=== PATIENT | female | born 1950 | race Caucasian/White ===

== ENCOUNTER 2022-02-01 08:11 | Outpatient (REF) | payer MEDICARE, OTHER, SELFPAY ==
[2022-02-01 11:23] LABS: MANUAL DIFF FLAG NO
[2022-02-01 11:31] LABS: Basophils Percent Auto 0.3 % (0-2); Eosinophils Absolute Auto 0.2 X10*3/uL (0.0-0.4); Eosinophils Percent Auto 2.8 % (0-4); Hematocrit 45.3 % (37.0-47.0); Hemoglobin 14.5 g/dl (12.0-16.0); Imm Gran Abs Auto 0.01 X10*3/uL (0.00-0.03); Imm Gran Pct Auto 0.2 % (0.0-0.4); Lymphocytes Absolute Auto 2.1 X10*3/uL (1.2-4.9); Lymphocytes Percent Auto 34.4 % (20-40); Mean Corpuscular Hemoglobin 30.5 pg (27.0-33.0); Mean Corpuscular Volume 95.4 fL (80.0-98.0); Mean Platelet Volume 10.4 fL (9.4-12.3); Monocytes Absolute Auto 0.4 X10*3/uL (0.1-1.2); Monocytes Percent Auto 6.7 % (2-11); Neutrophils Absolute Auto 3.4 x10*3/uL (2.0-8.3); Neutrophils Percent Auto 55.6 % (45-73); Platelet Count 248 X10*3/uL (160-400); Red Blood Count 4.75 X10*6/uL (4.20-5.50); Red Cell Distribution Width 13.5 % (11.0-16.0); White Blood Count 6.2 X10*3/uL (4.8-10.8)
[2022-02-01 11:56] LABS: Alanine Aminotransferase 36 U/L (0-31); Albumin Level 4.5 g/dL (3.5-5.0); Alkaline Phosphatase 106 U/L (39-117); Anion Gap 15 (12-20); Aspartate Amino Transferase 24 U/L (5-31); Bilirubin Total 0.6 mg/dL (0.0-1.0); Blood Urea Nitrogen 15 mg/dL (9-16); Calcium 8.9 mg/dL (8.4-10.2); Carbon Dioxide 25 mmol/L (22-29); Chloride 105 mmol/L (96-108); Cholesterol 212 mg/dL; Estimated Glomerular Filt Rate > 60; Glucose Fasting 98 mg/dL (60-99); HDL Cholesterol 48 mg/dL; LDL Cholesterol Calculated 135 mg/dl; Potassium 3.9 mmol/L (3.3-5.1); Sodium 141 mmol/L (135-145); Total Protein 6.9 g/dL (6.5-8.0); Triglycerides 148 mg/dL
[2022-02-01 12:18] LABS: TSH reflex Free T4 1.75 uIU/mL (0.32-4.0); Vitamin D 25-OH Total 33.7 ng/mL (>30)
== END 2022-02-01 08:12 | disposition home or self-care (01) ==
LOC: HO.HMGCLDS 08:11
PROVIDERS: PCP Internal Medicine; Visit Provider Internal Medicine
DX: E55.9 Vitamin D deficiency, unspecified (principal); E78.5 Hyperlipidemia, unspecified; I10 Essential (primary) hypertension; M85.80 Other specified disorders of bone density and structure, unspecified site
CPT/HCPCS: 36415; 80053; 80061; 82306; 84443; 85025

== ENCOUNTER 2023-01-19 06:07 | Outpatient (REF) | payer MEDICARE, OTHER, SELFPAY ==
[2023-01-19 11:18] LABS: MANUAL DIFF FLAG NO
[2023-01-19 11:44] LABS: Basophils Percent Auto 0.4 % (0-2); Eosinophils Absolute Auto 0.2 X10*3/uL (0.0-0.4); Eosinophils Percent Auto 2.7 % (0-4); Hematocrit 44.1 % (37.0-47.0); Hemoglobin 14.1 g/dl (12.0-16.0); Imm Gran Abs Auto 0.02 X10*3/uL (0.00-0.03); Imm Gran Pct Auto 0.3 % (0.0-0.4); Lymphocytes Absolute Auto 1.8 X10*3/uL (1.2-4.9); Lymphocytes Percent Auto 23.1 % (20-40); Mean Corpuscular Hemoglobin 30.8 pg (27.0-33.0); Mean Corpuscular Volume 96.3 fL (80.0-98.0); Mean Platelet Volume 10.6 fL (9.4-12.3); Monocytes Absolute Auto 0.6 X10*3/uL (0.1-1.2); Monocytes Percent Auto 7.6 % (2-11); Neutrophils Absolute Auto 5.2 x10*3/uL (2.0-8.3); Neutrophils Percent Auto 65.9 % (45-73); Platelet Count 252 X10*3/uL (160-400); Red Blood Count 4.58 X10*6/uL (4.20-5.50); Red Cell Distribution Width 13.2 % (11.0-16.0); White Blood Count 7.9 X10*3/uL (4.8-10.8)
[2023-01-19 12:12] LABS: Alanine Aminotransferase 22 U/L (0-31); Albumin Level 4.2 g/dL (3.5-5.0); Alkaline Phosphatase 103 U/L (39-117); Anion Gap 11 (12-20); Aspartate Amino Transferase 16 U/L (5-31); Bilirubin Total 0.9 mg/dL (0.0-1.0); Blood Urea Nitrogen 14 mg/dL (9-16); Calcium 9.5 mg/dL (8.4-10.2); Carbon Dioxide 27 mmol/L (22-29); Chloride 105 mmol/L (96-108); Cholesterol 213 mg/dL; Estimated Glomerular Filt Rate > 60; Glucose Fasting 105 mg/dL (60-99); HDL Cholesterol 44 mg/dL; LDL Cholesterol Calculated 134 mg/dl; Potassium 4.2 mmol/L (3.3-5.1); Sodium 139 mmol/L (135-145); Total Protein 6.7 g/dL (6.5-8.0); Triglycerides 175 mg/dL
[2023-01-19 12:31] LABS: TSH reflex Free T4 2.05 uIU/mL (0.32-4.0); Vitamin D 25-OH Total 38.9 ng/mL (>30)
== END 2023-01-19 06:08 | disposition home or self-care (01) ==
LOC: HO.HMGCLDS 06:07
PROVIDERS: PCP Internal Medicine; Visit Provider Internal Medicine
DX: E55.9 Vitamin D deficiency, unspecified (principal); I10 Essential (primary) hypertension; E78.5 Hyperlipidemia, unspecified
CPT/HCPCS: 36415; 80053; 80061; 82306; 84443; 85025

== ENCOUNTER 2023-03-07 11:43 | Outpatient (AMB) | payer MEDICARE, OTHER, SELFPAY ==
--- NOTE | 2023-03-07 12:15 | A.OFFPC_ITS ---
Vital Signs 03/07/23 12:17 Height 5 ft 2 in Weight 135 lb BMI 24.7 BP 122/80 Blood Pressure Location Lt brachial Position Sitting Pulse 76 Pulse Source Pulse Oximeter Pulse Oximetry (%) 97 Oxygen Delivery Method Room Air Intake Visit Reasons: 03/27/23 Cataract/Glaucoma Intake Note: Pt is here today for a pre op visit. Pt is having cataract/glaucoma surgery on 03/27/23. Allergies acetaminophen [From Percocet] Adverse Reaction (Verified 03/07/23 12:20) swollen face oxycodone [From Percocet] Adverse Reaction (Verified 03/07/23 12:20) swollen face Sulfa (Sulfonamide Antibiotics) Adverse Reaction (Verified 03/07/23 12:20) swollen face Tobacco use date assessed: 02/02/23 HPI 03/27/23 Cataract/Glaucoma HPI Details Pt presents for preop for cataract surgery. HTN is controlled on Losartan [facility] Surgical History History of breast lump removal Hx of tonsillectomy Family History Father No problems noted. Mother Hypertension Social History Household Members Other:: , retired Housing: House Patient Tobacco Use Status: Never used Tobacco e-Cigarette/Vaping Use: Never Used Current occupational status: retired Cognitive needs: No Hearing needs: No Vision needs: Yes Questionnaire Thrive Questionnaire Date Thrive assessed: 10/20/22 ENA-7 AMB Questionnaire ENA-7 Date ENA - 7 assessed: 02/02/23 Source: Developed by Drs. Brandon Vargas, Aied Sesay, Benedict Garnett and colleagues, with an educational gutierrez from [employer]. Review of Systems Const All systems reviewed & are unremarkable except as noted in HPI and below Reports no additional complaints Eyes Reports no additional complaints ENT Reports no additional complaints Card Reports no additional complaints Resp Reports no additional complaints GI Reports no additional complaints Reports no additional complaints Physical exam (Primary Care) Vital Signs: Last Vital Signs Pulse 76 03/07/23 12:17 BP 122/80 03/07/23 12:17 Pulse Ox 97 03/07/23 12:17 Oxygen Delivery Method Room Air 03/07/23 12:17 BMI result Body Mass Index 24.7 Tobacco/Smoking Status: Tobacco use Status Tobacco use date assessed 02/02/23 03/07/23 12:17 Patient Tobacco Use Status Never used Tobacco 03/07/23 12:17 e-Cigarette/Vaping Use Never Used 03/07/23 12:17 Thrive Assessment: Date of Thrive Assessment Date Thrive assessed 10/20/22 03/07/23 12:17 Const General: no acute distress HENMT Face and sinus: Yes normal facial exam Neck Neck: Yes no lymphadenopathy and Yes supple Resp Effort & Inspection: normal respiratory effort Auscultation: clear to auscultation bilaterally Cardio Rhythm: regular rhythm Heart sounds: S1 normal heart sound present and S2 normal heart sound present GI Inspection: Yes normal to inspection Palpation (GI): Soft to palpation Percussion: Yes normal to percussion Auscultation: normal bowel sounds Assessment and Plan Assessment & Plan (1) Tingling of both feet: Code(s): R20.2 - Paresthesia of skin Plan: CHECK VITAMIN B12 LEVEL (2) Cataract: Code(s): H26.9 - Unspecified cataract Plan: patient is medically cleared for cataract surgery (3) HTN (hypertension): Code(s): I10 - Essential (primary) hypertension Plan: continue losartan Orders: Orders Vitamin B12 and Folate Today R20.2 - Paresthesia of skin Coding Level of Care Code Est Pt Level 3 (32907) Diagnoses Tingling of both feet R20.2 Cataract H26.9 HTN (hypertension) I10
[2023-03-07 12:17] VITALS: BP 122/80; PULSE 76; O2SAT 97; BMI 24.7
== END 2023-03-07 13:17 | disposition home or self-care (01) ==
PROVIDERS: Visit Provider Internal Medicine
DX: R20.2 Paresthesia of skin (principal); H26.9 Unspecified cataract; I10 Essential (primary) hypertension
CPT/HCPCS: 99213

== ENCOUNTER 2023-03-07 13:03 | Outpatient (REF) | payer MEDICARE, OTHER, SELFPAY ==
[2023-03-07 17:38] LABS: Folate 14.6 ng/mL (> or = 4.0); Vitamin B12 545 pg/mL (200-900)
== END 2023-03-07 13:04 | disposition home or self-care (01) ==
LOC: HO.HMGCLDS 13:03
PROVIDERS: PCP Internal Medicine; Visit Provider Internal Medicine
DX: R20.2 Paresthesia of skin (principal)
CPT/HCPCS: 36415; 82607; 82746

== ENCOUNTER 2023-08-15 13:50 | Outpatient (AMB) | payer MEDICARE, OTHER, SELFPAY ==
--- NOTE | 2023-08-15 14:17 | MHC.PC.OV ---
Vital Signs 08/15/23 14:18 Height 5 ft 2 in Weight 135 lb BMI 24.7 BP 122/80 Blood Pressure Location Lt brachial Position Sitting Pulse 84 Pulse Source Pulse Oximeter Pulse Oximetry (%) 98 Oxygen Delivery Method Room Air Intake Visit Reasons: Voice Hoarseness 4 weeks Intake Note: Pt is here today for a sick visit. Pt c/o sore throat and voice hoarseness. Pt states that she also has frequent urination. Allergies acetaminophen [From Percocet] Adverse Reaction (Verified 08/15/23 14:21) swollen face oxycodone [From Percocet] Adverse Reaction (Verified 08/15/23 14:21) swollen face Sulfa (Sulfonamide Antibiotics) Adverse Reaction (Verified 08/15/23 14:21) swollen face Medication List - Last Reconciled 08/15/23 by Bibiana Laurent MD amoxicillin-pot clavulanate 875-125 mg 1 tab PO BID brimonidine 0.1% (Alphagan P) 0 drps ophthalmic (eye) dorzolamide-timolol 22.3-6.8 mg/mL 1 drp ophthalmic (eye) BID losartan 25 mg PO DAILY Tobacco use date assessed: 08/15/23 Fall risk assessment: No Falls in past year Last assessed Fall Risk: 08/15/23 Dental Screening Dental Screen Date: 08/15/23 Did you have a dental visit in the last 12 months?: Yes Did you have a dental problem in the last 6 months where you did not have access to dental care?: No Was dental information given to patient?: Patient has dentist HPI Voice Hoarseness 4 weeks HPI Details Pt presents c/o persistent sinus congestion and facial pain postnasal drip, intermittent cough, general fatigue and 3 days of dysuria and increased urinary frequency. Patient denies fever chills shortness of breath or pleurisy. [facility] Surgical History Hx of tonsillectomy History of breast lump removal Family History Father No problems noted. Mother Hypertension Social History Household Members Other:: , retired Housing: House Patient Tobacco Use Status: Never used Tobacco e-Cigarette/Vaping Use: Never Used Current occupational status: retired Cognitive needs: No Hearing needs: No Vision needs: Yes Questionnaire Thrive Questionnaire Date Thrive assessed: 10/20/22 AUDIT C Alcohol Use Questionnaire (AUDIT-C) 1. How often do you have a drink containing alcohol?: Monthly or less 2. How many drinks containing alcohol do you have on a typical day when you are drinking?: 1 or 2 3. How often do you have six or more drinks on one occasion?: Never Total Score: 1 ENA-7 AMB Questionnaire ENA-7 Date ENA - 7 assessed: 02/02/23 Source: Developed by Drs. Brandon Vargas, Aide Sesay, Benedict Garnett and colleagues, with an educational gutierrez from [employer]. Review of Systems Const All systems reviewed & are unremarkable except as noted in HPI and below Reports no additional complaints Eyes Reports no additional complaints ENT Reports no additional complaints Card Reports no additional complaints Resp Reports no additional complaints GI Reports no additional complaints Reports no additional complaints Physical exam (Primary Care) Vital Signs: Last Vital Signs Pulse 84 08/15/23 14:18 BP 122/80 08/15/23 14:18 Pulse Ox 98 08/15/23 14:18 Oxygen Delivery Method Room Air 08/15/23 14:18 BMI result Body Mass Index 24.7 Tobacco/Smoking Status: Tobacco use Status Tobacco use date assessed 08/15/23 08/15/23 14:22 Patient Tobacco Use Status Never used Tobacco 08/15/23 14:22 e-Cigarette/Vaping Use Never Used 08/15/23 14:22 Thrive Assessment: Date of Thrive Assessment Date Thrive assessed 10/20/22 08/15/23 14:22 Const General: no acute distress HENMT Ears: TM's normal bilaterally General nose exam: Abnormal mucous membranes and turbinates present erythematous and Nasal discharge present Face and sinus: Yes sinus tenderness Throat: Yes postnasal drainage Eyes General: appearance normal, both eyes and all related structures Neck Neck: Yes supple Resp Effort & Inspection: normal respiratory effort Auscultation: clear to auscultation bilaterally Cardio Rhythm: regular rhythm Heart sounds: S1 normal heart sound present and S2 normal heart sound present Results AMB Urinalysis, Automated UA Leukoctes 0 Meliton/uL Last Edit by FERNANDO Huitron on 08/15/23 14:33 UA Nitrite Positive Last Edit by Kiara Lerner, [facility] on 08/15/23 14:33 UA Urobilinogen 0.2 mg/dL Last Edit by Kiara Lerner, [facility] on 08/15/23 14:33 UA Protein 0 mg/dL Last Edit by Kiara Lerner, [facility] on 08/15/23 14:33 UA pH 6.0 Last Edit by Kiara Lerner, [facility] on 08/15/23 14:33 UA Blood 80 Vic/uL Last Edit by Kiara Lerner, [facility] on 08/15/23 14:33 2+ Kiara Lerner 08/15/23 14:33 UA Specific [place] 1.025 Last Edit by Kiara Lerner, [facility] on 08/15/23 14:33 UA Ketone Negative Last Edit by Kiara Lerner [facility] on 08/15/23 14:33 UA Bilirubin 0 mg/dL Last Edit by Kiara Lerner, [facility] on 08/15/23 14:33 UA Glucose 0 mg/dL Last Edit by Kiara Lerner [facility] on 08/15/23 14:33 Results Reviewed Results Reviewed: Laboratory Last Values Urine pH (Auto) 6.0 08/15/23 14:32 Specific [place] (Auto) 1.025 08/15/23 14:32 Urine Protein (Auto) 0 mg/dL 08/15/23 14:32 Glucose (UA)(Auto) 0 mg/dL 08/15/23 14:32 Urine Ketones (Auto) Negative 08/15/23 14:32 Urine Blood (Auto) 80 Vic/uL 08/15/23 14:32 Urine Nitrite (Auto) Positive 08/15/23 14:32 Urine Bilirubin (Auto) 0 mg/dL 08/15/23 14:32 Urine Urobilinogen (Auto) 0.2 mg/dL 08/15/23 14:32 Leukocyte Esterase (Auto) 0 Meliton/uL 08/15/23 14:32 Assessment and Plan Assessment & Plan (1) Sinusitis: Code(s): J32.9 - Chronic sinusitis, unspecified Plan: Augmentin is prescribed and supportive care in including using Flonase nasal spray discussed with the patient (2) Dysuria: Code(s): R30.0 - Dysuria Plan: Urine Dipstick is positive for nitrates and blood, Augmentin is prescribed and supportive care discussed Orders: Orders AMB Urinalysis Automated Today Z13.9 - Encounter for screening, unspecified Medications: New amoxicillin-pot clavulanate 875-125 mg 1 tab PO BID 14 tabs 0RF amoxicillin-pot clavulanate 875-125 mg 1 tab PO BID 14 tabs 0RF Coding Level of Care Code Est Pt Level 3 (83934) Diagnoses Sinusitis J32.9 Dysuria R30.0
[2023-08-15 14:18] VITALS: BP 122/80; PULSE 84; O2SAT 98; BMI 24.7
== END 2023-08-15 15:11 | disposition home or self-care (01) ==
PROVIDERS: PCP Internal Medicine; Visit Provider Internal Medicine
DX: J32.9 Chronic sinusitis, unspecified (principal); R30.0 Dysuria
CPT/HCPCS: 81003; 99213

== ENCOUNTER 2023-10-16 15:15 | Outpatient (AMB) | payer MEDICARE, OTHER, SELFPAY ==
[2023-10-16 15:24] VITALS: BP 132/86; PULSE 86; TEMP 36.7; O2SAT 96; BMI 24.9
--- NOTE | 2023-10-16 15:24 | MHC.OFFWIV ---
Intake Vital Signs 10/16/23 15:24 Height 5 ft 2 in Weight 136 lb 6 oz BMI 24.9 BP 132/86 Blood Pressure Location Lt brachial Position Sitting Pulse 86 Pulse Source Pulse Oximeter Temp 98.1 F Temp Source Oral Pulse Oximetry (%) 96 Oxygen Delivery Method Room Air Intake Visit Reasons: EST/diverticulitis flair up (lobby) Intake Note: Pt is here today for lower pain and abdominal, and states her diverticulitis is fairing up. Patient Tobacco Use Status: Never used Tobacco Allergies acetaminophen [From Percocet] Adverse Reaction (Verified 10/17/23 08:14) swollen face oxycodone [From Percocet] Adverse Reaction (Verified 10/17/23 08:14) swollen face Sulfa (Sulfonamide Antibiotics) Adverse Reaction (Verified 10/17/23 08:14) swollen face Medication List - Last Reconciled 10/17/23 by Valentin Jenkins MD amoxicillin-pot clavulanate 875-125 mg 1 tab PO BID dorzolamide-timolol 22.3-6.8 mg/mL 1 drp ophthalmic (eye) BID losartan 25 mg PO DAILY Do you need a note to return to daycare/school/sports/work: No HPI EST/diverticulitis flair up (lobby) HPI Details 73 yr old female presents to the office for a sick visit. Patient is reporting sx of lower abdominal pain in the left lower quadrant. Sx started a few days ago. She gives history of recurrent diverticulitis. She prefers to take Augmentin only, as this has helped in the past. Does not report sx of nausea or vomiting. No fevers or chills. [facility] Surgical History Hx of tonsillectomy History of breast lump removal Family History Father No problems noted. Mother Hypertension Social History Household Members Other:: , retired Housing: House Patient Tobacco Use Status: Never used Tobacco e-Cigarette/Vaping Use: Never Used Current occupational status: retired Cognitive needs: No Hearing needs: No Vision needs: Yes Physical Exam Vital Signs: Last Vital Signs Temp 98.1 F 10/16/23 15:24 Pulse 86 10/16/23 15:24 BP 132/86 10/16/23 15:24 Pulse Ox 96 10/16/23 15:24 Oxygen Delivery Method Room Air 10/16/23 15:24 BMI result Body Mass Index 24.9 Const General: cooperative and healthy appearing Nutritional Appearance: well nourished Orientation/consciousness: patient oriented x3 Limitations: no limitations HEENT Head: Yes normal to inspection Eyes General: appearance normal, both eyes and all related structures Neck Neck: Yes normal visual inspection Chest Chest palpation & inspection: normal palpation of entire chest wall Resp Effort & Inspection: normal respiratory effort GI Other: Abd: BS well heard in all quadrants. Tenderness in the right lower quadrant. No rebound tenderness. Neuro General: patient oriented x3 Results AMB Urinalysis, Automated UA Leukoctes Meliton/uL Last Edit by Morales Steward MA on 10/16/23 15:43 UA Nitrite Last Edit by Morales Steward MA on 10/16/23 15:43 UA Urobilinogen 0.2 mg/dL Last Edit by Morales Steward MA on 10/16/23 15:43 UA Protein mg/dL Last Edit by Morales Steward MA on 10/16/23 15:43 UA pH 6.0 Last Edit by Morales Steward MA on 10/16/23 15:43 UA Blood 25 Vic/uL Last Edit by Morales Steward MA on 10/16/23 15:43 UA Specific [place] 1.020 Last Edit by Morales Steward MA on 10/16/23 15:43 UA Ketone Last Edit by Morales Steward MA on 10/16/23 15:43 UA Bilirubin mg/dL Last Edit by Morales Steward MA on 10/16/23 15:43 UA Glucose mg/dL Last Edit by Morales Steward MA on 10/16/23 15:43 Results Reviewed Results Reviewed: Laboratory Last Values Urine pH (Auto) 6.0 10/16/23 15:42 Specific [place] (Auto) 1.020 10/16/23 15:42 Urine Blood (Auto) 25 Vic/uL 10/16/23 15:42 Urine Urobilinogen (Auto) 0.2 mg/dL 10/16/23 15:42 Assessment & Plan Assessment & Plan (1) Diverticulitis: Comment: one episode in 2021 Code(s): K57.92 - Diverticulitis of intestine, part unspecified, without perforation or abscess without bleeding Plan: Abx started. Advised to take clear fluids. If pain sx worsen, to proceed to the ER and may need IV abx. Medications: Refilled amoxicillin-pot clavulanate 875-125 mg 1 tab PO BID 14 tabs 0RF Coding Level of Care Code Est Pt Level 4 (05670) Diagnoses Diverticulitis K57.92
== END 2023-10-16 16:21 | disposition home or self-care (01) ==
PROVIDERS: PCP Internal Medicine; Visit Provider Internal Medicine
DX: K57.92 Diverticulitis of intestine, part unspecified, without perforation or abscess without bleeding (principal)
CPT/HCPCS: 99214

== ENCOUNTER 2023-10-22 08:32 | Outpatient (AMB) | payer MEDICARE, OTHER, SELFPAY ==
--- NOTE | 2023-10-22 08:45 | A.OFFPC_ITS ---
Vital Signs 10/22/23 08:46 Height 5 ft 2 in Weight 134 lb BMI 24.5 BP 126/80 Blood Pressure Location Lt brachial Position Sitting Pulse 93 Pulse Source Pulse Oximeter Pulse Oximetry (%) 95 Oxygen Delivery Method Room Air Intake Visit Reasons: UTI follow up Intake Note: Pt is here today for a follow up visit. Allergies acetaminophen [From Percocet] Adverse Reaction (Verified 10/22/23 08:48) swollen face oxycodone [From Percocet] Adverse Reaction (Verified 10/22/23 08:48) swollen face Sulfa (Sulfonamide Antibiotics) Adverse Reaction (Verified 10/22/23 08:48) swollen face Medication List - Last Reconciled 10/22/23 by Bibiana Laurent MD amoxicillin-pot clavulanate 875-125 mg 1 tab PO BID dorzolamide-timolol 22.3-6.8 mg/mL 1 drp ophthalmic (eye) BID losartan 25 mg PO DAILY Tobacco use date assessed: 10/22/23 Dental Screening Dental Screen Date: 10/22/23 Did you have a dental visit in the last 12 months?: Yes Did you have a dental problem in the last 6 months where you did not have access to dental care?: No Was dental information given to patient?: Patient has dentist HPI UTI follow up HPI Details Patient presents for the follow-up of walk in visit for recurrent left lower quadrant abdominal and flank pain. Urinalysis showed hematuria and the patient was prescribed Augmentin for 7 days for possible diverticulitis. Diana ent reports having episodes at least once a year of left lower quadrant abdominal pain with the change in shape in her stool becoming more pencil like. She denies hematochezia melena nausea vomiting fever chills. Patient also reports intermittent left flank pain and left lower back pain occasionally related to position change. Patient denies hematuria dysuria but did not have renal imaging lately. Patient's last colonoscopy was about 10 years ago at [facility] Surgical History Hx of tonsillectomy History of breast lump removal Family History Father No problems noted. Mother Hypertension Social History Household Members Other:: , retired Housing: House Patient Tobacco Use Status: Never used Tobacco e-Cigarette/Vaping Use: Never Used Current occupational status: retired Cognitive needs: No Hearing needs: No Vision needs: Yes Questionnaire Thrive Questionnaire Date Thrive assessed: 10/20/22 ENA-7 AMB Questionnaire ENA-7 Date ENA - 7 assessed: 02/02/23 Source: Developed by Drs. Brandon Vargas, Aide Sesay, Benedict Garnett and colleagues, with an educational gutierrez from [employer]. Review of Systems Const All systems reviewed & are unremarkable except as noted in HPI and below Reports no additional complaints Eyes Reports no additional complaints ENT Reports no additional complaints Card Reports no additional complaints Resp Reports no additional complaints GI Reports no additional complaints Reports no additional complaints Physical exam (Primary Care) Vital Signs: Last Vital Signs Pulse 93 10/22/23 08:46 BP 126/80 10/22/23 08:46 Pulse Ox 95 10/22/23 08:46 Oxygen Delivery Method Room Air 10/22/23 08:46 BMI result Body Mass Index 24.5 Tobacco/Smoking Status: Tobacco use Status Tobacco use date assessed 10/22/23 10/22/23 08:50 Patient Tobacco Use Status Never used Tobacco 10/22/23 08:50 e-Cigarette/Vaping Use Never Used 10/22/23 08:50 Thrive Assessment: Date of Thrive Assessment Date Thrive assessed 10/20/22 10/22/23 08:50 Const General: no acute distress HENMT Head: Yes normal to inspection Eyes General: appearance normal, both eyes and all related structures Resp Effort & Inspection: normal respiratory effort Auscultation: clear to auscultation bilaterally Cardio Rhythm: regular rhythm Heart sounds: S1 normal heart sound present and S2 normal heart sound present GI Inspection: Yes normal to inspection Palpation (GI): Soft to palpation, Tenderness to palpation present (GI) in the LLQ and No Rebound tenderness present Percussion: Yes normal to percussion Auscultation: normal bowel sounds General: Yes CVA tenderness on the left Back/Spine/Pelvis Other: Paraspinal tenderness in lower lumbar region left more than right, straight leg rising 90 degrees bilaterally Back: CVA tenderness Results AMB Urinalysis, Automated UA Leukoctes 0 Meliton/uL Last Edit by FERNANDO Huitron on 10/22/23 09:11 UA Nitrite Negative Last Edit by Kiara Lerner Molly on 10/22/23 09:11 UA Urobilinogen 0.2 mg/dL Last Edit by Kiara Lerner Molly on 10/22/23 09: 11 UA Protein 15 mg/dL Last Edit by Kiara Lerner [facility] on 10/22/23 09:11 UA pH 6.0 Last Edit by Kiara Lerner [facility] on 10/22/23 09:11 UA Blood 10 Vic/uL Last Edit by Kiara Lerner [facility] on 10/22/23 09:11 UA Specific [place] 1.025 Last Edit by Kiara Lerner Molly on 10/22/23 09 :11 UA Ketone Negative Last Edit by Kiara Lerner Molly on 10/22/23 09:11 UA Bilirubin 0 mg/dL Last Edit by Kiara Lerner [facility] on 10/22/23 09:11 UA Glucose 0 mg/dL Last Edit by Kiara Lerner [facility] on 10/22/23 09:11 Results Reviewed Results Reviewed: Laboratory Last Values Urine pH (Auto) 6.0 10/22/23 09:10 Specific [place] (Auto) 1.025 10/22/23 09:10 Urine Protein (Auto) 15 mg/dL 10/22/23 09:10 Glucose (UA)(Auto) 0 mg/dL 10/22/23 09:10 Urine Ketones (Auto) Negative 10/22/23 09:10 Urine Blood (Auto) 10 Vic/uL 10/22/23 09:10 Urine Nitrite (Auto) Negative 10/22/23 09:10 Urine Bilirubin (Auto) 0 mg/dL 10/22/23 09:10 Urine Urobilinogen (Auto) 0.2 mg/dL 10/22/23 09:10 Leukocyte Esterase (Auto) 0 Meliton/uL 10/22/23 09:10 Assessment and Plan Assessment & Plan (1) Diverticulitis: Code(s): K57.92 - Diverticulitis of intestine, part unspecified, without perforation or abscess without bleeding Plan: Obtain CT of the abdomen and pelvis to evaluate for question of recurrent diverticulitis and nephrolithiasis for microscopic hematuria. Because of persistent tenderness in left lower quadrant 4 more days of Augmentin as prescribed. Patient will be referred to GI for colonoscopy (2) Left flank pain: Code(s): R10.9 - Unspecified abdominal pain Plan: For recurrent left flank pain and microscopic hematuria obtain CT the abdomen pelvis to evaluate for nephrolithiasis (3) Dysuria: Code(s): R30.0 - Dysuria Plan: Obtain urine culture (4) Lower back pain: Code(s): M54.50 - Low back pain, unspecified Plan: For chronic lower back pain check x-ray of lumbar spine and referred to physical therapy, try baclofen p.r.n. Orders: Orders Complete Blood Count Auto Diff Today R10.9 - Unspecified abdominal pain, R30.0 - Dysuria Comprehensive Met. Panel Today R10.9 - Unspecified abdominal pain, R30.0 - Dysuria Urine Culture Today R10.9 - Unspecified abdominal pain, R30.0 - Dysuria PT Evaluation and Treatment Today M54.50 - Low back pain, unspecified AMB Urinalysis Automated Today Z13.9 - Encounter for screening, unspecified CT abdomen pelvis wo/w IV con Today K57.92 - Diverticulitis of intestine, part unspecified, without perforation or abscess without bleeding, R31.9 - Hematuria, unspecified XR lumbar spine 2-3V Today R10.9 - Unspecified abdominal pain, R30.0 - Dysuria XR KUB Today R10.9 - Unspecified abdominal pain, R30.0 - Dysuria Referrals Gastroenterology Referral K57.92 - Diverticulitis of intestine, part unspecified, without perforation or abscess without bleeding, Z00.00 - Encounter for general adult medical examination without abnormal findings Medications: New baclofen 10 mg PO BEDTIME 10 tabs 0RF Refilled amoxicillin-pot clavulanate 875-125 mg 1 tab PO BID 8 tabs 0RF Coding Level of Care Code Est Pt Level 4 (78928) Diagnoses Diverticulitis K57.92 Left flank pain R10.9 Dysuria R30.0 Lower back pain M54.50
[2023-10-22 08:46] VITALS: BP 126/80; PULSE 93; O2SAT 95; BMI 24.5
== END 2023-10-22 11:36 | disposition home or self-care (01) ==
PROVIDERS: PCP Internal Medicine; Visit Provider Internal Medicine
DX: K57.92 Diverticulitis of intestine, part unspecified, without perforation or abscess without bleeding (principal); R10.9 Unspecified abdominal pain; R30.0 Dysuria; M54.50 Low back pain, unspecified
CPT/HCPCS: 81003; 99214

== ENCOUNTER 2023-10-22 09:33 | Outpatient (REF) | payer MEDICARE, OTHER, SELFPAY ==
--- NOTE | ~2023-10-22 | XR_ITS ---
EXAMINATION: XR LUMBAR SPINE, KUB CLINICAL INFORMATION: Back pain, unspecified abdominal pain. COMPARISON: None available. TECHNIQUE: 3 views of the lumbar spine. 2 views of the abdomen. FINDINGS: LUMBAR SPINE: The bones are diffusely demineralized. Moderate degenerative changes in the bilateral sacroiliac joints. Atherosclerotic aortoiliac calcifications. Degenerative changes in the imaged lower thoracic spine. Moderate multilevel lumbar spondylosis. Facet arthritis with possible spondylolysis at L5-S1. ABDOMEN: Moderate amount of stool in the colon. Nonobstructive bowel gas pattern. Clips project over the right superior pubic ramus. Large rounded device overlies the lower central pelvis. No definitive radiopaque renal calculi are appreciated, although evaluation of the kidneys is limited due to overlying bowel. XR/XR KUB IMPRESSION: 1. Moderate multilevel lumbar spondylosis. Facet arthritis with possible spondylolysis at L5-S1. 2. Moderate degenerative changes in the bilateral sacroiliac joints. 3. Nonobstructive bowel gas pattern.
--- NOTE | ~2023-10-22 | XR_ITS ---
EXAMINATION: XR LUMBAR SPINE, KUB CLINICAL INFORMATION: Back pain, unspecified abdominal pain. COMPARISON: None available. TECHNIQUE: 3 views of the lumbar spine. 2 views of the abdomen. FINDINGS: LUMBAR SPINE: The bones are diffusely demineralized. Moderate degenerative changes in the bilateral sacroiliac joints. Atherosclerotic aortoiliac calcifications. Degenerative changes in the imaged lower thoracic spine. Moderate multilevel lumbar spondylosis. Facet arthritis with possible spondylolysis at L5-S1. ABDOMEN: Moderate amount of stool in the colon. Nonobstructive bowel gas pattern. Clips project over the right superior pubic ramus. Large rounded device overlies the lower central pelvis. No definitive radiopaque renal calculi are appreciated, although evaluation of the kidneys is limited due to overlying bowel. XR/XR lumbar spine 2-3V IMPRESSION: 1. Moderate multilevel lumbar spondylosis. Facet arthritis with possible spondylolysis at L5-S1. 2. Moderate degenerative changes in the bilateral sacroiliac joints. 3. Nonobstructive bowel gas pattern.
[2023-10-22 11:21] LABS: MANUAL DIFF FLAG NO
[2023-10-22 11:46] LABS: Basophils Percent Auto 0.7 % (0-2); Eosinophils Absolute Auto 0.1 X10*3/uL (0.0-0.4); Eosinophils Percent Auto 1.8 % (0-4); Hematocrit 42.9 % (37.0-47.0); Imm Gran Abs Auto 0.01 X10*3/uL (0.00-0.03); Imm Gran Pct Auto 0.2 % (0.0-0.4); Lymphocytes Absolute Auto 1.8 X10*3/uL (1.2-4.9); Mean Corpuscular HGB Conc 32.6 g/dl (31.0-35.0); Mean Corpuscular Hemoglobin 31.3 pg (27.0-33.0); Mean Corpuscular Volume 95.8 fL (80.0-98.0); Mean Platelet Volume 10.4 fL (9.4-12.3); Monocytes Absolute Auto 0.5 X10*3/uL (0.1-1.2); Monocytes Percent Auto 8.2 % (2-11); Neutrophils Absolute Auto 3.7 x10*3/uL (2.0-8.3); Neutrophils Percent Auto 60.1 % (45-73); Platelet Count 271 X10*3/uL (160-400); Red Blood Count 4.48 X10*6/uL (4.20-5.50); Red Cell Distribution Width 12.2 % (11.0-16.0); White Blood Count 6.1 X10*3/uL (4.8-10.8)
[2023-10-22 12:52] LABS: Alanine Aminotransferase 21 U/L (0-31); Albumin Level 4.2 g/dL (3.5-5.0); Alkaline Phosphatase 91 U/L (39-117); Anion Gap 11 (12-20); Aspartate Amino Transferase 16 U/L (5-31); Bilirubin Total 0.5 mg/dL (0.0-1.0); Blood Urea Nitrogen 23 mg/dL (9-16); Calcium 9.7 mg/dL (8.4-10.2); Carbon Dioxide 27 mmol/L (22-29); Chloride 108 mmol/L (96-108); Estimated Glomerular Filt Rate > 60; Glucose Random 95 mg/dL (60-115); Potassium 4.1 mmol/L (3.3-5.1); Sodium 142 mmol/L (135-145); Total Protein 7.3 g/dL (6.5-8.0)
== END 2023-10-22 09:34 | disposition home or self-care (01) ==
LOC: HO.HMGCX 09:33
PROVIDERS: PCP Internal Medicine; Visit Provider Internal Medicine
DX: R10.9 Unspecified abdominal pain (principal); R30.0 Dysuria
CPT/HCPCS: 36415; 72100; 74018; 80053; 85025

== ENCOUNTER 2023-10-24 09:57 | Outpatient (REF) | payer MEDICARE, OTHER, SELFPAY ==
--- NOTE | ~2023-10-24 | CT_ITS ---
EXAMINATION: CT ABDOMEN AND PELVIS WITHOUT AND WITH CONTRAST CLINICAL INFORMATION: Hematuria COMPARISON: KUB 10/22/2023 TECHNIQUE: Multidetector volumetric imaging was performed of the abdomen and pelvis before and after the IV administration of 85 mL of Omnipaque 300 intravenous contrast. Sagittal and coronal reformatted images were obtained on the technologist's workstation. This CT examination was performed using dose optimization techniques as appropriate, variously including the following: *Automated exposure control *Adjustment of mA and/or kV according to patient size (this includes techniques or standardized protocols for targeted exams where dose is matched to indication/reason for exam; i.e. extremities or head) *Use of iterative reconstruction technique DLP: 477 mGy-cm FINDINGS: LUNG BASES: Minimal atelectatic changes or scarring left lung base. LIVER, GALLBLADDER, AND BILIARY TREE: The liver is normal in size, shape, and attenuation. No focal hepatic lesion or biliary ductal dilatation is present. The gallbladder is unremarkable with no evidence of radiopaque gallstones, gallbladder wall thickening, or obvious pericholecystic inflammatory changes. PANCREAS: Unremarkable SPLEEN: Unremarkable ADRENAL GLANDS: Unremarkable KIDNEYS AND URETERS: The kidneys are normal in size, shape, and attenuation. There is a 5 mm obstructive radiopaque calculi left UPJ with mild hydronephrosis. There is a 2 mm radiopaque calculi left distal ureter.. Postcontrast there is normal bilateral cortical nephrograms with normal thickness. Left kidney measures 11.4 cm in length and right kidney measures 10.2 cm in length. There are bilateral parapelvic renal cysts. Its delayed excretion of left kidney secondary to obstructive UPJ stone. The right ureter is partially opacified postcontrast and appears normal caliber. The left ureter inferior to UPJ is not opacified but appears to be normal caliber. No perirectal fat stranding seen. BLADDER: The bladder is nondistended and appears unremarkable. GASTROINTESTINAL TRACT: There is scattered stool and diverticuli seen in the colon without distention. The small bowel loops are normal caliber. Appendix is normal caliber. No obstruction, inflammatory process of free air seen. ABDOMINAL WALL: A small umbilical hernia containing fat is noted. LYMPH NODES: Normal VASCULAR: Unremarkable PELVIC VISCERA: There is a vaginal/cervical ring shaped pessary. No free fluid. The uterus is anteverted. No adnexal mass seen. No abnormal size pelvic lymph nodes seen. OSSEOUS STRUCTURES: No aggressive lytic or sclerotic process seen CT/CT abdomen pelvis wo/w IV con IMPRESSION: 1. 5 mm obstructive radiopaque calculi left UPJ with mild hydronephrosis. There is a 2 mm radiopaque calculi left distal ureter. 2. There are bilateral parapelvic renal cysts. 3. Scattered colonic diverticulosis without diverticulitis. 4. Incidental vaginal/cervical round pessary noted. Fleischner guidelines were followed.
[2023-10-24] MEDS: iohexoL 350 MG/ML 100 ML INFUS..BTL 85 ML IV (11:24)
== END 2023-10-24 09:58 | disposition home or self-care (01) ==
LOC: HO.CT 09:57
PROVIDERS: PCP Internal Medicine; Visit Provider Internal Medicine
DX: R31.9 Hematuria, unspecified (principal); K57.92 Diverticulitis of intestine, part unspecified, without perforation or abscess without bleeding; R10.9 Unspecified abdominal pain; R30.0 Dysuria
CPT/HCPCS: 74178; 87086; Q9967

== ENCOUNTER 2023-11-09 10:09 | Outpatient (AMB) | payer MEDICARE, OTHER, SELFPAY ==
--- OUTSIDE RECORDS SUMMARY | 2023-11-09 10:11 | XMS_ITS | Continuity of Care Document ---
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 Role Phone Rachel SMITH, Matty Primary Care Physician [phone] Encounter [facility] Date(s): 10/14/21 - 10/14/[address] [address]- Discharge Disposition: A-D/C Home Attending Physician: Basilia Nuñez MD Admitting Physician: Basilia Nuñez MD Referring Physician: Not on Staff, Referring MD Allergies, Adverse Reactions, Alerts Substance Reaction Severity Status sulfa drugs Active Percocet 5/325 Active Medications Alphagan Ophthalmic Solution Eyes, Both, Every 8 hours, 0 Refills, Maintenance, 10/14/21 17:48:00 EST, Partial fill upon patientrequest if the prescription is for a schedule II opioid drug. Start Date: 10/14/21 Status: Ordered Augmentin 875 mg-125 mg oral tablet 1 tablet, By Mouth, Every 8 hours, for 7 days, # 21 tablet, 0 Refills, Acute 10/21/21 19:21:00 EST,10/14/21 19:21:00 EST, Tablet, [facility]/pharmacy #[id number], Partial fill upon patient request if the prescription is for a schedule II opioid drug., 158, cm, 03... Start Date: 10/14/21 Stop Date: 10/21/21 Status: Ordered Cosopt Eyes, Both, 2 times a day, 0 Refills, Maintenance, 10/14/21 17:48:00 EST, Partial fill upon patientrequest if the prescription is for a schedule II opioid drug. Start Date: 10/14/21 Status: Ordered Ketorolac Inj 15 mg, Injection, IV Push Slowly, Once, STAT, 10/14/21 17:52:00 EST, Stop date 10/14/21 17:52:00 EST Start Date: 10/14/21 Stop Date: 10/14/21 Status: Completed Losartan By Mouth, Daily, 0 Refills, Maintenance, 10/14/21 17:32:00 EST, Partial fill upon patient request if the prescription is for a schedule II opioid drug. Start Date: 10/14/21 Status: Ordered Vital Signs Most recent to oldest [Reference Range]: 1 2 3 Height 158 cm (10/14/21 7:35 PM) 158 cm (10/14/21 5:31 PM) 158 cm (10/14/21 5:29 PM) Weight 64.2 kg (10/14/21 7:35 PM) 64.2 kg (10/14/21 5:31 PM) 64.2 kg (10/14/21:29 PM) Oxygen Saturation [94-100 %] 98 % (10/14/21 7:35 PM) 97 % (10/14/21 5:29 PM) Pulse Rate [55-90 bpm] 86 bpm (10/14/21 7:35 PM) 103 bpm *H* (10/14/21 5:29 PM) Body Mass Index [18.5-24.99] 25.72 *H* (10/14/21 7:35 PM) 25.72 *H* (10/14/21 5:29 PM) Blood Pressure [90-138/55-84 mm Hg] 126/76mm Hg (10/14/21 7:35 PM) 176/80mm Hg *H* (10/14/21 5:29 PM) Respiratory Rate [16-30 br/min] 20 br/min (10/14/21 7:35 PM) 20 br/min (10/14/21 6:45 PM) 17 br/min (10/14/21 5:29 PM) Temperature [96.8-100.4 DegF] 99.5 DegF (10/14/21 5:29 PM) Mode of Delivery (Oxygen) Room air (10/14/21 7:35 PM) Room air (10/14/21 5:29 PM) Blood pressure sites Arm, right (10/14/21 5:29 PM) Temperature Route Temporal (10/14/21 5:29 PM) Dry Weight 64.2 kg (10/14/21 7:35 PM) 64.2 kg (10/14/21 5:31 PM) 64.2 kg (10/14/21 5:29 PM) Weight Obtained Via Standing scale (10/14/21 5:29 PM) Dry Weight Obtained Via Standing scale (10/14/21 5:29 PM)
[2023-11-09 10:22] VITALS: BP 120/76; PULSE 95; TEMP 36.6; O2SAT 96; BMI 24.3
--- NOTE | 2023-11-09 10:22 | AM.OFFWIN_ITS ---
Intake Vital Signs 11/09/23 10:22 Height 5 ft 2 in Weight 133 lb BMI 24.3 BP 120/76 Blood Pressure Location Lt brachial Position Sitting Pulse 95 Pulse Source Pulse Oximeter Temp 97.9 F Temp Source Temporal Artery Scan Pulse Oximetry (%) 96 Oxygen Delivery Method Room Air Intake Visit Reasons: EP Nausea, Fever Intake Note: pt is here today for nausea fever started 2 days ago Patient Tobacco Use Status: Never used Tobacco Allergies acetaminophen [From Percocet] Adverse Reaction (Verified 11/09/23 10:27) swollen face oxycodone [From Percocet] Adverse Reaction (Verified 11/09/23 10:27) swollen face Sulfa (Sulfonamide Antibiotics) Adverse Reaction (Verified 11/09/23 10:27) swollen face Do you need a note to return to daycare/school/sports/work: No HPI HPI Comments History of Present Illness Details 73 y/o female patient who [facility] clinic with c/o Nausea and fever (low grade) since yesterday. Pt has h/o Kidney stones and currently being managed by Urology. [facility] Surgical History Hx of tonsillectomy History of breast lump removal Family History Father No problems noted. Mother Hypertension Social History Household Members Other:: , retired Housing: House Patient Tobacco Use Status: Never used Tobacco e-Cigarette/Vaping Use: Never Used Current occupational status: retired Cognitive needs: No Hearing needs: No Vision needs: Yes Physical Exam Vital Signs: Last Vital Signs Temp 97.9 F 11/09/23 10:22 Pulse 95 11/09/23 10:22 BP 120/76 11/09/23 10:22 Pulse Ox 96 11/09/23 10:22 Oxygen Delivery Method Room Air 11/09/23 10:22 BMI result Body Mass Index 24.3 Const General: comfortable and no acute distress Orientation/consciousness: patient oriented x3 General: Yes CVA tenderness bilateral Back/Spine/Pelvis Back: CVA tenderness Neuro General: patient oriented x3, gait normal and moves all extremities Psych Speech and movement: Normal speech and movement present Affect: normal affect Results AMB Urinalysis, Automated UA Leukoctes 70 Meliton/uL Last Edit by Hardeep Barr on 11/09/23 10:53 UA Nitrite Negative Last Edit by Hardeep Barr on 11/09/23 10:53 UA Urobilinogen 0.2 mg/dL Last Edit by Hardeep Barr on 11/09/23 10:53 UA Protein 100 mg/dL Last Edit by Hardeep Barr on 11/09/23 10:53 UA pH 6.0 Last Edit by Hardeep Barr on 11/09/23 10:53 UA Blood 200 Vic/uL Last Edit by Hardeep Barr on 11/09/23 10:53 UA Specific [place] 1.025 Last Edit by Hardeep Barr on 11/09/23 10:53 UA Ketone Positive Last Edit by Hardeep Barr on 11/09/23 10:53 UA Bilirubin 0 mg/dL Last Edit by Hardeep Barr on 11/09/23 10:53 UA Glucose 0 mg/dL Last Edit by Hardeep Barr on 11/09/23 10:53 Assessment & Plan Assessment & Plan (1) Cystitis: Code(s): N30.90 - Cystitis, unspecified without hematuria Plan: - Hydrate with plenty of water - Take medications as prescribed. - F/U with your Urologist as scheduled. Plan - Hydrate with plenty of water - Take medications as prescribed. - F/U with your Urologist as scheduled. Medications: New nitrofurantoin monohyd/m-cryst 100 mg (Macrobid) must administer with a meal/food 100 mg PO Q12H 7 days 14 caps 0RF urinary infection N30.90 - Cystitis, unspecified without hematuria Coding Level of Care Code Est Pt Level 3 (42673) Diagnoses Cystitis N30.90 Time Spent (min) 15
== END 2023-11-09 11:06 | disposition home or self-care (01) ==
PROVIDERS: PCP Internal Medicine; Visit Provider Nurse Practitioner Family
DX: N30.90 Cystitis, unspecified without hematuria (principal)
CPT/HCPCS: 99213

== ENCOUNTER 2023-11-13 12:51 | Outpatient (AMB) | payer MEDICARE, OTHER, SELFPAY ==
--- NOTE | 2023-11-13 13:04 | MHC.OFFVIS ---
Intake Intake Visit Reasons: obstructing stone w/mild hydronephrosis Intake Note: NEW Patient presents today to established treatment for: Obstructing stone/w. mild hydronephrosis Meds- Tamsulosin Allergies to Antibiotic- Sulfa Blood Thinner- None Patient stated she finished the last dose of Prednisone today. Event Specialist Required: No Accompanied by: Self / Same As Patient Allergies acetaminophen [From Percocet] Adverse Reaction (Verified 11/13/23 13:42) swollen face oxycodone [From Percocet] Adverse Reaction (Verified 11/13/23 13:42) swollen face Sulfa (Sulfonamide Antibiotics) Adverse Reaction (Verified 11/13/23 13:42) swollen face Medication List - Last Reconciled 11/13/23 by ALICE Hercules-LAMAR dorzolamide-timolol 22.3-6.8 mg/mL 1 drp ophthalmic (eye) BID losartan 25 mg PO DAILY nitrofurantoin monohyd/m-cryst 100 mg (Macrobid) 100 mg PO Q12H 7 days tamsulosin 0.4 mg PO DAILY 14 days HPI HPI Comments History of Present Illness Details Sharon is a very pleasant 73-year-old female patient of Dr. Laurent. She has a past medical history of hypertension. She presents to the office today as a new patient for nephrolithiasis. In discussion with the patient today she reports having experienced left sided flank pain approximately 1 month ago with lower urinary tract symptoms at which time she made appointment with her PCP and a CT was ordered for further assessment evaluation. These results were reviewed with the patient today. 5 mm obstructive radiopaque calculi in the left UPJ with mild hydronephrosis. There is a 2 mm stone in the left distal ureter. There are bilateral peripelvic renal cysts. She reports having then followed up with her PCP last week as she had been experiencing worsening lower urinary tract symptoms and was found to have a urinary tract infection and has since been on Macrobid. She reports pain has somewhat subsided however does continue with intermittent lower urinary tract symptoms. In office urinalysis results reviewed with the patient today. She otherwise denies incontinence, nocturia, hematuria, dysuria, foul smelling urine, changes to urinary stream, fever, and or chills. She is happy with her current voiding parameters. She denies any previous surgical history and or history of nephrolithiasis. Discussed at length potential causes of nephrolithiasis as well as further treatment options for potential obstruction. She discusses her upcoming trip on a cruise the beginning of December. She otherwise offers no other issues or concerns at time. [facility] Surgical History Hx of tonsillectomy History of breast lump removal Family History Father No problems noted. Mother Hypertension Social History Household Members Other:: , retired Housing: House Patient Tobacco Use Status: Never used Tobacco e-Cigarette/Vaping Use: Never Used Current occupational status: retired Cognitive needs: No Hearing needs: No Vision needs: Yes Review of Systems Const All systems reviewed & are unremarkable except as noted in HPI and below Physical Exam Const General: cooperative, healthy appearing, comfortable, no acute distress, well developed, alert and awake Orientation/consciousness: patient oriented x3 Limitations: no limitations HEENT Head: Yes normal to inspection, Yes normocephalic and Yes atraumatic Ears: hearing grossly normal bilaterally Eyes General: appearance normal, both eyes and all related structures Neck Neck: Yes normal visual inspection and Yes trachea midline Chest Chest palpation & inspection: normal inspection of the chest Resp Effort & Inspection: normal respiratory effort and able to speak in complete sentences Cardio Rate: regular rate GI Inspection: Yes normal to inspection General: Yes no CVA tenderness Back/Spine/Pelvis Back: no CVA tenderness Skin General skin exam: no rashes or lesions noted Neuro General: patient oriented x3 Extrem General: Yes normal to inspection Psych Appearance: grossly normal and well kempt Mental Status: mental status grossly normal Speech and movement: Normal speech and movement present and Clear speech present Affect: normal affect Attitude: cooperative Thought process: Normal thought process present Thought content: Normal thought content present Insight: Fair insight present (Psych) Judgement: Fair judgement present (Psych) Results AMB Urinalysis, Automated UA Leukoctes 0 Meliton/uL Last Edit by Gloria Elias CMA on 11/13/23 13:16 UA Nitrite Negative Last Edit by Gloria Elias CMA on 11/13/23 13:16 UA Urobilinogen 0.2 mg/dL Last Edit [facility], [facility] on 11/13/23 13:16 UA Protein 0 mg/dL Last Edit by [facility], [facility] on 11/13/23 13:16 UA pH 6.0 Last Edit by [facility], [facility] on 11/13/23 13:16 UA Blood 200 Vic/uL Last Edit by [facility], [facility] on 11/13/23 13:16 UA Specific [place] 1.015 Last Edit by [facility], [facility] on 11/13/23 13:16 UA Ketone Positive Last Edit by [facility], [facility] on 11/13/23 13:16 UA Bilirubin 0 mg/dL Last Edit by [facility], [facility] on 11/13/23 13:16 UA Glucose 0 mg/dL Last Edit by [facility], [facility] on 11/13/23 13:16 Results Reviewed Results Reviewed: Laboratory Last Values Urine pH (Auto) 6.0 11/13/23 13:11 Specific [place] (Auto) 1.015 11/13/23 13:11 Urine Protein (Auto) 0 mg/dL 11/13/23 13:11 Glucose (UA)(Auto) 0 mg/dL 11/13/23 13:11 Urine Ketones (Auto) Positive 11/13/23 13:11 Urine Blood (Auto) 200 Vic/uL 11/13/23 13:11 Urine Nitrite (Auto) Negative 11/13/23 13:11 Urine Bilirubin (Auto) 0 mg/dL 11/13/23 13:11 Urine Urobilinogen (Auto) 0.2 mg/dL 11/13/23 13:11 Leukocyte Esterase (Auto) 0 Meliton/uL 11/13/23 13:11 Date of Service: 10/24/23 EXAMINATION: CT ABDOMEN AND PELVIS WITHOUT AND WITH CONTRAST FINDINGS: LUNG BASES: Minimal atelectatic changes or scarring left lung base. LIVER, GALLBLADDER, AND BILIARY TREE: The liver is normal in size, shape, and attenuation. No focal hepatic lesion or biliary ductal dilatation is present. The gallbladder is unremarkable with no evidence of radiopaque gallstones, gallbladder wall thickening, or obvious pericholecystic inflammatory changes. PANCREAS: Unremarkable SPLEEN: Unremarkable ADRENAL GLANDS: Unremarkable KIDNEYS AND URETERS: The kidneys are normal in size, shape, and attenuation. There is a 5 mm obstructive radiopaque calculi left UPJ with mild hydronephrosis. There is a 2 mm radiopaque calculi left distal ureter.. Postcontrast there is normal bilateral cortical nephrograms with normal thickness. Left kidney measures 11.4 cm in length and right kidney measures 10.2 cm in length. There are bilateral parapelvic renal cysts. Its delayed excretion of left kidney secondary to obstructive UPJ stone. The right ureter is partially opacified postcontrast and appears normal caliber. The left ureter inferior to UPJ is not opacified but appears to be normal caliber. No perirectal fat stranding seen. BLADDER: The bladder is nondistended and appears unremarkable. GASTROINTESTINAL TRACT: There is scattered stool and diverticuli seen in the colon without distention. The small bowel loops are normal caliber. Appendix is normal caliber. No obstruction, inflammatory process of free air seen. ABDOMINAL WALL: A small umbilical hernia containing fat is noted. LYMPH NODES: Normal VASCULAR: Unremarkable PELVIC VISCERA: There is a vaginal/cervical ring shaped pessary. No free fluid. The uterus is anteverted. No adnexal mass seen. No abnormal size pelvic lymph nodes seen. OSSEOUS STRUCTURES: No aggressive lytic or sclerotic process seen IMPRESSION: 1. 5 mm obstructive radiopaque calculi left UPJ with mild hydronephrosis. There is a 2 mm radiopaque calculi left distal ureter. 2. There are bilateral parapelvic renal cysts. 3. Scattered colonic diverticulosis without diverticulitis. 4. Incidental vaginal/cervical round pessary noted. Assessment & Plan Assessment & Plan (1) Nephrolithiasis: Comment: left, 5 mm UPJ, 2 mm left ureter, mild obstruction, CT scan 11/03, referred to urology Code(s): N20.0 - Calculus of kidney (2) Hydronephrosis concurrent with and due to calculi of kidney and ureter: Code(s): N13.2 - Hydronephrosis with renal and ureteral calculous obstruction Plan In office urinalysis results reviewed with the patient today; as noted above. Discussed at length potential causes of nephrolithiasis. Discussed obtaining retroperitoneal ultrasound for further assessment evaluation. Discussed, educated, and stressed the importance of drinking plenty of water daily. Discussed near future metabolic workup with 24 hour urine collection and labs. Discussed potential for surgical intervention in the near future if obstruction continues however will await retroperitoneal ultrasound results. Follow-up once imaging is completed; within 1 week; or sooner with any issues, concerns, and or questions. Orders: Orders AMB Urinalysis Automated Today R33.9 - Retention of urine, unspecified US retroperitoneal comp Today N20.0 - Calculus of kidney Patient Instructions: The patient had an opportunity to ask questions regarding the treatment plan. All questions were answered. Physical exam, labs, and imaging were discussed and reviewed in detail. As well as risks, benefits, and discussion of treatment choices. No major barriers to understanding were identified. The patient expressed understanding and agreement with the above treatment plan. The patient was made aware they should contact our office by phone for worsening of their current condition, the appearance of new symptoms, or with any questions or concerns. Compliance is encouraged with any medications and follow up testing that is ordered. It is a privilege to be allowed the opportunity to participate in? your urological care.? Again, if you have any questions or concerns If you have any questions or concerns please do not hesitate to contact me. The office is [phone]. This note is constructed using voice recognition software. While every effort has been made to ensure accuracy street light wirer errors may have been included. Yours sincerely, KRISTAL Hercules Coding Level of Care Code New Pt Level 4 (69646) Diagnoses Nephrolithiasis N20.0 Hydronephrosis concurrent with and due to calculi of kidney and ureter N13.2 Time Spent (min) 30
== END 2023-11-13 13:42 | disposition home or self-care (01) ==
PROVIDERS: PCP Internal Medicine; Visit Provider Nurse Practitioner Family
DX: N13.2 Hydronephrosis with renal and ureteral calculous obstruction (principal); R33.9 Retention of urine, unspecified
CPT/HCPCS: 99204

== ENCOUNTER → 2023-11-13 12:51 | Outpatient (BNVA) | payer MEDICARE, OTHER, SELFPAY | PROVIDERS: PCP Internal Medicine; Visit Provider Nurse Practitioner Family | DX: N20.0 Calculus of kidney (principal); N13.2 Hydronephrosis with renal and ureteral calculous obstruction | CPT/HCPCS: 81003; 99202 ==

== ENCOUNTER 2023-11-19 15:15 | Outpatient (REF) | payer MEDICARE, OTHER, SELFPAY ==
--- NOTE | ~2023-11-19 | US_ITS ---
EXAMINATION: US RETROPERITONEAL LIMITED (RENAL ONLY) CLINICAL INFORMATION: Calculus of kidney. COMPARISON: CT abdomen and pelvis 10/24/2023. TECHNIQUE: Renal ultrasound was performed. FINDINGS: RIGHT KIDNEY: 11.4 x 3.9 x 4.9 cm (SAG x AP x TRV). The kidney is normal in size, contour, and echogenicity. Renal cortical thickness is normal. Two nonobstructing calculi are seen with a 3 mm echogenic focus in the lower pole and a 1 mm echogenic focus in the upper pole. No hydronephrosis. Two benign parapelvic Bosniak class I renal cysts are noted, the largest measuring 1.5 cm which require no additional imaging or follow-up. No solid renal masses are seen. LEFT KIDNEY: 11.7 x 5.0 x 4.9 cm (SAG x AP x TRV). The kidney is normal in size, contour, and echogenicity. Renal cortical thickness is normal. There is some minimal fullness in the left renal collecting system. At the time of the prior CT scan, an obstructing proximal ureteral stone was present. Two echogenic foci are present in the left upper pole measuring 4 mm and 6 mm in size consistent with nonobstructing calculi. No renal masses are seen. US/US renal BI IMPRESSION: Bilateral nonobstructing renal calculi. Mild fullness in the left renal collecting system. At the time of the prior study an obstructing proximal left ureteral stone was present. Please correlate with any procedures that may have been performed to address this.
== END 2023-11-19 15:16 | disposition home or self-care (01) ==
LOC: HO.HMGCX 15:15
PROVIDERS: PCP Internal Medicine; Visit Provider Nurse Practitioner Family
DX: N20.0 Calculus of kidney (principal)
CPT/HCPCS: 76775

== ENCOUNTER 2023-11-20 15:21 | Outpatient (AMB) | payer MEDICARE, OTHER, SELFPAY ==
--- NOTE | 2023-11-20 15:26 | MHC.OFFVIS ---
Intake Intake Visit Reasons: 1w/US Intake Note: Patient presents today for a follow up on: US Meds- Tamsulosin Allergies to Antibiotic- Sulfa Blood Thinner- None Senior Network Architect Required: No Accompanied by: Self / Same As Patient Allergies acetaminophen [From Percocet] Adverse Reaction (Verified 11/20/23 15:54) swollen face oxycodone [From Percocet] Adverse Reaction (Verified 11/20/23 15:54) swollen face Sulfa (Sulfonamide Antibiotics) Adverse Reaction (Verified 11/20/23 15:54) swollen face Medication List - Last Reconciled 11/20/23 by ALICE Hercules- dorzolamide-timolol 22.3-6.8 mg/mL 1 drp ophthalmic (eye) BID losartan 25 mg PO DAILY tamsulosin 0.4 mg PO DAILY 14 days HPI HPI Comments History of Present Illness Details Sharon is a very pleasant 73-year-old female patient of Dr. Laurent. She has a past medical history of hypertension. She presents to the office today for follow-up. Of note, patient was seen approximately 1 week ago as a new patient for nephrolithiasis/obstructing renal stone at which time a retroperitoneal ultrasound was ordered for further assessment evaluation. However it appears when patient arrived to imaging her bladder was not full therefore only a renal ultrasound was performed. These results were reviewed with the patient today. Right kidney with 2 nonobstructing calculi 3 mm in the lower pole and 1 mm in the upper pole. No hydronephrosis. Two benign peripelvic Bosniak class 1 renal cysts are noted the largest measuring 1.5 cm which requires no additional follow-up per radiology report. Left kidney with 2 echogenic foci present in the left upper pole measuring 4 mm in 6 mm. These are nonobstructing. Original appointment was scheduled for telehealth however in discussion with the patient today during her telehealth visit she reported she was at urgent care for UTI like symptoms she has been experiencing. Therefore the appointment was switched to an office visit for further assessment evaluation. In discussion with the patient today she reports feeling lower urinary tract symptoms to have been present for approximately 2 weeks and followed up with urgent care at which time she was prescribed Macrobid. She reports feeling while taking Macrobid symptoms had somewhat improved however since completed antibiotic therapy she continues with urinary urgency, urinary frequency, and episodes of dysuria. In office urinalysis results reviewed with the patient today. Negative nitrates negative leukocytes. 3+ microscopic blood. Patient with a history of recent passing of stone. Discussed at length potential causes and affects of microscopic hematuria. She discusses her upcoming cruise and is worried she will continue to experience these lower urinary tract symptoms. Reassurance provided. Discussed further metabolic workup regarding nephrolithiasis. She otherwise denies incontinence, nocturia, hematuria, dysuria, foul smelling urine, changes to urinary stream, fever, and or chills. She denies any previous surgical history and or history of nephrolithiasis. Discussed at length potential causes of nephrolithiasis. She otherwise offers no other issues or concerns at time. [facility] Surgical History Hx of tonsillectomy History of breast lump removal Family History Father No problems noted. Mother Hypertension Social History Household Members Other:: , retired Housing: House Patient Tobacco Use Status: Never used Tobacco e-Cigarette/Vaping Use: Never Used Current occupational status: retired Cognitive needs: No Hearing needs: No Vision needs: Yes Review of Systems Const All systems reviewed & are unremarkable except as noted in HPI and below Physical Exam Const General: cooperative, healthy appearing, comfortable, no acute distress, well developed, alert and awake Orientation/consciousness: patient oriented x3 Limitations: no limitations HEENT Head: Yes normal to inspection, Yes normocephalic and Yes atraumatic Ears: hearing grossly normal bilaterally Eyes General: appearance normal, both eyes and all related structures Neck Neck: Yes normal visual inspection and Yes trachea midline Chest Chest palpation & inspection: normal inspection of the chest Resp Effort & Inspection: normal respiratory effort and able to speak in complete sentences Cardio Rate: regular rate GI Inspection: Yes normal to inspection General: Yes no CVA tenderness Back/Spine/Pelvis Back: no CVA tenderness Skin General skin exam: no rashes or lesions noted Neuro General: patient oriented x3 Extrem General: Yes normal to inspection Psych Appearance: grossly normal and well kempt Mental Status: mental status grossly normal Speech and movement: Normal speech and movement present and Clear speech present Affect: normal affect Attitude: cooperative Thought process: Normal thought process present Thought content: Normal thought content present Insight: Fair insight present (Psych) Judgement: Fair judgement present (Psych) Results AMB Urinalysis, Automated UA Leukoctes 0 Meliton/uL Last Edit by Gloria Eliasdivina Elias [facility] on 11/20/23 16:13 UA Nitrite Negative Last Edit by [facility], [facility] on 11/20/23 16:13 UA Urobilinogen 0.2 mg/dL Last Edit by [facility], [facility] on 11/20/23 16:13 UA Protein 15 mg/dL Last Edit by [facility], [facility] on 11/20/23 16:13 UA pH 7.0 Last Edit by [facility], [facility] on 11/20/23 16:13 UA Blood 200 Vic/uL Last Edit by [facility], [facility] on 11/20/23 16:13 UA Specific [place] 1.010 Last Edit by [facility], [facility] on 11/20/23 16:13 UA Ketone Negative Last Edit by [facility], [facility] on 11/20/23 16:13 UA Bilirubin 0 mg/dL Last Edit by [facility], [facility] on 11/20/23 16:13 UA Glucose 0 mg/dL Last Edit by [facility], [facility] on 11/20/23 16:13 Results Reviewed Results Reviewed: Laboratory Last Values Urine pH (Auto) 7.0 11/20/23 16:01 Specific [place] (Auto) 1.010 11/20/23 16:01 Urine Protein (Auto) 15 mg/dL 11/20/23 16:01 Glucose (UA)(Auto) 0 mg/dL 11/20/23 16:01 Urine Ketones (Auto) Negative 11/20/23 16:01 Urine Blood (Auto) 200 Vic/uL 11/20/23 16:01 Urine Nitrite (Auto) Negative 11/20/23 16:01 Urine Bilirubin (Auto) 0 mg/dL 11/20/23 16:01 Urine Urobilinogen (Auto) 0.2 mg/dL 11/20/23 16:01 Leukocyte Esterase (Auto) 0 Meliton/uL 11/20/23 16:01 Date of Service: 11/19/23 EXAMINATION: US RETROPERITONEAL LIMITED (RENAL ONLY) FINDINGS: RIGHT KIDNEY: 11.4 x 3.9 x 4.9 cm (SAG x AP x TRV). The kidney is normal in size, contour, and echogenicity. Renal cortical thickness is normal. Two nonobstructing calculi are seen with a 3 mm echogenic focus in the lower pole and a 1 mm echogenic focus in the upper pole. No hydronephrosis. Two benign parapelvic Bosniak class I renal cysts are noted, the largest measuring 1.5 cm which require no additional imaging or follow-up. No solid renal masses are seen. LEFT KIDNEY: 11.7 x 5.0 x 4.9 cm (SAG x AP x TRV). The kidney is normal in size, contour, and echogenicity. Renal cortical thickness is normal. There is some minimal fullness in the left renal collecting system. At the time of the prior CT scan, an obstructing proximal ureteral stone was present. Two echogenic foci are present in the left upper pole measuring 4 mm and 6 mm in size consistent with nonobstructing calculi. No renal masses are seen. IMPRESSION: Bilateral nonobstructing renal calculi. Mild fullness in the left renal collecting system. At the time of the prior study an obstructing proximal left ureteral stone was present. Please correlate with any procedures that may have been performed to address this. Assessment & Plan Assessment & Plan (1) Urinary frequency: Code(s): R35.0 - Frequency of micturition (2) Urinary urgency: Code(s): R39.15 - Urgency of urination (3) Nephrolithiasis: Comment: left, 5 mm UPJ, 2 mm left ureter, mild obstruction, CT scan 11/03, referred to urology Code(s): N20.0 - Calculus of kidney (4) Parapelvic renal cyst: Code(s): N28.1 - Cyst of kidney, acquired (5) Microscopic hematuria: Code(s): R31.29 - Other microscopic hematuria Plan In office urinalysis results reviewed with the patient today; as noted above; will send for urine culture. Discussed at length potential causes for lower urinary tract symptoms patient is experiencing. Discussed at length potential causes and affects of nephrolithiasis as well as microscopic hematuria. Discussed further workup of nephrolithiasis with metabolic workup 24 hour urine collection and labs. Discuss trial of Pyridium Start vitamin B6 as discussed and prescribed. Discussed, educated, and stressed the importance of drinking plenty of water daily. Continue adding 1 oz of lemon juice to water daily. Will obtain 24 hour urine collection Will obtain BMP, calcium, magnesium, uric acid, and vitamin-D for further assessment and evaluation. Follow-up in 3 months with labs and 24 hour urine collection; or sooner with any issues, concerns, and or questions. Orders: Orders Urine Culture Today N39.0 - Urinary tract infection, site not specified Basic Metabolic Panel Today N20.0 - Calculus of kidney Calcium Today N20.0 - Calculus of kidney Magnesium Today N20.0 - Calculus of kidney Uric Acid Today N20.0 - Calculus of kidney Vitamin D 25-OH Total Today N20.0 - Calculus of kidney AMB Urinalysis Automated Today R33.9 - Retention of urine, unspecified URORISK Today N20.0 - Calculus of kidney Phosphorus Today N20.0 - Calculus of kidney Medications: New amoxicillin-pot clavulanate 500-125 mg (Augmentin) 1 tab PO Q8H 21 tabs 2RF 7 days N39.0 - Urinary tract infection, site not specified phenazopyridine 100 mg PO Q8H 6 tabs 1RF 6 doses M54.50 - Low back pain, unspecified, R31.9 - Hematuria, unspecified pyridoxine (vitamin B6) 100 mg PO DAILY 90 tabs 1RF 90 days Patient Instructions: The patient had an opportunity to ask questions regarding the treatment plan. All questions were answered. Physical exam, labs, and imaging were discussed and reviewed in detail. As well as risks, benefits, and discussion of treatment choices. No major barriers to understanding were identified. The patient expressed understanding and agreement with the above treatment plan. The patient was made aware they should contact our office by phone for worsening of their current condition, the appearance of new symptoms, or with any questions or concerns. Compliance is encouraged with any medications and follow up testing that is ordered. It is a privilege to be allowed the opportunity to participate in? your urological care.? Again, if you have any questions or concerns If you have any questions or concerns please do not hesitate to contact me. The office is [phone]. This note is constructed using voice recognition software. While every effort has been made to ensure accuracy director sales training errors may have been included. Yours sincerely, ALICE Hercules-LAMAR Coding Level of Care Code Est Pt Level 4 (85582) Diagnoses Urinary frequency R35.0 Urinary urgency R39.15 Nephrolithiasis N20.0 Parapelvic renal cyst N28.1 Microscopic hematuria R31.29
== END 2023-11-20 16:32 | disposition home or self-care (01) ==
PROVIDERS: PCP Internal Medicine; Visit Provider Nurse Practitioner Family
DX: R35.0 Frequency of micturition (principal); R39.15 Urgency of urination; N20.0 Calculus of kidney; N28.1 Cyst of kidney, acquired; R31.29 Other microscopic hematuria
CPT/HCPCS: 99214

== ENCOUNTER 2023-11-20 15:21 | Outpatient (REF) | payer MEDICARE, OTHER, SELFPAY | END 2023-11-20 15:22 | disposition home or self-care (01) | LOC: HO.LAB 15:21 | PROVIDERS: PCP Internal Medicine; Visit Provider Nurse Practitioner Family | DX: N39.0 Urinary tract infection, site not specified (principal); N20.0 Calculus of kidney; R35.0 Frequency of micturition; N28.1 Cyst of kidney, acquired; R31.29 Other microscopic hematuria | CPT/HCPCS: 81003; 87086; 87088; 87186; 99212 ==

== ENCOUNTER 2023-11-21 14:58 | Outpatient (REF) | payer MEDICARE, OTHER, SELFPAY ==
--- NOTE | ~2023-11-21 | US_ITS ---
EXAMINATION: US PELVIS LIMITED (BLADDER) CLINICAL INFORMATION: Renal calculi. COMPARISON: Renal ultrasound 2 days ago on 11/19/[address] abdomen pelvis 12/24/2019 TECHNIQUE: Real-time imaging of the bladder. FINDINGS: BLADDER: Well distended and normal. Bilateral ureteral jets are demonstrated. Prevoid bladder volume is 264 mL. Postvoid bladder volume is 41 mL. Incidental note is made of a central 1.3 cm rounded hyperechoic mass at the uterine fundus, possibly a fibroid but a endometrial mass cannot be excluded. Dedicated endovaginal ultrasound is recommended for further evaluation. US/US bladder IMPRESSION: 1. Normal-appearing bladder. 2. Incidental note made of a 1.3 cm uterine mass. Dedicated endovaginal ultrasound is recommended for further evaluation.
== END 2023-11-21 14:59 | disposition home or self-care (01) ==
LOC: HO.HMGCX 14:58
PROVIDERS: PCP Internal Medicine; Visit Provider Nurse Practitioner Family
DX: N20.0 Calculus of kidney (principal)
CPT/HCPCS: 76857

== ENCOUNTER 2023-11-27 07:45 | Outpatient (RCR) | payer MEDICARE, OTHER, SELFPAY ==
--- NOTE | 2023-11-27 08:51 | MHC.PT.EP ---
[facility] [place] Office [place] Office [place] Office [address] Zack Garibay [address] [phone] F: [phone] F: [phone] F: [phone] F: [phone] Physical Therapy Plan of Care Date of Evaluation: 11/27/23 Date of Surgery: Diagnosis: This is a 73 yo female presenting to skilled PT with a script for lower back pain. Assessment: This is a 73 yo female presenting to skilled PT with a script for lower back pain. Patient reporting that she recently had kidney stones and when she had an x-ray arthritis was noted. She reports however that she has always had back pain but may have been exacerbated by the kidney stones. Pain is located on the L side low back. Her pain comes and goes. Pain is described as an achy pain. She uses a heating pad at night and her has a roller that helps as well. She also uses ibuprofen or Motrin. Assessment reveals pain that ranges from up to a 5/10 at the worst. Patient demos decreased lumbar, thoracic and hip ROM, strength of hips and core/back, TTP at L side low back and sacral muscles and impaired posture with forward head and rounded shoulders. She demos + SIJ tests on the L as noted above. Based on functional limitations, impaired QOL and pain tolerance patient is a good candidate for skilled PT 2x/wk for 4wks. Frequency and Duration: The patient will be seen 2x/wk for 4wks Short Term Goals: Pt will demonstrate improved postural awareness and understanding of core engagement with supine and standing tasks without cues throughout session to improve overall back safety in 2 weeks. Pt will demonstrate centralization of sx in 2 weeks. Pt will continue to reinforce precautions, sitting, standing and ADL modifications with proper body mechanics in 2 wks. Cpc Coder Goals: Pt will demonstrate improved outcome measure by 5 points in 4 weeks for improved functional mobility. Pt will demonstrate ability to bend and lift WNL min to no pain for household tasks in 4 wks. Pt will be I in HEP and compliant in 4wks Treatment Plan: Modalities to reduce pain, spasms and effusion. Manual therapy to restore motion and function. Therapeutic exercise to improve strength and flexibility. Neuromuscular re-education for posture and balance. Therapeutic activities to return to functional activities of daily living. Electronically signed by: Mouna Chao PT Please sign and return to therapist. Thank you for your referral.
--- NOTE | 2023-12-27 13:41 | MHC.PT.DC ---
[facility] [place] Office [place] Office [place] Office [address] Zack Garibay [address] [phone] F: [phone] F: [phone] F: [phone] F: [phone] Physical Therapy Discharge Report Diagnosis: This is a 73 yo female presenting to skilled PT with a script for lower back pain. Date of Surgery: Date of Evaluation: 11/27/23 Date of Discharge: 12/27/23 Treatments to Date: 1 Cancellations to Date: 0 No Shows to Date: 0 Discharge Status: Patient Elected to Stop Discharge Summary: This is a 73 yo female presenting to skilled PT with a script for lower back pain. Patient reporting that she recently had kidney stones and when she had an x-ray arthritis was noted. She reports however that she has always had back pain but may have been exacerbated by the kidney stones. Pain is located on the L side low back. Her pain comes and goes. Pain is described as an achy pain. She uses a heating pad at night and her has a roller that helps as well. She also uses ibuprofen or Motrin. Assessment reveals pain that ranges from up to a 5/10 at the worst. Patient demos decreased lumbar, thoracic and hip ROM, strength of hips and core/back, TTP at L side low back and sacral muscles and impaired posture with forward head and rounded shoulders. She demos + SIJ tests on the L as noted above. Based on functional limitations, impaired QOL and pain tolerance patient is a good candidate for skilled PT 2x/wk for 4wks. Patient came to [facility] and then was going on vacation, she stated she would call when she returned however she did not call our facility so after 30 days patient's chart was DC'd. Electronically signed by: Mouna Chao PT Please sign and return to therapist. Thank you for your referral.
== END 2023-12-27 13:41 | disposition home or self-care (01) ==
LOC: HO.PTCHIC 07:45
PROVIDERS: PCP Internal Medicine; Visit Provider Internal Medicine
DX: N20.0 Calculus of kidney (principal); M54.50 Low back pain, unspecified
CPT/HCPCS: 97110; 97162

== ENCOUNTER 2023-12-25 15:02 | Outpatient (AMB) | payer MEDICARE, OTHER, SELFPAY ==
--- OUTSIDE RECORDS SUMMARY | 2023-12-25 15:04 | XMS_ITS | Patient Health Record ---
Author Organization [facility] [place] Address [address] [facility] [place] [address] Care Team Providers Care Manager Poker Name Role Phone Bibiana Laurent MD Primary Care Provider Edilberto Harris Unavailable [phone] ALLERGIES Allergen (clinical drug ingredient) Drug/Non Drug Allergy documented on EMR Reaction Allergy Type Onset Date Status Percocet swelling Drug Allergy Active sulfa rash Drug Allergy Active REASON FOR REFERRAL No Information MEDICATIONS Medication SIG (Take, Route, Fr equency, Duration) Notes Start Date End Date Status Cosopt 22.3-6.8 MG/ML 1 drop into affect ed eye Ophthalmic Twice a day Active SOCIAL HISTORY Tobacco Use: Social History Observation Description Date Details (start date - stop date) Never Smoker NA - NA Sex Assigned At : Social History Observation Description Sex Assigned At Unknown Tobacco Use/Smoking Question Answer Notes Are you a: nonsmoker Additional Findings: Tobacco Non-User Current no n-smoker Alcohol Screen Question Answer Notes Did you have a drink containing alcohol in the p ast year? Yes Points 0 Interpretation Negative Tobacco use other than smoking: Question Answer Notes Are you an other tobacco user? No PROBLEMS Problem Type ICD Code Onset Dates Problem Status W/U Status Risk SNOMED Code Notes Problem Onychomycosis (110.1) Active confirmed Onychomycosis (034679807) Problem Hallux Valgus (735.0) Active confirmed Hallux valgus (016883959) Problem Hammer toe (735.4) Active confirmed Hammer toe (480993254) Problem Pain in Limb (729.5) Active confirmed Pain in limb (80521583) Encounters Encounter Location Date Provider Diagnosis [facility] [place] [address] [place] [address] 12/11/2023 Edilberto Ferrari PLAN OF TREATMENT Pending Test Test Name Order Date X ray : Foot, left 2V 02/09/2012 X ray : Foot, right 2V 02/09/2012 [id number] NAIL, 6 OR MORE 02/09/2012 Next Appt Details Provider Name:Edilberto Ferrari , 01/08/2024 09:30:00 AM, [address] [facility], [place], [address], Insurance Providers Payer Name Payer Address Payer Phone Subscriber Number Group Number Insured Name Patient Relationship to Insured Coverage Start Date Coverage End Date Medicare [facility] [employer] [facility] [address] [place] [address] [id number] Sharon Nevarez Self - patient is the insured [facility] [address] [place] [phone] [id number] Sharon Nevarez Self - patient is the insured MEDICAL (GENERAL) HISTORY Medical History History ICD Code chicken pox measles osteoporosis psoriasis Arthritis Cataracts Glaucoma Headaches/Migraines High blood pressure Joint implants/screws Surgical History Surgery Date(Month/Year) pelvic suspension 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
[2023-12-25 15:08] VITALS: BP 140/80; PULSE 92; O2SAT 95; BMI 24.7
--- NOTE | 2023-12-25 15:08 | AM.OFFWIN_ITS ---
Intake Vital Signs 12/25/23 15:08 Height 5 ft 2 in Weight 135 lb BMI 24.7 BP 140/80 H Blood Pressure Location Rt brachial Position Sitting Pulse 92 Pulse Source Pulse Oximeter Pulse Oximetry (%) 95 Oxygen Delivery Method Room Air Intake Visit Reasons: EP thrush? on lip Patient Tobacco Use Status: Never used Tobacco Allergies acetaminophen [From Percocet] Adverse Reaction (Verified 12/25/23 15:08) swollen face oxycodone [From Percocet] Adverse Reaction (Verified 12/25/23 15:08) swollen face Sulfa (Sulfonamide Antibiotics) Adverse Reaction (Verified 12/25/23 15:08) swollen face Medication List - Last Reconciled 12/25/23 by Suhas Ivy MD dorzolamide-timolol 22.3-6.8 mg/mL 1 drp ophthalmic (eye) BID losartan 25 mg PO DAILY pyridoxine (vitamin B6) 100 mg PO DAILY 90 days tamsulosin 0.4 mg PO DAILY 14 days Do you need a note to return to daycare/school/sports/work: No HPI EP thrush? on lip HPI Details Patient is 73-year-old female came in today to be evaluated for possible thrush under her lips Patient says that she has been on multiple antibiotics over the past 2 months. There is no sore throat there is no burning sensation On examination she has developed mild thrush under her upper lip I have sent antifungal lozenges that patient can use up to 4 times a day [facility] Surgical History Hx of tonsillectomy History of breast lump removal Family History Father No problems noted. Mother Hypertension Social History Household Members Other:: , retired Housing: House Patient Tobacco Use Status: Never used Tobacco e-Cigarette/Vaping Use: Never Used Current occupational status: retired Cognitive needs: No Hearing needs: No Vision needs: Yes Review of Systems Const All systems reviewed & are unremarkable except as noted in HPI and below Physical Exam Vital Signs: Last Vital Signs Pulse 92 12/25/23 15:08 BP 140/80 H 05/14/24 15:08 Pulse Ox 95 12/25/23 15:08 Oxygen Delivery Method Room Air 12/25/23 15:08 BMI result Body Mass Index 24.7 Const General: no acute distress Orientation/consciousness: patient oriented x3 HEENT Other: White coating under upper lip mucous membrane Eyes General: appearance normal, both eyes and all related structures Resp Effort & Inspection: normal respiratory effort and able to speak in complete sentences Neuro General: patient oriented x3 Psych Mental Status: mental status grossly normal Assessment & Plan Assessment & Plan (1) Thrush, oral: Code(s): B37.0 - Candidal stomatitis Plan Patient is 73-year-old female came in today to be evaluated for possible thrush under her lips Patient says that she has been on multiple antibiotics over the past 2 months. There is no sore throat there is no burning sensation On examination she has developed mild thrush under her upper lip I have sent antifungal lozenges that patient can use up to 4 times a day Medications: New clotrimazole 10 mg mucous membrane TID 21 tabs 0RF 7 days B37.0 - Candidal stomatitis Coding Level of Care Code Est Pt Level 3 (87256) Diagnoses Thrush, oral B37.0
== END 2023-12-25 15:51 | disposition home or self-care (01) ==
PROVIDERS: PCP Internal Medicine; Visit Provider Internal Medicine
DX: B37.0 Candidal stomatitis (principal)
CPT/HCPCS: 99213

== ENCOUNTER 2024-01-18 13:14 | Outpatient (REF) | payer MEDICARE, OTHER, SELFPAY ==
[2024-01-18 16:27] LABS: Anion Gap 11 (12-20); Blood Urea Nitrogen 16 mg/dL (9-16); Calcium 9.6 mg/dL (8.4-10.2); Carbon Dioxide 27 mmol/L (22-29); Chloride 109 mmol/L (96-108); Estimated Glomerular Filt Rate > 60; Glucose Random 118 mg/dL (60-115); Magnesium 2.1 mg/dL (1.6-2.6); Phosphorus 3.5 mg/dL (2.7-4.5); Potassium 4.1 mmol/L (3.3-5.1); Sodium 143 mmol/L (135-145); Uric Acid 5.4 mg/dL (2.4-5.7)
[2024-01-18 16:45] LABS: Vitamin D 25-OH Total 41.8 ng/mL (>30)
== END 2024-01-18 13:15 | disposition home or self-care (01) ==
LOC: HO.HMGCLDS 13:14
PROVIDERS: PCP Internal Medicine; Visit Provider Nurse Practitioner Family
DX: N20.0 Calculus of kidney (principal)
CPT/HCPCS: 80048; 82306; 82340; 82507; 82570; 83735; 83945; 83986; 84100; 84105; 84133; 84300; 84392; 84550; 84560

== ENCOUNTER 2024-02-07 11:23 | Outpatient (AMB) | payer MEDICARE, OTHER, SELFPAY ==
--- OUTSIDE RECORDS SUMMARY | 2024-02-07 11:25 | XMS_ITS | Patient Health Record ---
Author Organization [facility] michael [place] Address [address] [place] [address] Care Team Providers Care Contract Implementation Analyst Name Role Phone Bibiana Laurent MD Primary Care Provider Ayden Cole Unavailable [phone] Edilberto Ferrari Unavailable [phone] ALLERGIES Allergen (clinical drug ingredient) Drug/Non Drug Allergy documented on EMR Reaction Allergy Type Onset Date Status acetaminophen / oxycodone Percocet swelling Drug Allergy Active sulfa rash [...] Additional Findings: Tobacco Non-User Current no n-smoker Tobacco use other than smoking: Question Answer Notes Are you an other tobacco user? No PROBLEMS Problem Type ICD Code Onset Dates Problem Status W/U Status Risk SNOMED Code Notes Problem Onychomycosis (110.1) Active confirmed Onychomycosis (338236308) Problem Hallux Valgus (735.0) Active confirmed Hallux valgus (054648194) Problem Hammer toe (735.4) Active confirmed Hammer toe (000519400) Problem Pain in Limb (729.5) Active confirmed Pain in limb (17246989) Problem Hallux valgus (acquired), left foot (M20.12) Active confirmed Acquired hallu x valgus (05788382) Problem Hallux valgus (acquired), right foot (M20.11) Active confirmed Acquired hallu x valgus (82519310) Problem Other hammer toe(s) (acquired), right foot (M20.41) Active confirmed Acquired hamme r toe of right foot (583285400491488 5) Problem Other hammer toe(s) (acquired), left foot (M20.42) Active confirmed Acquired hamme r toe of left foot (227756163538029 3) VITAL SIGNS Blood pressure diastolic 71 mm Hg 01/30/2024 Height 5 ft 2 in in 01/30/2024 Blood pressure systolic 125 mm Hg 01/30/2024 Weight 130 lbs 01/30/2024 BMI 23.77 kg/m2 01/30/2024 Encounters Encounter Location Date Provider Diagnosis [address] [address] 12/11/[address] [facility] [address] 01/08/[address] [address] 01/30/2024 Ayden Peace Tinea unguium B35.1 ; Pain in right toe(s) M79.674 ; Pain in left toe(s) M79.675 ; Hallux valgus (acquired), left foot M20.12 ; Hallux valgus (acquired), right foot M20.11 ; Other hammer toe(s) (acquired), right foot M20.41 and Other hammer toe(s) (acquired), left foot M20.42 ASSESSMENTS Encounter Date Diagnosis Assessment Notes Treatment Notes Treatment Clinical Notes 01/30/2024 Tinea unguium (ICD-10 - B35.1) 01/30/2024 Pain in right toe(s) (ICD-10 - M79.674) 01/30/2024 Pain in left toe(s) (ICD-10 - M79.675) 01/30/2024 Hallux valgus (acquired), left foot (ICD-10 - M20.12) 01/30/2024 Hallux valgus (acquired), right foot (ICD-10 - M20.11) 01/30/2024 Other hammer toe(s) (acquired), right foot (ICD-10 - M20.41) 01/30/2024 Other hammer toe(s) (acquired), left foot (ICD-10 - M20.42) PLAN OF TREATMENT Pending Test Test Name Order Date X ray : Foot, left 2V 02/09/2012 X ray : Foot, right 2V 02/09/2012 [id number] NAIL, 6 OR MORE 02/09/2012 Next Appt Details Provider Name:Felecia Barnes Valentin , 05/08/2024 08:15:00 AM, [address], [place], [address], Insurance Providers Payer Name Payer Address Payer Phone Subscriber Number Group Number Insured Name Patient Relationship to Insured Coverage Start Date Coverage End Date Medicare National [employer]t [employer] [address] [place] [address] [id number] Sharon Nevarez Self - patient is the insured [facility] [address] [place] [phone] [id number] Sharon Nevarez Self - patient is the insured MEDICAL (GENERAL) HISTORY Medical History History ICD Code chicken pox measles osteoporosis psoriasis Arthritis Cataracts Glaucoma Headaches/Migraines High blood pressure Joint implants/screws Surgical History Surgery Date(Month/Year) pelvic suspension 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
[2024-02-07 11:45] VITALS: BP 120/78; PULSE 78; O2SAT 97; BMI 24.9
--- NOTE | 2024-02-07 11:45 | MHC.PC.OV ---
Vital Signs 02/07/24 11:45 Height 5 ft 2 in Weight 136 lb BMI 24.9 BP 120/78 Blood Pressure Location Lt brachial Position Sitting Pulse 78 Pulse Source Pulse Oximeter Pulse Oximetry (%) 97 Oxygen Delivery Method Room Air Intake Visit Reasons: PE Intake Note: Pt is here today for PE. Allergies acetaminophen [From Percocet] Adverse Reaction (Verified 02/07/24 11:49) swollen face oxycodone [From Percocet] Adverse Reaction (Verified 02/07/24 11:49) swollen face Sulfa (Sulfonamide Antibiotics) Adverse Reaction (Verified 02/07/24 11:49) swollen face Medication List - Last Reconciled 02/07/24 by Bibiana Laurent MD clotrimazole 10 mg mucous membrane TID 7 days dorzolamide-timolol 22.3-6.8 mg/mL 1 drp ophthalmic (eye) BID losartan 25 mg PO DAILY pyridoxine (vitamin B6) 100 mg PO DAILY 90 days Tobacco use date assessed: 02/07/24 Fall risk assessment: No Falls in past year Last assessed Fall Risk: 02/07/24 Dental Screening Dental Screen Date: 10/22/23 HPI PE HPI Details Patient presents for physical PFSH Surgical History Hx of tonsillectomy History of breast lump removal Family History Father No problems noted. Mother Hypertension Social History Household Members Other:: , retired Housing: House Patient Tobacco Use Status: Never used Tobacco e-Cigarette/Vaping Use: Never Used service: No Current occupational status: retired Cognitive needs: No Hearing needs: No Vision needs: Yes Questionnaire PHQ-9 Over the last 2 weeks, how often have you been bothered by any of the following problems? 1. Little interest or pleasure in doing things: not at all 2. Feeling down, depressed, or hopeless: not at all 3. Trouble falling or staying asleep, or sleeping too much: not at all 4. Feeling tired or having little energy: not at all 5. Poor appetite or overeating: not at all 6. Feeling bad about yourself - or that you are a failure or have let yourself or your family down: not at all 7. Trouble concentrating on things, such as reading the newspaper or watching television: not at all 8. Moving or speaking so slowly that other people could have noticed. Or the opposite - being so fidgety or restless that you have been moving around a lot more than usual: not at all 9. Thoughts that you would be better off or of hurting yourself in some way: not at all Total score: 0 Depression Screening Interpretation: Negative Depression Screening Done: Yes Source: Developed by Drs. Brandon Vargas, Aide Sesay, Benedict Garnett and colleagues, with an educational gutierrez from [employer]. Thrive Questionnaire Date Thrive assessed: 02/07/24 I am a: Patient What is your living situation today?: I have a steady place to live Within the past 12 months, did the food you bought not last and you didn't have the money to get more?: Never true Within the past 12 months, did you worry whether your food would run out before you got money to buy more?: Never true Do you have trouble paying for medicines?: No Do you have trouble getting transportation to medical appointments?: No Do you have trouble paying your heating and electricity bill?: No Do you have trouble taking care of your child, family member or friend?: No Do you have trouble with day-to-day activities such as bathing, preparing meals, shopping, managing finances, etc.?: No Are you currently unemployed and looking for a job?: No Are you interested in more education?: No Please select the resources that you would like help with: None THRIVE Score: 0 ENA-7 AMB Questionnaire ENA-7 Date ENA - 7 assessed: 02/07/24 Feeling nervous, anxious, or on edge: 0 = Not at all Not being able to stop or control worryin = Not at all Worrying too much about different things: 0 = Not at all Trouble relaxin = Not at all Being so restless that it is hard to sit still: 0 = Not at all Becoming easily annoyed or irritable: 0 = Not at all Feeling afraid as if something awful might happen: 0 = Not at all Total ENA-7 score (0-4 normal; 5-9 mild; 10-14 moderate; 15-21 severe): 0 Source: Developed by Drs. Brandon Vargas, Aide Sesay, Benedict Garnett and colleagues, with an educational gutierrez from [employer]. Review of Systems Const All systems reviewed & are unremarkable except as noted in HPI and below Eyes Reports no additional complaints ENT Reports no additional complaints Card Reports no additional complaints Resp Reports no additional complaints GI Reports no additional complaints Reports no additional complaints Physical exam (Primary Care) Vital Signs: Last Vital Signs Pulse 78 02/07/24 11:45 BP 120/78 02/07/24 11:45 Pulse Ox 97 02/07/24 11:45 Oxygen Delivery Method Room Air 02/07/24 11:45 BMI result Body Mass Index 24.9 Tobacco/Smoking Status: Tobacco use Status Tobacco use date assessed 02/07/24 02/07/24 11:54 Patient Tobacco Use Status Never used Tobacco 02/07/24 11:48 e-Cigarette/Vaping Use Never Used 02/07/24 11:48 PHQ-9: PHQ-9 Score PHQ-9: Total score 0 02/07/24 11:54 Depression Screening Interpretation: Negative Thrive Assessment: Date of Thrive Assessment Date Thrive assessed 02/07/24 02/07/24 11:54 Const General: no acute distress HENMT Head: Yes normal to inspection Ears: hearing grossly normal bilaterally Mouth: Normal oral and palatal mucosa present Throat: Yes posterior oropharynx normal Eyes General: appearance normal, both eyes and all related structures Neck Neck: Yes no lymphadenopathy and Yes supple Resp Effort & Inspection: normal respiratory effort Auscultation: clear to auscultation bilaterally Cardio Rhythm: regular rhythm Heart sounds: S1 normal heart sound present and S2 normal heart sound present GI Inspection: Yes normal to inspection Palpation (GI): Soft to palpation Percussion: Yes normal to percussion Auscultation: normal bowel sounds Assessment and Plan Assessment & Plan (1) HTN (hypertension): Code(s): I10 - Essential (primary) hypertension Plan: Continue losartan (2) Hyperlipidemia: Code(s): E78.5 - Hyperlipidemia, unspecified Plan: Continue low-cholesterol diet (3) Annual physical exam: Code(s): Z00.00 - Encounter for general adult medical examination without abnormal findings Plan: Well-balanced diet regular exercise weight loss discussed with the patient. She will have a colonoscopy and is up-to-date with the mammogram (4) Melanoma: Comment: f/u with [facility] Code(s): C43.9 - Malignant melanoma of skin, unspecified Plan: Follows up with Dermatology (5) Uterine mass: Comment: 1.3 cm Present on bladder ultrasound 12/2023 Code(s): N85.8 - Other specified noninflammatory disorders of uterus Plan: Obtain pelvic ultrasound to evaluate (6) Vitamin D deficiency: Code(s): E55.9 - Vitamin D deficiency, unspecified Plan: Continue vitamin-D supplement (7) Osteopenia: Comment: Took Fosamax for 3 years, patient declined repeating DEXA 02/03 Code(s): M85.80 - Other specified disorders of bone density and structure, unspecified site Plan: Continue vitamin supplement regular weight-bearing exercise (8) Nephrolithiasis: Comment: left, 5 mm UPJ, 2 mm left ureter, mild obstruction, CT scan 11/03, referred to urology Code(s): N20.0 - Calculus of kidney Plan: Follow-up with urology Orders: Orders Comprehensive [place]. Panel Fast Today C43.9 - Malignant melanoma of skin, unspecified, E78.5 - Hyperlipidemia, unspecified, I10 - Essential (primary) hypertension, Z00.00 - Encounter for general adult medical examination without abnormal findings Lipid Panel Today C43.9 - Malignant melanoma of skin, unspecified, E78.5 - Hyperlipidemia, unspecified, I10 - Essential (primary) hypertension, Z00.00 - Encounter for general adult medical examination without abnormal findings US pelvic and transvaginal Today N85.8 - Other specified noninflammatory disorders of uterus Comprehensive [place]. Panel Fast 1 Year E55.9 - Vitamin D deficiency, unspecified, E78.5 - Hyperlipidemia, unspecified, I10 - Essential (primary) hypertension, M85.80 - Other specified disorders of bone density and structure, unspecified site, Z00.00 - Encounter for general adult medical examination without abnormal findings Lipid Panel 1 Year E55.9 - Vitamin D deficiency, unspecified, E78.5 - Hyperlipidemia, unspecified, I10 - Essential (primary) hypertension, M85.80 - Other specified disorders of bone density and structure, unspecified site, Z00.00 - Encounter for general adult medical examination without abnormal findings Hemoglobin A1c Today C43.9 - Malignant melanoma of skin, unspecified, E78.5 - Hyperlipidemia, unspecified, I10 - Essential (primary) hypertension, Z00.00 - Encounter for general adult medical examination without abnormal findings Complete Blood Count Auto Diff 1 Year E55.9 - Vitamin D deficiency, unspecified, E78.5 - Hyperlipidemia, unspecified, I10 - Essential (primary) hypertension, M85.80 - Other specified disorders of bone density and structure, unspecified site, Z00.00 - Encounter for general adult medical examination without abnormal findings TSH reflex Free T4 1 Year E55.9 - Vitamin D deficiency, unspecified, E78.5 - Hyperlipidemia, unspecified, I10 - Essential (primary) hypertension, M85.80 - Other specified disorders of bone density and structure, unspecified site, Z00.00 - Encounter for general adult medical examination without abnormal findings Vitamin D 25-OH Total 1 Year E55.9 - Vitamin D deficiency, unspecified, E78.5 - Hyperlipidemia, unspecified, I10 - Essential (primary) hypertension, M85.80 - Other specified disorders of bone density and structure, unspecified site, Z00.00 - Encounter for general adult medical examination without abnormal findings Medications: Discontinued tamsulosin Discontinued Reason: Doctor's Order 0.4 mg PO DAILY 14 days 14 caps 0RF N20.0 - Calculus of kidney Coding Level of Care Code Est Pt Prev Care >65y(73945) Diagnoses HTN (hypertension) I10 Hyperlipidemia E78.5 Annual physical exam Z00.00 Melanoma C43.9 Uterine mass N85.8 Vitamin D deficiency E55.9 Osteopenia M85.80 Nephrolithiasis N20.0
== END 2024-02-07 12:29 | disposition home or self-care (01) ==
LOC: HO.HMGC 11:23
PROVIDERS: PCP Internal Medicine; Visit Provider Internal Medicine
DX: Z00.00 Encounter for general adult medical examination without abnormal findings (principal); C43.9 Malignant melanoma of skin, unspecified; I10 Essential (primary) hypertension; E78.5 Hyperlipidemia, unspecified; N85.8 Other specified noninflammatory disorders of uterus; E55.9 Vitamin D deficiency, unspecified; M85.80 Other specified disorders of bone density and structure, unspecified site; N20.0 Calculus of kidney
CPT/HCPCS: 99397

== ENCOUNTER 2024-02-11 09:33 | Outpatient (AMB) | payer MEDICARE, OTHER, SELFPAY ==
--- NOTE | 2024-02-11 09:41 | MHC.OFFVIS ---
Intake Visit Reasons: 3m/[facility]/labs Intake Note: Patient presents today for a follow up on: [facility] labs Urology Medications: Vitamin B6 Allergies to Antibiotic: Sulfa Blood Thinner: None Atomic Fuel Assembler Required: No Accompanied by: Self / Same As Patient Allergies acetaminophen [From Percocet] Adverse Reaction (Verified 02/11/24 19:27) swollen face oxycodone [From Percocet] Adverse Reaction (Verified 02/11/24 19:27) swollen face Sulfa (Sulfonamide Antibiotics) Adverse Reaction (Verified 02/11/24 19:27) swollen face Medication List - Last Reconciled 02/11/24 by ALICE Hercules-BC clotrimazole 10 mg mucous membrane TID 7 days dorzolamide-timolol 22.3-6.8 mg/mL 1 drp ophthalmic (eye) BID losartan 25 mg PO DAILY pyridoxine (vitamin B6) 100 mg PO DAILY 90 days HPI Comments Details: Sharon is a very pleasant 73-year-old female patient of Dr. Laurent. She has a past medical history of hypertension. She presents to the office today for follow-up of her nephrolithiasis and recurrent urinary tract infections. Recent 24 urine collection results reviewed with the patient today. Low urine volume of 1.28, hypercalciuria, borderline hypocitraturia, and high calcium oxalate. Labs are as follows: 02/03 sodium 143, potassium 4.1, chloride 109, carbon dioxide 27, BUN 16, creatinine 0.82, random glucose 108, uric acid 5.4, calcium 9.6, phosphorus 3.5, magnesium 2.1, and 25 OH vitamin-D total 41.8. Discussed and stressed the importance of increase in fluid intake (water). Previous imaging included retroperitoneal ultrasound 12/04 noting right kidney with 2 nonobstructing calculi 3 mm in the lower pole and 1 mm in the upper pole. No hydronephrosis. Two benign peripelvic Bosniak class 1 renal cysts are noted the largest measuring 1.5 cm which requires no additional follow-up per radiology report. Left kidney with 2 echogenic foci present in the left upper pole measuring 4 mm in 6 mm. These are nonobstructing. Bladder ultrasound noted normal-appearing bladder. Incidental note made of a 1.3 uterine mass. She reports following up with her PCP and having upcoming vaginal/pelvic ultrasound on Sunday. In discussion with the patient today she reports to be doing and feeling well. She reports since her last visit here approximately 3 months ago she has since completed dual antibiotic therapy for positive urine cultures 12/04 that noted Enterobacter aerogenes and has been feeling much better. She denies any UTI like symptoms. She denies urinary urgency, urinary frequency, incontinence, nocturia, hematuria, dysuria, foul smelling urine, changes to urinary stream, flank pain, fever, and or chills. She is happy with her current voiding parameters. She reports compliance with vitamin B6 daily as prescribed. In office urinalysis results reviewed with the patient today. Discussed at length potential causes and treatments for nephrolithiasis. She otherwise offers no other issues or concerns at time. [facility] Surgical History Hx of tonsillectomy History of breast lump removal Family History Father No problems noted. Mother Hypertension Social History Household Members Other:: , retired Housing: House Patient Tobacco Use Status: Never used Tobacco e-Cigarette/Vaping Use: Never Used service: No Current occupational status: retired Cognitive needs: No Hearing needs: No Vision needs: Yes Review of Systems Const All systems reviewed & are unremarkable except as noted in HPI and below Physical Exam Const General: cooperative, healthy appearing, comfortable, no acute distress, well developed, alert and awake Orientation/consciousness: patient oriented x3 Limitations: no limitations HEENT Head: Yes normal to inspection, Yes normocephalic and Yes atraumatic Ears: hearing grossly normal bilaterally Eyes General: appearance normal, both eyes and all related structures Neck Neck: Yes normal visual inspection and Yes trachea midline Chest Chest palpation & inspection: normal inspection of the chest Resp Effort & Inspection: normal respiratory effort and able to speak in complete sentences Cardio Rate: regular rate GI Inspection: Yes normal to inspection General: Yes no CVA tenderness Back/Spine/Pelvis Back: no CVA tenderness Skin General skin exam: no rashes or lesions noted Neuro General: patient oriented x3 Extrem General: Yes normal to inspection Psych Appearance: grossly normal and well kempt Mental Status: mental status grossly normal Speech and movement: Normal speech and movement present and Clear speech present Affect: normal affect Attitude: cooperative Thought process: Normal thought process present Thought content: Normal thought content present Insight: Fair insight present (Psych) Judgement: Fair judgement present (Psych) Results AMB Urinalysis, Automated UA Leukoctes 0 Meliton/uL Last Edit by Timbo Chester on 02/11/24 09:58 UA Nitrite Negative Last Edit by iTmbo Chester on 02/11/24 09:58 UA Urobilinogen 0.2 mg/dL Last Edit by Timbo Chester on 02/11/24 09:58 UA Protein 0 mg/dL Last Edit by Timbo Chester on 02/11/24 09:58 UA pH 6.0 Last Edit by Timbo Chester on 02/11/24 09:58 UA Blood 10 Vic/uL Last Edit by Timbo Chester on 02/11/24 09:58 UA Specific [place] 1.020 Last Edit by Timbo Chester on 02/11/24 09:58 UA Ketone Negative Last Edit by Timbo Chester on 02/11/24 09:58 UA Bilirubin 0 mg/dL Last Edit by Timbo Chester on 02/11/24 09:58 UA Glucose 0 mg/dL Last Edit by Timbo Chester on 02/11/24 09:58 Results Reviewed Results Reviewed: Laboratory Last Values Urine pH (Auto) 6.0 02/11/24 09:54 Specific [place] (Auto) 1.020 02/11/24 09:54 Urine Protein (Auto) 0 mg/dL 02/11/24 09:54 Glucose (UA)(Auto) 0 mg/dL 02/11/24 09:54 Urine Ketones (Auto) Negative 02/11/24 09:54 Urine Blood (Auto) 10 Vic/uL 02/11/24 09:54 Urine Nitrite (Auto) Negative 02/11/24 09:54 Urine Bilirubin (Auto) 0 mg/dL 02/11/24 09:54 Urine Urobilinogen (Auto) 0.2 mg/dL 02/11/24 09:54 Leukocyte Esterase (Auto) 0 Meliton/uL 02/11/24 09:54 Assessment & Plan Assessment & Plan (1) Microscopic hematuria: Code(s): R31.29 - Other microscopic hematuria Category: Medical (2) Parapelvic renal cyst: Code(s): N28.1 - Cyst of kidney, acquired Category: Medical (3) Nephrolithiasis: Comment: left, 5 mm UPJ, 2 mm left ureter, mild obstruction, CT scan 11/03, referred to urology Code(s): N20.0 - Calculus of kidney Category: Medical (4) Recurrent UTI: Code(s): N39.0 - Urinary tract infection, site not specified Category: Medical Plan In office urinalysis results reviewed with the patient today; as noted above. Recent 24 hour urine collection and lab results reviewed with the patient today; as noted above. Continue vitamin B6 daily as discussed and prescribed. Continue adding 1 oz of lemon juice to water daily. Discussed, educated, and stressed the importance of increase in hydration/volume (water) to assist with nephrolithiasis. Patient currently denies any bothersome urinary issues or concerns. She reports to be happy with current voiding parameters. She denies any UTI like symptoms. Will obtain renal ultrasound in 3 months. Continue to follow-up with PCP as planned. Follow-up in 3 months with imaging to be completed prior; or sooner with any issues, concerns, and or questions. Orders: Orders AMB Urinalysis Automated Today Z13.9 - Encounter for screening, unspecified US renal BI 3 Months N20.0 - Calculus of kidney Patient Instructions: The patient had an opportunity to ask questions regarding the treatment plan. All questions were answered. Physical exam, labs, and imaging were discussed and reviewed in detail. As well as risks, benefits, and discussion of treatment choices. No major barriers to understanding were identified. The patient expressed understanding and agreement with the above treatment plan. The patient was made aware they should contact our office by phone for worsening of their current condition, the appearance of new symptoms, or with any questions or concerns. Compliance is encouraged with any medications and follow up testing that is ordered. It is a privilege to be allowed the opportunity to participate in? your urological care.? Again, if you have any questions or concerns If you have any questions or concerns please do not hesitate to contact me. The office is [phone]. This note is constructed using voice recognition software. While every effort has been made to ensure accuracy drier unloader errors may have been included. Yours sincerely, KRISTAL Hercules Coding Level of Care Code Est Pt Level 3 (89826) Complex EM visit Add On G2211 Diagnoses Microscopic hematuria R31.29 Parapelvic renal cyst N28.1 Nephrolithiasis N20.0 Recurrent UTI N39.0
== END 2024-02-11 10:21 | disposition home or self-care (01) ==
PROVIDERS: PCP Internal Medicine; Visit Provider Nurse Practitioner Family
DX: R31.29 Other microscopic hematuria (principal); N28.1 Cyst of kidney, acquired; N20.0 Calculus of kidney; N39.0 Urinary tract infection, site not specified; Z13.9 Encounter for screening, unspecified
CPT/HCPCS: 99213; G2211

== ENCOUNTER → 2024-02-11 09:33 | Outpatient (BNVA) | payer MEDICARE, OTHER, SELFPAY | PROVIDERS: PCP Internal Medicine; Visit Provider Nurse Practitioner Family | DX: N28.1 Cyst of kidney, acquired (principal); N20.0 Calculus of kidney; N39.0 Urinary tract infection, site not specified; I10 Essential (primary) hypertension; R31.29 Other microscopic hematuria | CPT/HCPCS: 81003; 99212 ==

== ENCOUNTER 2024-02-15 13:46 | Outpatient (REF) | payer MEDICARE, OTHER, SELFPAY ==
--- NOTE | ~2024-02-15 | US_ITS ---
EXAMINATION: US PELVIS CLINICAL INFORMATION: Uterine mass on ultrasound, history of uterine prolapse, postmenopausal. COMPARISON: CT abdomen and pelvis of October 24, 2023. TECHNIQUE: Ultrasound of the pelvis is performed using both transabdominal and transvaginal transducers along with Doppler. Transvaginal imaging is performed due to inadequate visualization transabdominally. FINDINGS: The uterus is anteverted and measures 6.0 x 2.9 x 3.7 cm. 0.6 cm left uterine fibroid. Endometrium appears abnormal for postmenopausal patient with multiple cystic spaces and abnormal thickness of 8 mm. No significant free fluid. Left ovary measures 1.7 x 0.8 x 1.4 cm, volume 1.4 mm, and is unremarkable. Right ovary measures 2.4 x 1.2 x 1.5 cm, volume 2.2 mL. Multiple echogenic foci within the right ovary may represent punctate calcifications. US/US pelvic and transvaginal IMPRESSION: Endometrium appears abnormal for postmenopausal patient with multiple cystic spaces and abnormal thickness of 8 mm. Gynecologic consultation and possible biopsy recommended. This study was presented today March 05, 2024 for interpretation. Stat results provided at this time as requested by referring provider.
== END 2024-02-15 13:47 | disposition home or self-care (01) ==
LOC: HO.HMGCX 13:46
PROVIDERS: PCP Internal Medicine; Visit Provider Internal Medicine
DX: N85.8 Other specified noninflammatory disorders of uterus (principal)
CPT/HCPCS: 76830; 76856

== ENCOUNTER 2024-02-25 08:48 | Outpatient (AMB) | payer MEDICARE, OTHER, SELFPAY ==
--- NOTE | 2024-02-25 08:50 | A.OFFVIS_ITS ---
Vital Signs 02/25/24 08:58 Height 5 ft 2 in Weight 137 lb 2.04 oz BMI 25.1 BP 152/74 H Blood Pressure Location Lt brachial Position Sitting Pulse 78 Pulse Source Pulse Oximeter Pulse Oximetry (%) 96 Oxygen Delivery Method Room Air Intake Visit Reasons: Colonoscopy Screening Intake Note: Sharon presents in office today for a scheduled colo s/p scrn CC; Pt reports that they are here today for an initial office visit for their diverticulitis. Pt states that this has been going on for the last few years. Pt is also concerned about any potential diet changes they can make in addition to increasing their fiber intake. Pt reports that they have had 2-3 colonoscopy exams in the past. Pt believes that it was approximately 5 years ago. Pt is concerned because they are not sure when they would be able to get this scheduled due to their being admitted to the hospital soon as well as other family dynamics. 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 female with past medical history of uterine mass, microscopic hematuria, renal cyst, diverticulitis, vitamin-B 12 deficiency, hypertension, hyperlipidemia is here today for pre colonoscopy screening.? Patient was sent to us by her PCP.? Patient has lost colonoscopy was in 2013 in [place] and it was normal..? Patient denies any gastrointestinal symptoms in the past or at present.? However patient does admit to be diagnosed with diverticulitis 2 years ago. Patient reports that she had couple episodes of abdominal pain and was placed on antibiotics. Has not had an episode in the last year or so. Denies any personal or family history of gastrointestinal disease, colon polyps, or CRC.? Denies history of difficulty with sedation or anesthesia in the past.? Negative for history of sleep apnea.? Denies any history of cardiac, renal, pulmonary, or hepatic disease.?? No history of infectious? diseases like hepatitis A, B, C, HIV or tuberculosis.? Patient is not on any anticoagulation [facility] Surgical History Hx of colonoscopy Hx of tonsillectomy History of breast lump removal Family History Father No problems noted. Mother Hypertension Social History Household Members Other:: , retired Housing: House Patient Tobacco Use Status: Never used Tobacco e-Cigarette/Vaping Use: Never Used service: No Current occupational status: retired Cognitive needs: No Hearing needs: No Vision needs: Yes Review of Systems Const Denies weight gain and Denies weight loss ENT Reports no additional complaints, Denies dysphagia and Denies odynophagia Card Reports no additional complaints Resp Reports no additional complaints GI Denies abdominal pain, Denies belching, Denies melena, Denies bloating, Denies change in bowel habits, Denies dysphagia, Denies excessive flatus, Denies dyspepsia, Denies heartburn, Denies diarrhea, Denies loose stools, Denies nausea, Denies odynophagia and Denies vomiting Musc Reports no additional complaints Neuro Reports no additional complaints Psych Reports no additional complaints Endo Reports no additional complaints Physical Exam Vital Signs: Last Vital Signs Pulse 78 02/25/24 08:58 BP 152/74 H 02/25/24 08:58 Pulse Ox 96 02/25/24 08:58 Oxygen Delivery Method Room Air 02/25/24 08:58 BMI result Body Mass Index 25.1 Const General: healthy appearing, no acute distress and well developed Nutritional Appearance: well nourished Orientation/consciousness: patient oriented x3 Resp Effort & Inspection: normal respiratory effort, able to speak in complete sentences, no tracheal deviation and symmetric chest movement Auscultation: clear to auscultation bilaterally Cardio Rate: regular rate GI Inspection: Yes normal to inspection and No distended Palpation (GI): Soft to palpation, not firm, nontender and No hepatosplenomegaly present Auscultation: normal bowel sounds General: Yes no CVA tenderness Back/Spine/Pelvis Back: no CVA tenderness Skin General skin exam: elasticity normal, turgor normal and dry skin Neuro General: patient oriented x3 Psych Appearance: grossly normal Mental Status: mental status grossly normal Assessment & Plan Assessment & Plan (1) Diverticulitis: Code(s): K57.92 - Diverticulitis of intestine, part unspecified, without perforation or abscess without bleeding Category: Medical (2) Hx of colonoscopy: Comment: 2013 Normal Angela Code(s): Z98.890 - Other specified postprocedural states Category: Surgical (3) Screen for colon cancer: Code(s): Z12.11 - Encounter for screening for malignant neoplasm of colon Plan Patient denies any cardiac or respiratory symptoms.? Denies any issues with anesthesia in the past.? Denies any history of sleep apnea.? No history infectious diseases in the past or present.? Not on any anticoagulation therapy.? No family or personal history of colon cancer or polyps.? History of diverticulitis in the past. Discussed with patient high-fiber diet. Patient may take probiotics. List of food high in fiber given to patient. Patient would like to have her procedure in August. Patient reports that her will be going for surgery and her daughters at suspecting baby. Patient denies melena, hematochezia, unintentional weight loss or ribbon like stools.? Discussed at length the pre-procedure,? prep, diet & medications as well as what to expect prior, during and after the procedure.?? Stressed the importance of good bowel prep.? Recommended the use of Vaseline or Calmoseptine OTC & baby wipes with bowel movements to promote comfort.? ?Patient verbalizes understanding and agrees to plan of care.? She was given the opportunity to ask questions and all questions answered.? We will see her after the procedure.? Medications: New bisacodyl (Dulcolax (bisacodyl)) take 4 tabs at noon the day before your colonoscopy 20 mg (4 x 5 mg) PO ONCE 4 tabs 0RF 1 day Z12.11 - Encounter for screening for malignant neoplasm of colon polyethylene glycol 3350 (Miralax) As directed by gastroenterology department at [facility] 238 grams PO ONCE 238 grams 0RF Z12.11 - Encounter for screening for malignant neoplasm of colon Coding Level of Care Code New Pt Level 3 (41237) Diagnoses Diverticulitis K57.92 Hx of colonoscopy Z98.890 Screen for colon cancer Z12.11 Time Spent (min) 40 Comment 30 minutes spent with patient and additional 10 minutes spent reviewing her records
[2024-02-25 08:58] VITALS: BP 152/74; PULSE 78; O2SAT 96; BMI 25.1
== END 2024-02-25 10:06 | disposition home or self-care (01) ==
PROVIDERS: PCP Internal Medicine; Visit Provider Nurse Practitioner Family
DX: K57.92 Diverticulitis of intestine, part unspecified, without perforation or abscess without bleeding (principal); Z98.890 Other specified postprocedural states; Z12.11 Encounter for screening for malignant neoplasm of colon
CPT/HCPCS: 99203; 99213

== ENCOUNTER → 2024-02-25 08:48 | Outpatient (BNVA) | payer MEDICARE, OTHER, SELFPAY | PROVIDERS: PCP Internal Medicine; Visit Provider Nurse Practitioner Family | DX: Z12.11 Encounter for screening for malignant neoplasm of colon (principal); K57.92 Diverticulitis of intestine, part unspecified, without perforation or abscess without bleeding; Z98.890 Other specified postprocedural states | CPT/HCPCS: 99202 ==

== ENCOUNTER 2024-03-03 09:28 | Outpatient (REF) | payer MEDICARE, OTHER, SELFPAY ==
[2024-03-03 13:38] LABS: Estimated Average Glucose 103 mg/dL; Hemoglobin A1c % 5.2 % (<6.0)
[2024-03-03 13:50] LABS: Alanine Aminotransferase 33 U/L (0-31); Albumin Level 4.3 g/dL (3.5-5.0); Alkaline Phosphatase 79 U/L (39-117); Anion Gap 12 (12-20); Aspartate Amino Transferase 23 U/L (5-31); Bilirubin Total 0.6 mg/dL (0.0-1.0); Blood Urea Nitrogen 16 mg/dL (9-16); Calcium 9.1 mg/dL (8.4-10.2); Carbon Dioxide 24 mmol/L (22-29); Chloride 108 mmol/L (96-108); Cholesterol 222 mg/dL (<200); Estimated Glomerular Filt Rate > 60; Glucose Fasting 102 mg/dL (60-99); HDL Cholesterol 46 mg/dL (>40); LDL Cholesterol Calculated 144 mg/dL (<100); Potassium 3.9 mmol/L (3.3-5.1); Sodium 140 mmol/L (135-145); Total Protein 6.8 g/dL (6.5-8.0); Triglycerides 160 mg/dL (<150)
== END 2024-03-03 09:29 | disposition home or self-care (01) ==
LOC: HO.HMGCLDS 09:28
PROVIDERS: PCP Internal Medicine; Visit Provider Internal Medicine
DX: Z00.00 Encounter for general adult medical examination without abnormal findings (principal); I10 Essential (primary) hypertension; E78.5 Hyperlipidemia, unspecified; C43.9 Malignant melanoma of skin, unspecified; Z13.1 Encounter for screening for diabetes mellitus
CPT/HCPCS: 36415; 80053; 80061; 83036

== ENCOUNTER 2024-03-05 13:06 | Outpatient (AMB) | payer MEDICARE, OTHER, SELFPAY ==
--- NOTE | 2024-03-05 13:25 | MHC.PC.OV ---
Vital Signs 03/05/24 13:26 Height 5 ft 2 in Weight 136 lb BMI 24.9 BP 128/74 Blood Pressure Location Lt brachial Position Sitting Pulse 82 Pulse Source Pulse Oximeter Pulse Oximetry (%) 98 Oxygen Delivery Method Room Air Intake Visit Reasons: Right hand pain Intake Note: Pt is here today for a sick visit. Pt c/o R hand/wrist pain. Allergies acetaminophen [From Percocet] Adverse Reaction (Verified 02/25/24 08:51) swollen face oxycodone [From Percocet] Adverse Reaction (Verified 02/25/24 08:51) swollen face Sulfa (Sulfonamide Antibiotics) Adverse Reaction (Verified 02/25/24 08:51) swollen face Medication List - Last Reconciled 03/05/24 by Bibiana Laurent MD bisacodyl (Dulcolax (bisacodyl)) 20 mg (4 x 5 mg) PO ONCE 1 day clotrimazole 10 mg mucous membrane TID 7 days dorzolamide-timolol 22.3-6.8 mg/mL 1 drp ophthalmic (eye) BID losartan 25 mg PO DAILY polyethylene glycol 3350 (Miralax) 238 grams PO ONCE pyridoxine (vitamin B6) 100 mg PO DAILY 90 days Tobacco use date assessed: 03/05/24 Dental Screening Dental Screen Date: 10/22/23 HPI Right hand pain HPI Details Pt presents for f/u HTN, controlled on losartan. Patient complains of persistent right thumb and wrist pain worse when using it pulling weeds. She has been using splint for 2 weeks with slight improvement but patient is interested in physical therapy. She is not interested in cortisone injection [facility] Surgical History Hx of colonoscopy Hx of tonsillectomy History of breast lump removal Family History Father No problems noted. Mother Hypertension Social History Household Members Other:: , retired Housing: House Patient Tobacco Use Status: Never used Tobacco e-Cigarette/Vaping Use: Never Used service: No Current occupational status: retired Cognitive needs: No Hearing needs: No Vision needs: Yes Questionnaire PHQ-9 Over the last 2 weeks, how often have you been bothered by any of the following problems? 1. Little interest or pleasure in doing things: not at all 2. Feeling down, depressed, or hopeless: not at all 3. Trouble falling or staying asleep, or sleeping too much: not at all 4. Feeling tired or having little energy: not at all 5. Poor appetite or overeating: not at all 6. Feeling bad about yourself - or that you are a failure or have let yourself or your family down: not at all 7. Trouble concentrating on things, such as reading the newspaper or watching television: not at all 8. Moving or speaking so slowly that other people could have noticed. Or the opposite - being so fidgety or restless that you have been moving around a lot more than usual: not at all 9. Thoughts that you would be better off or of hurting yourself in some way: not at all Total score: 0 Depression Screening Interpretation: Negative Depression Screening Done: Yes Source: Developed by Drs. Brandon Vargas, Aide Sesay, Benedict Garnett and colleagues, with an educational gutierrez from [employer]. Thrive Questionnaire Date Thrive assessed: 02/07/24 I am a: Patient What is your living situation today?: I have a steady place to live Within the past 12 months, did the food you bought not last and you didn't have the money to get more?: Never true Within the past 12 months, did you worry whether your food would run out before you got money to buy more?: Never true Do you have trouble paying for medicines?: No Do you have trouble getting transportation to medical appointments?: No Do you have trouble paying your heating and electricity bill?: No Do you have trouble taking care of your child, family member or friend?: No Do you have trouble with day-to-day activities such as bathing, preparing meals, shopping, managing finances, etc.?: No Are you currently unemployed and looking for a job?: No Are you interested in more education?: No Please select the resources that you would like help with: Housing/Nursing Home Currently or been in a relationship where the following occur: No concerns reported THRIVE Score: 0 AUDIT C Alcohol Use Questionnaire (AUDIT-C) 1. How often do you have a drink containing alcohol?: 2-4 times a month 2. How many drinks containing alcohol do you have on a typical day when you are drinking?: 1 or 2 3. How often do you have six or more drinks on one occasion?: Never Total Score: 2 ENA-7 AMB Questionnaire ENA-7 Date ENA - 7 assessed: 02/07/24 Feeling nervous, anxious, or on edge: 0 = Not at all Not being able to stop or control worryin = Several days Worrying too much about different things: 1 = Several days Trouble relaxin = Not at all Being so restless that it is hard to sit still: 0 = Not at all Becoming easily annoyed or irritable: 0 = Not at all Feeling afraid as if something awful might happen: 0 = Not at all Total ENA-7 score (0-4 normal; 5-9 mild; 10-14 moderate; 15-21 severe): 2 Source: Developed by Drs. Brandon Vargas, Aide Sesay, Benedict Garnett and colleagues, with an educational gutierrez from [employer]. Review of Systems Const All systems reviewed & are unremarkable except as noted in HPI and below ENT Reports no additional complaints Card Reports no additional complaints Resp Reports no additional complaints GI Reports no additional complaints Reports no additional complaints Physical exam (Primary Care) Vital Signs: Last Vital Signs Pulse 82 03/05/24 13:26 BP 128/74 03/05/24 13:26 Pulse Ox 98 03/05/24 13:26 Oxygen Delivery Method Room Air 03/05/24 13:26 BMI result Body Mass Index 24.9 Tobacco/Smoking Status: Tobacco use Status Tobacco use date assessed 03/05/24 03/05/24 13:32 Patient Tobacco Use Status Never used Tobacco 03/05/24 13:28 e-Cigarette/Vaping Use Never Used 03/05/24 13:28 PHQ-9: PHQ-9 Score PHQ-9: Total score 0 03/05/24 13:55 Depression Screening Interpretation: Negative Thrive Assessment: Date of Thrive Assessment Date Thrive assessed 02/07/24 03/05/24 13:28 Currently or been in a relationship where the following occur: No concerns reported Const General: no acute distress HENMT Mouth: Normal oral and palatal mucosa present Eyes General: appearance normal, both eyes and all related structures Resp Effort & Inspection: normal respiratory effort Auscultation: clear to auscultation bilaterally Cardio Rhythm: regular rhythm Heart sounds: S1 normal heart sound present and S2 normal heart sound present Extrem Other: There is reproducible tenderness and the base of right thumb, slightly decreased range of motion right wrist no soft tissue swelling erythema or warmth Immunizations Boostrix Tdap 2.5 Lf unit-8 mcg-5 Lf/0.5 mL intramuscular syringe Performing Provider: Bibiana Laurent MD Performing Location: [facility] Administered by: FERNANDO Huitron on 03/05/24 14:04 Dose Route Admin Location Dispensed Lot Number Expiration Date NDC 411 Directory Assistance Operator 0.5 mL IM Left Deltoid 0.5 mL [id number] 03/29/26 12255-604-03 [employer] VIS Given Date VIS Provided VIS Publication Date 03/05/24 Single Vaccine 21 Eligibility Eligibility Date Funding Source Not [facility] Eligible 03/05/24 Private Assessment and Plan Assessment & Plan (1) Pain of right thumb: Code(s): M79.644 - Pain in right finger(s) Plan: Patient will be referred to OT for a right wrist tendinitis (2) HTN (hypertension): Code(s): I10 - Essential (primary) hypertension Plan: Continue losartan (3) Uterine mass: Comment: 1.3 cm Present on bladder ultrasound 12/2023 Code(s): N85.8 - Other specified noninflammatory disorders of uterus Plan: Patient had pelvic ultrasound but has not been read by radiologist, will check on the report (4) Nephrolithiasis: Comment: left, 5 mm UPJ, 2 mm left ureter, mild obstruction, CT scan 11/03, referred to urology Code(s): N20.0 - Calculus of kidney Plan: Follow-up with urology started on vit B 6 Orders: Orders OT Evaluation and Treatment Today M79.644 - Pain in right finger(s) Lipid Panel 6 Months M79.644 - Pain in right finger(s) Comprehensive Met. Panel 6 Months M79.644 - Pain in right finger(s) TDaP Immunization Today Z23 - Encounter for immunization Coding Level of Care Code Est Pt Level 3 (71349) Diagnoses Pain of right thumb M79.644 HTN (hypertension) I10 Uterine mass N85.8 Nephrolithiasis N20.0
[2024-03-05 13:26] VITALS: BP 128/74; PULSE 82; O2SAT 98; BMI 24.9
== END 2024-03-05 14:36 | disposition home or self-care (01) ==
PROVIDERS: PCP Internal Medicine; Visit Provider Internal Medicine
DX: M79.644 Pain in right finger(s) (principal); I10 Essential (primary) hypertension; N85.8 Other specified noninflammatory disorders of uterus; N20.0 Calculus of kidney; Z23 Encounter for immunization
CPT/HCPCS: 90471; 90715; 99213

== ENCOUNTER 2024-03-12 10:10 | Outpatient (RCR) | payer MEDICARE, OTHER, SELFPAY ==
--- NOTE | 2024-06-04 16:06 | MHC.OT.DC ---
[address] [phone] F: [phone] Occupational Therapy Discharge Note Patient Name: Sharondivina Nevarez Provider: Bibiana Laurent Diagnosis: Pain in R thumb Date of Surgery: Date of Evaluation: 03/12/24 Date of Discharge: Treatments to Date: 1 Cancellations to Date: No Shows to Date: Discharge Status: Visit Non-compliance Discharge Summary: No follow up after IE Electronically Signed By: Eliane Virk OTR/L Reviewed/agree with student documentation: N/A Therapist: Please Sign and return to therapist, thank you for your referral.
== END 2024-06-04 16:06 | disposition home or self-care (01) ==
LOC: HO.OT 10:10
PROVIDERS: PCP Internal Medicine; Visit Provider Internal Medicine
DX: M79.644 Pain in right finger(s) (principal)
CPT/HCPCS: 29130; 97110; 97140; 97165; 97535

== ENCOUNTER 2024-03-18 07:21 | Outpatient (AMB) | payer MEDICARE, OTHER, SELFPAY ==
[2024-03-18 07:25] VITALS: BP 148/82; BMI 24.6
--- NOTE | 2024-03-18 07:25 | A.OFFVIS_ITS ---
Vital Signs 03/18/24 07:25 Height 5 ft 2 in Weight 134 lb 7.712 oz BMI 24.6 BP 148/82 H Intake Visit Reasons: Endometrial hyperplasia Service Order Expediter Required: No Information Interpreted: non-clinical & clinical Accompanied by: Self / Same As Patient Allergies acetaminophen [From Percocet] Adverse Reaction (Verified 03/18/24 07:27) swollen face oxycodone [From Percocet] Adverse Reaction (Verified 03/18/24 07:27) swollen face Sulfa (Sulfonamide Antibiotics) Adverse Reaction (Verified 03/18/24 07:27) swollen face Post menopausal: Yes HPI Comments Details: The patient is referred from her PCP regarding abnormal findings on pelvic ultrasound. No history of pelvic pain and or pressure and no vaginal bleeding. Last co testing was negative , according to the patient , records are not avail able, prior to the age of 67 and the patient gives history of multiple normal Pap smear between the age of 55-65 Last mammogram was BI-RADS 1 at [place] in 03/05 The patient is scheduled for next colonoscopy in 08/05 at [place]. Pelvic ultrasound done in 03/05 showed the following: The uterus is anteverted and measures 6.0 x 2.9 x 3.7 cm. 0.6 cm left uterine fibroid. Endometrium appears abnormal for postmenopausal patient with multiple cystic spaces and abnormal thickness of 8 mm. No significant free fluid. Left ovary measures 1.7 x 0.8 x 1.4 cm, volume 1.4 mm, and is unremarkable. Right ovary measures 2.4 x 1.2 x 1.5 cm, volume 2.2 mL. Multiple echogenic foci within the right ovary may represent punctate calcifications. [facility] Medical History (Updated 03/18/24 @ 07:48 by Kyler Felix MD) HTN (hypertension) Surgical History Hx of colonoscopy Hx of tonsillectomy History of breast lump removal Family History Father No problems noted. Mother Hypertension Social History Household Members Other:: , retired Housing: House Patient Tobacco Use Status: Never used Tobacco e-Cigarette/Vaping Use: Never Used service: No Current occupational status: retired Cognitive needs: No Hearing needs: No Vision needs: Yes Review of Systems Const All systems reviewed & are unremarkable except as noted in HPI and below Physical Exam Vital Signs: BMI result Body Mass Index 24.6 General: Yes no CVA tenderness External Female Exam: normal external appearance and normal appearance of the urethra Speculum Exam - Vagina: normal appearance of the vagina, normal palpation, no lesions and no masses Speculum Exam - Cervix: normal appearance of the cervix, normal palpation, no lesions, no masses and nontender Bimanual exam- vagina & uterus: normal bimanual exam, normal palpation, uterine size normal, normal palpation, uterine shape normal, No Cervical tenderness present and non-tender Bimanual Exam- Adnexa, other: normal adnexae Back/Spine/Pelvis Back: no CVA tenderness Assessment & Plan Assessment & Plan (1) Thickened endometrium: Code(s): R93.89 - Abnormal findings on diagnostic imaging of other specified body structures Category: Medical Plan: Discussed with the patient endometrial thickness above 4 mm in menopause , the differential diagnosis of a thickened endometrium includes but not limited to endometrial polyp, hyperplasia or carcinoma. Explained to the patient that endometrial each thickness is less predictive of endometrial neoplasia in asymptomatic patients, i.e. those without postmenopausal uterine bleeding. The sensitivity and specificity for detecting endometrial carcinoma at an endometrial thickness of >= 5mm was 83 and 72 percent, respectively; this is lower than in patients with bleeding. Studies have shown that postmenopausal patients without uterine bleeding who had an endometrial thickness >11 mm had an endometrial carcinoma risk of 6.7 percent; this risk is similar to postmenopausal patients with bleeding and an endometrial thickness >5 mm. Recommended endometrial sampling to rule endometrial pathology via either office endometrial biopsy or diagnostic hysteroscopy/D&C with possible polype ctomy/myomectomy. All pros and cons, risks and benefits of each approach were discussed with the patient, the patient decided to proceed with endometrial biopsy. EMB done, see procedure note. Instructions given the patient to schedule an EMB follow-up appointment within 2 weeks. All questions answered, the patient verbalized (2) Uterine myoma: Code(s): D25.9 - Leiomyoma of uterus, unspecified Category: Medical Plan: Discussed with the patient the findings on pelvic ultrasound & the risk of myosarcoma; discussed with the patient the options of treatment including expectant management versus hysterectomy; the pros and cons, risks benefits of each approach were discussed with the patient including the fact that in cases of myosarcoma, surgical treatment can lead to early diagnosis and positively affects the prognosis; after further discussion, the patient decided to proceed with expectant management. Will repeat pelvic ultrasound in 3 months. Instructions given to patient to call in case any of the following occurs: pressure symptoms, abnormal uterine bleeding, pelvic pain; and to schedule a 3 months ultrasound follow-up appointment . All questions answered, the patient verbalized understanding and agreed with the plan . (3) Calcification of ovary: Code(s): N83.8 - Other noninflammatory disorders of ovary, fallopian tube and broad ligament Category: Medical Plan: Discussed with the patient the finding on ultrasound showing calcification, differential diagnosis were discussed with the patient will repeat ultrasound in 3 months. Instructions given the patient to schedule an ultrasound follow-up appointment. All questions answered, the patient verbalized understanding Orders: Orders AMB Endometrial Biopsy Today R93.89 - Abnormal findings on diagnostic imaging of other specified body structures US pelvic and transvaginal 3 Months D25.9 - Leiomyoma of uterus, unspecified, N83.8 - Other noninflammatory disorders of ovary, fallopian tube and broad ligament Coding Level of Care Code New Pt Level 3 (18617) Procedure Only Diagnoses Thickened endometrium R93.89 Uterine myoma D25.9 Calcification of ovary N83.8
== END 2024-03-18 08:42 | disposition home or self-care (01) ==
PROVIDERS: PCP Internal Medicine; Visit Provider Obstetrics & Gynecology
DX: R93.89 Abnormal findings on diagnostic imaging of other specified body structures (principal); D25.9 Leiomyoma of uterus, unspecified; N83.8 Other noninflammatory disorders of ovary, fallopian tube and broad ligament
CPT/HCPCS: 58100; 99203

== ENCOUNTER 2024-03-18 07:21 | Outpatient (REF) | payer MEDICARE, OTHER, SELFPAY | END 2024-03-18 07:22 | disposition home or self-care (01) | LOC: HO.LNP 07:21 | PROVIDERS: PCP Internal Medicine; Visit Provider Obstetrics & Gynecology | DX: N85.00 Endometrial hyperplasia, unspecified (principal); R93.89 Abnormal findings on diagnostic imaging of other specified body structures; N25.9 Disorder resulting from impaired renal tubular function, unspecified; N83.8 Other noninflammatory disorders of ovary, fallopian tube and broad ligament | CPT/HCPCS: 58100; 88305; 99202 ==

== ENCOUNTER 2024-03-25 08:47 | Outpatient (AMB) | payer MEDICARE, OTHER, SELFPAY ==
--- NOTE | 2024-03-25 08:48 | MHC.OFFVIS ---
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 Pelvic ultrasound showed the following: The uterus is anteverted and measures 6.0 x 2.9 x 3.7 cm. 0.6 cm left uterine fibroid. Endometrium appears abnormal for postmenopausal patient with multiple cystic spaces and abnormal thickness of 8 mm. No significant free fluid. Left ovary measures 1.7 x 0.8 x 1.4 cm, volume 1.4 mm, and is unremarkable. Right ovary measures 2.4 x 1.2 x 1.5 cm, volume 2.2 mL. Multiple echogenic foci within the right ovary may represent punctate calcifications. Office EMB pathology showed the following: Fragments of benign endometrial polyp with a background of superficial strips of benign atrophic endometrium and benign endocervical glandular epithelium; no atypia or carcinoma. [facility] Medical History HTN (hypertension) Surgical History Hx of colonoscopy Hx of tonsillectomy History of breast lump removal Family History Father No problems noted. Mother Hypertension Social History Household Members Other:: , retired Housing: House Patient Tobacco Use Status: Never used Tobacco e-Cigarette/Vaping Use: Never Used service: No Current occupational status: retired Cognitive needs: No Hearing needs: No Vision needs: Yes Female Reproductive History Menstrual Date of last menstrual period: 06/10/20 Total pregnancies: 2 Full term: 2 Review of Systems Card Reports as per HPI and Reports no additional complaints Resp Reports as per HPI and Reports no additional complaints GI Reports as per HPI and Reports no additional complaints Reports as per HPI Physical Exam Vital Signs: Last Vital Signs BP 132/72 03/25/24 08:52 BMI result Body Mass Index 24.6 Const General: cooperative, healthy appearing and comfortable Resp Effort & Inspection: normal respiratory effort Auscultation: clear to auscultation bilaterally Percussion: percussion normal Cardio Palpation: normal PMI Rate: regular rate Rhythm: regular rhythm Heart sounds: no murmurs and no rubs Peripheral pulses: Peripheral pulses 2+ throughout GI Inspection: Yes normal to inspection Palpation (GI): Soft to palpation, nontender, no guarding, not rigid and No hepatosplenomegaly present Percussion: Yes normal to percussion Auscultation: normal bowel sounds Rectal Exam - Female: deferred Assessment & Plan Assessment & Plan (1) Endometrial polyp: Code(s): N84.0 - Polyp of corpus uteri Category: Medical Plan: Discussed with the patient the results the pathology, showing fragments of endometrial polyp. Recommended hysteroscopy D&C possible polypectomy/myomectomy. Discussed with the patient the procedure , all benefits and risks including but not limited to inability to complete the procedure , insufficient endometrial tissue for a complete evaluation of the endometrial cavity , bleeding, infection, possible need for blood transfusion with all its risk ( HIV,syphilis, Hepatitis, anaphylaxis shock, others..), injury to bladder, rectum, possible need for laparoscopy/laparotomy or hysterectomy. The patient verbalized understanding and signed the consent. Instructions given the patient to stay NPO after midnight the day prior to the procedure and to take only the specific medication (s) discussed the morning of the surgical procedure and to schedule a 2 week postoperative appointment Coding Level of Care Code Est Pt Level 3 (03151) Diagnoses Endometrial polyp N84.0
[2024-03-25 08:52] VITALS: BP 132/72; BMI 24.6
== END 2024-03-25 09:20 | disposition home or self-care (01) ==
PROVIDERS: PCP Internal Medicine; Visit Provider Obstetrics & Gynecology
DX: N84.0 Polyp of corpus uteri (principal)
CPT/HCPCS: 99213

== ENCOUNTER → 2024-03-25 08:47 | Outpatient (BNVA) | payer MEDICARE, OTHER, SELFPAY | PROVIDERS: PCP Internal Medicine; Visit Provider Obstetrics & Gynecology | DX: N84.0 Polyp of corpus uteri (principal) | CPT/HCPCS: 99212 ==

== ENCOUNTER 2024-03-28 08:27 | Day surgery (SDC) | payer MEDICARE, OTHER, SELFPAY ==
--- NOTE | 2024-03-26 13:59 | HO.ANESPROP2 ---
Documented by User: Lauren Johnson NP 03/26/24 13:59 HPI - Anesthesia Eval Consult details Narrative: 73yo F for D&C Hysteroscopy,possible myomectomy,possible polypectomy, PMFSH Active Problems Active Problems: All Active Problems Endometrial polyp (Acute) Calcification of ovary (Acute) Uterine myoma (Acute) Thickened endometrium (Acute) Endometrial hyperplasia (Acute) Pain of right thumb (Acute) Recurrent UTI (Acute) Uterine mass (Acute) Thrush, oral (Acute) Microscopic hematuria (Acute) Parapelvic renal cyst (Acute) Urinary urgency (Acute) Urinary frequency (Acute) Hydronephrosis concurrent with and due to calculi of kidney and ureter (Acute) Nephrolithiasis (Acute) Lower back pain (Acute) Left flank pain (Acute) Dysuria (Acute) Sinusitis (Acute) Cataract (Acute) Tingling of both feet (Acute) Annual physical exam (Acute) Diverticulitis (Acute) Glaucoma (Acute) Vitamin D deficiency (Acute) Osteopenia (Acute) HTN (hypertension) (Acute) Hyperlipidemia (Acute) Hx of mammogram (Acute) Hx of colonoscopy (Acute) Melanoma (Acute) Acute sinusitis (Acute) Sprain of toe, fifth, right (Acute) Past Medical History Medical History HTN (hypertension) Family History Family History Father No problems noted. Mother Hypertension Surgical History Surgical History Hx of colonoscopy Hx of tonsillectomy History of breast lump removal Social History Social History Household Members Other:: , retired Housing: House Patient Tobacco Use Status: Never used Tobacco e-Cigarette/Vaping Use: Never Used Use of substances other than those prescribed or required for medical reasons: No Are you DNR?: No Advance Directives: No Advance Directives Information Provided: Yes service: No Current occupational status: retired Cognitive needs: No Hearing needs: No Vision needs: Yes Meds Allergies Allergy/AdvReac Type Severity Reaction Status Date / Time acetaminophen [From Percocet] AdvReac swollen Verified 03/28/24 09:31 face oxycodone [From Percocet] AdvReac swollen Verified 03/28/24 09:31 face Sulfa (Sulfonamide AdvReac swollen Verified 03/28/24 09:31 Antibiotics) face Home Medications ?Medication ?Instructions ?Recorded ?Confirmed ?Last Taken ?Type dorzolamide 22.3 mg-timolol 6.8 1 drp ophthalmic (eye) BID 01/23/22 03/28/24 03/27/24 History mg/mL eye drops Assessment and Plan Assessment Anesthesia Assessment: Chart Reviewed Documented by User: Celia Guajardo MD 03/28/24 10:17 PMFSH Active Problems Active Problems: oAll Active Problems Endometrial polyp (Acute) Calcification of ovary (Acute) Uterine myoma (Acute) Thickened endometrium (Acute) Endometrial hyperplasia (Acute) Pain of right thumb (Acute) Recurrent UTI (Acute) Uterine mass (Acute) Thrush, oral (Acute) Microscopic hematuria (Acute) Parapelvic renal cyst (Acute) Urinary urgency (Acute) Urinary frequency (Acute) Hydronephrosis concurrent with and due to calculi of kidney and ureter (Acute) Nephrolithiasis (Acute) Lower back pain (Acute) Left flank pain (Acute) Dysuria (Acute) Sinusitis (Acute) Cataract (Acute) Tingling of both feet (Acute) Annual physical exam (Acute) Diverticulitis (Acute) Glaucoma (Acute) Vitamin D deficiency (Acute) Osteopenia (Acute) HTN (hypertension) (Acute) Hyperlipidemia (Acute) Hx of mammogram (Acute) Hx of colonoscopy (Acute) Melanoma (Acute) Acute sinusitis (Acute) Sprain of toe, fifth, right (Acute) Past Medical History Medical History HTN (hypertension) Family History Family History Father No problems noted. Mother Hypertension Surgical History Surgical History Hx of colonoscopy Hx of tonsillectomy History of breast lump removal History of Problems with Anesthesia: No Social History Social History Household Members Other:: , retired Housing: House Patient Tobacco Use Status: Never used Tobacco e-Cigarette/Vaping Use: Never Used Use of substances other than those prescribed or required for medical reasons: No Are you DNR?: No Advance Directives: No Advance Directives Information Provided: Yes service: No Current occupational status: retired Cognitive needs: No Hearing needs: No Vision needs: Yes Meds Allergies Allergy/AdvReac Type Severity Reaction Status Date / Time acetaminophen [From Percocet] AdvReac swollen Verified 03/28/24 09:31 face oxycodone [From Percocet] AdvReac swollen Verified 03/28/24 09:31 face Sulfa (Sulfonamide AdvReac swollen Verified 03/28/24 09:31 Antibiotics) face Home Medications ?Medication ?Instructions ?Recorded ?Confirmed ?Last Taken ?Type dorzolamide 22.3 mg-timolol 6.8 1 drp ophthalmic (eye) BID 01/23/22 03/28/24 03/27/24 History mg/mL eye drops Exam Airway Mallampati Class: II TM Dist: >3cm Neck ROM: Full Loose/Missing/Broken Teeth: No Heart: RRR Lungs: CTA Assessment and Plan Assessment Anesthesia Assessment: Anesthesia Plan Discussed Final Anesthetic Review History of Problems with Anesthesia: No NPO: Yes ASA Class: II Final Preanesthetic Review: Meds/Allgs Chart Reviewed, Consent Obtained/Reviewed and Anes Risks/Benef Reviewed Patient Risk: Low Procedure Risk: Low Anesthetic Plan Anesthetic Plan: GA Disposition: Standard PACU
[2024-03-28 09:39] VITALS: BMI 24.7
[2024-03-28 09:57] VITALS: BP 151/86; PULSE 74; RESP 16; TEMP 36.3; O2SAT 97
[2024-03-28] MEDS: Lactated Ringers 1,000 ML 100 ML IVCONT (10:10)
--- NOTE | 2024-03-28 11:23 | MHC.SHP ---
Pre-Procedural Eval Section A - 24 Hr Update-Section A only Date of Service: 03/28/24 The patient is an INPATIENT: No Changes since office visit: No Cold of Flu in the past 2 weeks, No New Medical Problems, No Changes in Medication and No Patient answered all questions The patient has been examined within 24 hours of the surgical procedure. The History & Physical has been completed within 30 days and I have reviewed it.: Yes Section B - Complete if H&P > 30 days Chief Complaint: Polyp of corpus uteri Allergies: Allergies Allergy/AdvReac Type Severity Reaction Status Date / Time acetaminophen [From Percocet] AdvReac swollen Verified 03/28/24 09:31 face oxycodone [From Percocet] AdvReac swollen Verified 03/28/24 09:31 face Sulfa (Sulfonamide AdvReac swollen Verified 03/28/24 09:31 Antibiotics) face Plan Diagnosis/Plan: Unchanged I have reviewed the history and physical and performed a pertinent physical examination on my patient. No changes have occurred unless specified. Time Spent With Patient Time: Total time managing care of this patient today ____ minutes.
[2024-03-28 11:57] VITALS: BP 131/79; PULSE 72; RESP 18; TEMP 36.8; O2SAT 100
[2024-03-28 12:02] VITALS: BP 119/74; PULSE 72; RESP 18; O2SAT 99
[2024-03-28 12:07] VITALS: BP 125/71; PULSE 72; RESP 18; O2SAT 95
--- NOTE | 2024-03-28 12:15 | P.OP_ITS ---
Operative Note Operative Note Date of Service: 03/28/24 Narrative: Preop Diagnosis: Endometrial polyp by EMB pathology Operation: Diagnostic Hysteroscopy, Dilataion & Curettage and polypectomy Post Op Diagnosis: Endometrial Polyp QBL: Minimal Anesthesia: GLMA Surgeon: Kyler Felix MD Registered Nurse Maternal Child: None Complication: None Pathology: Endometrial Scrapings, Endometrial polyp Procedure: The patient was put in the dorsal lithotomy position, scrubbed, and draped in the usual manner. A sterile speculum was inserted in the patient's vagina. The anterior lip of the cervix was grasped with a single tooth tenaculum. The cervix was dilated up to 5 mm, then the scope was inserted in the patient's uterus. Inspection revealed endometrial polyp. The Myosure Reach device was used; it was introduced through the operative channel and polypectomy done with no complications. The scope was then taken out from the uterine cavity, sharp curettings was carried on with minimal to moderate amount of tissues retrieved. At the end of the procedure, all instruments were taken out of the patient uterine and vaginal cavity. The single tooth tenaculum was removed and homeostasis was assured using pressure,. The patient tolerated the procedure well and was transferred to the PACU in a stable condition.
--- NOTE | 2024-03-28 12:15 | PM.OP ---
Brief Operative Note Date of Service: 03/28/24 Pre-op diagnosis: Endometrial polyp EMB pathology Post-op diagnosis: same (Endometrial polyp) Procedure: Hysteroscopy D&C, Polypectomy Surgeon: Kyler Felix MD Anesthesia: GLMA Was an Corporate Coordinator used for this Procedure?: No Estimated blood loss (mL): 0 Pathology: other (Endometrial Scrapping. Polyp) Condition: stable Disposition: PACU
[2024-03-28 12:23] VITALS: BP 132/76; PULSE 78; RESP 18; O2SAT 99
[2024-03-28 12:37] VITALS: BP 134/72; PULSE 76; RESP 18; TEMP 36.8; O2SAT 96
--- OUTSIDE RECORDS SUMMARY | 2024-04-02 06:28 | XMS_ITS ---
[facility] Address [address] [place] [address] Care Team Providers Care Housekeeping Supervisor Hotel Name Role Phone Bibiana Laurent MD Primary Care Provider Ayden Cole Unavailable [phone] Felecia Hanson Unavailable [phone] ALLERGIES Allergen (clinical drug ingredient) Drug/Non Drug Allergy documented on EMR Reaction Allergy Type Onset Date Status acetaminophen / oxycodone Percocet swelling Drug Allergy Active sulfa rash Drug Allergy Active REASON FOR VISIT Seen Sooner MEDICATIONS Medication SIG (Take, Route, Frequency, Duration) Notes Start Date End Date Status Cosopt 22.3-6.8 MG/ML 1 drop into affect ed eye Ophthalmic Twice a day Active Losartan Potassium 25 MG 1 tablet Orally Once a day Active SOCIAL HISTORY Tobacco Use: [...] Are you an other tobacco user? No VITAL SIGNS Height 5 ft 2 in in 02/27/2024 Weight 130 lbs 02/27/2024 BMI 23.77 kg/m2 02/27/2024 Encounters Encounter Location Date [facility] [address] [facility] Felecia Black PLAN OF TREATMENT Next Appt Details Provider Name:Felecia Hanson , 05/08/2024 08:15:00 AM, [address] [place] [address], [place], [address],
--- OUTSIDE RECORDS SUMMARY | 2024-04-02 06:28 | XMS_ITS ---
[facility] Address [address] [place] [address] Care Team Providers Care Promotions Executive Name Role Phone Bibiana Laurent MD Primary Care Provider Ayden Cole Unavailable [phone] ALLERGIES Allergen (clinical drug ingredient) Drug/Non Drug Allergy documented on EMR Reaction Allergy Type Onset Date Status acetaminophen / oxycodone Percocet swelling Drug Allergy Active sulfa rash Drug Allergy Active REASON FOR VISIT Painful nail(s) aggrevated by shoes and causing difficulty standing/walking., Foot pain MEDICATIONS Medication SIG (Take, Route, Fr equency, [...] W/U Status Risk SNOMED Code Notes Problem Hallux valgus (acquired), left foot (M20.12) Active confirmed Acquired hallux valgus (51451125) Problem Hallux valgus (acquired), right foot (M20.11) Active confirmed Acquired hallux valgus (65166680) Problem Other hammer toe(s) (acquired), right foot (M20.41) Active confirmed Acquired hammer toe of right foot (9637690026128 105) Problem Other hammer toe(s) (acquired), left foot (M20.42) Active confirmed Acquired hammer toe of left foot (1880928133315 103) VITAL SIGNS Height 5 ft 2 in in 01/30/2024 Weight 130 lbs 01/30/2024 BMI 23.77 kg/m2 01/30/2024 Blood pressure systolic 125 mm Hg 01/30/20 24 Blood pressure diastolic 71 mm Hg 024 Encounters Encounter Location Date Provider Diagnosis [facility] [place] [address] [place] [address] 01/30/2024 Ayden Peace Tinea unguium B35.1 ; [...] foot (ICD-10 - M20.42) PLAN OF TREATMENT Next Appt Details Follow Up: 3 Months, Reason: Provider Name:Felecia Hanson , 05/08/2024 08:15:00 AM, [address] [place], [address], Procedure Notes * Category Sub-Category Detail Notes Debride Nail 6-10 Nail debridement Nail debridem ent performed extensively to reduce/remove overall nail length and girth, subungual debris, and necrotic tissue, by manual and electrical means with use of a nail nipper and/or dremel, to more viable healthy nail plate or bed tissue 6-10. Silver nitrate used for any petechial bleeding as necessary. Patient chooses, no pharmaceutical tx (76007) Progress Notes * Examination Category Sub-Category Detail Notes Neuroma Pain PALPATION: No interspace pa in noted on palpation Neurological SENSORY: Neurological exa m is normal, pain sensation normal, vibration sensation intact, pinprick sensation is normal in the lower extremities, denies, tingling, burning, anesthesia, paresthesia, hyperesthesia, B/L BABINSKI REFLEX: absent TINEL'S COMPRESSION: Negative tarsal aleksandra rhea, mary pedis, and medial calcaneal nerves B/L Dermatologic SKIN FINDINGS: Skin exam reveal s normal texture, elasticity, and tugor. There are no masses. The interspaces are clear, B/L Orthopedic GAIT ABNORMALITY: pronated, abdu cted, B/L MUSCLE STRENGTH: 5/5 all groups in a symmetrical fashion , B/L General Examination GENERAL APPEARANCE: pleasant , alert, well nourished, well developed, well hydrated, with good attention to hygene/body habitus, and in no acute distress ORIENTED: person,place, and ti me Vascular DP PULSES: 2/4, B/L PT PULSES: 2/4, B/L CAPILLARY FILL TIME: 3 secs. per digit, B/L SKIN TEMPERTURE GRADIENT OF THE LOWER EXTERMITIES: warm to cool, proximal to distal, B/L HAIR GROWTH/TEXTURE/ELASTICITY/TURGOR: n ormal, B/L EDEMA: no edema TELANGECTASIA: absent VARICOSITIES: absent PIGMENTATION: normal, B/L Nails NAILS are: Elongated, overg rown, dystrophic, lytic, greater than 3mm thick, discolored and friable with crumbly malodorous subungual debris, with pain on palpation, 1-3 B/L History and Physical Notes * HPI (History of Present Illness) Category Sub-Category Detail Notes Painful Nails Pt States Last PCP Visit: Date:: 024 Foot Pain Aggrevated: shoes, any press ure Onset/Cause: gradual, genetic Course: worse Duration: several years Nature: aching, tenderness Treatments: change in shoes, str aps,wraps,pads Quality/Severity moderate, severe Location B/L, Great toe joint and 2nd toes
--- OUTSIDE RECORDS SUMMARY | 2024-04-02 06:29 | XMS_ITS ---
Author Organization [facility] Address [address] [place] [address] Care Team Providers Care Oriental Rug Repairer Name Role Phone Bibiana Laurent MD Primary Care Provider Ayden Coel Unavailable [phone] Edilberto Ferrari Unavailable [phone] Smith Encounters Encounter Location Date Provider [facility] [address] [place] [address] 01/08/2024 Edilberto Ferrari PLAN OF TREATMENT Next Appt Details Provider Name:Felecia Hanson , 05/08/2024 08:15:00 AM, [address] [place], [address],
--- OUTSIDE RECORDS SUMMARY | 2024-04-02 06:29 | XMS_ITS | Patient Health Record ---
Author Organization [facility] michael [place] Address [address] [place] [address] Care Team Providers Care Shell Mold Bonder Name Role Phone Bibiana Laurent MD Primary Care Provider UnavailAyden Terrazas Unavailable [phone] Felecia Hanson Unavailable [phone] Edilberto Ferrari Unavailable [phone] ALLERGIES Allergen (clinical drug ingredient) Drug/Non Drug Allergy documented on EMR Reaction Allergy Type Onset Date Status acetaminophen / oxycodone Percocet swelling Drug Allergy Active sulfa rash Drug Allergy Active REASON FOR REFERRAL No Information MEDICATIONS Medication SIG (Take, Route, Frequency, Duration) [...] Notes Problem Onychomycosis (110.1) Active confirmed Onychomycosis (732505837) Problem Hallux Valgus (735.0) Active confirmed Hallux valgus (810948401) Problem Hammer toe (735.4) Active confirmed Hammer toe (853413365) Problem Pain in Limb (729.5) Active confirmed Pain in limb (40178667) Problem Hallux valgus (acquired), left foot (M20.12) Active confirmed Acquired hallu x valgus (63597342) Problem Hallux valgus (acquired), right foot (M20.11) Active confirmed Acquired hallu x valgus (24325435) Problem Other hammer toe(s) (acquired), right foot (M20.41) Active confirmed Acquired hamme r toe of right foot (156978532522166 5) Problem Other hammer toe(s) (acquired), left foot (M20.42) Active confirmed Acquired hamme r toe of left foot (957680202577119 3) VITAL SIGNS Blood pressure diastolic 71 mm Hg 01/30/2024 Height 5 ft 2 in in 02/27/2024 Blood pressure systolic 125 mm Hg 01/30/2024 Weight 130 lbs 02/27/2024 BMI 23.77 kg/m2 02/27/2024 Encounters Encounter Location Date Provider Diagnosis [address] [address] 12/11/[address] [address] [facility]/[address] [facility] [address] 01/30/2024 AydenCole Tinea unguium B35.1 ; Pain in right toe(s) M79.674 ; Pain in left toe(s) M79.675 ; Hallux valgus (acquired), left foot M20.12 ; Hallux valgus (acquired), right foot M20.11 ; Other hammer toe(s) (acquired), right foot M20.41 and Other hammer toe(s) (acquired), left foot M20.[address] [address] 02/27/2024 Felecia Hanson ASSESSMENTS Encounter Date Diagnosis Assessment Notes Treatment [...] X ray : Foot, right 2V 02/09/2012 27074-[id number] NAIL, 6 OR MORE 02/09/2012 Next Appt Details Provider Name:Felecia Hanson , 05/08/2024 08:15:00 AM, [address] [place], [address], Insurance Providers Payer Name Payer Address Payer Phone Subscriber Number Group Number Insured Name Patient Relationship to Insured Coverage Start Date Coverage End Date Medicare [facility] [employer] [address] [place] [address] [id number] Sharon Nevarez Self - patient is the insured [facility] [address] [place] [address] [phone] [id number] Sharon Nevarez Self - patient is the insured MEDICAL (GENERAL) HISTORY Medical History History ICD Code chicken pox measles osteoporosis psoriasis Arthritis Cataracts Glaucoma Headaches/Migraines High blood pressure Joint implants/screws Surgical History Surgery Date(Month/Year) pelvic suspension 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
== END 2024-03-28 13:05 | disposition home or self-care (01) ==
PROVIDERS: PCP Internal Medicine; Visit Provider Obstetrics & Gynecology
PROC: 0UDB8ZZ Extraction of Endometrium, Via Natural or Artificial Opening Endoscopic (ICD-10-PCS; CPT 58558; principal; 2024-03-28 11:30)
DX: N84.0 Polyp of corpus uteri (principal); I10 Essential (primary) hypertension
CPT/HCPCS: 58558; 88305; J1100; J1885; J2250; J2405; J2704; J3010

== ENCOUNTER → 2024-03-28 08:27 | Outpatient (BNV) | payer MEDICARE, OTHER, SELFPAY | PROVIDERS: PCP Internal Medicine; Visit Provider Obstetrics & Gynecology | DX: N84.0 Polyp of corpus uteri (principal) | CPT/HCPCS: 58558 ==

== ENCOUNTER 2024-04-04 09:24 | Outpatient (AMB) | payer MEDICARE, OTHER, SELFPAY ==
--- NOTE | 2024-04-04 09:35 | MHC.PC.OV ---
Vital Signs 04/04/24 09:36 Height 5 ft 2 in Weight 137 lb BMI 25.1 BP 126/82 Blood Pressure Location Lt brachial Position Sitting Pulse 72 Pulse Source Pulse Oximeter Pulse Oximetry (%) 96 Oxygen Delivery Method Room Air Intake Visit Reasons: pelvic follow up Intake Note: Pt is here today for a follow up visit. Allergies acetaminophen [From Percocet] Adverse Reaction (Verified 04/04/24 09:39) swollen face oxycodone [From Percocet] Adverse Reaction (Verified 04/04/24 09:39) swollen face Sulfa (Sulfonamide Antibiotics) Adverse Reaction (Verified 04/04/24 09:39) swollen face Medication List - Last Reconciled 04/04/24 by Bibiana Laurent MD dorzolamide-timolol 22.3-6.8 mg/mL 1 drp ophthalmic (eye) BID losartan 25 mg PO DAILY polyethylene glycol 3350 (Miralax) 238 grams PO ONCE pyridoxine (vitamin B6) 100 mg PO DAILY 90 days Tobacco use date assessed: 04/04/24 Dental Screening Dental Screen Date: 10/22/23 HPI pelvic follow up HPI Details Patient presents for the follow-up. Hypertension is controlled on losartan. Patient has been follow low-cholesterol diet and starting to exercise regularly. She had endometrial biopsy and polyp removed with benign pathology. [facility] Medical History HTN (hypertension) Surgical History Hx of colonoscopy Hx of tonsillectomy History of breast lump removal Family History Father No problems noted. Mother Hypertension Social History Household Members Other:: , retired Housing: House Patient Tobacco Use Status: Never used Tobacco e-Cigarette/Vaping Use: Never Used service: No Current occupational status: retired Cognitive needs: No Hearing needs: No Vision needs: Yes Questionnaire PHQ-9 Over the last 2 weeks, how often have you been bothered by any of the following problems? 1. Little interest or pleasure in doing things: not at all 2. Feeling down, depressed, or hopeless: not at all 3. Trouble falling or staying asleep, or sleeping too much: not at all 4. Feeling tired or having little energy: not at all 5. Poor appetite or overeating: not at all 6. Feeling bad about yourself - or that you are a failure or have let yourself or your family down: not at all 7. Trouble concentrating on things, such as reading the newspaper or watching television: not at all 8. Moving or speaking so slowly that other people could have noticed. Or the opposite - being so fidgety or restless that you have been moving around a lot more than usual: not at all 9. Thoughts that you would be better off or of hurting yourself in some way: not at all Total score: 0 Depression Screening Interpretation: Negative Depression Screening Done: Yes Source: Developed by Drs. Brandon Vargas, Aide Sesay, Benedict Garnett and colleagues, with an educational gutierrez from [employer]. Thrive Questionnaire Date Thrive assessed: 02/07/24 I am a: Patient What is your living situation today?: I have a steady place to live Within the past 12 months, did the food you bought not last and you didn't have the money to get more?: Never true Within the past 12 months, did you worry whether your food would run out before you got money to buy more?: Never true Do you have trouble paying for medicines?: No Do you have trouble getting transportation to medical appointments?: No Do you have trouble paying your heating and electricity bill?: No Do you have trouble taking care of your child, family member or friend?: No Do you have trouble with day-to-day activities such as bathing, preparing meals, shopping, managing finances, etc.?: No Are you currently unemployed and looking for a job?: No Are you interested in more education?: No Please select the resources that you would like help with: None Currently or been in a relationship where the following occur: No concerns reported THRIVE Score: 0 AUDIT C Alcohol Use Questionnaire (AUDIT-C) 1. How often do you have a drink containing alcohol?: 2-4 times a month 2. How many drinks containing alcohol do you have on a typical day when you are drinking?: 1 or 2 3. How often do you have six or more drinks on one occasion?: Never Total Score: 2 ENA-7 AMB Questionnaire ENA-7 Date ENA - 7 assessed: 02/07/24 Feeling nervous, anxious, or on edge: 0 = Not at all Not being able to stop or control worryin = Several days Worrying too much about different things: 1 = Several days Trouble relaxin = Not at all Being so restless that it is hard to sit still: 0 = Not at all Becoming easily annoyed or irritable: 0 = Not at all Feeling afraid as if something awful might happen: 0 = Not at all Total ENA-7 score (0-4 normal; 5-9 mild; 10-14 moderate; 15-21 severe): 2 Source: Developed by Drs. Brandon Vargas, Aide Sesay, Benedict Garnett and colleagues, with an educational gutierrez from [employer]. Review of Systems Const All systems reviewed & are unremarkable except as noted in HPI and below ENT Reports no additional complaints Card Reports no additional complaints GI Reports no additional complaints Reports no additional complaints Physical exam (Primary Care) Vital Signs: Last Vital Signs Pulse 72 04/04/24 09:36 BP 126/82 04/04/24 09:36 Pulse Ox 96 04/04/24 09:36 Oxygen Delivery Method Room Air 04/04/24 09:36 BMI result Body Mass Index 25.1 Tobacco/Smoking Status: Tobacco use Status Tobacco use date assessed 04/04/24 04/04/24 09:39 Patient Tobacco Use Status Never used Tobacco 04/04/24 09:39 e-Cigarette/Vaping Use Never Used 04/04/24 09:37 PHQ-9: PHQ-9 Score PHQ-9: Total score 0 04/04/24 09:37 Depression Screening Interpretation: Negative Thrive Assessment: Date of Thrive Assessment Date Thrive assessed 02/07/24 04/04/24 09:37 Currently or been in a relationship where the following occur: No concerns reported Const General: no acute distress HENMT Face and sinus: Yes normal facial exam Neck Neck: Yes supple Resp Effort & Inspection: normal respiratory effort Auscultation: clear to auscultation bilaterally Cardio Rhythm: regular rhythm Heart sounds: S1 normal heart sound present and S2 normal heart sound present GI Inspection: Yes normal to inspection Assessment and Plan Assessment & Plan (1) Endometrial polyp: Comment: s/p bx Benign pathology, f/u shareholder 04/05 Code(s): N84.0 - Polyp of corpus uteri Plan: f/u shareholder (2) HTN (hypertension): Code(s): I10 - Essential (primary) hypertension Plan: cont med (3) Hyperlipidemia: Code(s): E78.5 - Hyperlipidemia, unspecified Plan: Continue low-cholesterol diet regular exercise Coding Level of Care Code Est Pt Level 4 (83169) Diagnoses Endometrial polyp N84.0 HTN (hypertension) I10 Hyperlipidemia E78.5
[2024-04-04 09:36] VITALS: BP 126/82; PULSE 72; O2SAT 96; BMI 25.1
== END 2024-04-04 10:25 | disposition home or self-care (01) ==
PROVIDERS: PCP Internal Medicine; Visit Provider Internal Medicine
DX: N84.0 Polyp of corpus uteri (principal); I10 Essential (primary) hypertension; E78.5 Hyperlipidemia, unspecified
CPT/HCPCS: 99214

== ENCOUNTER 2024-04-17 07:27 | Outpatient (AMB) | payer MEDICARE, OTHER, SELFPAY ==
--- OUTSIDE RECORDS SUMMARY | 2024-04-17 07:28 | XMS_ITS ---
[facility] Address [address] [place] [address] Care Team Providers Care Medical Lab Technologist Name Role Phone Bibiana Laurent MD Primary Care Provider Ayden Cole Unavailable [phone] Felecia Hanson Unavailable [phone] ALLERGIES Allergen (clinical drug ingredient) Drug/Non Drug [...] 02/27/2024 Encounters Encounter [facility] Date [facility] [address] 02/27/2024 Felecia Black PLAN OF TREATMENT Next Appt Details Provider Name:Felecia Barnes Valentin , 05/08/2024 08:15:00 AM, [address] [place], [place] [address] [place], [address], Provider Name:Felecia Barnes Valentin , 07/17/2024 08:30:00 AM, [address] [place], [place] [address] [place], [address],
--- OUTSIDE RECORDS SUMMARY | 2024-04-17 07:28 | XMS_ITS ---
Author Organization [facility] Address [address] [place] [address] Care Team Providers Care Bander And Cellophaner Machine Helper Name Role Phone Bibiana Laurent MD Primary Care Provider Ayden Cole Unavailable [phone] Edilberto Ferrari Unavailable [phone] REASON FOR VISIT Seen Sooner Encounters Encounter Location Date Provider Diagnosis [address] [address] 04/08/2024 Edilberto Ferrari PLAN OF TREATMENT Next Appt Details Provider Name:Felecia Hanson , 05/08/2024 08:15:00 AM, [address] [place] [address], [address], Provider Name:Felecia Hanson , 07/17/2024 08:30:00 AM, [address] [place] [address], [address],
--- NOTE | 2024-04-17 07:29 | MHC.OFFVIS ---
Vital Signs 04/17/24 07:32 Height 5 ft 2 in Weight 134 lb BMI 24.5 BP 122/76 Intake Visit Reasons: post op Primary Care Sales Representative Required: No Information Interpreted: non-clinical & clinical Accompanied by: Self / Same As Patient Allergies acetaminophen [From Percocet] Adverse Reaction (Verified 04/17/24 07:32) swollen face oxycodone [From Percocet] Adverse Reaction (Verified 04/17/24 07:32) swollen face Sulfa (Sulfonamide Antibiotics) Adverse Reaction (Verified 04/17/24 07:32) swollen face Post menopausal: Yes HPI Comments Details: The patient is presenting post hysteroscopy D&C no complaints minimal vaginal bleeding no feverishness chills or abdominal pain. The pathology showed the following: A. Endometrium, polyp, biopsy: Benign endometrial polyp with cystic atrophy. B. Endometrium, curettage: Strips of atrophic endometrium; negative for atypia, hyperplasia or malignancy PFSH Medical History HTN (hypertension) Surgical History Hx of colonoscopy Hx of tonsillectomy History of breast lump removal Family History Father No problems noted. Mother Hypertension Social History Household Members Other:: , retired Housing: House Patient Tobacco Use Status: Never used Tobacco e-Cigarette/Vaping Use: Never Used service: No Current occupational status: retired Cognitive needs: No Hearing needs: No Vision needs: Yes Review of Systems Const All systems reviewed & are unremarkable except as noted in HPI and below Reports as per HPI and Reports no additional complaints GI Reports no additional complaints Reports no additional complaints Assessment & Plan Assessment & Plan (1) Endometrial polyp: Code(s): N84.0 - Polyp of corpus uteri Category: Medical Plan: Discussed with the patient the intraoperative finding and the pathology results. Discussed with the patient the sensitivity, specificity, positive and negative predictive value, of endometrial biopsy in detecting endometrial pathology including but not limited to endometrial hyperplasia, cancer and other pathology; instructed the patient to call in case vaginal bleeding bleeding occurs, the next step will be to proceed with further endometrial sampling evaluation to rule out endometrial pathology. All questions answered and the patient verbalized understanding and agreed with the plan. Coding Level of Care Code Est Pt Level 3 (13433) Diagnoses Endometrial polyp N84.0
--- OUTSIDE RECORDS SUMMARY | 2024-04-17 07:29 | XMS_ITS ---
[facility] Address [address] [place] [address] Care Team Providers Care Book Author Name Role Phone Bibiana Laurent MD Primary Care Provider Ayden Cole Unavailable [phone] ALLERGIES Allergen (clinical drug ingredient) Drug/Non Drug [...] foot (M20.12) Active confirmed Acquired hallux valgus (86292814) Problem Hallux valgus (acquired), right foot (M20.11) Active confirmed Acquired hallux valgus (85142055) Problem Other hammer toe(s) (acquired), right foot (M20.41) Active confirmed Acquired hammer toe of right foot (3124975332240 105) Problem Other hammer toe(s) (acquired), left foot (M20.42) Active confirmed Acquired hammer toe of left foot (8383141104718 103) VITAL SIGNS Blood pressure systolic 125 mm Hg 01/30/20 24 Blood pressure diastolic 71 mm Hg 024 Height 5 ft 2 in in 01/30/2024 Weight 130 lbs 01/30/2024 BMI 23.77 kg/m2 01/30/2024 Encounters Encounter Location Date Provider Diagnosis [facility] [address] [place] [address] 01/30/2024 Ayden Peace Tinea unguium B35.1 ; [...] Name:Felecia Hanson , 05/08/2024 08:15:00 AM, [address] [place], [address], Provider Name:Felecia Hanson , 07/17/2024 08:30:00 AM, [address] [facility], [place], [address], Procedure Notes * Category Sub-Category Detail Notes [...] as necessary. Patient chooses, no pharmaceutical tx (27489) Progress Notes * Examination Category Sub-Category Detail [...]
--- OUTSIDE RECORDS SUMMARY | 2024-04-17 07:29 | XMS_ITS | Patient Health Record ---
Author Organization [facility] [place] [place] Address [address] [facility] [place] [address] Care Team Providers Care Harvest Worker Fruit Name Role Phone Bibiana Laurent MD Primary Care Provider UnavailAyden Terrazas Unavailable [phone] Felecia Hanson Unavailable [phone] Edilberto Ferrari Unavailable [phone] ALLERGIES Allergen (clinical drug ingredient) Drug/Non Drug [...] Notes Problem Onychomycosis (110.1) Active confirmed Onychomycosis (427947397) Problem Hallux Valgus (735.0) Active confirmed Hallux valgus (447124677) Problem Hammer toe (735.4) Active confirmed Hammer toe (525074050) Problem Pain in Limb (729.5) Active confirmed Pain in limb (58490032) Problem Hallux valgus (acquired), left foot (M20.12) Active confirmed Acquired hallu x valgus (52649994) Problem Hallux valgus (acquired), right foot (M20.11) Active confirmed Acquired hallu x valgus (81541976) Problem Other hammer toe(s) (acquired), right foot (M20.41) Active confirmed Acquired hamme r toe of right foot (204474876104902 5) Problem Other hammer toe(s) (acquired), left foot (M20.42) Active confirmed Acquired hamme r toe of left foot (343528028566079 3) VITAL SIGNS Blood pressure diastolic 71 mm Hg 01/30/2024 Height 5 ft 2 in in 02/27/2024 Blood pressure systolic 125 mm Hg 01/30/2024 Weight 130 lbs 02/27/2024 BMI 23.77 kg/m2 02/27/2024 Encounters Encounter Location Date Provider Diagnosis [address] [address] 12/11/2023 Edilberto Ferrari [address] [address] 01/08/2024 Edilberto Ferrari [address] [address] 01/30/2024 Ayden Peace Tinea unguium B35.1 ; Pain in right toe(s) M79.674 ; Pain in left toe(s) M79.675 ; Hallux valgus (acquired), left foot M20.12 ; Hallux valgus (acquired), right foot M20.11 ; Other hammer toe(s) (acquired), right foot M20.41 and Other hammer toe(s) (acquired), left foot M20.42 [facility] [address] 02/27/[address] [address] 04/08/2024 Edilberto Ferrari ASSESSMENTS Encounter Date Diagnosis Assessment Notes Treatment [...] X ray : Foot, right 2V 02/09/2012 12291-[id number] NAIL, 6 OR MORE 02/09/2012 Next Appt Details Provider Name:Felecia Hanson , 05/08/2024 08:15:00 AM, [address] [place] [address], [address], Provider Name:Felecia Hanson , 07/17/2024 08:30:00 AM, [address] [place] [address], [address], Insurance Providers Payer Name Payer Address Payer Phone Subscriber Number Group Number Insured Name Patient Relationship to Insured Coverage Start Date Coverage End Date Medicare [employer] [address] [place] [address] [id number] Sharon Nevarez Self - patient is the insured [facility] [place] [address] [place] [phone] [id number] Sharon Nevarez Self - patient is the insured MEDICAL (GENERAL) HISTORY Medical History History ICD Code chicken pox measles osteoporosis psoriasis Arthritis Cataracts Glaucoma Headaches/Migraines High blood pressure Joint implants/screws Surgical History Surgery Date(Month/Year) pelvic suspension 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
[2024-04-17 07:32] VITALS: BP 122/76; BMI 24.5
== END 2024-04-17 12:46 | disposition home or self-care (01) ==
LOC: HO.HWS 07:27
PROVIDERS: PCP Internal Medicine; Visit Provider Obstetrics & Gynecology
DX: N84.0 Polyp of corpus uteri (principal)
CPT/HCPCS: 99213

== ENCOUNTER → 2024-04-17 07:27 | Outpatient (BNVA) | payer MEDICARE, OTHER, SELFPAY | PROVIDERS: PCP Internal Medicine; Visit Provider Obstetrics & Gynecology | DX: N84.0 Polyp of corpus uteri (principal) | CPT/HCPCS: 99212 ==

== ENCOUNTER 2024-04-24 13:38 | Outpatient (AMB) | payer MEDICARE, OTHER, SELFPAY ==
[2024-04-24 13:41] VITALS: BP 122/80; PULSE 83; O2SAT 95; BMI 24.7
--- NOTE | 2024-04-24 13:41 | A.OFFPC_ITS ---
Vital Signs 04/24/24 13:41 Height 5 ft 2 in Weight 135 lb BMI 24.7 BP 122/80 Blood Pressure Location Lt brachial Position Sitting Pulse 83 Pulse Source Pulse Oximeter Pulse Oximetry (%) 95 Oxygen Delivery Method Room Air Intake Visit Reasons: chest pain Intake Note: Pt is here today for a sick visit. Pt c/o flutter in her chest that comes and goes. Allergies acetaminophen [From Percocet] Adverse Reaction (Verified 04/24/24 13:44) swollen face oxycodone [From Percocet] Adverse Reaction (Verified 04/24/24 13:44) swollen face Sulfa (Sulfonamide Antibiotics) Adverse Reaction (Verified 04/24/24 13:44) swollen face Tobacco use date assessed: 04/24/24 Dental Screening Dental Screen Date: 10/22/23 HPI chest pain HPI Details PATIENT PRESENTS REPORTING SENSATION OF FLUTTERING IN HER CHEST LASTING A FEW SECONDS 3 TIMES LAST WEEK. SYMPTOMS ARE NOT ASSOCIATED WITH ANY CHEST PAIN NAUSEA VOMITING DIAPHORESIS OR PHYSICAL ACTIVITY. PATIENT HAS BEEN UNDER STRESS PREPARING FOR HER SISTER IS VISIT FROM [place]. Patient has been drinking more coffee and black tea for the last couple weeks. She denies nocturnal symptoms. hypertension is controlled on losartan [facility] Medical History HTN (hypertension) Surgical History Hx of colonoscopy Hx of tonsillectomy History of breast lump removal Family History Father No problems noted. Mother Hypertension Social History Household Members Other:: , retired Housing: House Patient Tobacco Use Status: Never used Tobacco e-Cigarette/Vaping Use: Never Used service: No Current occupational status: retired Cognitive needs: No Hearing needs: No Vision needs: Yes Questionnaire PHQ-9 Over the last 2 weeks, how often have you been bothered by any of the following problems? 1. Little interest or pleasure in doing things: not at all 2. Feeling down, depressed, or hopeless: not at all 3. Trouble falling or staying asleep, or sleeping too much: not at all 4. Feeling tired or having little energy: not at all 5. Poor appetite or overeating: not at all 6. Feeling bad about yourself - or that you are a failure or have let yourself or your family down: not at all 7. Trouble concentrating on things, such as reading the newspaper or watching television: not at all 8. Moving or speaking so slowly that other people could have noticed. Or the opposite - being so fidgety or restless that you have been moving around a lot more than usual: not at all 9. Thoughts that you would be better off or of hurting yourself in some way: not at all Total score: 0 Depression Screening Interpretation: Negative Depression Screening Done: Yes 79710 - PHQ-9 Billing: Yes Source: Developed by Drs. Brandon Vargas, Aide Sesay, Benedict Garnett and colleagues, with an educational gutierrez from [employer]. Thrive Questionnaire Date Thrive assessed: 02/07/24 I am a: Patient What is your living situation today?: I have a steady place to live Within the past 12 months, did the food you bought not last and you didn't have the money to get more?: Never true Within the past 12 months, did you worry whether your food would run out before you got money to buy more?: Never true Do you have trouble paying for medicines?: No Do you have trouble getting transportation to medical appointments?: No Do you have trouble paying your heating and electricity bill?: No Do you have trouble taking care of your child, family member or friend?: No Do you have trouble with day-to-day activities such as bathing, preparing meals, shopping, managing finances, etc.?: No Are you currently unemployed and looking for a job?: No Are you interested in more education?: No Please select the resources that you would like help with: None Currently or been in a relationship where the following occur: No concerns reported THRIVE Score: 0 AUDIT C Alcohol Use Questionnaire (AUDIT-C) 1. How often do you have a drink containing alcohol?: 2-4 times a month 2. How many drinks containing alcohol do you have on a typical day when you are drinking?: 1 or 2 3. How often do you have six or more drinks on one occasion?: Never Total Score: 2 ENA-7 AMB Questionnaire ENA-7 Date ENA - 7 assessed: 02/07/24 Feeling nervous, anxious, or on edge: 0 = Not at all Not being able to stop or control worryin = Several days Worrying too much about different things: 1 = Several days Trouble relaxin = Not at all Being so restless that it is hard to sit still: 0 = Not at all Becoming easily annoyed or irritable: 0 = Not at all Feeling afraid as if something awful might happen: 0 = Not at all Total ENA-7 score (0-4 normal; 5-9 mild; 10-14 moderate; 15-21 severe): 2 Source: Developed by Drs. Brandon Vargas, Aide Sesay, Benedict Garnett and colleagues, with an educational gutierrez from [employer]. Review of Systems Const All systems reviewed & are unremarkable except as noted in HPI and below Eyes Reports no additional complaints ENT Reports no additional complaints Card Reports no additional complaints Resp Reports no additional complaints GI Reports no additional complaints Physical exam (Primary Care) Vital Signs: Last Vital Signs Pulse 83 04/24/24 13:41 BP 122/80 04/24/24 13:41 Pulse Ox 95 04/24/24 13:41 Oxygen Delivery Method Room Air 04/24/24 13:41 BMI result Body Mass Index 24.7 Tobacco/Smoking Status: Tobacco use Status Tobacco use date assessed 04/24/24 04/24/24 13:45 Patient Tobacco Use Status Never used Tobacco 04/24/24 13:45 e-Cigarette/Vaping Use Never Used 04/24/24 13:45 PHQ-9: PHQ-9 Score PHQ-9: Total score 0 04/24/24 13:45 Depression Screening Interpretation: Negative Thrive Assessment: Date of Thrive Assessment Date Thrive assessed 02/07/24 04/24/24 13:45 Currently or been in a relationship where the following occur: No concerns reported Const General: no acute distress HENMT Mouth: Normal oral and palatal mucosa present Neck Neck: Yes supple Resp Effort & Inspection: normal respiratory effort Auscultation: clear to auscultation bilaterally Cardio Rhythm: regular rhythm Heart sounds: S1 normal heart sound present and S2 normal heart sound present GI Inspection: Yes normal to inspection Palpation (GI): Soft to palpation Percussion: Yes normal to percussion Auscultation: normal bowel sounds Assessment and Plan Assessment & Plan (1) Palpitations: Code(s): R00.2 - Palpitations Plan: Stress management cutting down on caffeine intake discussed with the patient if the symptoms persist Holter will be obtained (2) HTN (hypertension): Code(s): I10 - Essential (primary) hypertension Plan: Continue losartan Coding Level of Care Code Est Pt Level 3 (19279) Diagnoses Palpitations R00.2 HTN (hypertension) I10
== END 2024-04-24 14:35 | disposition home or self-care (01) ==
PROVIDERS: PCP Internal Medicine; Visit Provider Internal Medicine
DX: R00.2 Palpitations (principal); I10 Essential (primary) hypertension
CPT/HCPCS: 99213

== ENCOUNTER 2024-05-02 08:26 | Outpatient (REF) | payer MEDICARE, OTHER, SELFPAY ==
--- NOTE | ~2024-05-02 | US_ITS ---
EXAMINATION: US RETROPERITONEAL LIMITED (RENAL ONLY) CLINICAL INFORMATION: Calculus of kidney. COMPARISON: Ultrasound bladder 11/21/2023. Ultrasound kidneys 11/29/2023. CT abdomen and pelvis 10/24/2023. X-ray abdomen KUB 10/22/2023. TECHNIQUE: Real-time imaging of the kidneys. FINDINGS: RIGHT KIDNEY: 10.8 x 4.3 x 5.6 cm (SAG x AP x TRV). The kidney is normal in size, contour, and echogenicity. Renal cortical thickness is normal. 4 echogenic calculi are seen ranging in size from 3 to 4 mm. No hydronephrosis. 2 benign Bosniak class I renal cysts are noted, the largest measuring 1.7 cm which require no additional imaging or follow-up. No solid renal masses are seen. LEFT KIDNEY: 11.1 x 5.8 x 5.2 cm (SAG x AP x TRV). The kidney is normal in size, contour, and echogenicity. Renal cortical thickness is normal. There is an upper pole 3 mm echogenic focus consistent with a nonobstructing calculus. There is mild hydronephrosis present. At the time of the 10/24/2023 study, there is an obstructing proximal left ureteral stone present with marked hydronephrosis. No focal parenchymal lesions. US/US renal BI IMPRESSION: 1. Bilateral nonobstructing renal calculi. 2. Mild left-sided hydronephrosis. Electronically signed by: Carmine Clemens MD 05/07/2024 12:44 AM EDT
== END 2024-05-02 08:27 | disposition home or self-care (01) ==
LOC: HO.HMGCX 08:26
PROVIDERS: PCP Internal Medicine; Visit Provider Nurse Practitioner Family
DX: N20.0 Calculus of kidney (principal)
CPT/HCPCS: 76775

== ENCOUNTER 2024-05-14 15:05 | Outpatient (AMB) | payer MEDICARE, OTHER, SELFPAY ==
--- NOTE | 2024-05-14 15:07 | A.OFFVIS_ITS ---
Intake Visit Reasons: 3m/US(set) Intake Note: Patient presents today for a follow up on: nephrolithiasis, microscopic hematuria, renal cyst, and ultrasound results Imaging Completed:05/02/24 Urology Medications: Vitamin B6 Allergies to Antibiotic: Sulfa Blood Thinner: None Project Development Leader Required: No Accompanied by: Self / Same As Patient Allergies acetaminophen [From Percocet] Adverse Reaction (Verified 05/14/24 15:44) swollen face oxycodone [From Percocet] Adverse Reaction (Verified 05/14/24 15:44) swollen face Sulfa (Sulfonamide Antibiotics) Adverse Reaction (Verified 05/14/24 15:44) swollen face Medication List - Last Reconciled 05/14/24 by ALICE Hercules-LAMAR amoxicillin-pot clavulanate 500-125 mg (Augmentin) 1 tab PO Q8H 7 days dorzolamide-timolol 22.3-6.8 mg/mL 1 drp ophthalmic (eye) BID losartan 25 mg PO DAILY methylcellulose (laxative) (Citrucel) 500 mg PO DAILY polyethylene glycol 3350 (Miralax) 238 grams PO ONCE pyridoxine (vitamin B6) 100 mg PO DAILY 90 days sennosides (Natural Senna Laxative) 17.2 mg (2 x 8.6 mg) PO BEDTIME HPI Comments Details: Sharon is a very pleasant 73-year-old female patient of Dr. Laurent. She has a past medical history of hypertension. She presents to the office today for follow-up of her nephrolithiasis and recurrent urinary tract infections. In discussion with the patient today she reports since her last office visit here 3 months ago she has not had any bothersome urinary issues or concerns. She denies having had any urinary tract infection like symptoms and or UTIs. Recent renal imaging results reviewed with the patient today. Right kidney with 2 benign Bosniak class 1 renal cyst that are noted largest measuring 1.7 cm which requires no additional imaging or follow-up per radiology report. For echogenic calculi are seen ranging in size from 3-4 mm within the right kidney. Left kidney with an upper pole 3 mm nonobstructing calculus. There is mild hydrone phrosis present. Previous workup has included a 24 hour urine. Noting low urine volume of 1.28, hypercalciuria, borderline hypocitraturia, and high calcium oxalate. Labs are as follows: 02/03 sodium 143, potassium 4.1, chloride 109, carbon dioxide 27, BUN 16, creatinine 0.82, random glucose 108, uric acid 5.4, calcium 9.6, phosphorus 3.5, magnesium 2.1, and 25 OH vitamin-D total 41.8. BUN: 11/03 23, 02/03 16, 03/05 16 Creatinine: 11/03 0.89, 02/03 0.82, 03/05 0.77 Discussed and stressed the importance of increase in fluid intake (water). She reports having followed up with Dr. Elvira hdz regarding her 1.3 uterine mass and has underwent biopsy and continues to follow-up with Dr. Elvira hdz as planned. She discusses her upcoming cruise in July. She currently denies any bothersome urinary issues or concerns. She denies urinary urgency, urinary frequency, incontinence, nocturia, hematuria, dysuria, foul smelling urine, changes to urinary stream, flank pain, fever, and or chills. She is happy with her current voiding parameters. She reports compliance with vitamin B6 daily as prescribed. In office urinalysis results reviewed with the patient today. Discussed at length potential causes and treatments for nephrolithiasis. She otherwise offers no other issues or concerns at time. [facility] Medical History HTN (hypertension) Surgical History Hx of colonoscopy Hx of tonsillectomy History of breast lump removal Family History Father No problems noted. Mother Hypertension Social History Household Members Other:: , retired Housing: House Patient Tobacco Use Status: Never used Tobacco e-Cigarette/Vaping Use: Never Used service: No Current occupational status: retired Cognitive needs: No Hearing needs: No Vision needs: Yes Review of Systems Const All systems reviewed & are unremarkable except as noted in HPI and below Physical Exam Const General: cooperative, healthy appearing, comfortable, no acute distress, well developed, alert and awake Orientation/consciousness: patient oriented x3 Limitations: no limitations HEENT Head: Yes normal to inspection, Yes normocephalic and Yes atraumatic Ears: hearing grossly normal bilaterally Eyes General: appearance normal, both eyes and all related structures Neck Neck: Yes normal visual inspection and Yes trachea midline Chest Chest palpation & inspection: normal inspection of the chest Resp Effort & Inspection: normal respiratory effort and able to speak in complete sentences Cardio Rate: regular rate GI Inspection: Yes normal to inspection General: Yes no CVA tenderness Back/Spine/Pelvis Back: no CVA tenderness Skin General skin exam: no rashes or lesions noted Neuro General: patient oriented x3 Extrem General: Yes normal to inspection Psych Appearance: grossly normal and well kempt Mental Status: mental status grossly normal Speech and movement: Normal speech and movement present and Clear speech present Affect: normal affect Attitude: cooperative Thought process: Normal thought process present Thought content: Normal thought content present Insight: Fair insight present (Psych) Judgement: Fair judgement present (Psych) Results AMB Urinalysis, Automated UA Leukoctes 0 Meliton/uL Last Edit by [facility] on 05/14/24 15:55 UA Nitrite Last Edit by Leo Nemo on 05/14/24 15:55 UA Urobilinogen 0.2 mg/dL Last Edit by [facility] on 05/14/24 15:55 UA Protein 0 mg/dL Last Edit by [facility] on 05/14/24 15:55 UA pH 6.0 Last Edit by [facility] on 05/14/24 15:55 UA Blood 10 Vic/uL Last Edit by [facility] on 05/14/24 15:55 UA Specific [place] 1.015 Last Edit by [facility] on 05/14/24 15:55 UA Ketone Last Edit by [facility] on 05/14/24 15:55 UA Bilirubin 0 mg/dL Last Edit by [facility] on 05/14/24 15:55 UA Glucose 0 mg/dL Last Edit by Timbo Chester on 05/14/24 15:55 Results Reviewed Results Reviewed: Laboratory Last Values Urine pH (Auto) 6.0 05/14/24 15:53 Specific [place] (Auto) 1.015 05/14/24 15:53 Urine Protein (Auto) 0 mg/dL 05/14/24 15:53 Glucose (UA)(Auto) 0 mg/dL 05/14/24 15:53 Urine Blood (Auto) 10 Vic/uL 05/14/24 15:53 Urine Bilirubin (Auto) 0 mg/dL 05/14/24 15:53 Urine Urobilinogen (Auto) 0.2 mg/dL 05/14/24 15:53 Leukocyte Esterase (Auto) 0 Meliton/uL 05/14/24 15:53 Date of Service: 05/02/24 EXAMINATION: US RETROPERITONEAL LIMITED (RENAL ONLY) FINDINGS: RIGHT KIDNEY: 10.8 x 4.3 x 5.6 cm (SAG x AP x TRV). The kidney is normal in size, contour, and echogenicity. Renal cortical thickness is normal. 4 echogenic calculi are seen ranging in size from 3 to 4 mm. No hydronephrosis. 2 benign Bosniak class I renal cysts are noted, the largest measuring 1.7 cm which require no additional imaging or follow-up. No solid renal masses are seen. LEFT KIDNEY: 11.1 x 5.8 x 5.2 cm (SAG x AP x TRV). The kidney is normal in size, contour, and echogenicity. Renal cortical thickness is normal. There is an upper pole 3 mm echogenic focus consistent with a nonobstructing calculus. There is mild hydronephrosis present. At the time of the 10/24/2023 study, there is an obstructing proximal left ureteral stone present with marked hydronephrosis. No focal parenchymal lesions. IMPRESSION: 1. Bilateral nonobstructing renal calculi. 2. Mild left-sided hydronephrosis. Assessment & Plan Assessment & Plan (1) Recurrent UTI: Code(s): N39.0 - Urinary tract infection, site not specified Category: Medical (2) Nephrolithiasis: Comment: left, 5 mm UPJ, 2 mm left ureter, mild obstruction, CT scan 11/03, referred to urology Code(s): N20.0 - Calculus of kidney Category: Medical Plan In office urinalysis results reviewed with the patient today; as noted above. Recent renal imaging results reviewed with the patient today; as noted above. Reviewed BUN and creatinine. Discussed surveillance monitoring. Continue vitamin B6 as discussed and prescribed. Continue adding 1 oz of lemon juice to water daily. Continue drinking plenty of water daily. Patient currently denies any bothersome urinary issues or concerns. She reports be happy with current voiding parameters. Will obtain renal ultrasound in 6 months. Follow-up in 6 months with imaging to be completed prior; or sooner with any issues, concerns, and or questions. Orders: Orders US renal BI 6 Months N20.0 - Calculus of kidney AMB Urinalysis Automated Today Z13.9 - Encounter for screening, unspecified Medications: New amoxicillin-pot clavulanate 500-125 mg (Augmentin) 1 tab PO Q8H 7 days 21 tabs 0RF N39.0 - Urinary tract infection, site not specified Patient Instructions: The patient had an opportunity to ask questions regarding the treatment plan. All questions were answered. Physical exam, labs, and imaging were discussed and reviewed in detail. As well as risks, benefits, and discussion of treatment choices. No major barriers to understanding were identified. The patient expressed understanding and agreement with the above treatment plan. The patient was made aware they should contact our office by phone for worsening of their current condition, the appearance of new symptoms, or with any questions or concerns. Compliance is encouraged with any medications and follow up testing that is ordered. It is a privilege to be allowed the opportunity to participate in? your urological care.? Again, if you have any questions or concerns If you have any questions or concerns please do not hesitate to contact me. The office is [phone]. This note is constructed using voice recognition software. While every effort has been made to ensure accuracy potato sorter errors may have been included. Yours sincerely, KRISTAL Hercules Coding Level of Care Code Est Pt Level 3 (37726) Complex EM visit Add On G2211 Diagnoses Recurrent UTI N39.0 Nephrolithiasis N20.0
== END 2024-05-14 15:47 | disposition home or self-care (01) ==
PROVIDERS: PCP Internal Medicine; Visit Provider Nurse Practitioner Family
DX: N39.0 Urinary tract infection, site not specified (principal); N20.0 Calculus of kidney; Z13.9 Encounter for screening, unspecified
CPT/HCPCS: 99213; G2211

== ENCOUNTER → 2024-05-14 15:05 | Outpatient (BNVA) | payer MEDICARE, OTHER, SELFPAY | PROVIDERS: PCP Internal Medicine; Visit Provider Nurse Practitioner Family | DX: N39.0 Urinary tract infection, site not specified (principal); N20.0 Calculus of kidney | CPT/HCPCS: 81003; 99212 ==

== ENCOUNTER 2024-06-18 11:44 | Outpatient (REF) | payer OTHER, SELFPAY | END 2024-06-18 11:45 | disposition home or self-care (01) | LOC: HO.HMGCX 11:44 | PROVIDERS: PCP Internal Medicine; Visit Provider Obstetrics & Gynecology | DX: N83.8 Other noninflammatory disorders of ovary, fallopian tube and broad ligament (principal); D25.9 Leiomyoma of uterus, unspecified | CPT/HCPCS: 76830; 76856 ==

== ENCOUNTER 2024-08-19 14:32 | Outpatient (AMB) | payer OTHER, SELFPAY ==
--- NOTE | 2024-08-19 14:38 | MHC.OFFVIS ---
Intake Visit Reasons: ultra sound follow up Allergies acetaminophen [From Percocet] Adverse Reaction (Verified 05/14/24 15:44) swollen face oxycodone [From Percocet] Adverse Reaction (Verified 05/14/24 15:44) swollen face Sulfa (Sulfonamide Antibiotics) Adverse Reaction (Verified 05/14/24 15:44) swollen face HPI Comments Details: The patient is scheduled tele health visit for follow-up regarding pelvic ultrasound which showed the following: FINDINGS: UTERUS: The uterus is anteverted. Size: 5.5 2.5 x 3.4 cm. Uterine mass: Intramural uterine mass likely fibroids unchanged measure up to 6 mm. Cervix: Grossly unremarkable. Endometrium: Endometrium borderline thickened endometrial thickness measures 0.4 cm abnormal for patient's age ADNEXA: Normal Right ovary: Normal in size. Calcifications within otherwise unremarkable. Left ovary: Normal in size. Calcifications within otherwise unremarkable. Doppler exam: Normal Doppler flow identified in both ovaries The the patient underwent hysteroscopy D&C with polypectomy in 04/05, the pathology showed the following: A. Endometrium, polyp, biopsy: Benign endometrial polyp with cystic atrophy. B. Endometrium, curettage: Strips of atrophic endometrium; negative for atypia, hyperplasia or malignancy No history of vaginal bleeding PFSH Medical History HTN (hypertension) Surgical History Hx of colonoscopy Hx of tonsillectomy History of breast lump removal Family History Father No problems noted. Mother Hypertension Social History Household Members Other:: , retired Housing: House Patient Tobacco Use Status: Never used Tobacco e-Cigarette/Vaping Use: Never Used service: No Current occupational status: retired Cognitive needs: No Hearing needs: No Vision needs: Yes Review of Systems Const All systems reviewed & are unremarkable except as noted in HPI and below Reports as per HPI and Reports no additional complaints GI Reports no additional complaints Reports no additional complaints Telehealth Telehealth Telehealth Platform: Telephone Location of provider rendering services: practice address Location of patient: address on file Patient Identification confirmed using: Name, : Yes Telehealth method: voice only Patient verbally consented to treatment: Yes Patient verbally consented to billing insurance company: Yes Patient informed of any privacy concerns related to visit: Yes Assessment & Plan Assessment & Plan (1) Uterine myoma: Code(s): D25.9 - Leiomyoma of uterus, unspecified Category: Medical Plan: Discussed with the patient the findings on pelvic ultrasound & the risk of myosarcoma; discussed with the patient the options of treatment including expectant management versus hysterectomy; the pros and cons, risks benefits of each approach were discussed with the patient including the fact that in cases of myosarcoma, surgical treatment can lead to early diagnosis and positively affects the prognosis; after further discussion, the patient decided to proceed with expectant management. Will repeat pelvic ultrasound periodically. Instructions given to patient to call in case any of the following occurs: pressure symptoms, abnormal uterine bleeding, pelvic pain; and to schedule a 12 months pelvic ultrasound (order placed) and a follow-up appointment . In addition, discussed with the patient ultrasound finding showing endometrial thickness of 4 mm, explained to the patient that the 4 mm and below is a normal endometrial thickness, instructions given the patient to call in case of vaginal bleeding then will proceed with endometrial sampling to rule out endometrial pathology including endometrial hyperplasia and/or malignancy. All questions answered, the patient verbalized understanding and agreed with the plan . I spent a total of 20 minutes reviewing the chart, talking to the patient via phone for 3-1/2 minute and documenting in the medical record. Orders: Orders US pelvic and transvaginal 1 Year D25.9 - Leiomyoma of uterus, unspecified Coding Level of Care Code Tele Est Pt Level 1 (20865) Diagnoses Uterine myoma D25.9
--- OUTSIDE RECORDS SUMMARY | 2024-08-19 18:16 | XMS_ITS ---
Author Organization [facility] Address [address] [place] [address] Care Team Providers Care Aircraft Structural Repairer Name Role Phone Bibiana Laurent MD Primary Care Provider Ayden Cole [phone] REASON FOR VISIT r/s Encounters Encounter Location Date Provider Diagnosis [facility] [address] [place] [address] 07/16/2024 Ayden Peace Plan Of Treatment Next Appt Details Provider Name:Felecia Hanson , 10/01/2024 01:00:00 PM, [address] [facility], [place], [address], Progress Notes * Sharon FOY LDOB: (73 yo F)Acc No.[id number]:07/16/2024 Patient:?Sharon FOY :1950???Age:73 Y???Sex:Female Address:[address] [place] [address], [address] * true * Date:? Generated for Printi ng/Fajaleng/eTransmitting on:?08/19/2024 06:15 PM EST
--- OUTSIDE RECORDS SUMMARY | 2024-08-19 18:16 | XMS_ITS ---
Author Organization [facility] Address [address] [place] [address] Care Team Providers Care Truss Maker Name Role Phone Bibiana Laurent MD Primary Care Provider Ayden Cole Unavailable [phone] Felecia Hanson [phone] Encounters Encounter Location Date Provider Diagnosis [facility] [address] [place] [address] 05/08/2024 Felecia Hanson Plan Of Treatment Next Appt Details Provider Name:Felecia Barnes Valentin , 10/01/2024 01:00:00 PM, [address] [place], [address], Progress Notes * Sharon FOY LDOB: 3 (73 yo F)Acc No.[id number]:05/08/2024 Progress Note Patient:?Sharon FOY Provider:?Felecia Hanson DPM :1950???Age:73 Y???Sex:Female D ate:05/08/2024 Address:[address] [place] [id number] Pcp:Bibiana Laurent MD Subjective: * Chief Complaints: * ??? * Medical History:? Objective: * Vitals:? Assessment: Plan: * Treatment: * Images: * The named appointment provid er may or may not be the originator of this progress note, and it is not deemed complete until electronically signed by the appointment provider. Sign off status: Pending * Provider:Hamlet Hanson DPM Date:?2023 Generated for Rachel pichardo/Samson/Naldo on:?08/19/2024 06:16 PM EST
--- OUTSIDE RECORDS SUMMARY | 2024-08-19 18:16 | XMS_ITS ---
Author Organization [facility], Address [address] [place] [address] Care Team Providers Care Assembler Tubing Name Role Phone Anjel Ma [facility] [phone] ALLERGIES, ADVERSE REACTIONS, ALERTS Substance Code Code System Type Reaction Severity Status Start Date End Date No known non-drug allergies RxNorm Other substance ikmani rgy () 1 Sulfa (Sulfonamide Antibiotics) Unknown Drug allergy () 1 Percocet 085177 RxNorm Drug allergy () 1 MEDICATIONS Medication Code Code System Start Date Stop Date Route Dosage Directions Fill Instructions ALPHAGAN P 0.1% DROPS RxNorm 03/10/2022 1 DORZOLAMIDE-TI MOLOL EYE DROPS RxNorm 03/09/2022 ONE losartan RxNorm 09/25/2020 PROBLEMS Problem Name Code Code System Start Date End Date Stat us Hypertension 02453032 SnomedCt 09/25/2020 Active Rash and other nonspecific s kin eruption 348328447 SnomedCt 12/30/2023 Resolved Unspecified glaucoma 31931943 SnomedCt Active 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] 44784039 SnomedCt 02/16/2024 Active ENCOUNTERS Encounter Diagnosis Code Code System Date Stat us Unspecified disturbances of skin sensation 954082080 Snom edCt 02/09/2023 Active Neuralgia and neuritis, unspecified 86408141 SnomedCt 02/09/2023 Active IMMUNIZATIONS * None VITAL SIGNS Code Code System Vitals Name Date Value and Un its 8462-4 [facility] Blood Pressure-Diastolic 02/09/2023 80 mmHg 8480-6 [facility] Blood Pressure-Systolic 02/09/2023 1 60 mmHg 8867-4 [facility] Heart Rate 02/09/2023 82 /min 9279-1 [facility] Respiratory Rate 02/09/2023 18 /min 8310-5 [facility] Body Temperature 02/09/2023 98.1 F 06915-6 [facility] Oxygen Saturation 02/09/2023 96 % SOCIAL HISTORY * None PROCEDURES * None MEDICAL EQUIPMENT * Patient has no history of implantable devices ASSESSMENT * None TREATMENT PLAN Type Description Date APPOINTMENT If not feeling cristobal r in 3 day(s), please see your primary care physician. If you do not have a primary care physician, please return to this clinic. 02/09/2023 Lab Tests None GOALS * None HEALTH CONCERNS * No Health Concerns FUNCTIONAL AND COGNITIVE STATUS * None CONSULTATION NOTES * None DISCHARGE SUMMARY NOTES * None HISTORY AND PHYSICAL NOTES * Reason for visit - Illness IMAGING NOTES * None LABORATORY REPORT NARRATIVE NOTES * None PATHOLOGY REPORT NARRATIVE NOTES * None PROGRESS NOTES * None
--- OUTSIDE RECORDS SUMMARY | 2024-08-19 18:16 | XMS_ITS | Patient Health Record ---
Author Organization [facility] michael Jessup Address [address] [facility] [place] [address] Care Team Providers Care Lockstitch Back Maker Name Role Phone Bibiana Laurent MD Primary Care Provider UnavailAyden Terrazas Unavailable [phone] Felecia Hanson Unavailable [phone] Edilberto Ferrari Unavailable [phone] Allergies Allergen (clinical drug ingredient) Drug/Non Drug Allergy documented on EMR Reaction Allergy Type Onset Date Status acetaminophen / oxycodone Percocet swelling Drug Allergy Active sulfa rash Drug Allergy Active Reason For Referral No Information Medications Medication SIG (Take, Route, Frequency, Duration) [...] Are you an other tobacco user? No Problems Problem Type SNOMED Code ICD Code Onset Dates Problem Status W/U Status Risk Notes Problem Onychomycosis (697487442) Onychomycosis (110.1) Active confirmed Problem Hallux valgus (476197062) Hallux Valgus (735.0) Active confirmed Problem Hammer toe (193768434) Hammer toe (735.4) Active confirmed Problem Pain in limb (62083284) Pain in Limb (729.5) Active confirmed Problem Acquired hallux valgus (92239632) Hallux valgus (acquired), left foot (M20.12) Active confirmed Problem Acquired hallux valgus (35471559) Hallux valgus (acquired), right foot (M20.11) Active confirmed Problem Acquired hammer toe of right foot (0578596937349133 ) Other hammer toe(s) (acquired), right foot (M20.41) Active confirmed Problem Acquired hammer toe of left foot (8546963423170110 ) Other hammer toe(s) (acquired), left foot (M20.42) Active confirmed Vital Signs Blood pressure diastolic 71 mm Hg 01/30/2024 Height 5 ft 2 in in 01/30/2024 Blood pressure systolic 125 mm Hg 01/30/2024 Weight 130 lbs 01/30/2024 BMI 23.77 kg/m2 01/30/2024 Encounters Encounter [facility] Date [facility] [address] 01/30/2024 Ayden Peace Tinea unguium B35.1 ; Pain in right toe(s) M79.674 ; Pain in left toe(s) M79.675 ; Hallux valgus (acquired), left foot M20.12 ; Hallux valgus (acquired), right foot M20.11 ; Other hammer toe(s) (acquired), right foot M20.41 and Other hammer toe(s) (acquired), left foot M20.42 [facility] [address] 12/11/2023 [facility] [address] 07/16/2024 Ayden Peace Assessments Encounter Date Diagnosis (ICD Code) Assessment Notes Treatment Notes Treatment Clinical Notes Section Notes 01/30/2024 Tinea unguium (ICD-10 - B35.1) 01/30/2024 Pain in right toe(s) (ICD-10 - M79.674) 01/30/2024 Pain in left toe(s) (ICD-10 - M79.675) 01/30/2024 Hallux valgus (acquired), left foot (ICD-10 - M20.12) 01/30/2024 Hallux valgus (acquired), right foot (ICD-10 - M20.11) 01/30/2024 Other hammer toe(s) (acquired), right foot (ICD-10 - M20.41) 01/30/2024 Other hammer toe(s) (acquired), left foot (ICD-10 - M20.42) Plan Of Treatment Pending Test Test Name Order Date X ray : Foot, left 2V 02/09/2012 X ray : Foot, right 2V 02/09/2012 12694-VEHOGEU NAIL, 6 OR MORE 02/09/2012 Next Appt Details Provider Name:Felecia Barnes Valentin , 10/01/2024 01:00:00 PM, [address] [facility], [place], [address], Insurance Providers Payer Name Payer Address Payer Phone Subscriber Number Group Number Insured Name Patient Relationship to Insured Coverage Start Date Coverage End Date Medicare National [employer] [address] [place] [address] [id number] Sharon Nevarez Self - patient is the insured [facility] [address] [place] [address] [id number] Sharon Nevarez Self - patient is the insured Medical (General) History Medical History History ICD Code chicken pox measles osteoporosis psoriasis Arthritis Cataracts Glaucoma Headaches/Migraines High blood pressure Joint implants/screws Surgical History Surgery Date(Month/Year) pelvic suspension 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
--- OUTSIDE RECORDS SUMMARY | 2024-08-19 18:16 | XMS_ITS ---
Author Organization [facility] Address [address] [place] [address] Care Team Providers Care Svp Research & Ebusiness Operations Name Role Phone Bibiana Laurent MD Primary Care Provider Ayden Cole Unavailable [phone] Felecia Hanson [phone] Encounters Encounter Location Date Provider Diagnosis [facility] [address] [place] [address] 07/17/2024 Felecia Hanson Plan Of Treatment Next Appt Details Provider Name:Felecia Barnes Valentin , 10/01/2024 01:00:00 PM, [address] [place], [address], Progress Notes * Sharon FOY LDOB: 3 (73 yo F)Acc No.[id number]:07/17/2024 Progress Note Patient:?Sharon FOY Provider:?Felecia Hanson DPM :1950???Age:73 Y???Sex:Female D ate:07/17/2024 Address:[address] [place] [address] Pcp:Bibiana Laurent MD Subjective: * Chief Complaints: [...] DPM Date:?2023 Generated for Rachel pichardo/Samson/Naldo on:?08/19/2024 06:15 PM EST
--- OUTSIDE RECORDS SUMMARY | 2024-08-19 18:17 | XMS_ITS ---
Author Organization [facility], Address [address] [place] [address] Care Team Providers Care Sander Operator Name Role Phone Poncho Navarrete [phone] ALLERGIES, ADVERSE REACTIONS, ALERTS Substance Code Code System Type Reaction Severity Status Start Date End Date Percocet 069703 RxNorm Drug allergy () 1 No known non-drug allergies RxNorm Other substance kimani rgy () 1 Sulfa (Sulfonamide Antibiotics) Unknown Drug allergy () 1 MEDICATIONS Medication Code Code System Start Date Stop Date Route Dosage Directions Fill Instructions ALPHAGAN P 0.1% DROPS RxNorm 03/10/2022 1 DORZOLAMIDE-TI MOLOL EYE DROPS RxNorm 03/09/2022 ONE losartan RxNorm 09/25/2020 PROBLEMS Problem Name Code Code System Start Date End Date Stat us Hypertension 03086313 SnomedCt 09/25/2020 Active Rash and other nonspecific s kin eruption 278654946 SnomedCt 12/30/2023 Resolved Unspecified glaucoma 13916525 SnomedCt Active 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] 29800030 SnomedCt 02/16/2024 Active ENCOUNTERS Encounter Diagnosis Code Code System Date Stat us Rash and other nonspecific skin eruption 005157482 Snomed Ct 12/30/2023 Active IMMUNIZATIONS * None VITAL SIGNS Code Code System Vitals Name Date Value and Un its 8462-4 [facility] Blood Pressure-Diastolic 12/30/2023 82 mmHg 8480-6 [facility] Blood Pressure-Systolic 12/30/2023 1 49 mmHg 8867-4 [facility] Heart Rate 12/30/2023 77 /min 9279-1 [facility] Respiratory Rate 12/30/2023 18 /min 8310-5 [facility] Body Temperature 12/30/2023 96.9 F 60007-9 [facility] Oxygen Saturation 12/30/2023 99 % SOCIAL HISTORY * None PROCEDURES * None MEDICAL EQUIPMENT * Patient has no history of implantable devices ASSESSMENT * None TREATMENT PLAN Type Description Date APPOINTMENT If not feeling cristobal r in 3 day(s), please see your primary care physician. If you do not have a primary care physician, please return to this clinic. 12/30/2023 Lab Tests None GOALS * None HEALTH CONCERNS * No Health Concerns FUNCTIONAL AND COGNITIVE STATUS * None CONSULTATION NOTES * None DISCHARGE SUMMARY NOTES * None HISTORY AND PHYSICAL NOTES * None IMAGING NOTES * None LABORATORY REPORT NARRATIVE NOTES * None PATHOLOGY REPORT NARRATIVE NOTES * None PROGRESS NOTES * None
--- OUTSIDE RECORDS SUMMARY | 2024-08-19 18:17 | XMS_ITS ---
Author Organization [facility], Address [address] [place] [address] Care Team Providers Care Metal Checker Name Role Phone Soraida Teran Unavailable [phone] ALLERGIES, ADVERSE REACTIONS, ALERTS Substance Code Code System Type Reaction Severity Status Start Date End Date No known non-drug allergies RxNorm Other substance kimani rgy () 1 Percocet 730924 RxNorm Drug allergy () 1 Sulfa (Sulfonamide Antibiotics) Unknown Drug allergy () 1 MEDICATIONS Medication Code Code System Start Date Stop Date Route Dosage Directions Fill Instructions ALPHAGAN P 0.1% DROPS RxNorm 03/10/2022 1 DORZOLAMIDE-TI MOLOL EYE DROPS RxNorm 03/09/2022 ONE losartan RxNorm 09/25/2020 PROBLEMS Problem Name Code Code System Start Date End Date Stat us Hypertension 88566165 SnomedCt 09/25/2020 Active Rash and other nonspecific s kin eruption 683019614 SnomedCt 12/30/2023 Resolved Unspecified glaucoma 88933942 SnomedCt Active 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] 61652055 SnomedCt 02/16/2024 Active ENCOUNTERS Encounter Diagnosis Code Code System Date Stat us Left lower quadrant pain 071612859 SnomedCt 10/19/2023 Active Unspecified renal colic 5299646 SnomedCt 10/19/2023 A ctive IMMUNIZATIONS * None VITAL SIGNS Code Code System Vitals Name Date Value and Un its 8462-4 [facility] Blood Pressure-Diastolic 10/19/2023 87 mmHg 8480-6 [facility] Blood Pressure-Systolic 10/19/2023 1 58 mmHg 8867-4 [facility] Heart Rate 10/19/2023 85 /min 9279-1 [facility] Respiratory Rate 10/19/2023 18 /min 8310-5 [facility] Body Temperature 10/19/2023 99.2 F 69843-3 [facility] Oxygen Saturation 10/19/2023 96 % SOCIAL HISTORY * None PROCEDURES * None RESULTS Test Code Code System Description Result Value Date Ref erence Range [facility] Glucose Negative 10/19/2023 [facility] Bilirubin Negative 10/19/2023 Lo[facility] Ketone Trace 10/19/2023 Loinc Specific [place] 1.63998 10/19/2023 Lo[facility] Blood Trace-intact 10/19/2023 Loinc pH 6.94190 10/19/2023 [facility] Protein Negative 10/19/2023 Loinc Urobilinogen 0.35094 E.U./dL 10/19/2023 [facility] Nitrite Negative 10/19/2023 [facility] Leukocytes Trace 10/19/2023 [facility] Color Yellow 10/19/2023 [facility] Clarity Clear 10/19/2023 [facility] COLOR TNP 10/19/2023 [facility] APPEARANCE DNR 10/19/2023 [facility] SPECIFIC GRAVITY DNR 10/19/2023 [facility] PH DNR 10/19/2023 [facility] GLUCOSE DNR 10/19/2023 [facility] BILIRUBIN DNR 10/19/2023 [facility] KETONES DNR 10/19/2023 [facility] OCCULT BLOOD DNR 10/19/2023 [facility] PROTEIN DNR 10/19/2023 [facility] NITRITE DNR 10/19/2023 [facility] LEUKOCYTE ESTERASE DNR 10/19/2023 [facility] CLIENT EDUCATION TRACKING Results Received - See Detailed Notes 10/19/2023 [facility] CULTURE, URINE, ROUTINE SEE NOTE 10/19/2023 03443304 [facility] CULTURE. 10/25/2023 MEDICAL EQUIPMENT * Patient has no history of implantable devices ASSESSMENT Assessment You were evaluated for the a bdominal pain as well as the pain in your left side and back.As we discussed my recommendation is that you go to the emergency room now for evaluation and CT imaging to help clarify what is causing your ongoing symptoms.You have elected to forego ER evaluation understanding my concerns.You must see your doctor on Sunday to be reevaluated. My recommendation would be that you have a CT scan to further evaluate the abdominal pain and to evaluate for a kidney stone.You may continue to take the Motrin as needed for pain.If you develop a fever, worsening symptoms, or if you change your mind regarding evaluation please go to the ER. TREATMENT PLAN Type Description Date APPOINTMENT If not feeling cristobal r in 3 day(s), please see your primary care physician. If you do not have a primary care physician, please return to this clinic. 10/19/2023 Labs Tests Test Name Code Code System Date CULTURE, URINE, ROUTINE 29117;78560 CPT 2023 CULTURE, URINE, ROUTINE 45056;34932 CPT 2023 Clinite[facility] Urinalysis, automated, without microscopy 810 03 CPT 10/19/2023 URINALYSIS MACROSCOPIC CPT 2023 CLIENT EDUCATION TRACKING CPT 06/2024 CULTURE, URINE, ROUTINE CPT 10/21 GOALS * None HEALTH CONCERNS * No Health Concerns FUNCTIONAL AND COGNITIVE STATUS * None CONSULTATION NOTES * None DISCHARGE SUMMARY NOTES * None HISTORY AND PHYSICAL NOTES * Reason for visit - Illness IMAGING NOTES * None LABORATORY REPORT NARRATIVE NOTES * None PATHOLOGY REPORT NARRATIVE NOTES * None PROGRESS NOTES * None
--- OUTSIDE RECORDS SUMMARY | 2024-08-19 18:17 | XMS_ITS ---
Author Organization [facility], Address [address] [place] [address] Care Team Providers Care Public Health Aides Teacher Name Role Phone Soraida Teran Unavailable [phone] ALLERGIES, ADVERSE REACTIONS, ALERTS Substance Code Code System Type Reaction Severity Status Start Date End Date No known non-drug allergies RxNorm Other substance kimani rgy () 1 Percocet 743562 RxNorm Drug allergy () 1 Sulfa (Sulfonamide Antibiotics) Unknown Drug allergy () 1 MEDICATIONS Medication Code Code System Start Date Stop Date Route Dosage Directions Fill Instructions ALPHAGAN P 0.1% DROPS RxNorm 03/10/2022 1 DORZOLAMIDE-TI MOLOL EYE DROPS RxNorm 03/09/2022 ONE losartan RxNorm 09/25/2020 PROBLEMS Problem Name Code Code System Start Date End Date Stat Hypertension 81631156 SnomedCt 09/25/2020 Active Rash and other nonspecific s kin eruption 200288380 SnomedCt 12/30/2023 Resolved Unspecified glaucoma 49727989 SnomedCt Active 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] 54768049 SnomedCt 02/16/2024 Active ENCOUNTERS Encounter Diagnosis Code Code System Date Stat us 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] 42387900 Snom edCt 02/16/2024 Active IMMUNIZATIONS * None VITAL SIGNS Code Code System Vitals Name Date Value and Un its 8462-4 [facility] Blood Pressure-Diastolic 02/16/2024 73 mmHg 8480-6 [facility] Blood Pressure-Systolic 02/16/2024 1 36 mmHg 8867-4 [facility] Heart Rate 02/16/2024 78 /min 9279-1 [facility] Respiratory Rate 02/16/2024 16 /min 8310-5 [facility] Body Temperature 02/16/2024 98.6 F 92705-0 [facility] Oxygen Saturation 02/16/2024 98 % SOCIAL HISTORY * None PROCEDURES Code Code System Procedure Date Status Notes L3809 Cpt4 Wrist Splint w/Abducted Thumb, Right 02/15 completed MEDICAL EQUIPMENT * Patient has no history of implantable devices ASSESSMENT Assessment Use the brace over the next 2 weeks.As discussed you may take this off at times to perform gentle range of motion, shower, eat, etc.Apply ice for 20 minutes at a time, 3-4 times daily, for the next few days and then as needed.If symptoms do not improve with conservative treatment please arrange follow-up with an orthopedist as sometimes cortisone injections can be helpful. TREATMENT PLAN Type Description Date APPOINTMENT If not feeling cristobal r in 3 day(s), please see your primary care physician. If you do not have a primary care physician, please return to this clinic. 02/16/2024 Lab Tests None GOALS * None HEALTH CONCERNS * No Health Concerns FUNCTIONAL AND COGNITIVE STATUS * None CONSULTATION NOTES * None DISCHARGE SUMMARY NOTES * None HISTORY AND PHYSICAL NOTES * None IMAGING NOTES * None LABORATORY REPORT NARRATIVE NOTES * None PATHOLOGY REPORT NARRATIVE NOTES * None PROGRESS NOTES * None
== END 2024-08-19 16:00 | disposition home or self-care (01) ==
LOC: HO.HWS 14:32
PROVIDERS: PCP Internal Medicine; Visit Provider Obstetrics & Gynecology
DX: D25.9 Leiomyoma of uterus, unspecified (principal)
CPT/HCPCS: 99211

== ENCOUNTER → 2024-08-19 14:32 | Outpatient (BNVA) | payer OTHER, SELFPAY | PROVIDERS: PCP Internal Medicine; Visit Provider Obstetrics & Gynecology ==

== ENCOUNTER 2024-08-28 11:25 | Outpatient (REF) | payer MEDICARE, OTHER, SELFPAY ==
[2024-08-28 13:09] LABS: Appearance Urine Clear; Color Urine Yellow; Glucose Urine UA Negative (Negative); Leukocyte Esterase Urine Trace (Negative); Nitrite Urine Negative (Negative); UMIC TRIGGER UA YES; Urine Blood Negative (Negative); Urine Ketones Negative (Negative); Urine Protein Negative (Neg-Trace)
[2024-08-28 13:21] LABS: Bacteria Urine 4+ (None Seen); Hyaline Casts Urine 0-2 /LPF (0-2); RBC Urine 0-2 /HPF (0-2); WBC Urine 0-5 /HPF (0-5)
--- OUTSIDE RECORDS SUMMARY | 2024-08-28 14:29 | XMS_ITS ---
Author Organization [facility], Address [address] [place] [address] Care Team Providers Care Appliance Counselor Name Role Phone Soraida Teran Unavailable [phone] ALLERGIES, ADVERSE REACTIONS, ALERTS Substance Code Code System Type Reaction Severity Status Start Date End Date Sulfa (Sulfonamide Antibiotics) Unknown Drug allergy () 1 Percocet 783615 RxNorm Drug allergy () 1 No known non-drug allergies RxNorm Other substance kimani rgy () 1 MEDICATIONS Medication Code Code System Start Date Stop Date Route Dosage Directions Fill Instructions ALPHAGAN P 0.1% DROPS RxNorm 03/10/2022 1 DORZOLAMIDE-TI MOLOL EYE DROPS RxNorm 03/09/2022 ONE losartan RxNorm 09/25/2020 PROBLEMS Problem Name Code Code System Start Date End Date Stat us Hypertension 68745492 SnomedCt 09/25/2020 Active Rash and other nonspecific s kin eruption 508684874 Snomed[facility] 12/30/2023 Resolved Unspecified glaucoma 75965729 Snomed[facility] Active 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] 89301866 Snomed[facility] 02/16/2024 Active ENCOUNTERS Encounter Diagnosis Code Code System Date Stat us Left lower quadrant pain 682631582 SnomedCt 10/19/2023 Active Unspecified renal colic 7732640 SnomedCt 10/19/2023 A ctive IMMUNIZATIONS * None VITAL SIGNS Code Code System Vitals Name Date Value and Un its 8462-4 [facility] Blood Pressure-Diastolic 10/19/2023 87 mmHg 8480-6 [facility] Blood Pressure-Systolic 10/19/2023 1 58 mmHg 8867-4 [facility] Heart Rate 10/19/2023 85 /min 9279-1 [facility] Respiratory Rate 10/19/2023 18 /min 8310-5 [facility] Body Temperature 10/19/2023 99.2 F 51657-0 [facility] Oxygen Saturation 10/19/2023 96 % SOCIAL HISTORY * None PROCEDURES * None RESULTS Test Code Code System Description Result Value Date Ref erence Range [facility] Glucose Negative 10/19/2023 [facility] Bilirubin Negative 10/19/2023 [facility] Ketone Trace 10/19/2023 [facility] Specific [place] 1.47943 10/19/2023 [facility] Blood Trace-intact 10/19/2023 [facility] pH 6.99249 10/19/2023 [facility] Protein Negative 10/19/2023 [facility] Urobilinogen 0.38009 E.U./dL 10/19/2023 [facility] Nitrite Negative 10/19/2023 [facility] [...] [facility] CULTURE, URINE, ROUTINE SEE NOTE 10/19/2023 25291291 [facility] CULTURE. 10/25/2023 MEDICAL EQUIPMENT * Patient [...] Code Code System Date CULTURE, URINE, ROUTINE 68531;17095 CPT 2023 CULTURE, URINE, ROUTINE 57908;20916 CPT 2023 [facility] Urinalysis, automated, without microscopy [...]
--- OUTSIDE RECORDS SUMMARY | 2024-08-28 14:29 | XMS_ITS ---
Author Organization [facility], Address [address] [place] [address] Care Team Providers Care Dye Box Operator Name Role Phone Poncho Navarrete [phone] ALLERGIES, ADVERSE REACTIONS, ALERTS Substance Code Code System Type Reaction Severity Status Start Date End Date No known non-drug allergies RxNorm Other substance kimani rgy () 1 Sulfa (Sulfonamide Antibiotics) Unknown Drug allergy () 1 Percocet 283571 RxNorm Drug allergy () 1 MEDICATIONS Medication Code Code System Start Date Stop Date Route Dosage Directions Fill Instructions ALPHAGAN P 0.1% DROPS RxNorm 03/10/2022 1 DORZOLAMIDE-TI MOLOL EYE DROPS RxNorm 03/09/2022 ONE losartan RxNorm 09/25/2020 PROBLEMS Problem Name Code Code System Start Date End Date Stat us Hypertension 86190519 Snomed[facility] 09/25/2020 Active Rash and other nonspecific s kin eruption 627010549 SnomedCt 12/30/2023 Resolved Unspecified glaucoma 97387656 Snomed[facility] Active 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] 13417956 SnomedCt 02/16/2024 Active ENCOUNTERS Encounter Diagnosis Code Code System Date Stat us Rash and other nonspecific skin eruption 015582121 Snomed Ct 12/30/2023 Active IMMUNIZATIONS * None VITAL SIGNS Code Code System Vitals Name Date Value and Un its 8462-4 [facility] Blood Pressure-Diastolic 12/30/2023 82 mmHg 8480-6 [facility] Blood Pressure-Systolic 12/30/2023 1 49 mmHg 8867-4 [facility] Heart Rate 12/30/2023 77 /min 9279-1 [facility] Respiratory Rate 12/30/2023 18 /min 8310-5 [facility] Body Temperature 12/30/2023 96.9 F 50514-3 [facility] Oxygen Saturation 12/30/2023 99 % SOCIAL [...]
--- OUTSIDE RECORDS SUMMARY | 2024-08-28 14:29 | XMS_ITS ---
Author Organization [facility], Address [address] [place] [address] Care Team Providers Care Key Maker Name Role Phone Soraida eTran Unavailable [phone] ALLERGIES, ADVERSE REACTIONS, ALERTS Substance Code Code System Type Reaction Severity Status Start Date End Date Sulfa (Sulfonamide Antibiotics) Unknown Drug allergy () 1 Percocet 200580 RxNorm Drug allergy () 1 No known non-drug allergies RxNorm Other substance kimani rgy () 1 MEDICATIONS Medication Code Code System Start Date Stop Date Route Dosage Directions Fill Instructions ALPHAGAN P 0.1% DROPS RxNorm 03/10/2022 1 DORZOLAMIDE-TI MOLOL EYE DROPS RxNorm 03/09/2022 ONE losartan RxNorm 09/25/2020 PROBLEMS Problem Name Code Code System Start Date End Date Stat Hypertension 31033814 SnomedCt 09/25/2020 Active Rash and other nonspecific s kin eruption 463978140 SnomedCt 12/30/2023 Resolved Unspecified glaucoma 84085861 Snomed[facility] Active 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] 96632242 SnomedCt 02/16/2024 Active ENCOUNTERS Encounter Diagnosis Code Code System Date Stat us 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] 40763579 Snom edCt 02/16/2024 Active IMMUNIZATIONS * None VITAL SIGNS Code Code System Vitals Name Date Value and Un its 8462-4 [facility] Blood Pressure-Diastolic 02/16/2024 73 mmHg 8480-6 [facility] Blood Pressure-Systolic 02/16/2024 1 36 mmHg 8867-4 [facility] Heart Rate 02/16/2024 78 /min 9279-1 [facility] Respiratory Rate 02/16/2024 16 /min 8310-5 [facility] Body Temperature 02/16/2024 98.6 F 90778-6 [facility] Oxygen Saturation 02/16/2024 98 % SOCIAL [...]
== END 2024-08-28 11:26 | disposition home or self-care (01) ==
LOC: HO.HMGCLDS 11:25
PROVIDERS: PCP Internal Medicine; Visit Provider Nurse Practitioner Family
DX: N39.0 Urinary tract infection, site not specified (principal); R31.29 Other microscopic hematuria; R39.15 Urgency of urination; R35.0 Frequency of micturition; R30.0 Dysuria
CPT/HCPCS: 81001; 87086; 87088; 87186

== ENCOUNTER 2024-10-01 08:18 | Outpatient (AMB) | payer MEDICARE, OTHER, SELFPAY ==
[2024-10-01 08:21] VITALS: BP 156/86; PULSE 78; RESP 18; TEMP 36.4; O2SAT 97; BMI 24.9
--- NOTE | 2024-10-01 08:21 | A.OFFPC_ITS ---
Vital Signs 10/01/24 08:21 Height 5 ft 2 in Weight 136 lb BMI 24.9 BP 156/86 H Blood Pressure Location Rt brachial Position Sitting Respiration 18 Pulse 78 Pulse Source Pulse Oximeter Temp 97.6 F Temp Source Oral Pulse Oximetry (%) 97 Oxygen Delivery Method Room Air Intake Visit Reasons: High BP Intake Note: Pt is here today for a ER follow up. Pt states that her BP was elevated. Allergies acetaminophen [From Percocet] Adverse Reaction (Verified 10/01/24 08:23) swollen face oxycodone [From Percocet] Adverse Reaction (Verified 10/01/24 08:23) swollen face Sulfa (Sulfonamide Antibiotics) Adverse Reaction (Verified 10/01/24 08:23) swollen face Medication List - Last Reconciled 10/01/24 by Bibiana Laurent MD dorzolamide-timolol 22.3-6.8 mg/mL 1 drp ophthalmic (eye) BID losartan 25 mg PO DAILY methylcellulose (laxative) (Citrucel) 500 mg PO DAILY polyethylene glycol 3350 (Miralax) 238 grams PO ONCE pyridoxine (vitamin B6) 100 mg PO DAILY 90 days sennosides (Natural Senna Laxative) 17.2 mg (2 x 8.6 mg) PO BEDTIME Tobacco use date assessed: 10/01/24 Fall risk assessment: No Falls in past year Last assessed Fall Risk: 10/01/24 Dental Screening Dental Screen Date: 10/01/24 Did you have a dental visit in the last 12 months?: Yes Did you have a dental problem in the last 6 months where you did not have access to dental care?: No Was dental information given to patient?: Patient has dentist HPI High BP HPI Details Patient presents complaining of increased blood pressure at home and had an episode of headache 3 days ago for which she went to the ER. Patient did not wait to be seen but had elevated blood pressure reading at 150/90. She denies any recurrent headaches, chest pain shortness or breath. Patient has b een under lot of stress related to her diagnosed with early dementia. Patient has been taking losartan 25 mg daily and follow low-sodium diet [facility] Medical History (Updated 10/01/24 @ 09:18 by Bibiana Laurent MD) HTN (hypertension) Surgical History Hx of colonoscopy Hx of tonsillectomy History of breast lump removal Family History Father No problems noted. Mother Hypertension Social History Household Members Other:: , retired Housing: House Patient Tobacco Use Status: Never used Tobacco e-Cigarette/Vaping Use: Never Used service: No Current occupational status: retired Cognitive needs: No Hearing needs: No Vision needs: Yes Questionnaire Thrive Questionnaire Date Thrive assessed: 10/01/24 AUDIT C Alcohol Use Questionnaire (AUDIT-C) 1. How often do you have a drink containing alcohol?: Monthly or less 2. How many drinks containing alcohol do you have on a typical day when you are drinking?: 1 or 2 3. How often do you have six or more drinks on one occasion?: Never Total Score: 1 ENA-7 AMB Questionnaire ENA-7 Date ENA - 7 assessed: 02/07/24 Source: Developed by Drs. Brandon Vargas, Aide Sesay, Benedict Garnett and colleagues, with an educational gutierrez from [employer]. Review of Systems Const All systems reviewed & are unremarkable except as noted in HPI and below Eyes Reports no additional complaints ENT Reports no additional complaints Card Reports no additional complaints Resp Reports no additional complaints GI Reports no additional complaints Reports no additional complaints Physical exam (Primary Care) Vital Signs: Last Vital Signs Temp 97.6 F 10/01/24 08:21 Pulse 78 10/01/24 08:21 Resp 18 10/01/24 08:21 BP 156/86 H 10/01/24 08:21 Pulse Ox 97 10/01/24 08:21 Oxygen Delivery Method Room Air 10/01/24 08:21 BMI result Body Mass Index 24.9 Tobacco/Smoking Status: Tobacco use Status Tobacco use date assessed 10/01/24 10/01/24 08:28 Patient Tobacco Use Status Never used Tobacco 10/01/24 08:21 e-Cigarette/Vaping Use Never Used 10/01/24 08:21 Thrive Assessment: Date of Thrive Assessment Date Thrive assessed 10/01/24 10/01/24 08:21 Const General: no acute distress HENMT Head: Yes normal to inspection Face and sinus: Yes normal facial exam Neck Neck: Yes supple Resp Effort & Inspection: normal respiratory effort Auscultation: clear to auscultation bilaterally Cardio Rhythm: regular rhythm Heart sounds: S1 normal heart sound present and S2 normal heart sound present GI Inspection: Yes normal to inspection Palpation (GI): Soft to palpation Percussion: Yes normal to percussion Auscultation: normal bowel sounds Results AMB Urinalysis, Automated UA Leukoctes 0 Meliton/uL Last Edit by FERNANDO Huitron on 10/01/24 08:35 UA Nitrite Negative Last Edit by Kiara Lerner Molly on 10/01/24 08:35 UA Urobilinogen 0.2 mg/dL Last Edit by FERNANDO Huitron on 10/01/24 08: 35 UA Protein 0 mg/dL Last Edit by FERNANDO Huitron on 10/01/24 08:35 UA pH 6.0 Last Edit by FERNANDO Huitron on 10/01/24 08:35 UA Blood 0 Vic/uL Last Edit by Kiara Lerner Molly on 10/01/24 08:35 UA Specific Lawrence 1.015 Last Edit by FERNANDO Huitron on 10/01/24 08 :35 UA Ketone Negative Last Edit by FERNANDO Huitron on 10/01/24 08:35 UA Bilirubin 0 mg/dL Last Edit by FERNANDO Huitron on 10/01/24 08:35 UA Glucose 0 mg/dL Last Edit by Kiara Lerner Molly on 10/01/24 08:35 Results Reviewed Results Reviewed: Laboratory Last Values Urine pH (Auto) 6.0 10/01/24 08:34 Specific Lawrence (Auto) 1.015 10/01/24 08:34 Urine Protein (Auto) 0 mg/dL 10/01/24 08:34 Glucose (UA)(Auto) 0 mg/dL 10/01/24 08:34 Urine Ketones (Auto) Negative 10/01/24 08:34 Urine Blood (Auto) 0 Vic/uL 10/01/24 08:34 Urine Nitrite (Auto) Negative 10/01/24 08:34 Urine Bilirubin (Auto) 0 mg/dL 10/01/24 08:34 Urine Urobilinogen (Auto) 0.2 mg/dL 10/01/24 08:34 Leukocyte Esterase (Auto) 0 Meliton/uL 10/01/24 08:34 Coding Level of Care Code Est Pt Level 4 (16110) Diagnoses Recurrent UTI N39.0 HTN (hypertension) I10 Nephrolithiasis N20.0 Assessment & Plan Assessment & Plan (1) Recurrent UTI: Code(s): N39.0 - Urinary tract infection, site not specified Category: Medical Plan: UA today is negative urine culture will be checked (2) HTN (hypertension): Code(s): I10 - Essential (primary) hypertension Category: Medical Plan: Increase losartan to 50 mg a day, low-sodium diet, regular physical activity stress management discussed with the patient. BMP will be checked in 1 week patient will follow-up in 1 month (3) Nephrolithiasis: Comment: left, 5 mm UPJ, 2 mm left ureter, mild obstruction, CT scan 11/03 renal US 04/2024 bilateral nonobstructing kidney stones, mild hydronephrosis on the left, f/u with Mary Colni 24 hour urine collection not done by the lab Code(s): N20.0 - Calculus of kidney Category: Medical Plan: Continue vitamin B6 increase fluid intake follow-up with Urology in November Orders: Orders Basic Metabolic Panel 1 Week I10 - Essential (primary) hypertension Urine Culture Today I10 - Essential (primary) hypertension, N39.0 - Urinary tract infection, site not specified AMB Urinalysis Automated Today Z13.9 - Encounter for screening, unspecified Medications: New losartan 50 mg PO DAILY 90 tabs 0RF Discontinued losartan Discontinued Reason: Doctor's Order 25 mg PO DAILY 90 tabs 3RF
--- OUTSIDE RECORDS SUMMARY | 2024-10-01 08:21 | XMS_ITS ---
Author Organization [facility] Address [address] [place] [address] Care Team Providers Care Environmental Sustainability Manager Name Role Phone Bibiana Laurent MD Primary Care Provider Felecia Siu [phone] Encounters Encounter Location Date Provider Diagnosis [address] [address] 10/01/2024 Felecia Hanson Plan Of Treatment Next Appt Details Provider Name:Felecia Barnes Valentin , 10/23/2024 01:45:00 PM, [address] [place], [address], Progress Notes * Sharon FOY LDOB: 3 (74 yo F)Acc No.[id number]:10/01/2024 Progress Note Patient:?Sharon FOY Provider:Hamlet Hanson DPM :1950???Age:74 Y???Sex:Female D ate:10/01/2024 Address:[address] [place] [address] Pcp:Bibiana Laurent MD Subjective: * Chief Complaints: * ??? * Medical History:? Objective: * Vitals:? Assessment: Plan: * Treatment: * Images: * The named appointment provid er may or may not be the originator of this progress note, and it is not deemed complete until electronically signed by the appointment provider. Sign off status: Pending * Provider:Hamlet Hanson DPM Date:?2024 Generated for Rachel pichardo/Samson/Naldo on:?10/01/2024 08:21 AM EST
--- OUTSIDE RECORDS SUMMARY | 2024-10-01 08:21 | XMS_ITS | Patient Health Record ---
Author Organization [facility] [place] Address [address] [facility] [place] [address] Care Team Providers Care Hem Inspector Name Role Phone Bibiana Laurent MD Primary Care Provider Unavaila Felecia Carbone Unavailable [phone] Ayden Peace Unavailable [phone] Edilberto Ferrari Unavailable [phone] Allergies Allergen (clinical drug ingredient) Drug/Non Drug Allergy documented on EMR Reaction Allergy Type Onset Date Status acetaminophen / oxycodone Percocet swelling Drug Allergy Active sulfa rash Drug Allergy Active Reason For Referral No Information Medications Medication SIG (Take, Route, Frequency, Duration) Notes Start Date End Date Status Cosopt 22.3-6.8 MG/ML 1 drop into affect ed eye Ophthalmic Twice a day Active Cosopt 22.3-6.8 MG/ML 1 drop into affect [...] Status W/U Status Risk Notes Problem Onychomycosis (948882082) Onychomycosis (110.1) Active confirmed Problem Hallux valgus (338666054) Hallux Valgus (735.0) Active confirmed Problem Hammer toe (287733905) Hammer toe (735.4) Active confirmed Problem Pain in limb (05854268) Pain in Limb (729.5) Active confirmed Problem Acquired hallux valgus (91169034) Hallux valgus (acquired), left foot (M20.12) Active confirmed Problem Acquired hallux valgus (22150900) Hallux valgus (acquired), right foot (M20.11) Active confirmed Problem Acquired hammer toe of right foot (4990377911310264 ) Other hammer toe(s) (acquired), right foot (M20.41) Active confirmed Problem Acquired hammer toe of left foot (8076110227432858 ) Other hammer toe(s) (acquired), left foot (M20.42) Active confirmed Vital Signs Blood pressure diastolic 71 mm Hg 01/30/2024 Height 5 ft 2 in in 01/30/2024 Blood pressure systolic 125 mm Hg 01/30/2024 Weight 130 lbs 01/30/2024 BMI 23.77 kg/m2 01/30/2024 Encounters Encounter Location Date Provider Diagnosis [address] [address] 01/30/2024 Ayden Peace Tinea unguium B35.1 ; Pain in right toe(s) M79.674 ; Pain in left toe(s) M79.675 ; Hallux valgus (acquired), left foot M20.12 ; Hallux valgus (acquired), right foot M20.11 ; Other hammer toe(s) (acquired), right foot M20.41 and Other hammer toe(s) (acquired), left foot M20.[address] [address] 12/11/2023 Edilberto Ferrari [address] [address] 07/16/2024 [facility] [address] [address] 2024 Felecia Hanson Assessments Encounter Date Diagnosis (ICD Code) Assessment [...] X ray : Foot, right 2V 02/09/2012 40991-ZRTOADH NAIL, 6 OR MORE 02/09/2012 Next Appt Details Provider Name:Felecia Hanson , 10/23/2024 01:45:00 PM, [address] [place] [address], [address], Insurance Providers Payer Name Payer Address Payer Phone Subscriber Number Group Number Insured Name Patient Relationship to Insured Coverage Start Date Coverage End Date Medicare National [employer] [address] [place] [address] [phone] [id number] Sharon Nevarez Self - patient is the insured [facility] [address] [place] [address] [phone] [id number] Sharon Nevarez Self - patient is the insured Medical (General) History Medical History History ICD Code chicken pox measles osteoporosis psoriasis Arthritis Cataracts Glaucoma Headaches/Migraines High blood pressure Joint implants/screws Surgical History Surgery Date(Month/Year) pelvic suspension 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
--- OUTSIDE RECORDS SUMMARY | 2024-10-01 08:22 | XMS_ITS | Continuity of Care Document ---
Author Organization [facility] Address [address] [place] [address]- Care Team Providers Care Air Conditioning Mechanic Name Role Phone Rachel SMITH, Matty Primary Care Physician Encounter [facility] NBR [id number] Date(s): 09/26/24 - 09/26/[address] [address]- Discharge Disposition: A-D/C Walkout Attending Physician: Not on Staff, Attending MD Admitting Physician: Not on Staff, Admitting MD Referring Physician: Not on Staff, Referring MD Encounter Type: Disch ES Allergies, Adverse Reactions, Alerts Substance Criticality Severity Reaction Reaction Severity Status sulfa drugs Active Percocet 5/325 Activ e Medications Alphagan Ophthalmic Solution Eyes, Both, Every 8 hours, 0 Refills, Maintenance, 10/14/21 5:48:00 PM EST, Partial fill upon patientrequest if the prescription is for a schedule II opioid drug. Start Date: 10/14/21 Status: Ordered Repeat number: 1 Cosopt Eyes, Both, 2 times a day, 0 Refills, Maintenance, 10/14/21 5:48:00 PM EST, Partial fill upon patientrequest if the prescription is for a schedule II opioid drug. Start Date: 10/14/21 Status: Ordered Repeat number: 1 Losartan By Mouth, Daily, 0 Refills, Maintenance, 10/14/21 5:32:00 PM EST, Partial fill upon patient request if the prescription is for a schedule II opioid drug. Start Date: 10/14/21 Status: Ordered Repeat number: 1 Vital Signs Most recent to oldest [Reference Range]: 1 Height 157.5 cm (09/26/24 7:48 PM) Weight 62.0 kg (09/26/24 7:48 PM) Oxygen Saturation [94-100 %] 98 % (09/26/24 7:48 PM) Pulse Rate [55-90 bpm] 78 bpm (09/26/24 7:48 PM) Blood Pressure [90-138/55-84 mm Hg] 154/ 71mm Hg *H* (09/26/24 7:48 PM) Respiratory Rate [16-30 br/min] 15 br/mi n *L* (09/26/24 7:48 PM) Temperature [96.8-100.4 DegF] 97.5 DegF (09/26/24 7:48 PM) Mode of Delivery (Oxygen) Room air (09/26/24 7:48 PM) Temperature Route Temporal (09/26/24 7:48 PM) Dry Weight 62.0 kg (09/26/24 7:48 PM) Weight Obtained Via Standing scale (09/26/24 7:48 PM) Patient Care team information Care Team Personnel Name: Rachel SMITH, Matty Position: Reference Physician Member Role: PCP Address: [address] [place] [address] Telecom: Care Team Related Persons Name: SWAPNIL FOY Name: MARCE NAYAK Name: CHAITANYA KOHLI Insurance Providers Guarantor name: [employer] Plan Information #: 2 Payer: JIMENA MORALES Member Number: [id number] Policy Number: NA Group Number: [employer] Plan Information #: 1 Payer: MEDICARE PART B OUTPT Member Number: [id number] Policy Number: NA Group Number: ALISA
--- OUTSIDE RECORDS SUMMARY | 2024-10-01 08:22 | XMS_ITS | Clinical Summary ---
Author Organization [facility] Address [address] [place] [address] Care Team Providers Care Fertilizing Machine Operator Name Role Phone Matty Ramos MD Primary Care Provider [phone] Allergies Active Allergy Reactions Criticality Noted Date Comments Lisinopril Cough 11/21/2017 Oxycodone-Acetaminophen 07/27/2005 Sulfa (Sulfonamide Antibiotics) Swelling 05/14 Medications calcium carbonate/vitami n D3 (CALCIUM 600 WITH VITAMIN D3 ORAL) 1 tablet bid Active dorzolamide-teresa loL (COSOPT) 22.3-6.8 mg/mL ophthalmic solution Place 1 Drop into both eyes 2 times daily. 06/01/2017 Active losartan (COZAAR) 25 mg tablet TAKE 1 TABLET BY MOUTH EVERY DAY 11/14/2021 Active Active Problems Problem Noted Date Diagnosed Date Vaginal discomfort 09/24/2020 Overview (08/01/2024): Last Assessment & Plan: I explained to Sharon that her symptoms sound most like a muscle spasm or nerve type sensation. Since has resolved and she is physically and functionally normal, no intervention or further evaluation necessary. Ensure drinking plenty of water and make sure getting daily recommended calcium intake. She agreed. Third degree uterine prolapse 05/27/2019 Overview (08/01/2024): Last Assessment & Plan: Stable with pessary in place. Essential hypertension 10/22/2017 Overview (08/01/2024): DX:Essential hypertension Kidney stone 08/07/2011 Overview (08/01/2024): DX:Kidney stone Small right 3 mm stone Glaucoma 08/05/2011 Overview (08/01/2024): DX:Glaucoma Nonspecific abnormal results of liver function s tudy 03/13/2007 Overview (08/01/2024): DX:Nonspecific abnormal results of liver function study US, serology studies (-) Pure hypercholesterolemia 12/29/2005 Overview (08/01/2024): DX:Pure hypercholesterolemia Osteopenia 12/29/2005 Overview (08/01/2024): IMO update Melanoma of skin 12/29/2005 Overview (08/01/2024): IMO update Transient cerebral ischemia 12/29/2005 Immunizations Name Administration Dates Next Due Td Tetanus diptheria (Tdvax) 7yo and older 04/06 Tdap Tetanus diptheria acell ular pertussis (Boostrix; Adacel) 7yo and older 03/24/2015 Surgical History Surgery Date Site/Laterality Comments OTHER SURGICAL HISTORY PROCEDURE: HISTORICAL MELANOMA; COMMENT: right leg BLADDER SUSPENSION PROCEDURE: HISTORICAL BLADDER SUSPENSION BREAST LUMPECTOMY PROCEDURE: ---- BREAST LUMP BIOPSY ----; COMMENT: benign COLONOSCOPY 03/30/2005 PROCEDURE: HISTORICAL COLONOSCOPY; COMMENT: normal COLONOSCOPY 2013 PROCEDURE: [place] COLONOSCOPY FLX DX W/COLLJ SPEC WHEN PFRMD; COMMENT: normal BREAST BIOPSY Left PROCEDURE: BX BREAST; PERC NEEDLE CORE W/IMAG GUID; COMMENT: left-benign BREAST SURGERY Left PROCEDURE: [place] UNLISTED PROCEDURE BREAST; COMMENT: b9 Medical History Medical History Date Comments Melanoma of skin, site unspecified DX:Melanoma of skin, site unspecified; COMMENT: age 39 Disorder of bone and cartila ge, unspecified DX:Disorder of bone and cart ilage, unspecified Unspecified transient cerebr al ischemia 01/14 DX:Unspecified transient cer ebral ischemia Pure hypercholesterolemia 12/29/2005 DX:Pur e hypercholesterolemia Nonspecific abnormal results of liver function study 03/13/2007 DX:Nonspecific abnormal resu lts of liver function study Glaucoma 08/05/2011 DX:Glaucoma Kidney stone 08/07/2011 DX:Kidney stone Other specified personal his tory presenting hazards to health(V15.89) DX:Other specifie d personal history presenting hazards to health(V15.89); COMMENT: melanoma rt leg Essential hypertension 10/22/2017 DX:Essent ial hypertension Family History Medical History Relation Name Comments Other: MVA Father from MVA Stroke Maternal Grandmother Hypertension Mother Breast cancer Neg Hx Colon cancer Neg Hx Ovarian cancer Neg Hx Relation Name Status Comments Father Maternal Grandmother Mother Alive Sister Other Social History Tobacco Use Types Packs/Day Years Used Date Smoking Tobacco: Never Smokeless Tobacco: Never Alcohol Use Standard Drinks/Week Comments Yes 0 (1 standard drink = 0.6 oz pur e alcohol) Comments Unknown Sex and Gender Information Value Date Recorded Sex Assigned at Not on file Legal Sex Female 3:48 PM EST Gender Identity Not on file Sexual Orientation Not on file Obstetrics History Last Filed Vital Signs Vital Sign Reading Time Taken Comments Blood Pressure 138/82 12/01/2021 3:14 PM EDT Pulse 84 12/01/2021 3:00 PM EDT Temperature - - Respiratory Rate - - Oxygen Saturation - - Inhaled Oxygen Concentration - - Weight 62.4 kg (137 lb 8 oz) 12/01/2021 3:00 PM EDT Height 157.5 cm (5' 2 ) 12/01/2021 3:00 PM EDT Body Mass Index 25.15 12/01/2021 3:00 PM EDT Plan of Treatment Upcoming Encounters Date Type Department Care Team (Late st Contact Info) Description 02/18/2025 7:40 AM EDT Appointment Radiology Department [address] [phone] Health Maintenance Due Date Last Done Comments COVID-19 Vaccine (#1) 1957 Pneumococcal Vaccine: 50+ Years (1 of 2 - PCV) 1971 Zoster Vaccines (1 of 2) 1971 RSV Immunization Patients 60+ Years Old (1 - Risk 60-74 years 1-dose series) 2012 Colorectal Cancer Screening: Colonoscopy 07/22/2022 Depression Screening 07/22/2022 Falls Risk Assessment 07/22/2022 Medicare Annual Wellness Visit 07/22/2022 Social Influencers of Health Screening 07/22/2022 Hypertension/CHF/CAD Annual BMP Blood Test 07/23/2022 12/29/2020 Influenza Vaccine (#1) 2024 DTaP,Tdap,and Td Vaccines (3 - Td or Tdap) 03/24/2025 03/24/2015, 04/06/2005 Cholesterol Screening (Lipid Panel) 12/29/2025 12/29/2020 Breast Cancer Screening 02/10/2026 02/11/20 24, 02/11/2024, 01/29/2023, Additional history exists Osteoporosis Screening (Bone Density Screening) 06/30/2031 06/30/2021 Hepatitis C Screening Completed 09/12/2004 HIB Vaccines Aged Out No longer eligi ble based on patient's age to complete this topic HPV Vaccines Aged Out No longer eligi ble based on patient's age to complete this topic Hepatitis A Vaccines Aged Out No long er eligible based on patient's age to complete this topic Hepatitis B Vaccines Aged Out No long er eligible based on patient's age to complete this topic IPV Vaccines Aged Out No longer eligi ble based on patient's age to complete this topic MMR Vaccines Aged Out No longer eligi ble based on patient's age to complete this topic Meningococcal ACWY Vaccine Aged Out N o longer eligible based on patient's age to complete this topic Meningococcal B Vacine Aged Out No lo nger eligible based on patient's age to complete this topic RSV Immunization Patients Under 20 months Aged Out No longer eligible based on patient's age to complete this topic Varicella Vaccines Aged Out No longer eligible based on patient's age to complete this topic Procedures Procedure Name Priority Date/Time Associated Diagnosis Comments SCREENING MAMMOGRAPHY BI 2-VIEW BREAST INC CAD Routine 02/11/2024 7:53 AM EDT Encounter for screening mammogram for malignant neoplasm of breast DXA BONE DENSITY STUDY 1+ SITS AXIAL SKEL Routine 06/30/2021 2:43 PM EST Menopausal and female climacteric states ANNUAL BMP BLOOD TEST Routine 12/29/2020 LIPID PANEL Routine 12/29/2020 HEPATITIS C SCREENING Routine 09/12/2004 from Last 3 Months or Most Recently Relevant to Health Maintenance Results * SCREENING MAMMOGRAPHY BI 2-VIEW BREAST INC CAD (02/11/2024 7:53 AM EDT) Anatomical Region Laterality Modality Radiographic Ramona ging 01/29/2023 3:4 5 PM EDT Narrative 02/11/2024 2:57 PM EDT This is a summary report. The complete report is available in the patient's medical record. If you cannot access the medical record, please contact the sending organization for a detailed fax or copy. Full field digital screening tomosynthesis mammography, reviewed with CAD and compared to previous mammograms dating back to 04/26/2019 with most recent of 01/29/2023. The breast tissue is heterogeneously dense, limiting sensitivity. No suspicious mass, architectural distortion or suspicious calcifications are identified. IMPRESSION: : Dense breast tissue, limiting the sensitivity of mammography. No mammographic evidence of malignancy. BIRADS 1-Negative; N. 5 year breast cancer risk assessment 3.9 % Lifetime breast cancer risk assessment 10.4 % Breast cancer risk category Low (<15%) Procedure Note Gloria Zaragoza MD - 07/07/2024 This is a summary report. The complete report is available in thepatient's medical record. If you cannot access the medical record, pleasecontact the sending organization for a detailed fax or copy. Full field digital screening tomosynthesis mammography, reviewed with CADand compared to previous mammograms dating back to 04/26/2019 with mostrecent of 01/29/2023. The breast tissue is heterogeneously dense, limitingsensitivity. No suspicious mass, architectural distortion or suspiciouscalcifications are identified. IMPRESSION: : Dense breast tissue, limiting the sensitivity of mammography. Nomammographic evidence of malignancy. BIRADS 1-Negative; N. 5 year breast cancer risk assessment 3.9 % Lifetime breast cancer risk assessment 10.4 % Breast cancer risk category Low (<15%) us Bibiana Laurent MD IMG XR PROCEDURES Final Result * DXA BONE DENSITY STUDY 1+ SITS AXIAL SKEL (06/30/2021 2:43 PM EST) Anatomical Region Laterality Modality Bone Densitometr y 01/18/2021 4:23 PM EDT Narrative 06/30/2021 4:42 PM EST BONE DENSITY (DEXA) ? Lumbar Spine T-score is -2.8. ?? (SD relative to 20-29 y/o adult) Z-score is -0.8. ??(SD relative to age matched peers) This is considered osteoporosis by WHO criteria. Left Hip T-score is -1.5. Z-score is 0.2. This is considered osteopenia by WHO criteria. IMPRESSION: This patient is considered to have osteoporosis by WHO criteria. The [facility] Department of Internal Medicine recommends using National Osteoporosis Foundation (NOF) guidelines in treatment decisions related to osteoporosis. NOF guidelines suggest considering treatment for postmenopausal women and men aged 50 or older presenting with the following: History of hip or vertebral fracture. T-score = -2.5 (DXA) at the femoral neck, total hip, or spine, after appropriate evaluation to exclude secondary causes. Low bone mass (T-score between -1.0 and -2.5 at the femoral neck or spine) AND a 10-year probability of a hip fracture = 3% OR a 10-year probability of a major osteoporosis-related fracture = 20% based on the [place]-adapted WHO algorithm Please note that all treatment decisions require clinical judgment and consideration of individual patient factors, including patient preferences, co-morbidities, previous drug use, risk factors not captured in the FRAX model (e.g., frailty, falls, vitamin D deficiency, increased bone turnover, interval significant decline in bone density) and possible under- or over-estimation of fracture risk by FRAX. Optional alternative screening schedule based on avril Luis., [facility] August 31, 2011 for patients with osteopenia (based on hip BMD T-score) is as follows: * ??advanced osteopenia (T scores -2.00 to -2.49), BMD testing every year * ??moderate osteopenia (T scores -1.50 to -1.99), BMD testing every 5 years mild osteopenia or normal BMD (T scores -1.50 and higher), BMD testing every 15 years Procedure Note Gloria Zaragoza MD - 08/01/2022 BONE DENSITY (DEXA) Lumbar Spine T-score is -2.8. (SD relative to 20-29 y/o adult) Z-score is -0.8. (SD relative to age matched peers) This is considered osteoporosis by WHO criteria. Left Hip T-score is -1.5. Z-score is 0.2. This is considered osteopenia by WHO criteria. IMPRESSION: This patient is considered to have osteoporosis by WHO criteria. The [facility] Department of Internal Medicine recommendsusing National Osteoporosis Foundation (NOF) guidelines in treatment decisions related toosteoporosis. NOF guidelines suggest considering treatment for postmenopausal women and menaged 50 or older presenting with the following: History of hip or vertebral fracture. T-score = -2.5 (DXA) at the femoral neck, total hip, or spine, afterappropriate evaluation to exclude secondary causes. Low bone mass (T-score between -1.0 and -2.5 at the femoral neck or spine)AND a 10-year probability of a hip fracture = 3% OR a 10-year probability of a majorosteoporosis-related fracture = 20% based on the [place]-adapted WHO algorithm Please note that all treatment decisions require clinical judgment andconsideration of individual patient factors, including patient preferences, co- morbidities,previous drug use, risk factors not captured in the FRAX model (e.g., frailty, falls, vitaminD deficiency, increased bone turnover, interval significant decline in bone density) andpossible under- or over-estimation of fracture risk by FRAX. Optional alternative screening schedule based on vijay Luis al., NEJMJanuary 2011 for patients with osteopenia (based on hip BMD T-score) is as follows: * advanced osteopenia (T scores -2.00 to -2.49), BMD testing every year * moderate osteopenia (T scores -1.50 to -1.99), BMD testing every 5years mild osteopenia or normal BMD (T scores -1.50 and higher), BMD testingevery 15 years Matty Ramos MD IMG DXA PROCEDURES Final Result * Annual BMP Blood Test (12/29/2020) [facility] Annual BMP Blood Test Abstracted [facility] Provider HEALTH MAINTENANCE Final Result * (ABNORMAL) Lipid panel (12/29/2020) [facility] LDL/HDL Ratio 4 0 - 4 Triglycerides 133 0 - 150 mg/dL Cholesterol 237(A) 0 - 200 mg/dL HDL 56 >=40 mg/dL LDL Cholesterol 155(A) 0 - 100 mg/dL Blood Venous blood specimen / Unknown [facility] Provider LAB BLOOD ORDERABLES Lizabeth l Result * Hepatitis C Screening (09/12/2004) [facility] Hepatitis C Screening Abstracted [facility] Provider HEALTH MAINTENANCE Final Result from Last 3 Months or Most Recently Relevant to Health Maintenance Care Teams Fertilizing Machine Operator Relationship Specialty Start Date End Date Matty Ramos MD [address] [place] [address] PCP - General 05/10/1998
--- OUTSIDE RECORDS SUMMARY | 2024-10-01 08:22 | XMS_ITS ---
Author Organization [facility] Address [address] [place] [address] Care Team Providers Care Leather Stitcher Name Role Phone Bibiana Laurent MD Primary Care Provider Felecia Siu [phone] REASON FOR VISIT R/s 10/01/24 appt Encounters Encounter [facility] Date [facility] [address] [place] [phone] 2024 Felecia Hanson Plan Of Treatment Next Appt Details Provider Name:Felecia Barnes Valentin , 10/23/2024 01:45:00 PM, [address] [place], [address], Progress Notes * Sharon FOY LDOB: 3 (74 yo F)Acc No.[id number] Patient:?Sharon FOY :1950???Age:74 Y???Sex:Female Address:[address] [place] [address], [phone] * true * Date:? Generated for Printi ng/Faxing/eTransmitting on:?10/01/2024 08:22 AM EST
--- OUTSIDE RECORDS SUMMARY | 2024-10-01 08:22 | XMS_ITS ---
Author Organization [facility] Address [address] [place] [address] Care Team Providers Care Tape Deck Installer Name Role Phone Anastasiia SMITH, Bibiana Primary Care Provider Felecia Siu [phone] Encounters Encounter Location Date Provider Diagnosis [address] [phone] 07/17/2024 Felecia Hanson Plan Of Treatment Next Appt Details Provider Name:Felecia Barnes Valentin , 10/23/2024 01:45:00 PM, [address] [place] [address], [phone], Progress Notes * Sharon FOY LDOB: (74 yo F)Acc No.[id number]:07/17/2024 Progress Note Patient:?Sharon FOY Provider:Hamlet Hanson DPM :1950???Age:73 Y???Sex:Female D ate:07/17/2024 Address:[address] [place] [phone] Pcp:Bibiana Laurent MD Subjective: * Chief Complaints: [...] Hanson DPM Date:?2023 Generated for Rachel pichardo/Samson/Naldo on:?10/01/2024 08:22 AM EST
== END 2024-10-01 09:10 | disposition home or self-care (01) ==
PROVIDERS: PCP Internal Medicine; Visit Provider Internal Medicine
DX: N39.0 Urinary tract infection, site not specified (principal); I10 Essential (primary) hypertension; N20.0 Calculus of kidney; Z13.9 Encounter for screening, unspecified

== ENCOUNTER 2024-10-01 08:18 | Outpatient (REF) | payer MEDICARE, OTHER, SELFPAY ==
--- OUTSIDE RECORDS SUMMARY | 2024-10-01 16:45 | XMS_ITS | Clinical Summary ---
Author Organization [facility] Address [address] [place] [address] Care Team Providers Care Parent Trainer Name Role Phone Matty Ramos MD Primary Care Provider [phone] Allergies Active Allergy Reactions Criticality Noted Date [...] HISTORICAL COLONOSCOPY; COMMENT: normal COLONOSCOPY 2013 PROCEDURE: [place] COLONOSCOPY FLX DX W/COLLJ SPEC WHEN PFRMD; COMMENT: normal BREAST BIOPSY Left PROCEDURE: BX BREAST; PERC NEEDLE CORE W/IMAG GUID; COMMENT: left-benign BREAST SURGERY Left PROCEDURE: [place] UNLISTED PROCEDURE BREAST; COMMENT: b9 Medical History [...] 02/18/2025 7:40 AM EDT Appointment Radiology Department [address] [phone] Health Maintenance Due Date Last Done Comments [...] to have osteoporosis by WHO criteria. [facility] Department of Internal Medicine recommends using National [...] alternative screening schedule based on avril Luis., [facility] August 31, 2011 for patients with osteopenia [...] to have osteoporosis by WHO criteria. [facility] Department of Internal Medicine recommendsusing National Osteoporosis [...] Result * Annual BMP Blood Test (12/29/2020) [facility] Annual BMP Blood Test Abstracted [facility] Provider HEALTH MAINTENANCE Final Result * (ABNORMAL) Lipid panel (12/29/2020) [facility] LDL/HDL Ratio 4 0 - 4 Triglycerides 133 0 - 150 mg/dL Cholesterol 237(A) 0 - 200 mg/dL HDL 56 >=40 mg/dL LDL Cholesterol 155(A) 0 - 100 mg/dL Blood Venous blood specimen / Unknown [facility] Provider LAB BLOOD ORDERABLES Lizabeth l Result * Hepatitis C Screening (09/12/2004) [facility] Hepatitis C Screening Abstracted [facility] Provider HEALTH MAINTENANCE Final Result from Last 3 Months or Most Recently Relevant to Health Maintenance Care Teams Parent Trainer Relationship Specialty Start Date End Date Matty Ramos MD [address] [place] [address] PCP - General 05/10/1998
== END 2024-10-01 08:19 | disposition home or self-care (01) ==
LOC: HO.LNP 08:18
PROVIDERS: PCP Internal Medicine; Visit Provider Internal Medicine
DX: I10 Essential (primary) hypertension (principal); N39.0 Urinary tract infection, site not specified; N20.0 Calculus of kidney
CPT/HCPCS: 81003; 87086; 99212

== ENCOUNTER 2024-10-08 11:43 | Outpatient (AMB) | payer MEDICARE, OTHER, SELFPAY ==
--- NOTE | 2024-10-08 11:45 | A.OFFVIS_ITS ---
Vital Signs 10/08/24 11:46 Height 5 ft 2 in Weight 137 lb 2.04 oz BMI 25.1 BP 159/74 H Blood Pressure Location Rt brachial Position Sitting Pulse 79 Intake Visit Reasons: Diverticulitis f/u Intake Note: Sharon presents in follow up of diverticultis. CC: Patient would like to discuss abx for diverticultis flare ups that per patient happens about every 6 months. Also, she would like to discuss colonoscopy. 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 Denies any issues with anesthesia in the past.? Denies any history of sleep apnea.? No history infectious diseases in the past or present.? Not on any anticoagulation therapy.? No family or personal history of colon cancer or polyps.? History of diverticulitis in the past. Discussed with patient high-fiber diet. Patient may take probiotics. List of food high in fiber given to patient. Patient would like to have her procedure in August. Patient reports that her will be going for surgery and her daughters at suspecting baby. Patient denies melena, hematochezia, unintentional weight loss or ribbon like stools.? Discussed at length the pre-procedure,? prep, diet & medications as well as what to expect prior, during and after the procedure.?? Stressed the importance of good bowel prep.? Recommended the use of Vaseline or Calmoseptine OTC & baby wipes with bowel movements to promote comfort.? ?Patient verbalizes understanding and agree s to plan of care.? She was given the opportunity to ask questions and all questions answered.? We will see her after the procedure.? Medications New bisacodyl (Dulcolax (bisacodyl)) take 4 tabs at noon the day before your colonoscopy 20 mg (4 x 5 mg) PO ONCE 4 tabs 0RF 1 day Z12.11 polyethylene glycol 3350 (Miralax) As directed by gastroenterology department at [facility] 238 grams PO ONCE 238 grams 0RF Z12.11 TODAY'S VISIT Patient is here today for requested visit. Patient reports that she had left lower quadrant pain and what it felt like diverticulitis that she had in the past. Patient states that her sister had amoxicillin and she took it few days and her symptoms went away. Patient does admit that before she has left lower quadrant pain she experiences couple days of not emptying her bowels well. Patient is taking fiber therapy and we discussed last week over the phone about taking stool softener to help her move her bowels better. Patient reports that she takes Senokot as needed. 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 Patient states that she will be off in January and she will go and schedule the colonoscopy then. Patient is leaving for a cruise and vacation in November and then december and is requesting antibiotics so she can take it if she is away and has symptoms. Patient denies any melena, hematochezia, unintentional weight loss or ribbon like stools. Patient denies dyspepsia, dysphagia or odynophagia PFSH Medical History HTN (hypertension) Surgical History Hx of colonoscopy Hx of tonsillectomy History of breast lump removal Family History Father No problems noted. Mother Hypertension Social History Household Members Other:: , retired Housing: House Patient Tobacco Use Status: Never used Tobacco e-Cigarette/Vaping Use: Never Used service: No Current occupational status: retired Cognitive needs: No Hearing needs: No Vision needs: Yes Review of Systems Const Denies weight gain and Denies weight loss ENT Reports no additional complaints, Denies dysphagia and Denies odynophagia Card Reports no additional complaints Resp Reports no additional complaints GI Denies abdominal pain, Denies belching, Denies melena, Denies bloating, Denies change in bowel habits, Denies dysphagia, Denies excessive flatus, Denies dyspepsia, Denies heartburn, Denies diarrhea, Denies loose stools, Denies nausea, Denies odynophagia and Denies vomiting Musc Reports no additional complaints Neuro Reports no additional complaints Psych Reports no additional complaints Endo Reports no additional complaints Physical Exam Vital Signs: Last Vital Signs Pulse 79 10/08/24 11:46 BP 159/74 H 10/08/24 11:46 BMI result Body Mass Index 25.1 Const General: healthy appearing, no acute distress and well developed Nutritional Appearance: well nourished Orientation/consciousness: patient oriented x3 Resp Effort & Inspection: normal respiratory effort, able to speak in complete sentences, no tracheal deviation and symmetric chest movement Auscultation: clear to auscultation bilaterally Cardio Rate: regular rate GI Inspection: Yes normal to inspection and No distended Palpation (GI): Soft to palpation, not firm, nontender and No hepatosplenomegaly present Auscultation: normal bowel sounds General: Yes no CVA tenderness Back/Spine/Pelvis Back: no CVA tenderness Skin General skin exam: elasticity normal, turgor normal and dry skin Neuro General: patient oriented x3 Psych Appearance: grossly normal Mental Status: mental status grossly normal Assessment & Plan Assessment & Plan (1) Diverticulitis: Code(s): K57.92 - Diverticulitis of intestine, part unspecified, without perforation or abscess without bleeding Category: Medical (2) Hx of colonoscopy: Comment: 2013 [place] Code(s): Z98.890 - Other specified postprocedural states Category: Medical (3) Diverticulosis: Code(s): K57.90 - Diverticulosis of intestine, part unspecified, without perforation or abscess without bleeding (4) LLQ abdominal pain: Code(s): R10.32 - Left lower quadrant pain (5) Constipation: Code(s): K59.00 - Constipation, unspecified Qualifiers: Constipation type: slow transit constipation Qualified Code(s): K59.01 - Slow transit constipation Plan Patient will increase fiber in her diet. Increase fluid intake and activity to promote better bowel motility. Gera Craig send to pharmacy for patient to take with her on her vacation if she will have left lower quadrant pain. However patient was encouraged to take senna with her as well as stool softener so she can take it daily to avoid getting backed up. Recommended Benefiber dual action biotic with pre and probiotics. Patient will have her colonoscopy scheduled for January. She will see us in the office here after the procedure. What to expect before during and after procedure discussed with patient. Patient is aware and is requesting the prep again. Stressed the importance of good bowel prep and clear liquid diet day before procedure. Patient is agreeable to this plan and verbalizes understanding of instructions. She was given the opportunity to ask questions and all questions answered. Thank you for allowing me to participate in her care Medications: New bisacodyl (Dulcolax (bisacodyl)) take 4 tabs at noon the day before your colonoscopy 20 mg (4 x 5 mg) PO ONCE 4 tabs 0RF 1 day Z12.11 - Encounter for screening for malignant neoplasm of colon ciprofloxacin HCl 500 mg PO BID 14 tabs 1RF Changed From polyethylene glycol 3350 (Miralax) As directed by gastroenterology department at [facility] 238 grams PO ONCE PRN Z12.11 - Encounter for screening for malignant neoplasm of colon To polyethylene glycol 3350 (Miralax) As directed by gastroenterology department at [facility] 238 grams PO ONCE 238 grams 0RF Z12.11 - Encounter for screening for malignant neoplasm of colon Coding Level of Care Code Est Pt Level 3 (19717) Diagnoses Diverticulitis K57.92 Hx of colonoscopy Z98.890 Diverticulosis K57.90 LLQ abdominal pain R10.32 Slow transit constipation K59.01 Constipation type: slow transit constipation Time Spent (min) 30 Comment 20 minutes spent with patient and additional 10 minutes spent reviewing her records
[2024-10-08 11:46] VITALS: BP 159/74; PULSE 79; BMI 25.1
--- OUTSIDE RECORDS SUMMARY | 2024-10-08 14:45 | XMS_ITS ---
Author Organization [facility] Address [address] [place] [address] Care Team Providers Care Instructional Technologist Name Role Phone Bibiana Laurent MD Primary Care Provider Felecia Siu [phone] Encounters Encounter Location Date Provider Diagnosis [address] [address] 10/01/2024 Felecia Hanson Plan Of Treatment Next Appt Details Provider Name:Felecia Barnes Valentin , 10/23/2024 01:45:00 PM, [address] [place], [address], Progress Notes * Sharon FOY LDOB: 3 (74 yo F)Acc No.[id number]:10/01/2024 Progress Note Patient:?Sharon FOY Provider:Hamlet Hanson DPM :1950???Age:74 Y???Sex:Female D ate:10/01/2024 Address:[address] [place] [address] Pcp:Bibiana Laurent MD Subjective: * Chief Complaints: [...] Hanson DPM Date:?2024 Generated for Rachel pichardo/Samson/Naldo on:?10/08/2024 02:45 PM EST
--- OUTSIDE RECORDS SUMMARY | 2024-10-08 14:45 | XMS_ITS ---
Author Organization [facility] Address [address] [place] [address] Care Team Providers Care Teacher Of Family And Consumer Science Name Role Phone Bibiana Laurent MD Primary Care Provider Felecia Siu [phone] REASON FOR VISIT R/s 10/01/24 appt Encounters Encounter Location Date [facility] [place] [address] [place] [address] 2024 Felecia Hanson Plan Of Treatment Next Appt Details Provider Name:Felecia Barnes Valentin , 10/23/2024 01:45:00 PM, [address] [place], [address], Progress Notes * Sharon FOY LDOB: 3 (74 yo F)Acc No.[id number]:2024 Patient:?Sharon FYO :1950???Age:74 Y???Sex:Female Address:[address] [place] [address], [address] * true * Date:? Generated for Printi ng/Faxing/eTransmitting on:?10/08/2024 02:45 PM EST
--- OUTSIDE RECORDS SUMMARY | 2024-10-08 14:46 | XMS_ITS ---
Author Organization [facility] Address [address] [place] [address] Care Team Providers Care Bonded Strand Operator Name Role Phone Anastasiia SMITH, iBbiana Primary Care Provider Felecia Siu [phone] Encounters Encounter Location Date Provider Diagnosis [address] [address] 07/17/2024 Felecia Hanson Plan Of Treatment Next Appt Details Provider Name:Felecia Barnes Valentin , 10/23/2024 01:45:00 PM, [address] [place] [address], [address], Progress Notes * Sharon FOY LDOB: (74 yo F)Acc No.[id number]:07/17/2024 Progress Note Patient:?Sharon FOY Provider:Hamlet Hanson DPM :1950???Age:73 Y???Sex:Female D ate:07/17/2024 Address:[address] [place] [address] Pcp:Bibiana Laurent MD Subjective: * Chief Complaints: [...] Hanson DPM Date:?2023 Generated for Rachel pichardo/Samson/Naldo on:?10/08/2024 02:45 PM EST
--- OUTSIDE RECORDS SUMMARY | 2024-10-08 14:46 | XMS_ITS | Clinical Summary ---
Author Organization [facility] Address [address] [place] [address] Care Team Providers Care Therapeutic Mentor Name Role Phone Matty Ramos MD Primary Care Provider [phone] Allergies Active Allergy Reactions Criticality Noted Date [...] HISTORICAL COLONOSCOPY; COMMENT: normal COLONOSCOPY 2013 PROCEDURE: DE COLONOSCOPY FLX DX W/COLLJ SPEC WHEN PFRMD; COMMENT: normal BREAST BIOPSY Left PROCEDURE: BX BREAST; PERC NEEDLE CORE W/IMAG GUID; COMMENT: left-benign BREAST SURGERY Left PROCEDURE: DE UNLISTED PROCEDURE BREAST; COMMENT: b9 Medical History [...] 02/18/2025 7:40 AM EDT Appointment Radiology Department [address] [phone] Health Maintenance Due Date Last Done Comments [...] Region Laterality Modality Radiographic Ramona ging 01/29/2023 3:45 PM EDT Narrative 02/11/2024 2:57 PM EDT [...] to have osteoporosis by WHO criteria. [facility] Department of Internal Medicine recommends using National [...] alternative screening schedule based on avril Luis., [facility] August 31, 2011 for patients [...] to have osteoporosis by WHO criteria. [facility] Department of Internal Medicine recommendsusing National Osteoporosis [...] Result * Annual BMP Blood Test (12/29/2020) Pathologist [facility] Annual BMP Blood Test Abstracted Historical Provider HEALTH MAINTENANCE Final Result * (ABNORMAL) Lipid panel (12/29/2020) [facility] LDL/HDL Ratio 4 0 - 4 Triglycerides 133 0 - 150 mg/dL Cholesterol 237(A) 0 - 200 mg/dL HDL 56 >=40 mg/dL LDL Cholesterol 155(A) 0 - 100 mg/dL Blood Venous blood specimen / Unknown Historical Provider LAB BLOOD ORDERABLES Lizabeth l Result * Hepatitis C Screening (09/12/2004) [facility] Hepatitis C Screening Abstracted [facility] Provider HEALTH MAINTENANCE Final Result from Last 3 Months or Most Recently Relevant to Health Maintenance Care Teams Therapeutic Mentor Relationship Specialty Start Date End Date Matty Ramos MD [address] [place] [address] PCP - General 05/10/1998
--- OUTSIDE RECORDS SUMMARY | 2024-10-08 14:46 | XMS_ITS | Patient Health Record ---
Author Organization [facility] [place] Address [address] [facility] [place] [address] Care Team Providers Care Legal Biller Name Role Phone Bibiana Laurent MD Primary Care Provider Unavaila Felecia Carbone Unavailable [phone] Ayden Peace Unavailable [phone] Edilberto Ferrari Unavailable [phone] Allergies Allergen (clinical drug ingredient) Drug/Non Drug [...] Status W/U Status Risk Notes Problem Onychomycosis (529876805) Onychomycosis (110.1) Active confirmed Problem Hallux valgus (086203505) Hallux Valgus (735.0) Active confirmed Problem Hammer toe (142555995) Hammer toe (735.4) Active confirmed Problem Pain in limb (16681850) Pain in Limb (729.5) Active confirmed Problem Acquired hallux valgus (76232411) Hallux valgus (acquired), left foot (M20.12) Active confirmed Problem Acquired hallux valgus (69055473) Hallux valgus (acquired), right foot (M20.11) Active confirmed Problem Acquired hammer toe of right foot (5493865357738801 ) Other hammer toe(s) (acquired), right foot (M20.41) Active confirmed Problem Acquired hammer toe of left foot (0365062073537760 ) Other hammer toe(s) (acquired), left foot (M20.42) Active confirmed Vital Signs Blood pressure diastolic 71 mm Hg 01/30/2024 Height 5 ft 2 in in 01/30/2024 Blood pressure systolic 125 mm Hg 01/30/2024 Weight 130 lbs 01/30/2024 BMI 23.77 kg/m2 01/30/2024 Encounters Encounter Location Date Provider Diagnosis [address] [address] 01/30/2024 Ayden Peace Tinea unguium B35.1 ; Pain in right toe(s) M79.674 ; Pain in left toe(s) M79.675 ; Hallux valgus (acquired), left foot M20.12 ; Hallux valgus (acquired), right foot M20.11 ; Other hammer toe(s) (acquired), right foot M20.41 and Other hammer toe(s) (acquired), left foot M20.[address] [address] 12/11/2023 Edilberto Ferrari [address] [address] [facility]16/20[facility] [address] [address] 2024 Felecia Hanson Assessments Encounter Date Diagnosis [...] X ray : Foot, right 2V 02/09/2012 [id number] NAIL, 6 OR MORE 02/09/2012 Next Appt Details Provider Name:Felecia Hanson , 10/23/2024 01:45:00 PM, [address] [place] [address], [phone], Insurance Providers Payer Name Payer Address Payer Phone Subscriber Number Group Number Insured Name Patient Relationship to Insured Coverage Start Date Coverage End Date Medicare National [employer] [address] [place] [address] [id number] Sharon Nevarez Self - patient is the insured [facility] [address] [place] [address] [phone] [id number] Sharon Nevarez Self - patient is the insured Medical (General) History Medical History History ICD Code chicken pox measles osteoporosis psoriasis Arthritis Cataracts Glaucoma Headaches/Migraines High blood pressure Joint implants/screws Surgical History Surgery Date(Month/Year) pelvic suspension 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
== END 2024-10-08 12:14 | disposition home or self-care (01) ==
PROVIDERS: PCP Internal Medicine; Visit Provider Nurse Practitioner Family
DX: K57.92 Diverticulitis of intestine, part unspecified, without perforation or abscess without bleeding (principal); Z98.890 Other specified postprocedural states; K57.90 Diverticulosis of intestine, part unspecified, without perforation or abscess without bleeding; R10.32 Left lower quadrant pain; K59.01 Slow transit constipation
CPT/HCPCS: 99213

== ENCOUNTER → 2024-10-08 11:43 | Outpatient (BNVA) | payer MEDICARE, OTHER, SELFPAY | PROVIDERS: PCP Internal Medicine; Visit Provider Nurse Practitioner Family | DX: K57.92 Diverticulitis of intestine, part unspecified, without perforation or abscess without bleeding (principal); K57.90 Diverticulosis of intestine, part unspecified, without perforation or abscess without bleeding; R10.32 Left lower quadrant pain; K59.01 Slow transit constipation | CPT/HCPCS: 99212 ==

== ENCOUNTER 2024-10-22 11:43 | Outpatient (REF) | payer MEDICARE, OTHER, SELFPAY ==
--- OUTSIDE RECORDS SUMMARY | 2024-10-22 13:50 | XMS_ITS ---
Author Organization [facility] Address [address] [place] [address] Care Team Providers Care Family Preservation Worker Name Role Phone Bibiana Laurent MD Primary Care Provider Felecia Siu [phone] REASON FOR VISIT R/s 10/01/24 appt Encounters Encounter Location Date [facility] [place] [address] [place] [address] 2024 Felecia Hanson Plan Of Treatment Next Appt Details Provider Name:Felecia Barnes Valentin , 10/23/2024 01:45:00 PM, [address] [place], [address], Progress Notes * Sharon FOY LDOB: (74 yo F)Acc No.[id number]:2024 Patient:?Sharon FOY :1950???Age:74 Y???Sex:Female Address:[address] [place] [address], [address] * true * Date:? Generated for Printi ng/Faxing/eTransmitting on:?10/22/2024 01:49 PM EDT
--- OUTSIDE RECORDS SUMMARY | 2024-10-22 13:50 | XMS_ITS ---
Author Organization [facility] Address [address] [place] [address] Care Team Providers Care Oil Plant Operator Name Role Phone Bibiana Laurent MD Primary Care Provider Felecia Siu [phone] Encounters Encounter Location Date Provider Diagnosis [address] [address] 10/01/2024 Felecia Hanson Plan Of Treatment Next Appt Details Provider Name:Felecia Barnes Valentin , 10/23/2024 01:45:00 PM, [address] [place], [address], Progress Notes * Sharon FOY LDOB: 3 (74 yo F)Acc No.[id number]:10/01/2024 Progress Note Patient:?Sharon FOY Provider:Hamlet Hanson DPM :1950???Age:74 Y???Sex:Female D ate:10/01/2024 Address:[address] [place] [address] Pcp:Bibiana Laurent MD Subjective: * Chief Complaints: [...] Hanson DPM Date:?2024 Generated for Rachel pichardo/Samson/Naldo on:?10/22/2024 01:49 PM EDT
--- OUTSIDE RECORDS SUMMARY | 2024-10-22 13:50 | XMS_ITS ---
Author Organization [facility] Address [address] [place] [address] Care Team Providers Care Quality Control Associate Name Role Phone Anastasiia SMITH, Bibiana Primary Care Provider Felecia Siu [phone] Encounters Encounter Location Date Provider Diagnosis [address] [address] 07/17/2024 Felecia Hanson Plan Of Treatment Next Appt Details Provider Name:Felecia Barnes Valentin , 10/23/2024 01:45:00 PM, [address] [place] [address], [phone], Progress Notes * Sharon FOY LDOB: (74 yo F)Acc No.[id number]:07/17/2024 Progress Note Patient:?Sharon FOY Provider:Hamlet Hanson DPM :1950???Age:73 Y???Sex:Female D ate:07/17/2024 Address:[address] [place] [address] Pcp:Bibiana Laurent MD Subjective: * Chief Complaints: [...] Hanson DPM Date:?2023 Generated for Rachel pichardo/Samson/Naldo on:?10/22/2024 01:50 PM EDT
--- OUTSIDE RECORDS SUMMARY | 2024-10-22 13:50 | XMS_ITS | Patient Health Record ---
Author Organization [facility] [place] Address [address] [facility] [place] [address] Care Team Providers Care Inspector Canvas Products Name Role Phone Bibiana Laurent MD Primary Care Provider Unavaila Felecia Carbone Unavailable [phone] Ayden Peace Unavailable [phone] Edilberto Ferrari Unavailable [phone] Allergies Allergen (clinical drug ingredient) Drug/Non Drug [...] Status W/U Status Risk Notes Problem Onychomycosis (112035244) Onychomycosis (110.1) Active confirmed Problem Hallux valgus (907028304) Hallux Valgus (735.0) Active confirmed Problem Hammer toe (766129485) Hammer toe (735.4) Active confirmed Problem Pain in limb (77223311) Pain in Limb (729.5) Active confirmed Problem Acquired hallux valgus (71451156) Hallux valgus (acquired), left foot (M20.12) Active confirmed Problem Acquired hallux valgus (13887901) Hallux valgus (acquired), right foot (M20.11) Active confirmed Problem Acquired hammer toe of right foot (3853397656088452 ) Other hammer toe(s) (acquired), right foot (M20.41) Active confirmed Problem Acquired hammer toe of left foot (1343101700149101 ) Other hammer toe(s) (acquired), left foot (M20.42) Active confirmed Vital Signs Blood pressure diastolic 71 mm Hg 01/30/2024 Height 5 ft 2 in in 01/30/2024 Blood pressure systolic 125 mm Hg 01/30/2024 Weight 130 lbs 01/30/2024 BMI 23.77 kg/m2 01/30/2024 Encounters Encounter Location Date Provider Diagnosis [address] [address] 01/30/2024 Ayden Peace Tinea unguium B35.1 ; Pain in right toe(s) M79.674 ; Pain in left toe(s) M79.675 ; Hallux valgus (acquired), left foot M20.12 ; Hallux valgus (acquired), right foot M20.11 ; Other hammer toe(s) (acquired), right foot M20.41 and Other hammer toe(s) (acquired), left foot M20.[address] [address] 12/11/2023 Edilberto Ferrari [address] [address] [facility]/16/2024 [facility] [address] [address] 2024 Felecia Hanson Assessments Encounter Date Diagnosis [...] X ray : Foot, right 2V 02/09/2012 [id number] NAIL, 6 OR MORE 02/09/2012 Next Appt Details Provider Name:Felecia Hanson , 10/23/2024 01:45:00 PM, [address] [place] [address], [phone], Insurance Providers Payer Name Payer Address Payer Phone Subscriber Number Group Number Insured Name Patient Relationship to Insured Coverage Start Date Coverage End Date Medicare National Govt Sv[employer] [address] [place] [address] [phone] [id number] Sharon Nevarez Self - patient is the insured [facility] [address] [place] [address] [id number] Sharon Nevarez Self - patient is the insured Medical (General) History Medical History History ICD Code chicken pox measles osteoporosis psoriasis Arthritis Cataracts Glaucoma Headaches/Migraines High blood pressure Joint implants/screws Surgical History Surgery Date(Month/Year) pelvic suspension 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
--- OUTSIDE RECORDS SUMMARY | 2024-10-22 13:50 | XMS_ITS | Clinical Summary ---
Author Organization [facility] Address [address] [place] [address] Care Team Providers Care Cover Stripper Name Role Phone Matty Ramos MD Primary Care Provider [phone] Allergies Active Allergy Reactions Criticality Noted Date [...] HISTORICAL COLONOSCOPY; COMMENT: normal COLONOSCOPY 2013 PROCEDURE: [place] COLONOSCOPY FLX DX W/COLLJ SPEC WHEN PFRMD; COMMENT: normal BREAST BIOPSY Left PROCEDURE: BX BREAST; PERC NEEDLE CORE W/IMAG GUID; COMMENT: left-benign BREAST SURGERY Left PROCEDURE: SC UNLISTED PROCEDURE BREAST; COMMENT: b9 Medical History [...] 02/18/2025 7:40 AM EDT Appointment Radiology Department [address] [phone] Health Maintenance Due Date Last Done Comments [...] to have osteoporosis by WHO criteria. [facility] Department of Internal Medicine recommends using National [...] alternative screening schedule based on avril Luis., [facility] August 31, 2011 for patients [...] to have osteoporosis by WHO criteria. [facility] Department of Internal Medicine recommendsusing National Osteoporosis [...] * Annual BMP Blood Test (12/29/2020) Pathologist [facility] Annual BMP Blood Test Abstracted Historical Provider HEALTH MAINTENANCE Final Result * (ABNORMAL) Lipid panel (12/29/2020) [facility] LDL/HDL Ratio 4 0 - 4 Triglycerides 133 0 - 150 mg/dL Cholesterol 237(A) 0 - 200 mg/dL HDL 56 >=40 mg/dL LDL Cholesterol 155(A) 0 - 100 mg/dL Blood Venous blood specimen / Unknown Historical Provider LAB BLOOD ORDERABLES Lizabeth l Result * Hepatitis C Screening (09/12/2004) [facility] Hepatitis C Screening Abstracted [facility] Provider HEALTH MAINTENANCE Final Result from Last 3 Months or Most Recently Relevant to Health Maintenance Care Teams Cover Stripper Relationship Specialty Start Date End Date Matty Ramos MD [address] [place] [address] PCP - General 05/10/1998
[2024-10-22 13:57] LABS: Anion Gap 9 (12-20); Blood Urea Nitrogen 17 mg/dL (9-16); Calcium 9.3 mg/dL (8.4-10.2); Carbon Dioxide 28 mmol/L (22-29); Chloride 108 mmol/L (96-108); Estimated Glomerular Filt Rate > 60; Glucose Random 93 mg/dL (60-115); Potassium 3.8 mmol/L (3.3-5.1); Sodium 141 mmol/L (135-145)
== END 2024-10-22 11:44 | disposition home or self-care (01) ==
LOC: HO.HMGCLDS 11:43
PROVIDERS: PCP Internal Medicine; Visit Provider Internal Medicine
DX: I10 Essential (primary) hypertension (principal)
CPT/HCPCS: 36415; 80048

== ENCOUNTER 2024-10-30 12:36 | Outpatient (AMB) | payer MEDICARE, OTHER, SELFPAY ==
[2024-10-30 12:39] VITALS: BP 122/70; PULSE 80; RESP 18; TEMP 36.8; O2SAT 98; BMI 25.1
--- NOTE | 2024-10-30 12:39 | A.OFFPC_ITS ---
Vital Signs 10/30/24 12:39 Height 5 ft 2 in Weight 137 lb BMI 25.1 BP 122/70 Blood Pressure Location Lt brachial Position Sitting Respiration 18 Pulse 80 Pulse Source Pulse Oximeter Temp 98.2 F Temp Source Oral Pulse Oximetry (%) 98 Oxygen Delivery Method Room Air Intake Visit Reasons: 1m follow up Intake Note: Pt is here today for 1 month follow up visit. Allergies acetaminophen [From Percocet] Adverse Reaction (Verified 10/30/24 12:44) swollen face oxycodone [From Percocet] Adverse Reaction (Verified 10/30/24 12:44) swollen face Sulfa (Sulfonamide Antibiotics) Adverse Reaction (Verified 10/30/24 12:44) swollen face Medication List - Last Reconciled 10/30/24 by Bibiana Laurent MD amoxicillin 875 mg PO BID bisacodyl (Dulcolax (bisacodyl)) 20 mg (4 x 5 mg) PO ONCE 1 day docusate sodium 100 mg PO BEDTIME dorzolamide-timolol 22.3-6.8 mg/mL 1 drp ophthalmic (eye) BID losartan 50 mg PO DAILY methylcellulose (laxative) (Citrucel) 500 mg PO DAILY polyethylene glycol 3350 (Miralax) 238 grams PO ONCE pyridoxine (vitamin B6) 100 mg PO DAILY 90 days sennosides (Natural Senna Laxative) 17.2 mg (2 x 8.6 mg) PO BEDTIME Tobacco use date assessed: 10/30/24 Fall risk assessment: No Falls in past year Last assessed Fall Risk: 10/30/24 Dental Screening Dental Screen Date: 10/30/24 Did you have a dental visit in the last 12 months?: Yes Did you have a dental problem in the last 6 months where you did not have access to dental care?: No Was dental information given to patient?: Patient has dentist HPI 1m follow up HPI Details Patient presents for the follow-up on hypertension. She has been checking her blood pressure at home and taking only 25 mg of losartan because her blood pressure has been normal. She is going to vacation to [place] and cruise to [facility]. [facility], [facility] Medical History HTN (hypertension) Surgical History Hx of colonoscopy Hx of tonsillectomy History of breast lump removal Family History Father No problems noted. Mother Hypertension Social History Household Members Other:: , retired Housing: House Patient Tobacco Use Status: Never used Tobacco e-Cigarette/Vaping Use: Never Used service: No Current occupational status: retired Cognitive needs: No Hearing needs: No Vision needs: Yes Questionnaire PHQ-9 Over the last 2 weeks, how often have you been bothered by any of the following problems? 1. Little interest or pleasure in doing things: not at all 2. Feeling down, depressed, or hopeless: not at all 3. Trouble falling or staying asleep, or sleeping too much: not at all 4. Feeling tired or having little energy: not at all 5. Poor appetite or overeating: not at all 6. Feeling bad about yourself - or that you are a failure or have let yourself or your family down: not at all 7. Trouble concentrating on things, such as reading the newspaper or watching television: not at all 8. Moving or speaking so slowly that other people could have noticed. Or the opposite - being so fidgety or restless that you have been moving around a lot more than usual: not at all 9. Thoughts that you would be better off or of hurting yourself in some way: not at all Total score: 0 Depression Screening Interpretation: Negative Depression Screening Done: Yes 27417 - PHQ-9 Billing: Yes Source: Developed by Drs. Brandon Vargas, Aide Sesay, Benedict Garnett and colleagues, with an educational gutierrez from [employer]. Thrive Questionnaire Date Thrive assessed: 10/30/24 I am a: Patient What is your living situation today?: I have a steady place to live Within the past 12 months, did the food you bought not last and you didn't have the money to get more?: Never true Within the past 12 months, did you worry whether your food would run out before you got money to buy more?: Never true Do you have trouble paying for medicines?: No Do you have trouble getting transportation to medical appointments?: No Do you have trouble paying your heating and electricity bill?: No Do you have trouble taking care of your child, family member or friend?: No Do you have trouble with day-to-day activities such as bathing, preparing meals, shopping, managing finances, etc.?: No Are you currently unemployed and looking for a job?: No Are you interested in more education?: No Please select the resources that you would like help with: None Currently or been in a relationship where the following occur: No concerns reported THRIVE Score: 0 AUDIT C Alcohol Use Questionnaire (AUDIT-C) 1. How often do you have a drink containing alcohol?: Monthly or less 2. How many drinks containing alcohol do you have on a typical day when you are drinking?: 1 or 2 3. How often do you have six or more drinks on one occasion?: Never Total Score: 1 ENA-7 AMB Questionnaire ENA-7 Date ENA - 7 assessed: 10/30/24 Feeling nervous, anxious, or on edge: 0 = Not at all Not being able to stop or control worryin = Not at all Worrying too much about different things: 0 = Not at all Trouble relaxin = Not at all Being so restless that it is hard to sit still: 0 = Not at all Becoming easily annoyed or irritable: 0 = Not at all Feeling afraid as if something awful might happen: 0 = Not at all Total ENA-7 score (0-4 normal; 5-9 mild; 10-14 moderate; 15-21 severe): 0 Source: Developed by Drs. Brandon Vargas, Aide Sesay, Benedict Garnett and colleagues, with an educational gutierrez from [employer]. ENA-7 Assessment Billing ENA-7 Assessment Tool: ENA-7 Assessment 32922 Review of Systems Const All systems reviewed & are unremarkable except as noted in HPI and below Eyes Reports no additional complaints ENT Reports no additional complaints Card Reports no additional complaints Resp Reports no additional complaints GI Reports no additional complaints Reports no additional complaints Physical exam (Primary Care) Vital Signs: Last Vital Signs Temp 98.2 F 10/30/24 12:39 Pulse 80 10/30/24 12:39 Resp 18 10/30/24 12:39 BP 122/70 03/20/25 12:39 Pulse Ox 98 10/30/24 12:39 Oxygen Delivery Method Room Air 10/30/24 12:39 BMI result Body Mass Index 25.1 Tobacco/Smoking Status: Tobacco use Status Tobacco use date assessed 10/30/24 10/30/24 12:48 Patient Tobacco Use Status Never used Tobacco 10/30/24 12:48 e-Cigarette/Vaping Use Never Used 10/30/24 12:48 PHQ-9: PHQ-9 Score PHQ-9: Total score 0 10/30/24 12:48 Depression Screening Interpretation: Negative Thrive Assessment: Date of Thrive Assessment Date Thrive assessed 10/30/24 10/30/24 12:48 Currently or been in a relationship where the following occur: No concerns reported Const General: no acute distress Eyes General: appearance normal, both eyes and all related structures Neck Neck: Yes supple Resp Effort & Inspection: normal respiratory effort Auscultation: clear to auscultation bilaterally Cardio Rhythm: regular rhythm Heart sounds: S1 normal heart sound present and S2 normal heart sound present Coding Level of Care Code Est Pt Level 3 (84422) Diagnoses HTN (hypertension) I10 Additional Codes ENA-7 Assessment Billing - ENA-7 Assessment Tool: ENA-7 Assessment 11573 ([id number]) PHQ-9 - 92495 - PHQ-9 Billing: Yes ([id number]) Assessment & Plan Assessment & Plan (1) HTN (hypertension): Code(s): I10 - Essential (primary) hypertension Category: Medical Plan: Patient was advised to take 50 mg of losartan, follow low-sodium diet and exercise regularly. She will return for physical in February with a fasting labs before Medications: New amoxicillin 875 mg PO BID 14 tabs 0RF
--- OUTSIDE RECORDS SUMMARY | 2024-10-30 14:57 | XMS_ITS ---
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 Formal Name Role Phone Bibiana Laurent MD Primary Care Provider Felecia Siu [phone] Encounters Encounter Location Date Provider Diagnosis [address] [id number] 10/01/2024 Felecia Hanson Plan Of Treatment Next Appt Details Provider Name:Felecia Barnes Valentin , 10/22/2025 08:00:00 AM, [address] [place], [address], Progress Notes * Sharon FOY LDOB: [birth year] (74 yo F)Acc No.[id number]:10/01/2024 Progress Note Patient:?Sharon FOY Provider:Hamlet Hanson DPM :1950???Age:74 Y???Sex:Female D ate:10/01/2024 Address:[address] [place] [id number] Pcp:Bibiana Laurent MD Subjective: * Chief Complaints: [...] Hanson DPM Date:?2024 Generated for Rachel pichardo/Samson/Naldo on:?10/30/2024 02:57 PM EDT
--- OUTSIDE RECORDS SUMMARY | 2024-10-30 14:57 | XMS_ITS ---
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 Inside Name Role Phone Bibiana Laurent MD Primary Care Provider Unavaila ble Black, Felecia Unavailable [phone] Allergies Allergen (clinical drug ingredient) Drug/Non Drug Allergy documented on EMR Reaction Allergy Type Onset Date Status acetaminophen / oxycodone Percocet swelling Drug Allergy Active sulfa rash Drug Allergy Active REASON FOR VISIT Foot pain, Painful nail(s) aggravated by shoes causing difficulty standing/walking Medications Medication SIG (Take, Route, Frequency, Duration) Notes Start Date End Date Status Cosopt 22.3-6.8 MG/ML 1 drop into affect ed eye Ophthalmic Twice a day Active Cosopt 22.3-6.8 MG/ML 1 drop into affect ed eye Ophthalmic Twice a day Active Voltaren 1 % Apply 4 grams to linda nful area on foot as directed Externally Four times a day for 30 days 10/23/2024 Active Losartan Potassium 25 MG 1 tablet [...] other tobacco user? No Vital Signs Height 5ft2in in 10/23/2024 Weight 130 lbs 10/23/2024 BMI 23.77 kg/m2 10/23/2024 Blood pressure systolic 124 mm Hg 10/24/19 25 Blood pressure diastolic 70 mm Hg 025 Procedures Procedure Date Ordered Date Performed Result Body Sit e 56154-QNGNIOS NAIL, 6 OR MORE 10/23/2024 N/A Encounters Encounter Location Date Provider Diagnosis [facility] [address] [address] 10/23/2024 Felecia Black Pain in left foot M79.672 ; Hallux valgus (acquired), left foot M20.12 ; Pain in left ankle and joints of left foot M25.572 ; Bursitis of left foot M77.52 ; Pain in right foot M79.671 ; Pain in right ankle and joints of right foot M25.571 ; Bursitis of right foot M77.51 ; Hallux valgus (acquired), right foot M20.11 ; Pain in right toe(s) M79.674 ; Onychomycosis B35.1 and Pain in left toe(s) M79.675 Assessments Encounter Date Diagnosis (ICD Code) Assessment Notes Treatment Notes Treatment Clinical Notes Section Notes 10/23/2024 Pain in left foot (ICD-10 - M79.672) 10/23/2024 Hallux valgus (acquired), left foot (ICD-10 - M20.12) 10/23/2024 Pain in left ankle and joints of left foot (ICD-10 - M25.572) 10/23/2024 Bursitis of left foot (ICD-10 - M77.52) 10/23/2024 Pain in right foot (ICD-10 - M79.671) 10/23/2024 Pain in right ankle and joints of right foot (ICD-10 - M25.571) 10/23/2024 Bursitis of right foot (ICD-10 - M77.51) 10/23/2024 Hallux valgus (acquired), right foot (ICD-10 - M20.11) 10/23/2024 Pain in right toe(s) (ICD-10 - M79.674) 10/23/2024 Onychomycosis (ICD-10 - B35.1) 10/23/2024 Pain in left toe(s) (ICD-10 - M79.675) Plan Of Treatment Medication Medication Name Sig Start Date Stop Date Notes Voltaren 1 % Apply 4 grams to linda nful area on foot as directed Externally Four times a day for 30 days 10/23/2024 Pending Test Test Name Order Date 23029-JDVIGEU NAIL, 6 OR MORE 10/23/2024 Next Appt Details Follow Up: prn, Reason: Provider Name:Felecia Hanson , 10/22/2025 08:00:00 AM, [address] [place] [address], [id number], Procedure Notes * Category Sub-Category Detail Notes Debride Nail 6-10 Nail debridement Due to the cl inical pathology outlined in the exam findings, performance of this nail treatment is medically necessary as its management by an unskilled/untrained nonprofessional would put this patients foot and overall health at risk. Therefore, debridement to affected nail(s), as described in exam ( TA, T1, T2, T3, T4, T5, T6, T7, T8, T9, ), was performed exclusively by the physician of record to reduce/remove overall nail length, girth, thickness, subungual debris, and necrotic tissue, by manual and/or electrical means through the use of a nail nipper and/or dremel-type skull grinder, to a more viable healthy nail plate or bed tissue 6-10 nails in total. Silver nitrate was used for any petechial bleeding as necessary. Definitive antifungal treatment options, both pharmaceutical and surgical, have been reviewed and discussed with the patient. The patient solely prefers the use of intermittent/as needed professional debridement services for their nail condition and understands the need for additional periodic treatments to maintain effectiveness in symptomatic relief - Progress Notes * Sharon FOY LDOB: [birth year] (74 yo F)Acc No.[id number]:10/23/2024 Progress Note Patient:?Sharon FOY L Provider:?Felecia Hanson DPM :1950???Age:74 Y???Sex:Female D ate:10/23/2024 Address:[address] [place], [place] [id number] Pcp:Bibiana Laurent MD Subjective: * Chief Complaints: * ???Foot painPainful nail(s) aggravated by shoes causing difficulty standing/walking * HPI: ???Foot Pain:?Location:?Inside, Great toe joint, B/L.?Duration:?, several months.?Course:?worse.?Aggravated:?any pressure.?Treatments:?rest/alter normal daily activity.?Painful Nails:?Pt States Last PCP Visit:?Date:?10/02/2024 * ROS:?General/Constitutional:?Nausea?denies.?Vomiting?denies.?Hunger Thirst?denies.?Loss appetite?denies.?Chills?denies.?Fatigue?denies.?Fever?denies.?Night Sweats?denies.?Unexplained weight loss?denies.?Unexplained weight gain?denies.?HEENTM:?Dentures?denies.?Dizziness?denies.?Glasses/contacts?admits.?Retinopathy?de nies.?Blurred/double vision?denies.?TMJ?denies.?Discharge/drainage?denies.?Implants?denies.?Sore throat?denies.?Dental implants?denies.?Hard of hearing ?denies.?Difficulty chewing/swallowing/speaking?denies.?Nose bleeds?denies.?Sore mouth?denies.?Respiratory:?On Oxygen?denies.?Pneumonia/pleurisy?denies.?Bronchitis?denies.?Emphysema?denies.?C oughing?denies.?Cough blood?denies.?Shortness of breath?denies.?Wheezing?denies.?Cardiovascular:?Pacemaker?denies.?MVP?denies.?WPW?denies.?CHF?denies.?Heart attack?denies.?Septal defect?denies.?Rapid beat?denies.?Chest pain ?denies.?Atrial Fib.?denies.?Murmur/Palpitations?denies.?Gastrointestinal:?Hemorrhoids?denies.?Stomach/Abdominal pain?denies.?Dark blood stool?denies.?Irritable bowel ?denies.?Constipation?denies.?Diarrhea?denies.?Hematology:?Swelling?denies.?Clots?denies.?Varicose Veins?denies.?Bruising?denies.?Bleeding problem?denies.?Genitourinary:?Blood urine?denies.?Frequent/Painfu/urination/bladder control?denies.?Kidney stones?admits.?Infection (UTI)?denies.?Nephropathy?denies.?sex trans dis (STD)?denies.?Prostate?denies.?Musculoskeletal:?Hammertoes?denies.?Bunions?admits.?Back Pain?denies.?Muscle Cramps/ Resting?denies.?Muscle cramps / walking?denies.?Generalized aches and pains?denies.?Weakness?denies.?Integ.:?Brown?denies.?Scars?denies.?Corns/calluses?admits.?Ingrown nails?admits.?Painful nails?,admits.?Open Sores?denies.?Rashes?denies.?Neurologic:?Difficulty sleeping?denies.?Brain disorder?denies.?Numbness?denies.?Balance trouble?denies.?Confusion?denies.?Fainting/blackouts?denies.?Tingling?denies.?Tr emors?denies.? * Medical History:? 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 * Social History:?Tobacco Use:?Tobacco Use/Smoking?Are you a:?nonsmoker ?Additional Findings: Tobacco Non-User?Current non-smoker ?Tobacco use other than smoking?Are you an other tobacco user??No ???Miscellaneous:?Caffeine: yes. ?Children: yes, 2. ?Exercise: no. ?Marital status: . ?Occupation: Retired. * Medications:?TakingLosartan Potassium 25 MG Tablet 1 tablet Orally Once a day Cosopt 22.3-6.8 MG/ML Solution 1 drop into affected eye Ophthalmic Twice a day Cosopt 22.3-6.8 MG/ML Solution 1 drop into affected eye Ophthalmic Twice a day Medication List reviewed and reconciled with the patientTaking Losartan Potassium 25 MG Tablet 1 tablet Orally Once a day Taking Cosopt 22.3-6.8 MG/ML Solution 1 drop into affected eye Ophthalmic Twice a day Taking Cosopt 22.3-6.8 MG/ML Solution 1 drop into affected eye Ophthalmic Twice a day Medication List reviewed and reconciled with the patient * Allergies:?Percocet: swellin gsulfa: nate[Allergies Verified] Objective: * Vitals:?Ht: 5ft2in, Wt:130, BMI:23.77, Shoe size: 8, BP:124/70mm Hg, Ht-cm: 157.48 cm, Wt-k.97 kg. * Examination: ???General Examination: ?GENERAL APPEARANCE:?Reveals a pleasant, alert, well nourished, well- developed, well hydrated individual, who demonstrates proper attention to hygiene/body habitus, and is in no acute distress, Pt serves as own historian for office visit today.?ORIENTED:?person, place, and time.?Orthopedic: ?MUSCLE STRENGTH:?5/5 all groups in a symmetrical fashion, B/L.?GAIT ABNORMALITY:?Pronated, abducted angle and base of gate, B/L.?BUNION:? Medially prominent 1st MPJ, (+) Pain on palpation, inflammation present medially,erythema at exostosis, Lateral tracking 1st MPJ incompletely reducible, B/L.?DIGITAL DEFORMITIES:?Digital contracture, PIPJ, 2-5 B/L, incompl-reducible with WB, or to push-up test, no over, nor underlapping.?FOOTWEAR:?shoe gear properties exacerbate patients foot/toe deformity.?Neurological: ?TINEL'S COMPRESSION:? Negative, Saphenous nerve distribution, B/L.?Nails: ?NAILS are:?Elongated, overgrown, dystrophic, lytic, greater than 3mm thick, discolored and friable with crumbly malodorous subungual debris, with pain on palpation, TA, T1, T2, T3, T4, T5, T6, T7, T8, T9.?Vascular: ?DP PULSES (B):?2/4, B/L.?PT PULSES (B):?2/4, B/L.?CAPILLARY FILL TIME:?immediate, all digits, B/L.?TROPHIC CONDITION-TEXTURE/ELASTICITY/TURGOR/HAIR GROWTH (B):?normal, B/L.?TEMPERTURE GRADIENT (C):?normal, warm to cool, proximal to distal, B/L, B/L.?PIGMENTATION:?normal, B/L.?EDEMA (C):?absent, B/L.?Dermatologic: ?SKIN FINDINGS:?Skin exam reveals Keratotic lesion(s) located at, IPJ, TA, T5, SUB MTH (s), 1, B/L.? Assessment: * Assessment: 1.?Pain in left foot - M79.6 72???2.?Hallux valgus (acquired), left foot - M20.12 (Primary)???Specify :Chronic problem, Worse (4)???3.?Pain in left ankle and joints of left foot - M25.572???4. Bursitis of left foot - M77.52???5.?Pain in right foot - M79.671???6.?Pain in right ankle and joints of right foot - M25.571???7.?Bursitis of right foot - M77.51???8.?Hallux valgus (acquired), right foot - M20.11???Specify :Chronic problem, Worse (4)???9.?Pain in right toe(s) - M79.674???10.?Onychomycosis - B35.1???11.?Pain in left toe(s) - M79.675??? Plan: * Treatment: 2.?Onychomycosis?Procedure: 14570-GLXIBUU NAIL, 6 OR MORE * Procedures:?Debride Nail 6-10:?Nail debridement?Due to the clinical pathology outlined in the exam findings, performance of this nail treatment is medically necessary as its management by an unskilled/untrained nonprofessional would put this patients foot and overall health at risk. Therefore, debridement to affected nail(s), as described in exam ( TA, T1, T2, T3, T4, T5, T6, T7, T8, T9, ), was performed exclusively by the physician of record to reduce/remove overall nail length, girth, thickness, subungual debris, and necrotic tissue, by manual and/or electrical means through the use of a nail nipper and/or dremel-type skull grinder, to a more viable healthy nail plate or bed tissue 6- 10 nails in total. Silver nitrate was used for any petechial bleeding as necessary. Definitive antifungal treatment options, both pharmaceutical and surgical, have been reviewed and discussed with the patient. The patient solely prefers the use of intermittent/as needed professional debridement services for their nail condition and understands the need for additional periodic treatments to maintain effectiveness in symptomatic relief - [id number].? * Procedure Codes:?36491 DEBRI DE NAIL, 6 OR MORE * Preventive Medicine:? ??Counseling:?Discussion:?-13: Office or other outpatient visit for the evaluation and management of an established patient, which required a medically appropriate history and/or examination and LOW level of DECISION MAKING for: 1 STABLE ACUTE UNCOMPLICATED PROBLEM, 2 OR MORE MINOR PROBLEMS, OR 1 STABLE CHRONIC PROBLEM, THAT POSE(S) A LOW RISK FOR MORBIDITY/MORTALITY. The visit on the day of the encounter encompassed interpreting the data and educating the patient as to the nature of their condition, treatment options available according to their individual PMH, meds, allergies, and overall health/living conditions, as well as any potential risks or complications that may occur from a failure to adhere to, and participate in, the recommended course of therapy. The discussion included a complete verbal, and/or written explanation of the examination results, any x-rays taken, the proposed diagnosis, and outline of the treatment plan. A schedule for future care needs was also explained. The patient verbalized an understanding of the instructions at this time and agreed to be an active participant in their treatment. If the patient should think of any questions or concerns after the visit, I have encouraged the patient to call the office.?BioMech.:?I discussed the Pts foot biomechanics with them and how it relates to their problem.?Digital Surgery:?We elected to try conservative treatment at the present time.?Digital Treatment:?HV - I explained to the patient the risks/benefits of all the different treatment options for their pain including: No treatment at all, Rest, Ice, New/supportive/wider/deeper Shoe gear, Digital Padding/Strapping/Taping/Bracing/Gel protective sleeves, Foot/Ankle AFO Bracing, Stretching exercises, Deep Tissue Massage, Arch support/shoe inserts with splay metatarsal padding, and Custom orthoses. I insisted that any digital devices be removed daily and not worn overnight for safety. The patient is to carefully examine the toes daily for any skin irritation while using any splinting or padding device. The advantages and disadvantages of each option were discussed and the patients questions re: shoe gear, padding, custom vs prefabricated inserts, activity level, and consistency in home treatment regimens for optimal success were answered to their verbally confirmed satisfaction, Recomm, rest, ice, proper shoegear, padding, orthotics, anti-inflammatories or tylenol as tolerated, topical analgesics, cortisone injections.?Shoe Gear Counseling:?The patient and I reviewed the types of shoes they should be wearing. My recommendation included obtaining a well-fitted shoe with a good supportive, non-foldable nor twistable sole, plenty of toe/room for the forefoot, and proper arch support. Based on todays examination, I recommended the patient look for new shoes, by having their feet professionally measured. We discussed that generally the best time of the day for a shoe fitting is the afternoon. Different shoes types and brands to best match the patients occupation and vocation were discussed. Specific brand selection will be up to the patient, their individual foot condition/deformities, and fit. The patient and I reviewed the standard new shoe break in period by wearing them for a few hours a day while checking for redness or sores as wear time is increased. The patient verbally confirmed to understanding the information discussed.? ??Screening/Special Tests:?Fall Risk?Screening:?No falls in the past year ?FALLS: Screening for Future Fall Risk?Have you had any falls with injury in the past year??No * Follow Up:?prn * Images: * Sign off status: Completed true * Provider:?Felecia Hanson DPM Date:?2024 Generated for Rachel pichardo/Samson/Naldo on:?10/30/2024 02:57 PM EDT History and Physical Notes * HPI (History of Present Illness) Category Sub-Category Detail Notes Category Not es Painful Nails Pt States Last PCP Visit: Date:: 10/02/2024 Foot Pain Location: Inside, Great toe joint, B/L Duration: , several months Course: worse Aggravated: any pressure Treatments: rest/alter normal da mary activity Examination Category Sub-Category Detail Notes Category Not es Neurological TINEL'S COMPRESSION: Negative, S aphenous nerve distribution, B/L Dermatologic SKIN FINDINGS: Skin exam reveal s Keratotic lesion(s) located at, IPJ, TA, T5, SUB MTH (s), 1, B/L Orthopedic GAIT ABNORMALITY: Pronated, abdu cted angle and base of gate, B/L BUNION: Medially prominent 1 st MPJ, (+) Pain on palpation, inflammation present medially,erythema at exostosis, Lateral tracking 1st MPJ incompletely reducible, B/L FOOTWEAR: shoe gear properties exacerbate patients foot/toe deformity DIGITAL DEFORMITIES: Digital contracture , PIPJ, 2-5 B/L, incompl-reducible with WB, or to push-up test, no over, nor underlapping MUSCLE STRENGTH: 5/5 all groups in a symmetrical fashion, B/L General Examination GENERAL APPEARANCE: Reveals a pleasant, alert, well nourished, well-developed, well hydrated individual, who demonstrates proper attention to hygiene/body habitus, and is in no acute distress, Pt serves as own historian for office visit today ORIENTED: person, place, and t carolyn Vascular DP PULSES (B): 2/4, B/L PT PULSES (B): 2/4, B/L CAPILLARY FILL TIME: immediate, all digi ts, B/L TEMPERTURE GRADIENT (C): normal, warm to cool, proximal to distal, B/L, B/L TROPHIC CONDITION-TEXTURE/ELASTICITY/TURGOR/HAIR GROWTH (B): normal, B/L EDEMA (C): absent, B/L PIGMENTATION: normal, B/L Nails NAILS are: Elongated, overg rown, dystrophic, lytic, greater than 3mm thick, discolored and friable with crumbly malodorous subungual debris, with pain on palpation, TA, T1, T2, T3, T4, T5, T6, T7, T8, T9
--- OUTSIDE RECORDS SUMMARY | 2024-10-30 14:57 | XMS_ITS ---
Author Organization [facility] Address [address] [place] [address] Care Team Providers Care Window Tinter Name Role Phone Bibiana Laurent MD Primary Care Provider Felecia Siu [phone] REASON FOR VISIT R/s 10/01/24 appt Encounters Encounter Location Date [facility] [address] [place] [phone] 2024 Felecia Hanson Plan Of Treatment Next Appt Details Provider Name:Felecia Barnes Valentin , 10/22/2025 08:00:00 AM, [address] [place], [address], Progress Notes * Sharon FOY LDOB: (74 yo F)Acc No.[id number]:2024 Patient:?Sharon FOY :1950???Age:74 Y???Sex:Female Address:[address] [place] [address], [phone] * true * Date:? Generated for Printi ng/Faxing/eTransmitting on:?10/30/2024 02:57 PM EDT
--- OUTSIDE RECORDS SUMMARY | 2024-10-30 14:58 | XMS_ITS | Clinical Summary ---
Author Organization [facility] Address [address] [place] [address] Care Team Providers Care Pairer Substandard Name Role Phone Matty Ramos MD Primary Care Provider [phone] Allergies Active Allergy Reactions Criticality Noted Date Comments Lisinopril Cough 11/21/2017 Oxycodone-Acetaminophen 07/27/2005 Sulfa (Sulfonamide Antibiotics) Swelling 05/14 Medications calcium carbonate/vitami n D3 (CALCIUM 600 WITH VITAMIN D3 ORAL) 1 tablet bid Active dorzolamide-treesa loL (COSOPT) 22.3-6.8 mg/mL ophthalmic solution Place [...] HISTORICAL COLONOSCOPY; COMMENT: normal COLONOSCOPY 2013 PROCEDURE: OH COLONOSCOPY FLX DX W/COLLJ SPEC WHEN PFRMD; COMMENT: normal BREAST BIOPSY Left PROCEDURE: BX BREAST; PERC NEEDLE CORE W/IMAG GUID; COMMENT: left-benign BREAST SURGERY Left PROCEDURE: OH UNLISTED PROCEDURE BREAST; COMMENT: b9 Medical History [...] 02/18/2025 7:40 AM EDT Appointment Radiology Department [address] [phone] Health Maintenance Due Date Last Done Comments [...] to have osteoporosis by WHO criteria. [facility] Department of Internal Medicine recommends [...] schedule based on avril Luis., [facility] August 31, 2011 for patients [...] to have osteoporosis by WHO criteria. [facility] Department of Internal Medicine recommendsusing [...] * Annual BMP Blood Test (12/29/2020) Pathologist [facility] Annual BMP Blood Test Abstracted Historical Provider HEALTH MAINTENANCE Final Result * (ABNORMAL) Lipid panel (12/29/2020) [facility] LDL/HDL Ratio 4 0 - 4 Triglycerides 133 0 - 150 mg/dL Cholesterol 237(A) 0 - 200 mg/dL HDL 56 >=40 mg/dL LDL Cholesterol 155(A) 0 - 100 mg/dL Blood Venous blood specimen / Unknown Historical Provider LAB BLOOD ORDERABLES Lizabeth l Result * Hepatitis C Screening (09/12/2004) [facility] Hepatitis C Screening Abstracted [facility] Provider HEALTH MAINTENANCE Final Result from Last 3 Months or Most Recently Relevant to Health Maintenance Care Teams Pairer Substandard Relationship Specialty Start Date End Date Matty Ramos MD [address] [place] [address] PCP - General 05/10/1998
--- OUTSIDE RECORDS SUMMARY | 2024-10-30 14:58 | XMS_ITS | Patient Health Record ---
Author Organization [facility] michael [place] Address [address] [facility] [place] [address] Care Team Providers Care Locum Tenens Name Role Phone Bibiana Laurent MD Primary Care Provider Unavaila Felecia Carbone Unavailable [phone] Ayden Peace Unavailable [phone] Edilberto Ferrari Unavailable [phone] Allergies Allergen (clinical drug ingredient) Drug/Non Drug [...] Problem Status W/U Status Risk Notes Problem Acquired hallux valgus (92697036) Hallux valgus (acquired), left foot (M20.12) Active confirmed Problem Acquired hallux valgus (78479730) Hallux valgus (acquired), right foot (M20.11) Active confirmed Problem Acquired hammer toe of right foot (1594986066312 105) Other hammer toe(s) (acquired), right foot (M20.41) Active confirmed Problem Acquired hammer toe of left foot (3905945332870 103) Other hammer toe(s) (acquired), left foot (M20.42) Active confirmed Vital Signs Blood pressure diastolic 70 mm Hg 10/23/2024 Height 5ft2in in 10/23/2024 Blood pressure systolic 124 mm Hg 10/23/2024 Weight 130 lbs 10/23/2024 BMI 23.77 kg/m2 10/23/2024 Procedures Procedure Date Ordered Date Performed Result Body Sit e 31935-YSSSFNU NAIL, 6 OR MORE 10/23/2024 N/A Encounters Encounter Location Date Provider Diagnosis [address] [address] 01/30/2024 Ayden Peace Tinea unguium B35.1 ; Pain in right toe(s) M79.674 ; Pain in left toe(s) M79.675 ; Hallux valgus (acquired), left foot M20.12 ; Hallux valgus (acquired), right foot M20.11 ; Other hammer toe(s) (acquired), right foot M20.41 and Other hammer toe(s) (acquired), left foot M20.[address] [address] 10/23/2024 Felecia Black Pain in left foot [...] B35.1 and Pain in left toe(s) M79.675 [facility] [address] [place] [address] 12/11/2023 Edilberto Ferrari [facility] [place] [address] [place] [address] 07/16/2024 Ayden Peace [facility] [place] [address] [facility] [address] [place] [address] 2024 Felecia Hanson Assessments Encounter Date Diagnosis (ICD Code) Assessment Notes Treatment Notes Treatment Clinical Notes Section Notes 01/30/2024 Tinea unguium (ICD-10 - B35.1) 01/30/2024 Pain in right toe(s) (ICD-10 - M79.674) 10/23/2024 Pain in left foot (ICD-10 - M79.672) 10/23/2024 Hallux valgus (acquired), left foot (ICD-10 - M20.12) 10/23/2024 Pain in left ankle and joints of left foot (ICD-10 - M25.572) 01/30/2024 Pain in left toe(s) (ICD-10 - M79.675) 01/30/2024 Hallux valgus (acquired), left foot (ICD-10 - M20.12) 10/23/2024 Bursitis of left foot (ICD-10 - M77.52) 10/23/2024 Pain in right foot (ICD-10 - M79.671) 01/30/2024 Hallux valgus (acquired), right foot (ICD-10 - M20.11) 01/30/2024 Other hammer toe(s) (acquired), right foot (ICD-10 - M20.41) 10/23/2024 Pain in right ankle and joints of right foot (ICD-10 - M25.571) 01/30/2024 Other hammer toe(s) (acquired), left foot (ICD-10 - M20.42) 10/23/2024 Bursitis of right foot (ICD-10 - M77.51) 10/23/2024 Hallux valgus (acquired), right foot (ICD-10 - M20.11) 10/23/2024 Pain in right toe(s) (ICD-10 - M79.674) 10/23/2024 Onychomycosis (ICD-10 - B35.1) 10/23/2024 Pain in left toe(s) (ICD-10 - M79.675) Plan Of Treatment Pending Test Test Name Order Date X ray : Foot, left 2V 02/09/2012 X ray : Foot, right 2V 02/09/2012 [id number] NAIL, 6 OR MORE 02/09/2012 [id number] NAIL, 6 OR MORE 10/23/2024 Next Appt Details Provider Name:Felecia Hanson , 10/22/2025 08:00:00 AM, [address] [place], [address], Insurance Providers Payer Name Payer Address Payer Phone Subscriber Number Group Number Insured Name Patient Relationship to Insured Coverage Start Date Coverage End Date Medicare National Govt Svcs Inc [address] [place] [address] [id number] Sharon Nevarez Self - patient is the insured [facility] [address] [place] [phone] [id number] Sharon Nevarez Self - patient is the insured Medical (General) History Medical History History ICD Code chicken pox measles osteoporosis psoriasis Arthritis Cataracts Glaucoma Headaches/Migraines High blood pressure Joint implants/screws Surgical History Surgery Date(Month/Year) pelvic suspension 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
== END 2024-10-30 13:11 | disposition home or self-care (01) ==
LOC: HO.HMCC 12:37
PROVIDERS: PCP Internal Medicine; Visit Provider Internal Medicine
DX: I10 Essential (primary) hypertension (principal)

== ENCOUNTER → 2024-10-30 12:36 | Outpatient (BNVA) | payer MEDICARE, OTHER, SELFPAY | PROVIDERS: PCP Internal Medicine; Visit Provider Internal Medicine | DX: I10 Essential (primary) hypertension (principal) | CPT/HCPCS: 96127; 99212 ==

== ENCOUNTER 2024-11-05 12:50 | Outpatient (REF) | payer MEDICARE, OTHER, SELFPAY ==
--- NOTE | ~2024-11-05 | US_ITS ---
EXAMINATION: US KIDNEY BILATERAL HISTORY: N20.0 - Calculus of kidney TECHNIQUE: Real-time grayscale ultrasound imaging of the kidneys was performed and images were reviewed. COMPARISON: Comparison is made with the prior examination dated 05/02/2024. FINDINGS: Right kidney: The right kidney measures 11.0 x 4.4 x 5.8 cm. Renal parenchymal echotexture and thickness are normal. There are no masses. There is mild caliectasis versus parapelvic cysts. Multiple nonobstructing calculi are again noted including a 3 x 2 x 3 mm calculus at the upper pole, a 4 x 4 x 3 mm calculus at the upper pole, a 3 x 2 x 2 mm calculus at the lower pole, and a 2 x 2 x 2 mm calculus at the lower pole. Left Kidney: The left kidney measures 11.3 x 5.3 x 5.2 cm. Renal parenchymal echotexture and thickness are normal. There are no masses. There is a 5 x 3 x 4 mm nonobstructing calculus at the upper pole. There is no hydronephrosis. US/US renal BI IMPRESSION: Bilateral nephrolithiasis as described. Mild right caliectasis versus parapelvic cysts. Electronically signed by: Brandon Ugalde MD 11/05/2024 02:17 PM EDT
== END 2024-11-05 12:51 | disposition home or self-care (01) ==
LOC: HO.HMGCX 12:50
PROVIDERS: PCP Internal Medicine; Visit Provider Nurse Practitioner Family
DX: N20.0 Calculus of kidney (principal)
CPT/HCPCS: 76775

== ENCOUNTER → 2024-11-05 12:52 | Outpatient (BNV) | payer MEDICARE, OTHER, SELFPAY | PROVIDERS: PCP Internal Medicine; Visit Provider Radiology Diagnostic Radiology | DX: N20.0 Calculus of kidney (principal) | CPT/HCPCS: 76775 ==

== ENCOUNTER 2024-11-13 15:40 | Outpatient (AMB) | payer MEDICARE, OTHER, SELFPAY ==
--- NOTE | 2024-11-13 15:42 | A.OFFVIS_ITS ---
Intake Visit Reasons: 6M US(set) Intake Note: Patient presents today for a follow up on: nephrolithiasis, microscopic hematuria, renal cyst, and ultrasound results Imaging Completed:11/05/24 Urology Medications: Vitamin B6 Allergies to Antibiotic: Sulfa Blood Thinner: None Brim Pouncer Machine Operator Required: No Accompanied by: Self / Same As Patient Allergies acetaminophen [From Percocet] Adverse Reaction (Verified 11/13/24 16:35) swollen face oxycodone [From Percocet] Adverse Reaction (Verified 11/13/24 16:35) swollen face Sulfa (Sulfonamide Antibiotics) Adverse Reaction (Verified 11/13/24 16:35) swollen face Medication List - Last Reconciled 11/13/24 by ALICE Hercules-LAMAR amoxicillin 875 mg PO BID bisacodyl (Dulcolax (bisacodyl)) 20 mg (4 x 5 mg) PO ONCE 1 day docusate sodium 100 mg PO BEDTIME dorzolamide-timolol 22.3-6.8 mg/mL 1 drp ophthalmic (eye) BID losartan 50 mg PO DAILY methylcellulose (laxative) (Citrucel) 500 mg PO DAILY polyethylene glycol 3350 (Miralax) 238 grams PO ONCE pyridoxine (vitamin B6) 100 mg PO DAILY 90 days sennosides (Natural Senna Laxative) 17.2 mg (2 x 8.6 mg) PO BEDTIME HPI Comments Details: Sharon is a very pleasant 74-year-old female patient of Dr. Laurent. She has a past medical history of hypertension. She presents to the office today for follow-up of her nephrolithiasis and recurrent urinary tract infections. In discussion with the patient today she reports to be doing and feeling well. She denies having had any bothersome urinary issues or concerns since her last office visit here. She denies having had any UTIs and or UTI like symptoms since her last office visit here. Recent renal imaging results reviewed with the patient today 11/04 bilateral kidneys are normal in echotexture and thickness. No renal masses. Multiple small nonobstructing calculi again noted. Right side 3 mm, 4 mm, 3 mm, and 2 mm nonobstructing stones. Left side 5 mm nonobstructing upper pole calculus. No hydronephrosis noted bilaterally. She continues to drink plenty of water daily. She also reports compliance with vitamin B6 as prescribed. Previous workup has included a 24 hour urine. Noting low urine volume of 1.28, hypercalciuria, borderline hypocitraturia, and high calcium oxalate. Labs are as follows: 02/03 sodium 143, potassium 4.1, chloride 109, carbon dioxide 27, BUN 16, creatinine 0.82, random glucose 108, uric acid 5.4, calcium 9.6, phosphorus 3.5, magnesium 2.1, and 25 OH vitamin-D total 41.8. BUN: 11/03 23, 02/03 16, 03/05 16, 11/04 17 Creatinine: 11/03 0.89, 02/03 0.82, 03/05 0.77, 11/04 0.73 Discussed and stressed the importance of continuing to increase fluid intake (water). She reports having followed up with Dr. Elvira hdz regarding her 1.3 uterine mass and continues with surveillance monitoring. She discusses her upcoming trip down [facility]. She currently denies any bothersome urinary issues or concerns. She denies urinary urgency, urinary frequency, incontinence, nocturia, hematuria, dysuria, foul smelling urine, changes to urinary stream, flank pain, fever, and or chills. She is happy with her current voiding parameters. In office urinalysis results reviewed with the patient today. She otherwise offers no other issues or concerns at time Plan I addressed the urinary bladder spasms by recommending dietary modifications to reduce caffeine and alcohol intake, acknowledging potential medication interventions for frequent spasms. The successful management of urinary tract infections through previous antibiotic adjustments was reviewed, and a prescription for Augmentin will be provided for patients upcoming vacation if needed. Patient was informed and verbally consented to the use of an ambient scribe for clinic note documentation during this visit. Discussion Notes During our discussion, I educated the patient regarding the muscular nature of the bladder and its propensity to spasm after prolonged urine retention. Dietary modifications, specifically reducing caffeine and alcohol intake, were recommended to mitigate symptoms. In reviewing her history of urinary tract infections, I emphasized the effectiveness of previous antibiotic regimens and provided a prescription for Augmentin for future use. To alleviate travel- related anxiety, a prophylactic antibiotic prescription for Augmentin was discu ssed, ensuring readiness for potential urinary concerns. [facility] Medical History HTN (hypertension) Surgical History Hx of colonoscopy Hx of tonsillectomy History of breast lump removal Family History Father No problems noted. Mother Hypertension Social History Household Members Other:: , retired Housing: House Patient Tobacco Use Status: Never used Tobacco e-Cigarette/Vaping Use: Never Used service: No Current occupational status: retired Cognitive needs: No Hearing needs: No Vision needs: Yes Review of Systems Const All systems reviewed & are unremarkable except as noted in HPI and below Physical Exam Const General: cooperative, healthy appearing, comfortable, no acute distress, well developed, alert and awake Orientation/consciousness: patient oriented x3 Limitations: no limitations HEENT Head: Yes normal to inspection, Yes normocephalic and Yes atraumatic Ears: hearing grossly normal bilaterally Eyes General: appearance normal, both eyes and all related structures Neck Neck: Yes normal visual inspection and Yes trachea midline Chest Chest palpation & inspection: normal inspection of the chest Resp Effort & Inspection: normal respiratory effort and able to speak in complete sentences Cardio Rate: regular rate GI Inspection: Yes normal to inspection General: Yes no CVA tenderness Back/Spine/Pelvis Back: no CVA tenderness Skin General skin exam: no rashes or lesions noted Neuro General: patient oriented x3 Extrem General: Yes normal to inspection Psych Appearance: grossly normal and well kempt Mental Status: mental status grossly normal Speech and movement: Normal speech and movement present and Clear speech present Affect: normal affect Attitude: cooperative Thought process: Normal thought process present Thought content: Normal thought content present Insight: Fair insight present (Psych) Judgement: Fair judgement present (Psych) Results AMB Urinalysis, Automated UA Leukoctes 0 Meliton/uL Last Edit by Timbo Chester on 11/13/24 16:00 UA Nitrite Negative Last Edit by Wilfridyce Nemo on 11/13/24 16:00 UA Urobilinogen 0.2 mg/dL Last Edit by Timbo Chester on 11/13/24 16:00 UA Protein 0 mg/dL Last Edit by Timbo Chester on 11/13/24 16:00 UA pH 6.0 Last Edit by Chinge Nemo on 11/13/24 16:00 UA Blood 0 Vic/uL Last Edit by Timbo Chester on 11/13/24 16:00 UA Specific Elkins 1.015 Last Edit by Timbo Chester on 11/13/24 16:00 UA Ketone Last Edit by Timbo Chester on 11/13/24 16:00 UA Bilirubin 0 mg/dL Last Edit by Timbo Chester on 11/13/24 16:00 UA Glucose 0 mg/dL Last Edit by Timbo Chester on 11/13/24 16:00 Results Reviewed Results Reviewed: Laboratory Last Values Urine pH (Auto) 6.0 11/13/24 15:48 Specific Elkins (Auto) 1.015 11/13/24 15:48 Urine Protein (Auto) 0 mg/dL 11/13/24 15:48 Glucose (UA)(Auto) 0 mg/dL 11/13/24 15:48 Urine Blood (Auto) 0 Vic/uL 11/13/24 15:48 Urine Nitrite (Auto) Negative 11/13/24 15:48 Urine Bilirubin (Auto) 0 mg/dL 11/13/24 15:48 Urine Urobilinogen (Auto) 0.2 mg/dL 11/13/24 15:48 Leukocyte Esterase (Auto) 0 Meliton/uL 11/13/24 15:48 Date of Service: 11/05/24 Procedure(s): US renal BI FINDINGS: Right kidney: The right kidney measures 11.0 x 4.4 x 5.8 cm. Renal parenchymal echotexture and thickness are normal. There are no masses. There is mild caliectasis versus parapelvic cysts. Multiple nonobstructing calculi are again noted including a 3 x 2 x 3 mm calculus at the upper pole, a 4 x 4 x 3 mm calculus at the upper pole, a 3 x 2 x 2 mm calculus at the lower pole, and a 2 x 2 x 2 mm calculus at the lower pole. Left Kidney: The left kidney measures 11.3 x 5.3 x 5.2 cm. Renal parenchymal echotexture and thickness are normal. There are no masses. There is a 5 x 3 x 4 mm nonobstructing calculus at the upper pole. There is no hydronephrosis. IMPRESSION: Bilateral nephrolithiasis as described. Mild right caliectasis versus parapelvic cysts. Assessment & Plan Assessment & Plan (1) Recurrent UTI: Code(s): N39.0 - Urinary tract infection, site not specified Category: Medical (2) Nephrolithiasis: Comment: left, 5 mm UPJ, 2 mm left ureter, mild obstruction, CT scan 11/03 renal US 04/2024 bilateral nonobstructing kidney stones, mild hydronephrosis on the left, f/u with Mary Colin 24 hour urine collection not done by the lab Code(s): N20.0 - Calculus of kidney Category: Medical Plan In office urinalysis results reviewed with the patient today; as noted above. Recent renal imaging results reviewed with the patient today; as noted above. Continue vitamin B6 as discussed and prescribed. She currently denies any bothersome urinary issues or concerns. Prescription provided for antibiotic therapy. Discussed, educated, and stressed the importance of adequate hydration relation to recurrent urinary tract infections as well as nephrolithiasis. Will continue with surveillance monitoring. Will obtain renal ultrasound in 6 months Follow-up in 6 months with imaging to be completed prior; or sooner with any issues, concerns, and or questions. Orders: Orders AMB Urinalysis Automated Today Z13.9 - Encounter for screening, unspecified US renal BI 6 Months N20.0 - Calculus of kidney Medications: Refilled amoxicillin 875 mg PO BID 14 tabs 0RF Patient Instructions: The patient had an opportunity to ask questions regarding the treatment plan. All questions were answered. Physical exam, labs, and imaging were discussed and reviewed in detail. As well as risks, benefits, and discussion of treatment choices. No major barriers to understanding were identified. The patient expressed understanding and agreement with the above treatment plan. The patient was made aware they should contact our office by phone for worsening of their current condition, the appearance of new symptoms, or with any questions or concerns. Compliance is encouraged with any medications and follow up testing that is ordered. It is a privilege to be allowed the opportunity to participate in? your urological care.? Again, if you have any questions or concerns If you have any questions or concerns please do not hesitate to contact me. The office is [phone]. This note is constructed using voice recognition software. While every effort has been made to ensure accuracy sr. director errors may have been included. Yours sincerely, KRISTAL Hercules Coding Level of Care Code Est Pt Level 4 (25899) Diagnoses Recurrent UTI N39.0 Nephrolithiasis N20.0 Time Spent (min) 25
--- OUTSIDE RECORDS SUMMARY | 2024-11-13 16:56 | XMS_ITS ---
Author Organization [facility] Address [address] [place] [address] Care Team Providers Care Floor Worker Well Service Name Role Phone Bibiana Laurent MD Primary Care Provider Felecia Siu [phone] Encounters Encounter Location Date Provider Diagnosis [address] [address] 10/01/2024 Felecia Hanson Plan Of Treatment Next Appt Details Provider Name:Felecia Barnes Valentin , 10/22/2025 08:00:00 AM, [address] [place], [address], Progress Notes * Sharon FOY LDOB: 3 (74 yo F)Acc No.[id number]:10/01/2024 Progress Note Patient:?Sharon FOY Provider:Hamlet Hanson DPM :1950???Age:74 Y???Sex:Female D ate:10/01/2024 Address:[address] [place] [address] Pcp:Bibiana Laurent MD Subjective: * Chief Complaints: [...] Hanson DPM Date:?2024 Generated for Rachel pichardo/Samson/Naldo on:?11/13/2024 04:56 PM EDT
--- OUTSIDE RECORDS SUMMARY | 2024-11-13 16:56 | XMS_ITS ---
Author Organization [facility] Address [address] [place] [address] Care Team Providers Care Sports Complex Attendant Name Role Phone Bibiana Laurent MD Primary Care Provider Felecia Siu [phone] REASON FOR VISIT R/s 10/01/24 appt Encounters Encounter Location Date [facility] [place] [address] [place] [address] 2024 Felecia Hanson Plan Of Treatment Next Appt Details Provider Name:Felecia Barnes Valentin , 10/22/2025 08:00:00 AM, [address] [place], [address], Progress Notes * Sharon FOY LDOB: (74 yo F)Acc No.[id number]:2024 Patient:?Sharon FOY :1950???Age:74 Y???Sex:Female Address:[address] [place] [address], [address] * true * Date:? Generated for Printi ng/Faxing/eTransmitting on:?11/13/2024 04:56 PM EDT
--- OUTSIDE RECORDS SUMMARY | 2024-11-13 16:57 | XMS_ITS | Patient Health Record ---
Author Organization [facility] michael [place] Address [address] [place] [address] Care Team Providers Care Agronomy Instructor Name Role Phone Bibiana Laurent MD Primary Care Provider Unavaila Felecia Carbone Unavailable [phone] Ayden Peace Unavailable [phone] Edilberto Ferrari Unavailable [phone] Allergies Allergen (clinical drug ingredient) Drug/Non Drug [...] Status Risk Notes Problem Acquired hallux valgus (87804780) Hallux valgus (acquired), left foot (M20.12) Active confirmed Problem Acquired hallux valgus (84887403) Hallux valgus (acquired), right foot (M20.11) Active confirmed Problem Acquired hammer toe of right foot (6957539528517 105) Other hammer toe(s) (acquired), right foot (M20.41) Active confirmed Problem Acquired hammer toe of left foot (2013721111089 103) Other hammer toe(s) (acquired), left foot (M20.42) Active confirmed Vital Signs Blood pressure diastolic 70 mm Hg 10/23/2024 Height 5ft2in in 10/23/2024 Blood pressure systolic 124 mm Hg 10/23/2024 Weight 130 lbs 10/23/2024 BMI 23.77 kg/m2 10/23/2024 Procedures Procedure Date Ordered Date Performed Result Body Sit e 19159-OLHJICV NAIL, 6 OR MORE 10/23/2024 N/A Encounters Encounter Location Date Provider Diagnosis [address] [address] 01/30/2024 Ayden Peace Tinea unguium B35.1 ; Pain in right toe(s) M79.674 ; Pain in left toe(s) M79.675 ; Hallux valgus (acquired), left foot M20.12 ; Hallux valgus (acquired), right foot M20.11 ; Other hammer toe(s) (acquired), right foot M20.41 and Other hammer toe(s) (acquired), left foot M20.[address] [address] 10/23/2024 Felecia Black Pain in left foot [...] B35.1 and Pain in left toe(s) M79.675 [facility] [address] [place] [address] 12/11/2023 Edilberto Ferrari [facility] [place] [address] [place] [address] 07/16/2024 Ayden Peace [facility] [place] [address] [facility] [address] [place] [address] 2024 Felecia Hanson Assessments Encounter Date Diagnosis [...] X ray : Foot, right 2V 02/09/2012 [id number] NAIL, 6 OR MORE 02/09/2012 [id number] NAIL, 6 OR MORE 10/23/2024 Next Appt Details Provider Name:Felecia Hanson , 10/22/2025 08:00:00 AM, [address] [place], [address], Insurance Providers Payer Name Payer Address Payer Phone Subscriber Number Group Number Insured Name Patient Relationship to Insured Coverage Start Date Coverage End Date Medicare National Govt Svcs Inc [address] [facility] [address] [id number] Sharon Nevarez Self - patient is the insured [facility] [address] [place] [id number] Sharon Nevarez Self - patient is the insured Medical (General) History Medical History History ICD Code chicken pox measles osteoporosis psoriasis Arthritis Cataracts Glaucoma Headaches/Migraines High blood pressure Joint implants/screws Surgical History Surgery Date(Month/Year) pelvic suspension 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
--- OUTSIDE RECORDS SUMMARY | 2024-11-13 16:57 | XMS_ITS ---
[facility] Address [address] [place] [address] Care Team Providers Care Legal Arbitrator Name Role Phone Bibiana Laurent MD Primary Care Provider Unavaila ble Black, Felecia Unavailable [phone] Allergies Allergen (clinical drug ingredient) Drug/Non Drug [...] Ordered Date Performed Result Body Sit e 76839-RGMCRMF NAIL, 6 OR MORE 10/23/2024 N/A Encounters Encounter Location Date Provider Diagnosis [facility] [address] [address] 10/23/2024 Felecia Black Pain in left foot [...] 10/23/2024 Pending Test Test Name Order Date [id number] NAIL, 6 OR MORE 10/23/2024 Next Appt Details Follow Up: prn, Reason: Provider Name:Felecia Hanson , 10/22/2025 08:00:00 AM, [address] [place] [address], [address], Procedure Notes * Category Sub-Category Detail Notes [...] use of a nail nipper and/or dremel-type grinder gear, to a more viable healthy nail plate [...] Sharon FOY LDOB: 3 (74 yo F)Acc No.[id number]:10/23/2024 Progress Note Patient:?Sharon FOY L Provider:?Felecia Hanson DPM :1950???Age:74 Y???Sex:Female D ate:10/23/2024 Address:[address] [place], [place] [address] Pcp:Bibiana Laurent MD Subjective: * Chief Complaints: [...] toe(s) - M79.675??? Plan: * Treatment: 2.?Onychomycosis?Procedure: [id number] NAIL, 6 OR MORE * Procedures:?Debride Nail [...] use of a nail nipper and/or dremel-type grinder gear, to a more viable healthy nail plate [...] to maintain effectiveness in symptomatic relief - 75896.? * Procedure Codes:?82240 DEBRI DE NAIL, 6 OR MORE * [...] for Rachel pichardo/Samson/Naldo on:?11/13/2024 04:56 PM EDT History and Physical Notes * [...] Lateral tracking 1st MPJ incompletely reducible, B/L FOOTWEAR EVALUATION: shoe gear propertie s exacerbate patients foot/toe deformity DIGITAL DEFORMITIES: Digital [...]
--- OUTSIDE RECORDS SUMMARY | 2024-11-13 16:57 | XMS_ITS | Clinical Summary ---
Author Organization [facility] Address [address] [place] [address] Care Team Providers Care Shooter'S Helper Name Role Phone Matty Ramos MD Primary Care Provider [phone] Allergies Active Allergy Reactions Criticality Noted Date [...] HISTORICAL COLONOSCOPY; COMMENT: normal COLONOSCOPY 2013 PROCEDURE: [place] COLONOSCOPY FLX DX W/COLLJ SPEC WHEN PFRMD; COMMENT: normal BREAST BIOPSY Left PROCEDURE: BX BREAST; PERC NEEDLE CORE W/IMAG GUID; COMMENT: left-benign BREAST SURGERY Left PROCEDURE: [place] UNLISTED PROCEDURE BREAST; COMMENT: b9 Medical History [...] 02/18/2025 7:40 AM EDT Appointment Radiology Department [address] [phone] Health Maintenance Due Date Last Done Comments COVID-19 Vaccine (#1) 1955 Pneumococcal Vaccine: 50+ Years (1 of 2 - PCV) 1971 Zoster Vaccines (1 of 2) 1971 RSV Immunization Adult Patients (1 - Risk 60-74 years 1-dose series) [...] to have osteoporosis by WHO criteria. The [facility] Department of Internal Medicine recommends using [...] alternative screening schedule based on avril Luis., [facility] August 31, 2011 for patients [...] to have osteoporosis by WHO criteria. The [facility] Department of Internal Medicine recommendsusing National [...] alternative screening schedule based on avril Luis., NEJMJanuary 2011 for patients with osteopenia (based on hip BMD T-score) is as follows: * advanced osteopenia (T scores -2.00 to -2.49), BMD testing every year * moderate osteopenia (T scores -1.50 to -1.99), BMD testing every 5years mild osteopenia or normal BMD (T scores -1.50 and higher), BMD testingevery 15 years Matty Ramos MD [facility] DXA PROCEDURES Final Result * Annual BMP Blood Test (12/29/2020) Pathologist [facility] Annual BMP Blood Test Abstracted [facility] Provider HEALTH MAINTENANCE Final Result * (ABNORMAL) Lipid panel (12/29/2020) [facility] LDL/HDL Ratio 4 0 - 4 Triglycerides 133 0 - 150 mg/dL Cholesterol 237(A) 0 - 200 mg/dL HDL 56 >=40 mg/dL LDL Cholesterol 155(A) 0 - 100 mg/dL Blood Venous blood specimen / Unknown [facility] Provider LAB BLOOD ORDERABLES Lizabeth l Result * Hepatitis C Screening (09/12/2004) [facility] [place] Hepatitis C Screening Abstracted [facility] Provider HEALTH MAINTENANCE Final Result from Last 3 Months or Most Recently Relevant to Health Maintenance Care Teams Shooter'S Helper Relationship Specialty Start Date End Date Matty Ramos MD [address] [place] [id number] PCP - General 05/10/1998
== END 2024-11-13 16:32 | disposition home or self-care (01) ==
LOC: HO.HUSH 15:41
PROVIDERS: PCP Internal Medicine; Visit Provider Nurse Practitioner Family
DX: N39.0 Urinary tract infection, site not specified (principal); N20.0 Calculus of kidney; Z13.9 Encounter for screening, unspecified
CPT/HCPCS: 99214

== ENCOUNTER → 2024-11-13 15:40 | Outpatient (BNVA) | payer MEDICARE, OTHER, SELFPAY | PROVIDERS: PCP Internal Medicine; Visit Provider Nurse Practitioner Family | DX: N20.0 Calculus of kidney (principal); N28.1 Cyst of kidney, acquired; N39.0 Urinary tract infection, site not specified | CPT/HCPCS: 81003; 99212 ==

== ENCOUNTER 2025-02-03 06:30 | Day surgery (SDC) | payer MEDICARE, OTHER, SELFPAY ==
[2025-01-30 14:06] VITALS: BMI 25.1
--- NOTE | 2025-02-02 12:33 | P.CONAN_ITS ---
Documented by User: Lauren Johnson NP 02/02/25 12:33 HPI - Anesthesia Eval Consult details Narrative: 74yo F for Colonoscopy PMFSH Active Problems Active Problems: All Active Problems Palpitations (Acute) Endometrial polyp (Acute) Calcification of ovary (Acute) Uterine myoma (Acute) Thickened endometrium (Acute) Endometrial hyperplasia (Acute) Pain of right thumb (Acute) Recurrent UTI (Acute) Uterine mass (Acute) Thrush, oral (Acute) Microscopic hematuria (Acute) Parapelvic renal cyst (Acute) Urinary urgency (Acute) Urinary frequency (Acute) Hydronephrosis concurrent with and due to calculi of kidney and ureter (Acute) Nephrolithiasis (Acute) Lower back pain (Acute) Left flank pain (Acute) Dysuria (Acute) Sinusitis (Acute) Cataract (Acute) Tingling of both feet (Acute) Annual physical exam (Acute) Diverticulitis (Acute) Glaucoma (Acute) Vitamin D deficiency (Acute) Osteopenia (Acute) Hyperlipidemia (Acute) Hx of mammogram (Acute) Melanoma (Acute) Acute sinusitis (Acute) Sprain of toe, fifth, right (Acute) HTN (hypertension) (Acute) Hx of colonoscopy (Acute) Past Medical History Medical History (Updated 01/30/25 @ 14:04 by Glo Torrez RN) Diverticulitis Glaucoma Palpitations HTN (hypertension) Family History Family History Father No problems noted. Mother Hypertension Surgical History Surgical History Hx of colonoscopy Hx of tonsillectomy History of breast lump removal History of Problems with Anesthesia: No Social History Social History Household Members Other:: , retired Housing: House Patient Tobacco Use Status: Never used Tobacco e-Cigarette/Vaping Use: Never Used Have you been hit, kicked, punched, or otherwise hurt by someone within the past year? If so, by whom?: No Are you DNR?: No Advance Directives: No Advance Directives Information Provided: Yes service: No Current occupational status: retired Cognitive needs: No Hearing needs: No Vision needs: Yes Meds Allergies Allergy/AdvReac Type Severity Reaction Status Date / Time oxycodone (From Percocet) AdvReac Intermediate swollen Verified 01/30/25 14:02 face Sulfa (Sulfonamide AdvReac Intermediate swollen Verified 01/30/25 14:02 Antibiotics) face Home Medications ?Medication ?Instructions ?Recorded ?Confirmed ?Last Taken ?Type dorzolamide 22.3 mg-timolol 6.8 1 drp ophthalmic (eye) BID 01/23/22 01/30/25 02/02/25 History mg/mL eye drops Exam Height,Weight and Vital Signs: Height 5 ft 2 in Weight 62.142 kg Assessment and Plan Assessment Anesthesia Assessment: Chart Reviewed Final Anesthetic Review History of Problems with Anesthesia: No Documented by User: Avinash Araiza MD 02/03/25 07:34 [facility] Past Medical History Medical History (Updated 01/30/25 @ 14:04 by Glo Torrez RN) Diverticulitis Glaucoma Palpitations HTN (hypertension) Family History Family History Father No problems noted. Mother Hypertension Family history of problems with anesthesia: No Surgical History Surgical History Hx of colonoscopy Hx of tonsillectomy History of breast lump removal Social History Social History Household Members Other:: , retired Housing: House Patient Tobacco Use Status: Never used Tobacco e-Cigarette/Vaping Use: Never Used Have you been hit, kicked, punched, or otherwise hurt by someone within the past year? If so, by whom?: No Are you DNR?: No Advance Directives: No Advance Directives Information Provided: Yes service: No Current occupational status: retired Cognitive needs: No Hearing needs: No Vision needs: Yes Meds Allergies Allergy/AdvReac Type Severity Reaction Status Date / Time oxycodone (From Percocet) AdvReac Intermediate swollen Verified 01/30/25 14:02 face Sulfa (Sulfonamide AdvReac Intermediate swollen Verified 01/30/25 14:02 Antibiotics) face Home Medications ?Medication ?Instructions ?Recorded ?Confirmed ?Last Taken ?Type dorzolamide 22.3 mg-timolol 6.8 1 drp ophthalmic (eye) BID 01/23/22 01/30/25 02/02/25 History mg/mL eye drops Exam Airway Mallampati Class: II TM Dist: <=3cm Neck ROM: Full Loose/Missing/Broken Teeth: No Heart: ok Lungs: ok Assessment and Plan Assessment Anesthesia Assessment: Anesthesia Plan Discussed Final Anesthetic Review Family History of Problems with Anesthesia: No NPO: Yes ASA Class: II and III Final Preanesthetic Review: No Changes in Pt Med Stat, Meds/Allgs Chart Reviewed, Consent Obtained/Reviewed and Anes Risks/Benef Reviewed Patient Risk: Intermediate Procedure Risk: Low Anesthetic Plan Anesthetic Plan: MAC: and Agree w/ Assess. and Plan Disposition: Standard PACU
[2025-02-03 06:44] VITALS: BP 136/76; PULSE 81; RESP 18; TEMP 36.9; O2SAT 97; BMI 24.7
--- NOTE | 2025-02-03 06:46 | MHC.SHP ---
Pre-Procedural Eval Section A - 24 Hr Update-Section A only Date of Service: 02/03/25 Section B - Complete if H&P > 30 days Chief Complaint: Diverticulitis of intestine, part unspecified, Relevant Family History (Specify if Yes): No Relevant Social History: None Present Medications: see Short Stay Collaborative assessment Medical History: Significant History (Diverticulitis Glaucoma Palpitations HTN (hypertension)) History of Previous Operations: Relevant previous surgery/procedure and date(s) (Hx of colonoscopy Hx of tonsillectomy History of breast lump removal) Allergies: Allergies Allergy/AdvReac Type Severity Reaction Status Date / Time oxycodone (From Percocet) AdvReac Intermediate swollen Verified 01/30/25 14:02 face Sulfa (Sulfonamide AdvReac Intermediate swollen Verified 01/30/25 14:02 face Review of Systems Sugical H&P ROS: Negative: Constitution, Cardiovascular, Respiratory, Neurological, Psychiatric, Hem-Onc, Allergic/Immunologic, Gastrointestinal, Genitourinary, Musculoskeletal, Integumentary, Endocrine and Eyes/Ears/Nose/Throat Exam Surgical H&P Exam: Normal: HEENT, Normal: Heart, Normal: Lungs, Normal: Extremities, Normal: Abdomen, Normal: Skin and Normal: Neurological Plan Diagnosis/Plan: Unchanged I have reviewed the history and physical and performed a pertinent physical examination on my patient. No changes have occurred unless specified. Time Spent With Patient Time: Total time managing care of this patient today ____ minutes.
[2025-02-03] MEDS: Lactated Ringers 1,000 ML 100 ML IVCONT (06:54)
--- NOTE | 2025-02-03 08:03 | HO.OPN-COLON ---
Colonoscopy Operative Note Operative Note Date of Service: 02/03/25 Narrative: Operative Information Procedure Description: Colonoscopy Indication: screening Anesthesia: MAC COLONOSCOPY Instrument: Olympus variable stiffness pediatric scope 190L Colonoscopy Monitoring: Vital signs and clinical assessment, continuous EKG monitoring, Pulse oximetry, Carbon Dioxide monitoring and blood pressure monitoring were done throughout the procedure. Colon withdrawal time was 14 minutes. Procedure: The patient was placed in the left lateral decubitis position and pre-procedure medications were administered. After a digital rectal examination of the ano-rectum, the video colonoscope was inserted into the rectum and advanced through the colon to the cecum/TI. The colonoscope was slowly withdrawn in a retrograde panoramic fashion and the colon mucosa was carefully examined including a retroflexed view of the rectum. Findings and interventions are described below. Procedure Difficulty: easy Findings: Terminal Ileum-normal Cecum: 6-8 mm sessile polyp over appendiceal orifice, lifted with eleview and removed with cold forceps Ascending Colon: normal Transverse Colon -normal Descending Colon: 10 mm sessile polyp lifted with eleview and removed with cold snare Sigmoid Colon: mdoerate diverticulosis Rectum: Retroflexion with small internal hemorrhoids seen, grade I, x4 sessile polyps 5-7 mm removed with cold snare Anorectum - normal Intervention: cold forceps, cold snare, eleview Colon preparation: [place] Bowel Preparation Scale Right colon; 3 Transverse colon: 3 Left colon; 3 (0 = Unprepared colon segment with mucosa not seen due to solid stool that cannot be cleared. 1 = Portion of mucosa of the colon segment seen, but other areas of the colon segment not well seen due to staining, residual stool and/or opaque liquid. 2 = Minor amount of residual staining, small fragments of stool and/or opaque liquid, but mucosa of colon segment seen well. 3 = Entire mucosa of colon segment seen well with no residual staining, small fragments of stool or opaque liquid) Impression and Post Procedure Diagnosis: diverticulosis colon polyps x 6 internal hemorrhoids Plan: High fiber diet leaflet Avoid straining at stool, epsom salts and sitz bath, anusol supps or cream Repeat Colonoscopy in 4-5 years if health allows or earlier if clinically indicated Above findings were reviewed with the patient and relevant handouts were provided if indicated.
[2025-02-03 08:10] VITALS: BP 81/37; PULSE 68; RESP 18; TEMP 36.2; O2SAT 93
[2025-02-03 08:25] VITALS: BP 112/55; PULSE 66; RESP 18; TEMP 36.2; O2SAT 96
== END 2025-02-03 08:36 | disposition home or self-care (01) ==
PROVIDERS: PCP Internal Medicine; Visit Provider Internal Medicine Gastroenterology
PROC: 0DJD8ZZ Inspection of Lower Intestinal Tract, Via Natural or Artificial Opening Endoscopic (ICD-10-PCS; CPT 45378; principal; 2025-02-03 07:30)
DX: Z12.11 Encounter for screening for malignant neoplasm of colon (principal); D12.0 Benign neoplasm of cecum; D12.4 Benign neoplasm of descending colon; K62.1 Rectal polyp; K57.30 Diverticulosis of large intestine without perforation or abscess without bleeding; K64.0 First degree hemorrhoids; I10 Essential (primary) hypertension; E78.5 Hyperlipidemia, unspecified; E55.9 Vitamin D deficiency, unspecified; K59.01 Slow transit constipation; Z79.899 Other long term (current) drug therapy
CPT/HCPCS: 45381; 45385; 45380; 88305; J2003; J2704

== ENCOUNTER → 2025-02-03 06:30 | Outpatient (BNV) | payer MEDICARE, OTHER, SELFPAY | PROVIDERS: PCP Internal Medicine; Visit Provider Internal Medicine Gastroenterology | DX: Z12.11 Encounter for screening for malignant neoplasm of colon (principal); K63.5 Polyp of colon; K57.90 Diverticulosis of intestine, part unspecified, without perforation or abscess without bleeding; K64.8 Other hemorrhoids | CPT/HCPCS: 45380; 45385 ==

== ENCOUNTER 2025-02-18 07:52 | Outpatient (AMB) | payer MEDICARE, OTHER, SELFPAY ==
--- OUTSIDE RECORDS SUMMARY | 2024-10-01 06:15 | XMS_ITS ---
Author Organization [facility] Address [address] [place] [address] Care Team Providers Care Associate Professor Of Music Name Role Phone Bibiana Laurent MD Primary Care Provider Felecia Siu [phone] Encounters Encounter Location Date Provider Diagnosis [address] [address] 10/01/2024 Felecia Hanson Plan Of Treatment Next Appt Details Provider Name:Felecia Barnes Valentin , 10/22/2025 08:00:00 AM, [address] [place], [address], Progress Notes * Sharon FOY LDOB: 3 (74 yo F)Acc No.[id number]:10/01/2024 Progress Note Patient: Cynthia Sharon KO Provider: Susan Hanson DPM :1950 A ge:74 Y S ex:Female Date:10/01/2024 Address:[address] [place] [address] Pcp:Bibiana Laurent MD Subjective: * Chief Complaints: [...] 0 10/01/2024 Generated for Rachel pichardo/Samson/Naldo on: 0 02/18/2025 07:55 AM EDT
--- OUTSIDE RECORDS SUMMARY | 2025-02-18 07:55 | XMS_ITS | Clinical Summary ---
Author Organization [address] Address [address] [place] [phone] Phone Care Team Providers Care Certified Dialysis Technician Name Role Phone Matty Ramos MD Primary Care Provider [phone] Allergies Active Allergy Reactions Criticality Noted Date [...] Last Assessment & Plan: I explained to Esdras that her symptoms sound most like a [...] Overview (08/01/2024): IMO update Melanoma of skin (CMS/HCC V24, CMS/HCC V28) 12/11 Overview (08/01/2024): IMO update Transient cerebral ischemia [...] HISTORICAL COLONOSCOPY; COMMENT: normal COLONOSCOPY 2013 PROCEDURE: [place] COLONOSCOPY FLX DX W/COLLJ SPEC WHEN PFRMD; COMMENT: normal BREAST BIOPSY Left PROCEDURE: BX BREAST; PERC NEEDLE CORE W/IMAG GUID; COMMENT: left-benign BREAST SURGERY Left PROCEDURE: [place] UNLISTED PROCEDURE BREAST; COMMENT: b9 Medical History [...] Care Team (Late st Contact Info) Description 03/16/2025 11:20 AM EDT Appointment Radiology Department [address] [phone] Health Maintenance Due Date Last Done Comments COVID-19 Vaccine (#1) 1955 Pneumococcal Vaccine: 50+ Years (1 of 2 - PCV) 1971 Zoster Vaccines (1 of 2) 1971 Colorectal Cancer Screening: Colonoscopy 07/22/2022 Depression Screening 07/22/2022 Falls Risk Assessment 07/22/2022 Medicare Annual Wellness Visit 07/22/2022 Social Influencers of Health Screening 07/22/2022 Hypertension/CHF/CAD Annual BMP Blood Test 07/23/2022 12/29/2020 DTaP,Tdap,and Td Vaccines (3 - Td or Tdap) 03/24/2025 03/24/2015, 04/06/2005 Influenza Vaccine (#1) 2025 Cholesterol Screening (Lipid Panel) 12/29/2025 12/29/2020 Breast Cancer Screening 02/10/2026 02/11/20 24, 02/11/2024, 01/29/2023, Additional history exists RSV Immunization Adult Patients (1 - 1-dose 75+ series) 2027 Osteoporosis Screening (Bone Density Screening) 06/30/2031 06/30/2021 [...] age to complete this topic Meningococcal B Vaccine Aged Out No l onger eligible based on patient's age to complete [...] 06/30/2021 4:42 PM EST BONE DENSITY (DEXA) Lumbar Spine T-score is -2.8. (SD relative to 20-29 y/o adult) Z-score is -0.8. (SD relative to age matched peers) This is considered osteoporosis by WHO criteria. Left Hip T-score is -1.5. Z-score is 0.2. This is considered osteopenia by WHO criteria. IMPRESSION: This patient is considered to have osteoporosis by WHO criteria. The [facility] Department of Internal Medicine recommends [...] alternative screening schedule based on avril Luis., [facility] August 31, 2011 for patients [...] have osteoporosis by WHO criteria. The [facility] Department of Internal Medicine recommendsusing [...] alternative screening schedule based on avril Luis., [facility] for patients with osteopenia (based on hip BMD T-score) is as follows: * advanced osteopenia (T scores -2.00 to -2.49), BMD testing every year * moderate osteopenia (T scores -1.50 to -1.99), BMD testing every 5years mild osteopenia or normal BMD (T scores -1.50 and higher), BMD testingevery 15 years Matty PAUL DXA PROCEDURES Final Result * Annual BMP Blood Test (12/29/2020) Pathologist [facility] Annual BMP Blood Test Abstracted Historical Provider HEALTH MAINTENANCE Final Result * (ABNORMAL) Lipid panel (12/29/2020) LDL/HDL Ratio 4 0 - 4 Triglycerides 133 0 - 150 mg/dL Cholesterol 237(A) 0 - 200 mg/dL HDL 56 >=40 mg/dL LDL Cholesterol 155(A) 0 - 100 mg/dL Blood Venous blood specimen / Unknown Historical Provider LAB BLOOD ORDERABLES Lizabeth l Result * Hepatitis C Screening (09/12/2004) Hepatitis C Screening Abstracted Historical Provider HEALTH MAINTENANCE Final Result from Last 3 Months or Most Recently Relevant to Health Maintenance Insurance MEDICARE Care Teams Certified Dialysis Technician Relationship Specialty Start Date End Date Matty Ramos MD [address] [place] [id number] PCP - General 05/10/1998
--- NOTE | 2025-02-18 08:09 | MHC.OFFVIS ---
Vital Signs 02/18/25 08:14 Height 5 ft 2 in Weight 135 lb BMI 24.7 BP 156/78 H Blood Pressure Location Rt brachial Position Sitting Pulse 74 Pulse Source Pulse Oximeter Pulse Oximetry (%) 96 Oxygen Delivery Method Room Air Intake Visit Reasons: s/p colo Barros Intake Note: ESTABLISHED PATIENT for mgmt of diverticulitis. S/P colo w/ questions for Alexa. Chief Complaint; Pt has questions regarding diverticulitis vs diverticulosis. No additional sx or concerns at this time. Astronomy Professor Required: No Accompanied by: Self / Same As Patient Allergies oxycodone (From Percocet) Adverse Reaction (Intermediate, Verified 02/18/25 08:09) swollen face Sulfa (Sulfonamide Antibiotics) Adverse Reaction (Intermediate, Verified 02/18/25 08:09) swollen face HPI HPI s/p colo Barros: Details: LAST VISIT: Diverticulitis Hx of colonoscopy Diverticulosis LLQ abdominal pain Constipation Plan Patient will increase fiber in her diet. Increase fluid intake and activity to promote better bowel motility. Gera Craig send to pharmacy for patient to take with her on her vacation if she will have left lower quadrant pain. However patient was encouraged to take senna with her as well as stool softener so she can take it daily to avoid getting backed up. Recommended Benefiber dual action biotic with pre and probiotics. Patient will have her colonoscopy scheduled for January. She will see us in the office here after the procedure. What to expect before during and after procedure discussed with patient. Patient is aware and is requesting the prep again. Stressed the importance of good bowel prep and clear liquid diet day before procedure. Patient is agreeable to this plan and verbalizes understanding of instructions. She was given the opportunity to ask questions and all questions answered. ? Thank you for allowing me to participate in her care New bisacodyl (Dulcolax (bisacodyl)) take 4 tabs at noon the day before your colonoscopy 20 mg (4 x 5 mg) PO ONCE 4 tabs 0RF 1 day Z12.11 ciprofloxacin HCl 500 mg PO BID 14 tabs 1RF Changed Changed From polyethylene glycol 3350 (Miralax) As directed by gastroenterology department at [facility] 238 grams PO ONCE PRN Z12.11 Changed To polyethylene glycol 3350 (Miralax) As directed by gastroenterology department at [facility] 238 grams PO ONCE 238 grams 0RF Z12.11 COLONOSCOPY Findings: Terminal Ileum-normal Cecum: 6-8 mm sessile polyp over appendiceal orifice, lifted with eleview and removed with cold forceps Ascending Colon: normal Transverse Colon -normal Descending Colon: 10 mm sessile polyp lifted with eleview and removed with cold snare Sigmoid Colon: mdoerate diverticulosis Rectum: Retroflexion with small internal hemorrhoids seen, grade I, x4 sessile polyps 5-7 mm removed with cold snare Anorectum - normal Intervention: cold forceps, cold snare, eleview Colon preparation: [place] Bowel Preparation Scale Right colon; 3 Transverse colon: 3 Left colon; 3 (0 = Unprepared colon segment with mucosa not seen due to solid stool that cannot be cleared. 1 = Portion of mucosa of the colon segment seen, but other areas of the colon segment not well seen due to staining, residual stool and/or opaque liquid. 2 = Minor amount of residual staining, small fragments of stool and/or opaque liquid, but mucosa of colon segment seen well. 3 = Entire mucosa of colon segment seen well with no residual staining, small fragments of stool or opaque liquid) Impression and Post Procedure Diagnosis: diverticulosis colon polyps x 6 internal hemorrhoids Plan: High fiber diet leaflet Avoid straining at stool, epsom salts and sitz bath, anusol supps or cream Repeat Colonoscopy in 4-5 years if health allows or earlier if clinically indicated PATHOLOGY Diagnosis A. Colon, cecal polyp: Tubular adenoma; negative for high-grade dysplasia and carcinoma. B. Colon, descending, polyp: Sessile serrated lesion/polyp without dysplasia. C. Colon, rectal polyps: Hyperplastic polyps, five. TODAY'S VISIT: Patient is here today for follow-up and to discuss colonoscopy results. Patient denies any ill effects from the prep, anesthesia or procedure itself. Patient reports that she has been feeling fairly well. Patient states that she is trying to eat food high in fiber mainly vegetables. One episode of abdominal pain and discomfort just before she was getting ready to go on her cruise. Patient states that she took Cipro for 7 days and her symptoms of abdominal pain went away. Moderate diverticulosis was seen in sigmoid colon. One tubular adenoma in the cecum without high-grade dysplasia or carcinoma. Descending polyp sessile serrated without dysplasia. Small hyperplastic polyps seen in the rectum. Colonoscopy in 4-5 years, sooner if clinically necessary. Patient denies dyspepsia, dysphagia or odynophagia. Reports that she is moving her bowels without any issues. Patient denies melena, hematochezia. [facility] Medical History (Updated 02/18/25 @ 09:36 by Porsche Whiteside [facility]) Tubular adenoma of colon Diverticulosis Diverticulitis Glaucoma Palpitations HTN (hypertension) Surgical History Hx of colonoscopy Hx of tonsillectomy History of breast lump removal Family History Father No problems noted. Mother Hypertension Social History Household Members Other:: , retired Housing: House Patient Tobacco Use Status: Never used Tobacco e-Cigarette/Vaping Use: Never Used service: No Current occupational status: retired Cognitive needs: No Hearing needs: No Vision needs: Yes Review of Systems Const Denies weight gain and Denies weight loss ENT Reports no additional complaints, Denies dysphagia and Denies odynophagia Card Reports no additional complaints Resp Reports no additional complaints GI Denies abdominal pain, Denies belching, Denies melena, Denies bloating, Denies change in bowel habits, Denies dysphagia, Denies excessive flatus, Denies dyspepsia, Denies heartburn, Denies diarrhea, Denies loose stools, Denies nausea, Denies odynophagia and Denies vomiting Musc Reports no additional complaints Neuro Reports no additional complaints Psych Reports no additional complaints Endo Reports no additional complaints Physical Exam Const General: healthy appearing, no acute distress and well developed Nutritional Appearance: well nourished Orientation/consciousness: patient oriented x3 Resp Effort & Inspection: normal respiratory effort, able to speak in complete sentences, no tracheal deviation and symmetric chest movement Auscultation: clear to auscultation bilaterally Cardio Rate: regular rate GI Inspection: Yes normal to inspection and No distended Palpation (GI): Soft to palpation, not firm, nontender and No hepatosplenomegaly present Auscultation: normal bowel sounds General: Yes no CVA tenderness Back/Spine/Pelvis Back: no CVA tenderness Skin General skin exam: elasticity normal, turgor normal and dry skin Neuro General: patient oriented x3 Psych Appearance: grossly normal Mental Status: mental status grossly normal Assessment & Plan Assessment & Plan (1) Diverticulitis: Code(s): K57.92 - Diverticulitis of intestine, part unspecified, without perforation or abscess without bleeding Category: Medical (2) Diverticulosis: Code(s): K57.90 - Diverticulosis of intestine, part unspecified, without perforation or abscess without bleeding Category: Medical (3) Tubular adenoma of colon: Code(s): D12.6 - Benign neoplasm of colon, unspecified Category: Medical (4) Status post colonoscopy: Code(s): Z98.890 - Other specified postprocedural states Plan Long discussion with patient about diverticulosis and diet. She will be taking extra fiber with pre and probiotics. Fiber diet recommended. Script for Cipro just in case patient will have flare up. Stressed the importance of having her move her bowels every day and feeling like she empties completely. Patient will call our office if she will have any abdominal pain or discomfort. Follow-up in 1 year, sooner on as needed basis. She is agreeable to this plan and verbalizes understanding of instructions. She was given the opportunity to ask questions and all questions answered. Thank you for allowing me to participate in her care Medications: New ciprofloxacin HCl 500 mg PO BID 14 tabs 1RF Coding Level of Care Code Est Pt Level 3 (78977) Diagnoses Diverticulitis K57.92 Diverticulosis K57.90 Tubular adenoma of colon D12.6 Status post colonoscopy Z98.890 Time Spent (min) 25 Comment 15 minutes spent with patient and additional 10 minutes spent reviewing her records
[2025-02-18 08:14] VITALS: BP 156/78; PULSE 74; O2SAT 96; BMI 24.7
== END 2025-02-18 08:26 | disposition home or self-care (01) ==
LOC: HO.HGI 07:53
PROVIDERS: PCP Internal Medicine; Visit Provider Nurse Practitioner Family
DX: K57.92 Diverticulitis of intestine, part unspecified, without perforation or abscess without bleeding (principal); K57.90 Diverticulosis of intestine, part unspecified, without perforation or abscess without bleeding; D12.6 Benign neoplasm of colon, unspecified; Z98.890 Other specified postprocedural states
CPT/HCPCS: 99213

== ENCOUNTER → 2025-02-18 07:52 | Outpatient (BNVA) | payer MEDICARE, OTHER, SELFPAY | PROVIDERS: PCP Internal Medicine; Visit Provider Nurse Practitioner Family | DX: K57.92 Diverticulitis of intestine, part unspecified, without perforation or abscess without bleeding (principal); K57.90 Diverticulosis of intestine, part unspecified, without perforation or abscess without bleeding; Z86.0101 Personal history of adenomatous and serrated colon polyps; Z98.890 Other specified postprocedural states | CPT/HCPCS: 99212 ==

== ENCOUNTER 2025-02-23 09:56 | Outpatient (REF) | payer MEDICARE, OTHER, SELFPAY ==
--- OUTSIDE RECORDS SUMMARY | 2025-02-23 10:33 | XMS_ITS | Clinical Summary ---
Author Organization [address] Address [address] [place] [phone] Phone Care Team Providers Care Flooring Grader Name Role Phone Matty Ramos MD Primary Care Provider [phone] Allergies Active Allergy Reactions Criticality Noted Date [...] HISTORICAL COLONOSCOPY; COMMENT: normal COLONOSCOPY 2013 PROCEDURE: VT COLONOSCOPY FLX DX W/COLLJ SPEC WHEN PFRMD; COMMENT: normal BREAST BIOPSY Left PROCEDURE: BX BREAST; PERC NEEDLE CORE W/IMAG GUID; COMMENT: left-benign BREAST SURGERY Left PROCEDURE: VT UNLISTED PROCEDURE BREAST; COMMENT: b9 Medical History [...] 03/16/2025 11:20 AM EDT Appointment Radiology Department [address] [phone] Health Maintenance Due Date Last Done Comments [...] alternative screening schedule based on avril Luis., [facility] August 31, 2011 for patients with [...] alternative screening schedule based [facility]., [facility] with [facility] (based [...] * Annual BMP Blood Test (12/29/2020) Pathologist [facility] Annual BMP Blood Test Abstracted Historical [...] to Health Maintenance Insurance MEDICARE Care Teams Flooring Grader Relationship Specialty Start Date End Date Matty Ramos MD [address] [place] [phone] PCP - General 05/10/1998
[2025-02-23 13:58] LABS: MANUAL DIFF FLAG NO
[2025-02-23 14:11] LABS: Hematocrit 44.9 % (37.0-47.0); Hemoglobin 14.6 g/dl (12.0-16.0); Imm Gran Abs Auto 0.01 X10*3/uL (0.00-0.03); Imm Gran Pct Auto 0.2 % (0.0-0.4); Lymphocytes Absolute Auto 1.7 X10*3/uL (1.2-4.9); Mean Corpuscular HGB Conc 32.5 g/dl (31.0-35.0); Mean Corpuscular Hemoglobin 31.3 pg (27.0-33.0); Mean Corpuscular Volume 96.1 fL (80.0-98.0); NRBC Abs Auto 0.000 X10*3/uL (0.0-0.012); NRBC Pct Auto 0.0 /100WBC (0.0-0.2); Platelet Count 240 X10*3/uL (160-400); Red Blood Count 4.67 X10*6/uL (4.20-5.50); White Blood Count 4.4 X10*3/uL (4.8-10.8)
[2025-02-23 14:42] LABS: Alanine Aminotransferase 44 U/L (0-31); Albumin Level 4.6 g/dL (3.5-5.0); Alkaline Phosphatase 83 U/L (39-117); Anion Gap 11 (12-20); Aspartate Amino Transferase 29 U/L (5-31); Blood Urea Nitrogen 15 mg/dL (9-16); Calcium 8.8 mg/dL (8.4-10.2); Carbon Dioxide 25 mmol/L (22-29); Chloride 109 mmol/L (96-108); Cholesterol 232 mg/dL (<200); Estimated Glomerular Filt Rate > 60; HDL Cholesterol 45 mg/dL (>40); Potassium 4.2 mmol/L (3.3-5.1); Sodium 141 mmol/L (135-145); Total Protein 6.7 g/dL (6.5-8.0); Triglycerides 127 mg/dL (<150)
== END 2025-02-23 09:57 | disposition home or self-care (01) ==
LOC: HO.HMGCLDS 09:56
PROVIDERS: PCP Internal Medicine; Visit Provider Internal Medicine
DX: Z00.00 Encounter for general adult medical examination without abnormal findings (principal); I10 Essential (primary) hypertension; E55.9 Vitamin D deficiency, unspecified; M85.80 Other specified disorders of bone density and structure, unspecified site; E78.5 Hyperlipidemia, unspecified
CPT/HCPCS: 36415; 80053; 80061; 82306; 84443; 85025

== ENCOUNTER 2025-03-03 07:54 | Outpatient (AMB) | payer MEDICARE, OTHER, SELFPAY ==
--- OUTSIDE RECORDS SUMMARY | 2024-10-01 06:15 | XMS_ITS ---
Author Organization [facility] Address [address] [place] [address] Care Team Providers Care Salvage Engineering Technician Name Role Phone Bibiana Laurent MD Primary Care Provider Felecia Siu [phone] Encounters Encounter Location Date Provider Diagnosis [address] [address] 10/01/2024 Felecia Hanson Plan Of Treatment Next Appt Details Provider Name:Felecia Barnes Valentin , 10/22/2025 08:00:00 AM, [address] [place], [address], Progress Notes * Sharon FOY LDOB: 3 (74 yo F)Acc No.[id number]:10/01/2024 Progress Note Patient: Cynthia Sharon KO Provider: Susan Hanson DPM :1950 A ge:74 Y S ex:Female Date:10/01/2024 Address:[address] [place] [address] Pcp:Bibiana Laurent MD Subjective: * Chief Complaints: [...] 10/01/2024 Generated for Rachel pichardo/Samson/Naldo on: 0 03/03/2025 07:56 AM EDT
--- OUTSIDE RECORDS SUMMARY | 2025-03-03 07:56 | XMS_ITS | Clinical Summary ---
Author Organization [address] Address [address] [place] [phone] Phone Care Team Providers Care Meat Grader Name Role Phone Matty Ramos MD Primary Care Provider Allergies Active Allergy Reactions Criticality Noted Date [...] HISTORICAL COLONOSCOPY; COMMENT: normal COLONOSCOPY 2013 PROCEDURE: ME COLONOSCOPY FLX DX W/COLLJ SPEC WHEN PFRMD; COMMENT: normal BREAST BIOPSY Left PROCEDURE: BX BREAST; PERC NEEDLE CORE W/IMAG GUID; COMMENT: left-benign BREAST SURGERY Left PROCEDURE: ME UNLISTED PROCEDURE BREAST; COMMENT: b9 Medical History [...] 03/16/2025 11:20 AM EDT Appointment Radiology Department [address] [phone] Health Maintenance Due Date Last Done Comments COVID-19 Vaccine (#1) 1957 Pneumococcal Vaccine: 50+ Years (1 of 2 - PCV) 1971 Zoster Vaccines (1 of 2) 1971 Colorectal Cancer Screening: Colonoscopy 07/22/2022 Falls Risk Assessment 07/22/2022 Medicare Annual Wellness Visit 07/22/2022 Social Influencers of Health Screening 07/22/2022 Hypertension/CHF/CAD Annual BMP Blood Test 07/23/2022 12/29/2020 Depression Screening 08/13/2024 DTaP,Tdap,and Td Vaccines (3 - Td or [...] to have osteoporosis by WHO criteria. The [facility] Department of Internal Medicine recommends using National [...] alternative screening schedule based on avril Luis., [facility] August 31, 2011 for patients with osteopenia [...] to have osteoporosis by WHO criteria. The [facility] Department of Internal Medicine recommendsusing National Osteoporosis [...] alternative screening schedule based on avril Luis., [facility] for patients with osteopenia (based on [...] Blood Test (12/29/2020) Pathologist [facility] Annual BMP Blood Test Abstracted Historical Provider [...] to Health Maintenance Insurance MEDICARE Care Teams Meat Grader Relationship Specialty Start Date End Date Matty Ramos MD [address] [place] [phone] PCP - General 05/10/1998
--- OUTSIDE RECORDS SUMMARY | 2025-03-03 07:56 | XMS_ITS | Clinical Summary ---
Author Organization [facility] Address [address] [facility] [address] [place] [phone] Phone Care Team Providers Care Contact Worker Name Role Phone Unknown, Unknown Primary Care Provider Dawn london Social History Tobacco Use Types Packs/Day Years Used Date Smoking Tobacco: Never Assessed Education Answer Date Recorded Are you interested in more education? Not on angella e 12/21/2022 Are you concerned about learning? Not on file 12/21/2022 No 12/21/2022 No 12/21/2022 Digital Access Answer Date Recorded No 01/07/2023 No 01/07/2023 No 01/07/2023 Reliable internet access at home? Not on file 01/07/2023 Device with a working camera? Not on file Comments Unknown Sex and Gender Information Value Date Recorded Sex Assigned at Not on file Legal Sex Female 6:46 PM EST Gender Identity Not on file Sexual Orientation Not on file Plan of Treatment Health Maintenance Due Date Last Done Comments LIPID PANEL 1952 DEPRESSION SCREENING 1964 SMOKING Hx and SMOKELESS TOBACCO SCREENING 1965 HEPATITIS C SCREENING 1970 MAMMOGRAM 1992 COLOGUARD 1997 COLONOSCOPY 1997 COLORECTAL CANCER SCREENING 1997 FIT TEST 1997 FOBT 1997 SIGMOIDOSCOPY 1997 VIRTUAL COLONOSCOPY 1997 PNEUMOCOCCAL VACCINES (50+ years) (1 of 1 - PCV) 2002 ZOSTER VACCINES (1 of 2) 2002 OSTEOPOROSIS SCREENING INITI AL (ONE-TIME) 2017 COVID-19 VACCINE (3 - 2023-2 5 season) 2024 11/12/2020, 10/22/2020 Adult Td,Tdap Booster 03/24/2025 03/24/2015 , 04/06/2005 RSV VACCINE (1 - 1-dose 75+ series) 2027 HEPATITIS A VACCINES Aged Out No long er eligible based on patient's age to complete this topic HIB VACCINES Aged Out No longer eligi ble based on patient's age to complete this topic MENINGOCOCCAL VACCINES (ACWY) Aged Out No longer eligible based on patient's age to complete this topic MENINGOCOCCAL VACCINES (B) Aged Out N o longer eligible based on patient's age to complete this topic Medical Devices Not on file Insurance Member Subscriber Plan / Payer (Ef fective 2017-Present) Name:Sharon Nevarez Member ID:[id number] Relation to Subscriber:Self Name:Sharon Nevarez Subscriber ID:[id number] Payer ID:[id number] Group ID:Not on file Type:Medicare Address: [employer] [address] [address] MEDICARE PART A & B MEDICARE PART A & B MEDICARE PART A & B MEDICARE PART A & B MEDICARE PART A & B MEDICARE PART A & B MEDICARE PART A & B MEDICARE PART A & B [employer] MEDICARE COMPLEMENT SUPPLEMENT Care Teams Contact Worker Relationship Specialty Start Date End Date Unknown, Unknown, PCP - General 12/01/21 Additional Source Comments The information contained in this document represents components of the legal health record. It is not the complete legal health record.[facility]
--- OUTSIDE RECORDS SUMMARY | 2025-03-03 07:56 | XMS_ITS ---
Author Name Kell Holman Address Unknown Organization [facility] Care Team Providers Care Litigation Docket Manager Name Role Phone Unavailable Primary Care Physician Unavailab le History Of Present Illness This is a 74 year old female who is an established patient who is being seen for an evaluation of askin lesion.Location: right 2nd toeQuality: changing colorHistory of Previous Treatments: has not been treatedPertinent History: melanoma (see interval history)Pertinent Negatives: no family history of melanomaAdditional Visit Reasons: evaluation for suspicious growthsAdditional History: Patient reports of a lesion on the right 2nd toe (sometimes under the toenail per patient), which has changed color. Allergies, Adverse Reactions, Alerts Substance RxNorm Reaction(s) Severity Status Start Da te Sulfa (Sulfonamide Antibiotics) unspecif ied active Percocet unspecified active Medications Medication Generic Name RxNorm Strength Strength Unit Route Dose Dose Form Frequency Date Started Date Ended Status Indication Sig Alphagan P brimonid ine 0.15 % Ophtha lmic (eye) drops suspend ed Cosopt dorzolam sarah-teresa lol 22.3-6.8 mg/mL Ophtha lmic (eye) 1 drops QD active metronidazo le metronid azole 154465 0.75 % Topica l small amoun t cream QD 07/21/20 19 active Rosacea Appl y qd-b id face mihai cea mupirocin mupiroci n 091197 2 % Topica l ointm ent 07/06/20 20 suspend ed Appl y AM and PM to glut eal clef t losartan losartan 465980 25 mg Oral 1 table t QD active [place]obetas[place] 609644 0.05 % Scalp solut ion QD-BID 07/06/20 20 suspend ed PSORIASIS Appl y 5-10 drop s thro ugho ut the scal p when need ed and mass age in. Use once or twic e lillian y. fluocinolon e and shower cap fluocino lone and shower cap 6444084 0.01 % Scalp oil 04/07/20 24 suspend ed Appl y QD-B ID damp hair . Leav e in 30-6 0 sarah angie, comb thro ugh scal e and sham poo out. Acyclovir NULL 01/02/20 14 active Alphagan P NULL 06/15/20 17 active Amoxicillin NULL 06/15/20 17 active Amoxicillin NULL 01/06/20 11 active Amoxicillin -Pot Clavulanate NULL 12/12 10/02 14 active Benzonatate NULL 03/05/20 19 active Betamethaso ne Dipropionat e Aug NULL 03/14/20 18 active Clobetasol Propionate NULL 10/03 08 active Cosopt NULL 06/15/20 17 active Diprolene AF NULL 06/15/20 17 active Dorzolamide HCl-Timolol Mal NULL 03/05/20 19 active Dovonex NULL 10/03/19 08 active Dovonex NULL 10/26/19 07 active Econazole Nitrate NULL 01/06/20 11 active HYDROcodone -Acetaminop hen NULL 10/13/19 15 active Ibuprofen NULL 10/13/19 15 active Ketorolac Tromethamin e NULL 06/15/20 17 active Lidex-E NULL 10/26/19 07 active Lisinopril NULL 03/05/20 19 active Metrogel NULL 10/26/19 07 active MetroNIDAZO LE NULL 12/21/19 16 suspend ed MetroNIDAZO LE NULL 12/07/19 16 active metroNIDAZO LE NULL 01/08/20 14 active Morphine Sulfate ER NULL 10/12 15 active Mupirocin NULL 08/15/19 13 active Nitrofurant oin Monohyd Macro NULL 06/15/20 17 active Ondansetron HCl NULL 10/13/19 15 active traMADol HCl NULL 03/05/20 19 active Ultravate NULL 10/26/19 07 active Valsartan NULL 03/05/20 19 active Problems Problem Code Type Status Date of Diagnosis Date of Resolution Rosacea (disorder) 135984631(S NOMED) Diagnosis active 02/27/2025 Contusion of lesser toe of right foot (disorder) 11545048481 464087(SNOM ED) Diagnosis active 02/27/2025 Scar conditions and fibrosis of skin (disorder) 331414421(S NOMED) Diagnosis active 02/27/2025 Hemangioma of skin and subcutaneous tissue (disorder) 840211504(S NOMED) Diagnosis active 05/21/2024 Seborrheic keratosis (disorder) 810402458(S NOMED) Diagnosis active 05/21/2024 Disorder of pigmentation (disorder) 382834967(S NOMED) Diagnosis active 05/21/2024 Melanocytic nevus of trunk (disorder) 241048350(S NOMED) Diagnosis active 05/21/2024 Rosacea (disorder) 238594760(S NOMED) Diagnosis active 05/21/2024 Patient encounter status (finding) 280660598(S NOMED) Diagnosis active 05/21/2024 History of malignant melanoma of the skin (situation) 12893311644 8(SNOMED) Diagnosis active 05/21/2024 Onychomycosis caused by dermatophyte (disorder) 910728896(S NOMED) Diagnosis active 05/21/2024 Blister of skin AND/OR mucosa (disorder) 871430586(S NOMED) Diagnosis active 05/21/2024 Psoriasis vulgaris (disorder) 007808630(S NOMED) Diagnosis active 04/07/2024 Rosacea (disorder) 699304366(S NOMED) Diagnosis active 04/07/2024 Neoplasm of uncertain behavior of skin (disorder) 08059182(SN OMED) Diagnosis active 04/07/2024 Epidermoid cyst of skin (disorder) 943615247(S NOMED) Diagnosis active 04/07/2024 Seborrheic keratosis (disorder) 631248572(S NOMED) Diagnosis active 04/07/2024 Hemangioma of skin and subcutaneous tissue (disorder) 962168484(S NOMED) Diagnosis active 02/07/2023 Seborrheic keratosis (disorder) 421255214(S NOMED) Diagnosis active 02/07/2023 Disorder of pigmentation (disorder) 508940056(S NOMED) Diagnosis active 02/07/2023 Melanocytic nevus of trunk (disorder) 643918120(S NOMED) Diagnosis active 02/07/2023 Patient encounter status (finding) 994365419(S NOMED) Diagnosis active 02/07/2023 Hypertrophic condition of skin (disorder) 13030902(SN OMED) Diagnosis active 02/07/2023 History of malignant melanoma of the skin (situation) 65196189167 8(SNOMED) Diagnosis active 02/07/2023 Rosacea (disorder) 797164799(S NOMED) Diagnosis active 02/07/2023 Hemangioma of skin and subcutaneous tissue (disorder) 336264558(S NOMED) Diagnosis active 11/28/2021 Seborrheic keratosis (disorder) 785923301(S NOMED) Diagnosis active 11/28/2021 Disorder of pigmentation (disorder) 156032051(S NOMED) Diagnosis active 11/28/2021 Melanocytic nevus of trunk (disorder) 466275495(S NOMED) Diagnosis active 11/28/2021 Patient encounter status (finding) 418206039(S NOMED) Diagnosis active 11/28/2021 Rosacea (disorder) 076793644(S NOMED) Diagnosis active 11/28/2021 History of malignant melanoma of the skin (situation) 98686439087 8(SNOMED) Diagnosis active 11/28/2021 Neoplasm of uncertain behavior of skin (disorder) 56375837(SN OMED) Diagnosis active 10/05/2021 Melanocytic nevus of skin (disorder) 203737883(S NOMED) Diagnosis active 10/05/2021 Rosacea (disorder) 867890798(S NOMED) Diagnosis active 10/05/2021 Hemangioma of skin and subcutaneous tissue D18.01(ICD- 10) Diagnosis active 07/06/2020 Other seborrheic keratosis L82.1(ICD-1 0) Diagnosis active 07/06/2020 Other melanin hyperpigmentation L81.4(ICD-1 0) Diagnosis active 07/06/2020 Melanocytic nevi of trunk D22.5(ICD-1 0) Diagnosis active 07/06/2020 Personal history of malignant melanoma of skin Z85.820(ICD -10) Diagnosis active 07/06/2020 Other rosacea L71.8(ICD-1 0) Diagnosis active 07/06/2020 Psoriasis vulgaris L40.0(ICD-1 0) Diagnosis active 07/06/2020 Actinic keratosis L57.0(ICD-1 0) Diagnosis active 07/06/2020 Other specified disorders of the skin and subcutaneous tissue L98.8(ICD-1 0) Diagnosis active 07/06/2020 Other nonthrombocytopenic purpura D69.2(ICD-1 0) Diagnosis active 12/18/2019 Contusion of unspecified finger without damage to nail, initial encounter S60.00XA(IC D-10) Diagnosis active 12/18/2019 Hemangioma of skin and subcutaneous tissue D18.01(ICD- 10) Diagnosis active 07/21/2019 Other seborrheic keratosis L82.1(ICD-1 0) Diagnosis active 07/21/2019 Other melanin hyperpigmentation L81.4(ICD-1 0) Diagnosis active 07/21/2019 Melanocytic nevi of trunk D22.5(ICD-1 0) Diagnosis active 07/21/2019 Personal history of malignant melanoma of skin Z85.820(ICD -10) Diagnosis active 07/21/2019 Psoriasis vulgaris L40.0(ICD-1 0) Diagnosis active 07/21/2019 Corns and callosities L84(ICD-10) Diagnosis active 2018 Other rosacea L71.8(ICD-1 0) Diagnosis active 07/21/2019 Melanocytic nevus of trunk (disorder) 938489215(S NOMED) Diagnosis active 06/17/2018 Senile hyperkeratosis (disorder) 856076167(S NOMED) Diagnosis active 03/14/2018 Senile hyperkeratosis (disorder) 055690920(S NOMED) Diagnosis active 12/18/2017 Melanocytic nevus of trunk (disorder) 952015046(S NOMED) Diagnosis active 06/15/2017 Senile hyperkeratosis (disorder) 682764999(S NOMED) Diagnosis active 11/20/2016 Senile hyperkeratosis (disorder) 867467564(S NOMED) Diagnosis active 06/13/2016 Solar lentigo (disorder) 47875815(SN OMED) Diagnosis active 12/21/2015 Neoplasm of uncertain behavior of skin (disorder) 25340485(SN OMED) Diagnosis active 10/07/2015 Angioma serpiginosum (disorder) 45373386(SN OMED) Diagnosis active 11/10/2014 Senile hyperkeratosis (disorder) 526881883(S NOMED) Diagnosis active 01/01/2014 Increased blood pressure (finding) 95975644(SN OMED) Problem active Actinic keratosis (disorder) 667744341(S NOMED) Problem active Asteatosis cutis (disorder) 77289626(SN OMED) Problem active Malignant melanoma (disorder) 721955894(S NOMED) Problem active Psoriasis (disorder) 0227628(SNO MED) Problem active Results No data Encounters Service provided at [facility], [address] [place] [address], [address], [place], [place] [id number]. Office phonenumber is [phone]. Office fax number is [phone]. Encounter Diagnosis Location Date / Time Type Rosacea (L71.8)Subungual hem atoma toenail (S90.121A)Scar (L90.5) Morning 02/27/2025 11:30:00 [place] [address] Reason For Referral No data Procedures Procedure Date Documentation of current medications (pr ocedure) 02/27/2025 12:00 am UTC Cryotherapy of skin lesion with liquid n itrogen (procedure) 04/07/2024 12:00 am UTC Destruction of lesion of skin (procedure ) 10/05/2021 12:00 am UTC Cryotherapy of skin lesion with liquid n itrogen (procedure) 07/06/2020 12:00 am UTC Surgical biopsy of skin (procedure) Excision of melanoma (procedure) Lumpectomy of left breast (procedure) Documentation of past medical history (p rocedure) Biopsy of breast (procedure) Surgical biopsy of skin (procedure) Documentation of past medical history (p rocedure) Biopsy of breast (procedure) Excision of melanoma (procedure) Documentation of past medical history (p rocedure) Surgical biopsy of skin (procedure) Excision of melanoma (procedure) Biopsy of breast (procedure) Excision of melanoma (procedure) Surgical biopsy of skin (procedure) Documentation of past medical history (p rocedure) Biopsy of breast (procedure) Surgical biopsy of skin (procedure) Excision of melanoma (procedure) Documentation of past medical history (p rocedure) Biopsy of breast (procedure) Surgical biopsy of skin (procedure) Excision of melanoma (procedure) Documentation of past medical history (p rocedure) Biopsy of breast (procedure) Surgical biopsy of skin (procedure) Documentation of past medical history (p rocedure) Biopsy of breast (procedure) Excision of melanoma (procedure) Excision of melanoma (procedure) Biopsy of breast (procedure) Surgical biopsy of skin (procedure) Documentation of past medical history (p rocedure) Excision of melanoma (procedure) Surgical biopsy of skin (procedure) Documentation of past medical history (p rocedure) Biopsy of breast (procedure) Biopsy of breast (procedure) Excision of melanoma (procedure) Surgical biopsy of skin (procedure) Documentation of past medica l history (procedure) Left wrist ORIF with hardware Lumpectomy of left breast (procedure) Review Of Systems Provider reviewed on Feb 27, 2025.A focused review of systems was performed including Integumentary.No Problems With Healing And No Problems With Scarring (hypertrophic Or Keloid). Assessment 1.RosaceaCounselingPrescription Medication Management: Plan - :Continue:Metronidazole 0.75 % topical cream AM and PM face redness.- May call for refills;.2.Subungual hematoma toenailCounselingReassurance3.Scar - See historical summaryCounseling Plan of Care Future visit for 02/27/2025 - Follow up - (as previously scheduled) Code Detail Instructions [id number] metronidazole 0.75 % topical cre am Apply AM and PM face redness 808832 metronidazole 0.75 % topical cre am Apply AM and PM face redness 6009642 fluocinolone 0.01 % scalp oil and shower cap Apply QD-BID damp hair. Leave in 30-60 minutes, comb through scale and shampoo out. 906411 metronidazole 0.75 % topical cre am Apply AM and PM face redness 664053 metronidazole 0.75 % topical cre am Apply AM and PM face redness 406598 metronidazole 0.75 % topical cre am Apply AM and PM face redness 081700 mupirocin 2 % topical ointment A pply AM and PM to gluteal cleft area of breakdown of skin until healed 531877 metronidazole 0.75 % topical cre am Apply qd-bid face rosacea 656734 mupirocin 2 % topical ointment A pply AM and PM to gluteal cleft 653844 clobetasol 0.05 % scalp solution Apply 5-10 drops throughout the scalp when needed and massage in. Use once or twice daily. 378426 metronidazole 0.75 % topical cre am Apply qd-bid face rosacea 599482 metronidazole 0.75 % topical cre am Apply qd-bid face rosacea Instructions * I counseled the patient regarding the following:Expectations: Rosacea is chronic. Flushing and pimples can be triggered by: alcohol, stress, exercise, hot temperatures or spicy foods, wind and sun exposure. Telangiectasias can be improved with laser.I recommended the following: CleansersMoisturizersThe following medication counseling was provided:Topical Metronidazole Counseling: Patient counseled regarding possible burning, stinging, redness, metallic taste in the mouth, nausea, headache or allergic reactions. The patient was instructed to call the office immediately if side effects occur. All of the patient's questions and concerns were addressed. * I counseled the patient regarding the following:Skin care: Subungual Hematomas that are acute and painful can be evacuated with pulse electrocautery, piercing through the nail plate. Chronic or stable subungual hematomas will eventually grow out of the nail bed over months.Expectations: Subungual He matomas are collections of blood and clot between the nail bed and the nail plate. They are painful, and a result of trauma.Contact office if: Hematoma fails to grow distally over time, or if patientdevelops proximal nail fold pigmentation. * I counseled the patient regarding the following:Skin Care: Patients with a history of melanoma should wear broad spectrum sunscreen and sun protective clothing.Expectations: Scars from excisional sites of melanoma should be monitored for any recurrences. Monthly self-skin checks should be performedto monitor for any moles that change in size, shape or color, itch burn or bleed.Contact Office if:Patient notices any new or changing moles, develops constitutional symptoms or develops new lesionswithin or around the previous melanoma scar.I recommended the following: Broad Spectrum Sunscreen SPF 30+Self-Skin Exams Social History Code Activity Start Date End Date [id number] (SNOMED) Never smoker Sex female Sexual orientation Unspecified Gender identity Unspecified Vital Signs No data
--- NOTE | 2025-03-03 08:02 | MHC.PC.OV ---
Vital Signs 03/03/25 08:03 Height 5 ft 2 in Weight 137 lb BMI 25.1 BP 128/78 Blood Pressure Location Lt brachial Position Sitting Respiration 18 Pulse 74 Pulse Source Pulse Oximeter Temp 97.8 F Temp Source Oral Pulse Oximetry (%) 97 Oxygen Delivery Method Room Air Intake Visit Reasons: PE/Secondary covers Intake Note: Pt is here today for PE. Allergies oxycodone (From Percocet) Adverse Reaction (Intermediate, Verified 03/03/25 08:04) swollen face Sulfa (Sulfonamide Antibiotics) Adverse Reaction (Intermediate, Verified 03/03/25 08:04) swollen face Medication List - Last Reconciled 03/03/25 by Bibiana Laurent MD dorzolamide-timolol 22.3-6.8 mg/mL 1 drp ophthalmic (eye) BID losartan 50 mg PO DAILY pyridoxine (vitamin B6) 100 mg PO DAILY 90 days Tobacco use date assessed: 03/03/25 Fall risk assessment: No Falls in past year Last assessed Fall Risk: 03/03/25 Dental Screening Dental Screen Date: 10/30/24 HPI PE/Secondary covers HPI Details Patient presents for PE PFSH Medical History (Updated 03/03/25 @ 09:01 by Bibiana Laurent MD) Osteopenia Hyperlipidemia Colon polyps Diverticulosis Diverticulitis Glaucoma Palpitations HTN (hypertension) Surgical History (Updated 03/03/25 @ 09:00 by Bibiana Laurent MD) Hx of colonoscopy Hx of tonsillectomy History of breast lump removal Family History Father No problems noted. Mother Hypertension Social History Household Members Other:: , retired Housing: House Patient Tobacco Use Status: Never used Tobacco e-Cigarette/Vaping Use: Never Used service: No Current occupational status: retired Cognitive needs: No Hearing needs: No Vision needs: Yes Questionnaire Thrive Questionnaire Date Thrive assessed: 10/30/24 I am a: Patient What is your living situation today?: I have a steady place to live Within the past 12 months, did the food you bought not last and you didn't have the money to get more?: Never true Within the past 12 months, did you worry whether your food would run out before you got money to buy more?: Never true Do you have trouble paying for medicines?: No Do you have trouble getting transportation to medical appointments?: No Do you have trouble paying your heating and electricity bill?: No Do you have trouble taking care of your child, family member or friend?: No Do you have trouble with day-to-day activities such as bathing, preparing meals, shopping, managing finances, etc.?: No Are you currently unemployed and looking for a job?: No Are you interested in more education?: No Please select the resources that you would like help with: None Currently or been in a relationship where the following occur: No concerns reported THRIVE Score: 0 ENA-7 AMB Questionnaire ENA-7 Date ENA - 7 assessed: 10/30/24 Source: Developed by Drs. Brandon Vargas, Aide Sesay, Benedict Garnett and colleagues, with an educational gutierrez from [employer]. Review of Systems Const All systems reviewed & are unremarkable except as noted in HPI and below Eyes Reports no additional complaints ENT Reports no additional complaints Card Reports no additional complaints Resp Reports no additional complaints GI Reports no additional complaints Reports no additional complaints Physical exam (Primary Care) Vital Signs: Last Vital Signs Temp 97.8 F 03/03/25 08:03 Pulse 74 03/03/25 08:03 Resp 18 03/03/25 08:03 BP 128/78 03/03/25 08:03 Pulse Ox 97 03/03/25 08:03 Oxygen Delivery Method Room Air 03/03/25 08:03 BMI result Body Mass Index 25.1 Tobacco/Smoking Status: Tobacco use Status Tobacco use date assessed 03/03/25 03/03/25 08:10 Patient Tobacco Use Status Never used Tobacco 03/03/25 08:10 e-Cigarette/Vaping Use Never Used 03/03/25 08:10 Thrive Assessment: Date of Thrive Assessment Date Thrive assessed 10/30/24 03/03/25 08:10 Currently or been in a relationship where the following occur: No concerns reported Const General: no acute distress HENMT Head: Yes normal to inspection Ears: TM's normal bilaterally Face and sinus: Yes normal facial exam Mouth: Normal oral and palatal mucosa present Eyes General: appearance normal, both eyes and all related structures Neck Neck: Yes no lymphadenopathy and Yes supple Resp Effort & Inspection: normal respiratory effort Auscultation: clear to auscultation bilaterally Cardio Rhythm: regular rhythm Heart sounds: S1 normal heart sound present and S2 normal heart sound present GI Inspection: Yes normal to inspection Palpation (GI): Soft to palpation Percussion: Yes normal to percussion Auscultation: normal bowel sounds Extrem General: Yes no clubbing, cyanosis or edema Coding Level of Care Code Est Pt Prev Care >65y(53423) Diagnoses Hyperlipidemia E78.5 HTN (hypertension) I10 Vitamin D deficiency E55.9 Annual physical exam Z00.00 Colon polyps K63.5 Melanoma C43.9 Assessment & Plan Assessment & Plan (1) Hyperlipidemia: Comment: Diet controlled, patient declined medications Code(s): E78.5 - Hyperlipidemia, unspecified Category: Medical Plan: Continue low-cholesterol diet regular physical activity (2) HTN (hypertension): Code(s): I10 - Essential (primary) hypertension Category: Medical Plan: Continue losartan (3) Vitamin D deficiency: Code(s): E55.9 - Vitamin D deficiency, unspecified Category: Medical Plan: Continue vitamin-D. (4) Annual physical exam: Code(s): Z00.00 - Encounter for general adult medical examination without abnormal findings Category: Medical Plan: Well-balanced diet regular physical activity discussed with the patient. She is up-to-date with the mammogram and established with intermediate manager (5) Colon polyps: Comment: 01/[address] Barros, 1 TA and 1 serrated, repeat 4-5 yrs Code(s): K63.5 - Polyp of colon Category: Medical Plan: Repeat colonoscopy in 4 yrs (6) Melanoma: Comment: f/u with [facility] Code(s): C43.9 - Malignant melanoma of skin, unspecified Category: Medical Plan: Follow-up with dermatology Orders: Orders Comprehensive [place]. Panel Fast 1 Year E55.9 - Vitamin D deficiency, unspecified, E78.5 - Hyperlipidemia, unspecified, I10 - Essential (primary) hypertension, Z00.00 - Encounter for general adult medical examination without abnormal findings Complete Blood Count Auto Diff 1 Year E55.9 - Vitamin D deficiency, unspecified, E78.5 - Hyperlipidemia, unspecified, I10 - Essential (primary) hypertension, Z00.00 - Encounter for general adult medical examination without abnormal findings Lipid Panel 1 Year E55.9 - Vitamin D deficiency, unspecified, E78.5 - Hyperlipidemia, unspecified, I10 - Essential (primary) hypertension, Z00.00 - Encounter for general adult medical examination without abnormal findings Hemoglobin A1c 1 Year E55.9 - Vitamin D deficiency, unspecified, E78.5 - Hyperlipidemia, unspecified, I10 - Essential (primary) hypertension, Z00.00 - Encounter for general adult medical examination without abnormal findings Vitamin D 25-OH Total 1 Year E55.9 - Vitamin D deficiency, unspecified, E78.5 - Hyperlipidemia, unspecified, I10 - Essential (primary) hypertension, Z00.00 - Encounter for general adult medical examination without abnormal findings Medications: New amoxicillin 500 mg PO BID 14 tabs 0RF
[2025-03-03 08:03] VITALS: BP 128/78; PULSE 74; RESP 18; TEMP 36.6; O2SAT 97; BMI 25.1
== END 2025-03-03 08:43 | disposition home or self-care (01) ==
LOC: HO.HMCC 07:54
PROVIDERS: PCP Internal Medicine; Visit Provider Internal Medicine
DX: Z00.00 Encounter for general adult medical examination without abnormal findings (principal); C43.9 Malignant melanoma of skin, unspecified; E78.5 Hyperlipidemia, unspecified; I10 Essential (primary) hypertension; E55.9 Vitamin D deficiency, unspecified; K63.5 Polyp of colon

== ENCOUNTER → 2025-03-03 07:54 | Outpatient (BNVA) | payer MEDICARE, OTHER, SELFPAY | PROVIDERS: PCP Internal Medicine; Visit Provider Internal Medicine | DX: Z00.00 Encounter for general adult medical examination without abnormal findings (principal); E78.5 Hyperlipidemia, unspecified; E55.9 Vitamin D deficiency, unspecified; I10 Essential (primary) hypertension; K63.5 Polyp of colon; C43.9 Malignant melanoma of skin, unspecified | CPT/HCPCS: 99397 ==

== ENCOUNTER 2025-05-13 08:25 | Outpatient (REF) | payer MEDICARE, OTHER, SELFPAY ==
--- OUTSIDE RECORDS SUMMARY | 2024-04-08 05:30 | XMS_ITS ---
Author Organization [facility] Address [address] [place] [address] Care Team Providers Care Waste Transportation Technician Name Role Phone Bibiana Laurent MD Primary Care Provider Unavaildviina freeman Felecia Hanson Unavailable [phone] Edilberto Ferrari Unavailable [phone] REASON FOR VISIT Seen Sooner Encounters Encounter Location Date Provider Diagnosis [address] [address] 04/08/2024 Edilberto Ferrari Plan Of Treatment Next Appt Details Provider Name:Felecia Hanson , 10/22/2025 08:00:00 AM, [address] [place], [address], Progress Notes * Sharon FOY LDOB: 3 (74 yo F)Acc No.[id number]:04/08/2024 Progress Notes Patient: Cynthia MAIKEL Sharon Tony Provider: Dk Ferrari DPM :1950 A ge:73 Y S ex:Female Date:04/08/2024 Address:[address] [place] [address] Pcp:Bibiana Laurent MD Subjective: * Chief Complaints: [...] 04/08/2024 Generated for Rachel Swanson on: 1 08:56 AM EDT
--- OUTSIDE RECORDS SUMMARY | 2024-05-08 04:15 | XMS_ITS ---
Author Organization [facility] Address [address] [place] [address] Care Team Providers Care Hard Metals Engraver Hand Name Role Phone Bibiana Laurent MD Primary Care Provider Felecia Siu [phone] Encounters Encounter Location Date Provider Diagnosis [address] [phone] 05/08/2024 Felecia Hanson Plan Of Treatment Next Appt Details Provider Name:Felecia Hanson , 10/22/2025 08:00:00 AM, [address] [place] [address], [phone], Progress Notes * Sharon FOY LDOB: 3 (74 yo F)Acc No.[id number]:05/08/2024 Progress Note Patient: Cynthia Sharon KO Provider: Susan Hanson DPM :1950 A ge:73 Y S ex:Female Date:05/08/2024 Address:[address] [place] [phone] Pcp:Bibiana Laurent MD Subjective: * Chief Complaints: [...] 05/08/2024 Generated for Rachel pichardo/Samson/Naldo on: 1 08:57 AM EDT
--- OUTSIDE RECORDS SUMMARY | 2024-07-17 04:30 | XMS_ITS ---
Author Organization [facility] Address [address] [place] [address] Care Team Providers Care Director Of Recruitment And Admissions Name Role Phone Bibiana Laurent MD Primary Care Provider Felecia Siu [phone] Encounters Encounter Location Date Provider Diagnosis [address] [phone] 07/17/2024 Felecia Hanson Plan Of Treatment Next Appt Details Provider Name:Felecia Hanson , 10/22/2025 08:00:00 AM, [address] [place] [address], [phone], Progress Notes * Sharon FOY LDOB: 3 (74 yo F)Acc No.[id number]:07/17/2024 Progress Note Patient: Cynthia Sharon KO Provider: Susan Hanson DPM :1950 A ge:73 Y S ex:Female Date:07/17/2024 Address:[address] [place] [phone] Pcp:Bibiana Laurent MD Subjective: * Chief Complaints: * * Medical History: Objective: * Vitals: Assessment: Plan: * Treatment: * Images: * The named appointment provid er may or may not be the originator of this progress note, and it is not deemed complete until electronically signed by the appointment provider. Sign off status: Pending * Provider: Susan Hanson DPM Date: 1 09/17/2023 Generated for Rachel pichardo/Samson/Naldo on: 08:56 AM EDT
--- OUTSIDE RECORDS SUMMARY | 2024-10-01 06:15 | XMS_ITS ---
Author Organization [facility] Address [address] [place] [address] Care Team Providers Care Tap Out Operator Name Role Phone Bibiana Laurent MD Primary Care Provider Felecia Siu [phone] Encounters Encounter Location Date Provider Diagnosis [address] [address] 10/01/2024 Felecia Hanson Plan Of Treatment Next Appt Details Provider Name:Felecia Barnes Valentin , 10/22/2025 08:00:00 AM, [address] [place], [address], Progress Notes * Sharon FOY LDOB: 3 (74 yo F)Acc No.[id number]:10/01/2024 Progress Note Patient: Cynthia Sharon KO Provider: Susan Hanson DPM :1950 A ge:74 Y S ex:Female Date:10/01/2024 Address:[address] [place] [address] Pcp:Bibiana Laurent MD Subjective: * Chief Complaints: * * Medical History: Objective: * Vitals: Assessment: Plan: * Treatment: * Images: * The named appointment provid er may or may not be the originator of this progress note, and it is not deemed complete until electronically signed by the appointment provider. Sign off status: Pending * Provider: Susan Hanson DPM Date: 0 10/01/2024 Generated for Rachel pichardo/Samson/Naldo on: 1 08:56 AM EDT
--- NOTE | ~2025-05-13 | US_ITS ---
CLINICAL HISTORY: N20.0 - Calculus of kidney US Renal Comparison: US/CA/SR - US KIDNEY BILATERAL - 11/05/24 13:01 EDT Findings: Right kidney normal size and echotexture, 10.7 cm length. Left kidney normal size and echotexture, 11.1 cm length. 0.6 cm, 1.0 cm, and 1.3 cm anechoic right renal cysts are present. 1.0 cm anechoic left renal cyst is present. No collecting system dilatation of either kidney. IMPRESSION: 1. No definite renal stone is identified. 2. Several simple right renal cysts measuring up to 1.3 cm. 3. 1.0 cm simple left renal cyst. This document has been electronically signed by: Sil Moore on 05/14/2025 09:46:52
--- OUTSIDE RECORDS SUMMARY | 2025-05-13 08:56 | XMS_ITS | Clinical Summary ---
Author Organization [facility] Address [address] [facility] [address] [place] [phone] Phone Care Team Providers Care Machine Operator Name Role Phone Unknown, Unknown Primary Care [...] 2002 OSTEOPOROSIS SCREENING INITI AL (ONE-TIME) 2017 INFLUENZA VACCINE (#1) 2025 Adult Td,Tdap Booster 03/24/2025 03/24/2015 , 04/06/2005 COVID-19 VACCINE (3 - 2024-2 6 season) 2025 11/12/2020, 10/22/2020 RSV VACCINE (1 - 1-dose 75+ series) [...] topic Medical Devices Not on file Insurance MEDICARE PART A & B MEDICARE PART A & B MEDICARE PART A & B MEDICARE PART A & B MEDICARE PART A & B MEDICARE PART A & B MEDICARE PART A & B MEDICARE PART A & B MEDICARE PART A & B [employer] MEDICARE COMPLEMENT SUPPLEMENT Care Teams Machine Operator Relationship Specialty Start Date End Date Unknown, Unknown, PCP - General 12/01/21 Additional Source Comments The information contained in this document represents components of the legal health record. It is not the complete legal health record.[facility]
--- OUTSIDE RECORDS SUMMARY | 2025-05-13 08:57 | XMS_ITS ---
[facility] Organization Unknown Care Team Organization Name Specialty Phone Email Start Date End Da te [facility] Markus Kim Primary Care 06/20/2022 03/31/2024
--- OUTSIDE RECORDS SUMMARY | 2025-05-13 08:57 | XMS_ITS | Patient Health Record ---
Author Organization [facility] Address [address] [facility] [place] [facility] [place] [address] Care Team Providers Care Shale Planer Operator Name Role Phone Bibiana Laurent MD Primary Care Provider Unavaila Felecia Carbone Unavailable [phone] Ayden Peace Unavailable [phone] Allergies Allergen (clinical drug ingredient) Drug/Non Drug [...] foot as directed Externally Four times a day; Duration: 30 days 10/23/2024 Active Losartan Potassium 25 [...] Status Risk Notes Problem Acquired hallux valgus (11085707) Hallux valgus (acquired), left foot (M20.12) Active confirmed Problem Acquired hallux valgus (44643586) Hallux valgus (acquired), right foot (M20.11) Active confirmed Problem Acquired hammer toe of right foot (5618601556692 105) Other hammer toe(s) (acquired), right foot (M20.41) Active confirmed Problem Acquired hammer toe of left foot (7344399090998 103) Other hammer toe(s) (acquired), left foot (M20.42) Active confirmed Vital Signs Blood pressure diastolic 70 mm Hg 10/23/2024 Height 5ft2in in 10/23/2024 Blood pressure systolic 124 mm Hg 10/23/2024 Weight 130 lbs 10/23/2024 BMI 23.77 kg/m2 10/23/2024 Procedures Procedure Date Ordered Date Performed [place] e [address]6420-[id number] NAIL, 6 OR MORE 10/23/2024 N/A Encounters Encounter Location Date Provider Diagnosis [address] [address] 10/23/2024 Felecia Hanson Pain in left foot M79.672 ; Hallux [...] B35.1 and Pain in left toe(s) M79.675 [facility] [address] [facility] [address] [address] 2024 Felecia Hanson Assessments Encounter Date Diagnosis [...] X ray : Foot, right 2V 02/09/2012 [id number] NAIL, 6 OR MORE 02/09/2012 [id number] NAIL, 6 OR MORE 10/23/2024 Next Appt Details Provider Name:Felecia Hanson , 10/22/2025 08:00:00 AM, [address] [facility], [place], [address], Insurance Providers Payer Name Payer Address Payer Phone Subscriber Number Group Number Insured Name Patient Relationship to Insured Coverage Start Date Coverage End Date Medicare National [employer]t [employer] [address] [place] [address] [id number] Sharon Nevarez Self - patient is the insured [facility] [address] [place] [address] [phone] [id number] Sharon Nevarez Self - patient is the insured Medical (General) History Medical History History ICD Code chicken pox measles osteoporosis psoriasis Arthritis Cataracts Glaucoma Headaches/Migraines High blood pressure Joint implants/screws Surgical History Surgery Date(Month/Year) pelvic suspension 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
--- OUTSIDE RECORDS SUMMARY | 2025-05-13 08:57 | XMS_ITS | Clinical Summary ---
Author Organization [facility] [address] [place] [address] [place] [phone] Phone Care Team Providers Care Twist Packer Name Role Phone Matty Ramos MD Primary Care Provider [phone] Allergies Active Allergy Reactions Criticality Noted Date [...] (08/01/2024): IMO update Transient cerebral ischemia 12/29/2005 Encounters Date Type Department Care Team Description 03/16/2025 11:12 AM EDT - 03/16/2025 11:59 PM EDT Hospital Encounter Radiology Department [address] [address] Encounter for screening mammogram for breast cancer Discharge Disposition: Home or Self Care from Last 3 Months Immunizations Immunization Administration Dates Next Due Td Tetanus diptheria [...] = 0.6 oz pur e alcohol) Comments No Sex and Gender Information Value Date Recorded Sex Assigned at Not on file Legal Sex Female 3:48 PM EST Gender Identity Not on file Sexual Orientation Not on file Obstetrics History Para Term AB IAB SAB Ectopic Multiple Livin g Live Births 2 2 2 2 Date Outcome GA Total Labor Labor/2nd/3rd Weight Sex Type Anes PTL Shraddha A1 A5 Name Clin Term Term Last Filed Vital Signs Vital Sign Reading [...] 12/01/2021 3:00 PM EDT Plan of Treatment Health Maintenance Due Date Last Done Comments Colorectal Cancer Screening: Colonoscopy 1950 Pneumococcal Vaccine: 50+ Years (1 of 2 - PCV) 1971 Zoster Vaccines (1 of 2) 1971 COVID-19 Vaccine (3 - Pfizer risk series) 12/10/2020 11/12/2020, 10/22/2020 Falls Risk Assessment 07/22/2022 Medicare Annual Wellness Visit 07/22/2022 Social Influencers of Health Screening 07/22/2022 Hypertension/CHF/CAD Annual BMP Blood Test 07/23/2022 12/29/2020 Depression Screening 08/13/2024 Influenza Vaccine (#1) 2025 Cholesterol Screening (Lipid Panel) 12/29/2025 12/29/2020 Breast Cancer Screening 03/16/2027 03/16/20, 02/11/2024, 02/11/2024, Additional history exists RSV Immunization Adult Patients (1 - 1-dose 75+ series) 2027 Osteoporosis Screening (Bone Density Screening) 06/30/2031 06/30/2021 DTaP,Tdap,and Td Vaccines (4 - Td or Tdap) 03/05/2034 03/05/2024, 03/24/2015, 04/06/2005 Hepatitis C Screening Completed 09/12/2004 HIB Vaccines [...] Procedure Name Priority Date/Time Associated Diagnosis Comments MG MAMMO DIGITAL SCREENING W NORBERTO BILAT Routine 03/16/2025 11:31 AM EDT Encounter for screening mammogram for breast cancer DXA BONE DENSITY STUDY 1+ SITS AXIAL SKEL Routine 06/30/2021 2:43 PM EST Menopausal and female climacteric states ANNUAL BMP BLOOD TEST Routine 12/29/2020 LIPID PANEL Routine 12/29/2020 HEPATITIS C SCREENING Routine 09/12/2004 from Last 3 Months or Most Recently Relevant to Health Maintenance Results * MG Mammo Digital Screening w Norberto bilat (03/16/2025 11:31 AM EDT) Anatomical Region Laterality Modality Breast Bilateral Mammography 03/17/2025 6:19 PM EDT Impressions 03/17/2025 6:21 PM EDT 1. No mammographic evidence of malignancy 2. Heterogeneous breast parenchyma BI-RADS CATEGORY: 2 - BENIGN RECOMMENDATION: Screening bilateral mammogram is recommended in 1 year. Mammo Location: [facility], [address] [place] [address], [facility], . -------- FINAL REPORT -------- Dictated By: Anna Waite Dictated Date: 03/17/2025 18:19 ET Assigned Physician: Anna Waite Reviewed and Electronically Signed By: Anna Waite Signed Date: 03/17/2025 18:21 ET Workstation ID: [id number] Transcribed By: Self Edit Transcribed Date: 03/17/2025 18:19 ET Narrative 03/17/2025 6:21 PM EDT A BILATERAL DIGITAL 3D SCREENING MAMMOGRAPHY HISTORY: Routine screening. No family history of breast cancer. COMPARISON: Multiple priors dating back to 09/14/2020 Technique: Bilateral full field digital mammography (3D) was performed using standard CC and MLO projections CAD was used to evaluate this mammogram. FINDINGS: Right: No suspicious masses, groups of microcalcification or areas of architectural distortion identified. Stable typically benign parenchymal asymmetries. Left: No suspicious masses, groups of microcalcification or areas of architectural distortion identified. Stable typically benign parenchymal asymmetries. BREAST DENSITY: C - The breasts are heterogeneously dense which may obscure small masses. Procedure Note Anna Waite MD - 03/17/2025 A BILATERAL DIGITAL 3D SCREENING MAMMOGRAPHY HISTORY: Routine screening. No family history of breast cancer. COMPARISON: Multiple priors dating back to 09/14/2020 Technique: Bilateral full field digital mammography (3D) was performedusing standard CC and MLO projections CAD was used to evaluate this mammogram. FINDINGS: Right: No suspicious masses, groups of microcalcification or areas ofarchitectural distortion identified. Stable typically benign parenchymalasymmetries. Left: No suspicious masses, groups of microcalcification or areas ofarchitectural distortion identified. Stable typically benign parenchymalasymmetries. BREAST DENSITY: C - The breasts are heterogeneously dense which mayobscure small masses. IMPRESSION: 1. No mammographic evidence of malignancy 2. Heterogeneous breast parenchyma BI-RADS CATEGORY: 2 - BENIGN RECOMMENDATION: Screening bilateral mammogram is recommended in 1 year. Mammo Location: [facility], [address] [place] [address], [id number], . -------- FINAL REPORT -------- Dictated By: Anna Waite Dictated Date: 03/17/2025 18:19 ET Assigned Physician: Anna Waite Reviewed and Electronically Signed By: Anna Waite Signed Date: 03/17/2025 18:21 ET Workstation ID: [id number] Transcribed By: Self Edit Transcribed Date: 03/17/2025 18:19 ET us Bibiana Laurent MD IMG BI PROCEDURES Final Resul t * DXA BONE DENSITY STUDY 1+ SITS [...] alternative screening schedule based on avril Luis., [facility] August 31, 2011 for patients with [...] Result * Annual BMP Blood Test (12/29/2020) [facility] Annual BMP Blood Test Abstracted Historical Provider HEALTH MAINTENANCE Final Result * (ABNORMAL) Lipid panel (12/29/2020) [facility] LDL/HDL Ratio 4 0 - 4 Triglycerides 133 0 - 150 mg/dL Cholesterol 237(A) 0 - 200 mg/dL HDL 56 >=40 mg/dL LDL Cholesterol 155(A) 0 - 100 mg/dL Blood Venous blood specimen / Unknown Historical Provider LAB BLOOD ORDERABLES Lizabeth yusuf Result * Hepatitis C Screening (09/12/2004) Hepatitis C Screening Abstracted Historical Provider HEALTH MAINTENANCE Final Result from Last 3 Months or Most Recently Relevant to Health Maintenance Insurance MEDICARE [facility] Care Teams Twist Packer Relationship Specialty Start Date End Date Matty Ramos MD [address] [place], [place] [phone] PCP - General 05/10/1998
== END 2025-05-13 08:26 | disposition home or self-care (01) ==
LOC: HO.HMGCX 08:25
PROVIDERS: PCP Internal Medicine; Visit Provider Nurse Practitioner Family
DX: N20.0 Calculus of kidney (principal)
CPT/HCPCS: 76775

== ENCOUNTER → 2025-05-13 08:41 | Outpatient (BNV) | payer MEDICARE, OTHER, SELFPAY | PROVIDERS: PCP Internal Medicine; Visit Provider Radiology Vascular & Interventional Radiology | DX: N28.1 Cyst of kidney, acquired (principal) | CPT/HCPCS: 76775 ==

== ENCOUNTER 2025-05-28 14:57 | Outpatient (REF) | payer MEDICARE, OTHER, SELFPAY | END 2025-05-28 14:58 | disposition home or self-care (01) | LOC: HO.LAB 14:57 | PROVIDERS: PCP Internal Medicine; Visit Provider Nurse Practitioner Family | DX: N20.0 Calculus of kidney (principal); N28.1 Cyst of kidney, acquired; Z79.899 Other long term (current) drug therapy; Z13.89 Encounter for screening for other disorder | CPT/HCPCS: 81003; 88112; 99212 ==

== ENCOUNTER 2025-05-28 14:57 | Outpatient (AMB) | payer MEDICARE, OTHER, SELFPAY ==
--- OUTSIDE RECORDS SUMMARY | 2024-01-08 10:00 | XMS_ITS ---
Author Organization [facility] Address [address] [place] [address] Care Team Providers Care Machine Operator Packaging Name Role Phone Anastasiia SMITH, Bibiana Primary Care Provider Unavaildivina freeman Delmi Hansone Unavailable [phone] Edilberto Ferrari Unavailable [phone] Smith Encounters Encounter Location Date Provider Diagnosis [address] [address] 01/08/2024 Edilberto Ferrari Plan Of Treatment Next Appt Details Provider Name:Felecia Hanson , 10/22/2025 08:00:00 AM, [address] [place], [address], Progress Notes * Sharon FOY LDOB: 3 (74 yo F)Acc No.[id number]:01/08/2024 Progress Notes Patient: Cynthia Sharon KO Provider: Dk Ferrari DPM :1950 A ge:73 Y S ex:Female Date:01/08/2024 Address:[address] [place] [id number] Pcp:Bibiana Laurent MD Subjective: * Chief Complaints: * [address] Smith[address] * Medical History: Objective: * Vitals: Assessment: Plan: * Treatment: * Images: * The named appointment provid er may or may not be the originator of this progress note, and it is not deemed complete until electronically signed by the appointment provider. Sign off status: Pending * Provider: Dk Ferrari DPM Date: 0 01/08/2024 Generated for Rachel Swanson on: 1 06:50 PM EDT
--- OUTSIDE RECORDS SUMMARY | 2024-02-27 04:30 | XMS_ITS ---
Author Organization [facility] [employer] Address [address] [place] [address] Care Team Providers Care Insurance Claims Adjuster Name Role Phone Bibiana Laurent MD Primary Care Provider Felecia Siu Unavailable [phone] Allergies Allergen (clinical drug ingredient) Drug/Non Drug Allergy documented on EMR Reaction Allergy Type Onset Date Status acetaminophen / oxycodone Percocet swelling Drug Allergy Active sulfa rash Drug Allergy Active REASON FOR VISIT Seen Sooner Medications Medication SIG (Take, Route, Frequency, Duration) Notes Start Date End Date Status Cosopt 22.3-6.8 MG/ML 1 drop into affect ed eye Ophthalmic Twice a day Active Losartan Potassium 25 MG 1 tablet Orally Once a day Active Social History Tobacco Use: Social History Observation Description Date Details (start date - stop date) Never Smoker NA - NA Tobacco Use/Smoking Question Answer Notes Are you a: nonsmoker Additional Findings: Tobacco Non-User Current no n-smoker Alcohol Screen Question Answer Notes Did you have a drink containing alcohol in the p ast year? Yes Points 0 Interpretation Negative Tobacco use other than smoking: Question Answer Notes Are you an other tobacco user? No Vital Signs Height 5 ft 2 in in 02/27/2024 Weight 130 lbs 02/27/2024 BMI 23.77 kg/m2 02/27/2024 Encounters Encounter Location Date Provider Diagnosis [address] [address] 02/27/2024 Felecia Hanson Plan Of Treatment Next Appt Details Provider Name:Felecia Hanson , 10/22/2025 08:00:00 AM, [address] [place], [address], Progress Notes * Sharon FOY LDOB: [birth year] (74 yo F)Acc No.[id number]:02/27/2024 Progress Notes Patient: Sharon CASIANO Provider: Susan Hanson DPM :1950 A ge:73 Y S ex:Female Date:02/27/2024 Address:[address] [place], [place] [id number] Pcp:Bibiana Laurent MD Subjective: * Chief Complaints: * 1 . Seen Sooner. * ROS: G eneral/Constitutional: Nausea d enies. V omiting d enies. H judy Thirst d enies. L oss appetite d enies. C hills d enies. F atigue d enies.?Fever d enies. N ight Sweats d enies. U nexplained weight loss d enies. U nexplained weight gain d enies. H EENTM: Dentures d enies. D izziness d enies. G lasses/contacts a dmits. R etinopathy d enies. B lurred/double vision d enies. T MJ?denies. D ischarge/drainage d enies. I mplants d enies. S ore throat d enies. D ental implants d enies. H willy of hearing d enies. D ifficulty chewing/swallowing/speaking d enies. N ose bleeds d enies. S ore mouth d enies. ? R espiratory: On Oxygen d enies. P neumonia/pleurisy d enies.?Bronchitis d enies. E mphysema d enies. C oughing d enies. C ough blood?denies. S hortness of breath d enies. W heezing d enies. C ardiovascular: Pacemaker d enies. M [employer] d enies. W PW d enies. C HF d enies. H eart attack d enies. S eptal defect d enies. R apid beat d enies. C hest pain d enies. A trial Fib. d enies. M urmur/Palpitations d enies. G astrointestinal: Hemorrhoids d enies. S tomach/Abdominal pain d enies. D ark blood stool d enies. I rritable bowel d enies. C onstipation d enies. D iarrhea d enies. H ematology: Swelling d enies. C lots d enies. V aricose Veins d enies. B ruising d enies. B leeding problem d enies. G enitourinary: Blood urine d enies. F requent/Painfu/urination/bladder control d enies. K idney stones a dmits. I nfection (UTI) d enies. N ephropathy d enies. s ex trans dis (STD) d enies. P rostate d enies. M usculoskeletal: Hammertoes d enies. B unions a dmits. B ack Pain d enies. M uscle Cramps/ Resting d enies. M uscle cramps / walking d enies.?Generalized aches and pains d enies. W eakness d enies. I nteg.: Brown d enies. S cars d enies. C orns/calluses?admits. I ngrown nails a dmits. P ainful nails d enies. O pen Sores d enies. R ashes d enies. N eurologic: Difficulty sleeping d enies. B rain disorder d enies. N umbness d enies. B alance trouble d enies. C onfusion d enies. F ainting/blackouts d enies. T ingling d enies. T remors d enies. * Medical History: C hicken pox, Measles, Osteoporosis, Psoriasis, Arthritis, Cataracts, Glaucoma, Headaches/Migraines, High blood pressure, Joint implants/screws. * Surgical History: p elvic suspension , melanoma removed from leg , breast lumpectomy . * Family History: M other: , high blood pressure, poor circulation, stroke, cancer, foot problems. F ather: . M aternal Grand Mother: stroke, foot problems. * Social History: T obacco Use: T obacco Use/Smoking A re you a: n onsmoker A dditional Findings: Tobacco Non-User C urrent non-smoker Tobacco use other than smoking A re you an other tobacco user? N o D rugs/Alcohol: D rugs H ave you used drugs other than those for medical reasons in the past 12 months? N o Alcohol Screen D id you have a drink containing alcohol in the past year? Y es P oints 0 I nterpretation N egative M iscellaneous: C affeine: yes. Children: yes, 2. Marital status: . * Medications: T aking Losartan Potassium 25 MG Tablet 1 tablet Orally Once a day , Taking Cosopt 22.3-6.8 MG/ML Solution 1 drop into affected eye Ophthalmic Twice a day * Allergies: P ercocet: swelling, sulfa: rash. Objective: * Vitals: H t: 5 ft 2 in, Wt:130, BMI:23.77, Shoe size: 8, Ht-cm: 157.48 cm, Wt-k.97 kg. Assessment: Plan: * Treatment: * Images: * The named appointment provid er may or may not be the originator of this progress note, and it is not deemed complete until electronically signed by the appointment provider. Sign off status: Pending * Provider: Susan Hanson DPM Date: 0 02/27/2024 Generated for Rachel pichardo/Samson/Naldo on: 1 06:49 PM EDT
--- OUTSIDE RECORDS SUMMARY | 2024-04-08 05:30 | XMS_ITS ---
Author Organization [facility] Address [address] [place] [address] Care Team Providers Care Marketing Agent Name Role Phone Bibiana Laurent MD Primary Care Provider Unavaildivina freeman Felecia Hanson Unavailable [phone] Edilberto Ferrari Unavailable [phone] REASON FOR VISIT Seen Sooner Encounters Encounter Location Date Provider Diagnosis [address] [address] 04/08/2024 Edilberto Ferrari Plan Of Treatment Next Appt Details Provider Name:Felecia Hanson , 10/22/2025 08:00:00 AM, [address] [place], [address], Progress Notes * Sharon FOY LDOB: 3 (74 yo F)Acc No.[id number]:04/08/2024 Progress Notes Patient: Cynthia Sharon KO Provider: Dk Ferrari DPM :1950 A ge:73 Y S ex:Female Date:04/08/2024 Address:[address] [place] [address] Pcp:Bibiana Laurent MD Subjective: * Chief Complaints: * 1 . Seen Sooner. * Medical History: Objective: * Vitals: Assessment: Plan: * Treatment: * Images: * The named appointment provid er may or may not be the originator of this progress note, and it is not deemed complete until electronically signed by the appointment provider. Sign off status: Pending * Provider: Dk Ferrari DPM Date: 0 04/08/2024 Generated for Rachel Swanson on: 1 06:49 PM EDT
--- OUTSIDE RECORDS SUMMARY | 2024-05-08 04:15 | XMS_ITS ---
Author Organization [facility] Address [address] [place] [address] Care Team Providers Care Bottom Saw Operator Name Role Phone Bibiana Laurent MD Primary Care Provider Felecia Siu [phone] Encounters Encounter Location Date Provider Diagnosis [address] [phone] 05/08/2024 Felecia Hanson Plan Of Treatment Next Appt Details Provider Name:Felecia Hanson , 10/22/2025 08:00:00 AM, [address] [place] [address], [phone], Progress Notes * Sharon FOY LDOB: 3 (74 yo F)Acc No.[id number]:05/08/2024 Progress Note Patient: Cynthia Sharon KO Provider: Susan Hanson DPM :1950 A ge:73 Y S ex:Female Date:05/08/2024 Address:[address] [place] [phone] Pcp:Bibiana Laurent MD Subjective: * Chief Complaints: * * Medical History: Objective: * Vitals: Assessment: Plan: * Treatment: * Images: * The named appointment provid er may or may not be the originator of this progress note, and it is not deemed complete until electronically signed by the appointment provider. Sign off status: Pending * Provider: Susan Hanson DPM Date: 0 05/08/2024 Generated for Rachel pichardo/Samson/Naldo on: 1 06:50 PM EDT
--- OUTSIDE RECORDS SUMMARY | 2024-07-17 04:30 | XMS_ITS ---
Author Organization [facility] Address [address] [place] [address] Care Team Providers Care Android Programmer Name Role Phone Bibiana Laurent MD Primary Care Provider Felecia Siu [phone] Encounters Encounter Location Date Provider Diagnosis [address] [phone] 07/17/2024 Felecia Hasnon Plan Of Treatment Next Appt Details Provider Name:Felecia Hanson , 10/22/2025 08:00:00 AM, [address] [place] [address], [phone], Progress Notes * Sharon FOY LDOB: 3 (74 yo F)Acc No.[id number]:07/17/2024 Progress Note Patient: Cynthia Sharon KO Provider: Susan Hanson DPM :1950 A ge:73 Y S ex:Female Date:07/17/2024 Address:[address] [place] [phone] Pcp:Bibiana Laurent MD Subjective: * Chief Complaints: [...] 1 09/17/2023 Generated for Rachel pichardo/Samson/Naldo on: 06:50 PM EDT
--- OUTSIDE RECORDS SUMMARY | 2024-10-01 06:15 | XMS_ITS ---
Author Organization [facility] Address [address] [place] [address] Care Team Providers Care Underwriter Solicitation Director Name Role Phone Bibiana Laurent MD Primary Care Provider Felecia Siu [phone] Encounters Encounter Location Date Provider Diagnosis [address] [address] 10/01/2024 Felecia Hanson Plan Of Treatment Next Appt Details Provider Name:Felecia Barnes Valentin , 10/22/2025 08:00:00 AM, [address] [place], [address], Progress Notes * Sharon FOY LDOB: 3 (74 yo F)Acc No.[id number]:10/01/2024 Progress Note Patient: Cynthia Sharon KO Provider: Susan Hanson DPM :1950 A ge:74 Y S ex:Female Date:10/01/2024 Address:[address] [place] [address] Pcp:Bibiana Laurent MD Subjective: * Chief Complaints: [...] 10/01/2024 Generated for Rachel pichardo/Samson/Naldo on: 1 06:50 PM EDT
--- NOTE | 2025-05-28 15:00 | MHC.OFFVIS ---
Intake Visit Reasons: KIDNEY STONES/US Intake Note: Patient is present for KIDNEY STONES/US Urology Medication:VITAMIN B6 Antibiotic Allergy:SULFA Blood Thinner:NONE Education Instructor Required: No Allergies oxycodone (From Percocet) Adverse Reaction (Intermediate, Verified 05/28/25 15:56) swollen face Sulfa (Sulfonamide Antibiotics) Adverse Reaction (Intermediate, Verified 05/28/25 15:56) swollen face Medication List - Last Reconciled 05/28/25 by ALICE Hercules-LAMAR amoxicillin 500 mg PO BID dorzolamide-timolol 22.3-6.8 mg/mL 1 drp ophthalmic (eye) BID losartan 50 mg PO DAILY pyridoxine (vitamin B6) 100 mg PO DAILY 90 days HPI Comments Details: Sharon is a very pleasant 74-year-old female patient of Dr. Laurent. She has a past medical history of hypertension, glaucoma, hyperlipidemia, and osteopenia. She presents to the office today for follow-up of her nephrolithiasis and recurrent urinary tract infections. In discussion with the patient today she reports to be doing and feeling well. She denies having had any bothersome urinary issues or concerns since her last office visit here. She denies having had any UTIs and or UTI like symptoms since her last office visit here. Recent renal imaging results reviewed with the patient today 06/06 bilateral kidneys are normal in size and echotexture. Several simple right renal cysts measuring up to 1.3 cm. 1.0 cm simple left renal cysts. No definitive or renal stones are identified per radiology report. She continues to drink plenty of water daily. She also reports compliance with vitamin B6 as prescribed. Previous workup has included a 24 hour urine noting low urine volume of 1.28, hypercalciuria, borderline hypocitraturia, and high calcium oxalate. Labs are as follows: 02/03 sodium 143, potassium 4.1, chloride 109, carbon dioxide 27, BUN 16, creatinine 0.82, random glucose 108, uric acid 5.4, calcium 9.6, phosphorus 3.5, magnesium 2.1, and 25 OH vitamin-D total 41.8. BUN: 11/03 23, 02/03 16, 03/05 16, 11/04 17, 03/06 15 Creatinine: 11/03 0.89, 02/03 0.82, 03/05 0.77, 11/04 0.73, 03/06 0.70 In office urinalysis results reviewed with the patient today. All questions were answered. She otherwise offers no other issues or concerns at this time. [facility] Medical History Osteopenia Hyperlipidemia Colon polyps Diverticulosis Diverticulitis Glaucoma Palpitations HTN (hypertension) Surgical History (Updated 03/03/25 @ 09:00 by Bibiana Laurent MD) Hx of colonoscopy Hx of tonsillectomy History of breast lump removal Family History Father No problems noted. Mother Hypertension Social History Household Members Other:: , retired Housing: House Patient Tobacco Use Status: Never used Tobacco e-Cigarette/Vaping Use: Never Used service: No Current occupational status: retired Cognitive needs: No Hearing needs: No Vision needs: Yes Review of Systems Const All systems reviewed & are unremarkable except as noted in HPI and below Physical Exam Const General: cooperative, healthy appearing, comfortable, no acute distress, well developed, alert and awake Orientation/consciousness: patient oriented x3 Limitations: no limitations HEENT Head: Yes normal to inspection, Yes normocephalic and Yes atraumatic Ears: hearing grossly normal bilaterally Eyes General: appearance normal, both eyes and all related structures Neck Neck: Yes normal visual inspection and Yes trachea midline Chest Chest palpation & inspection: normal inspection of the chest Resp Effort & Inspection: normal respiratory effort and able to speak in complete sentences Cardio Rate: regular rate GI Inspection: Yes normal to inspection General: Yes no CVA tenderness Back/Spine/Pelvis Back: no CVA tenderness Skin General skin exam: no rashes or lesions noted Neuro General: patient oriented x3 Extrem General: Yes normal to inspection Psych Appearance: grossly normal and well kempt Mental Status: mental status grossly normal Speech and movement: Normal speech and movement present and Clear speech present Affect: normal affect Attitude: cooperative Thought process: Normal thought process present Thought content: Normal thought content present Insight: Fair insight present (Psych) Judgement: Fair judgement present (Psych) Results AMB Urinalysis, Automated UA Leukoctes 0 Meliton/uL Last Edit by JERED Tirado on 05/28/25 15:27 UA Nitrite Negative Last Edit by Hardeep Barr, [facility] on 05/28/25 15:27 UA Urobilinogen 0.2 mg/dL Last Edit by Hardeep Barr, [facility] on 05/28/25 15:27 UA Protein 15 mg/dL Last Edit by Hardeep Barr, [facility] on 05/28/25 15:27 UA pH 6.0 Last Edit by Hardeep Barr, [facility] on 05/28/25 15:27 UA Blood 10 Vic/uL Last Edit by Hardeep Barr [facility] on 05/28/25 15:27 UA Specific Linn 1.015 Last Edit by Hardeep Barr [facility] on 05/28/25 15:27 UA Ketone Positive Last Edit by Hardeep Barr [facility] on 05/28/25 15:27 UA Bilirubin 0 mg/dL Last Edit by Hardeep Barr [facility] on 05/28/25 15:27 UA Glucose 0 mg/dL Last Edit by Hardeep Barr [facility] on 05/28/25 15:27 Results Reviewed Results Reviewed: Laboratory Last Values Urine pH (Auto) 6.0 05/28/25 15: Specific Linn (Auto) 1.015 05/28/25 15:26 Urine Protein (Auto) 15 mg/dL 05/28/25 15:26 Glucose (UA)(Auto) 0 mg/dL 05/28/25 15:26 Urine Ketones (Auto) Positive 05/28/25 15:26 Urine Blood (Auto) 10 Vic/uL 05/28/25 15:26 Urine Nitrite (Auto) Negative 05/28/25 15:26 Urine Bilirubin (Auto) 0 mg/dL 05/28/25 15: Urine Urobilinogen (Auto) 0.2 mg/dL 05/28/25 15:26 Leukocyte Esterase (Auto) 0 Meliton/uL 05/28/25 15:26 Date of Service: 05/13/25 Procedure(s): US renal BI Findings: Right kidney normal size and echotexture, 10.7 cm length. Left kidney normal size and echotexture, 11.1 cm length. 0.6 cm, 1.0 cm, and 1.3 cm anechoic right renal cysts are present. 1.0 cm anechoic left renal cyst is present. No collecting system dilatation of either kidney. IMPRESSION: 1. No definite renal stone is identified. 2. Several simple right renal cysts measuring up to 1.3 cm. 3. 1.0 cm simple left renal cyst. Assessment & Plan Assessment & Plan (1) Nephrolithiasis: Comment: left, 5 mm UPJ, 2 mm left ureter, mild obstruction, CT scan 11/03 renal US 04/2024 bilateral nonobstructing kidney stones, mild hydronephrosis on the left, f/u with [facility] Colin 24 hour urine collection not done by the lab Code(s): N20.0 - Calculus of kidney Category: Medical (2) Parapelvic renal cyst: Code(s): N28.1 - Cyst of kidney, acquired Category: Medical Plan In office urinalysis results reviewed with the patient today; as noted above. Recent renal imaging results reviewed with the patient today; as noted above. Continue vitamin B6 Continue drinking plenty of water daily Continue adding 1 oz of lemon juice to water daily. She denies any bothersome urinary issues or concerns. She reports be happy with current voiding parameters. All questions were answered. Will continue with surveillance monitoring Will obtain renal ultrasound in 1 year Follow-up in 1 year with imaging; or sooner with any issues, concerns, and or questions. Orders: Orders US renal BI 1 Year N20.0 - Calculus of kidney AMB Urinalysis Automated Today Z13.9 - Encounter for screening, unspecified Urine Cytology Today R31.29 - Other microscopic hematuria Medications: Refilled amoxicillin 500 mg PO BID 14 tabs 0RF Patient Instructions: The patient had an opportunity to ask questions regarding the treatment plan. All questions were answered. Physical exam, labs, and imaging were discussed and reviewed in detail. As well as risks, benefits, and discussion of treatment choices. No major barriers to understanding were identified. The patient expressed understanding and agreement with the above treatment plan. The patient was made aware they should contact our office by phone for worsening of their current condition, the appearance of new symptoms, or with any questions or concerns. Compliance is encouraged with any medications and follow up testing that is ordered. It is a privilege to be allowed the opportunity to participate in? your urological care.? Again, if you have any questions or concerns If you have any questions or concerns please do not hesitate to contact me. The office is [phone]. This note is constructed using voice recognition software. While every effort has been made to ensure accuracy housekeeper and laundry assistant errors may have been included. Yours sincerely, KRISTAL Hercules Coding Level of Care Code Est Pt Level 3 (68539) Complex EM visit Add On G2211 Diagnoses Nephrolithiasis N20.0 Parapelvic renal cyst N28.1
--- OUTSIDE RECORDS SUMMARY | 2025-05-28 18:49 | XMS_ITS | Clinical Summary ---
Author Organization [facility] Address [address] [facility] [address] [place] [address] Phone Care Team Providers Care Band Instrument Repairer Name Role Phone Unknown, Unknown Primary Care [...] B [employer] MEDICARE COMPLEMENT SUPPLEMENT Care Teams Band Instrument Repairer Relationship Specialty Start Date End Date Unknown, Unknown, PCP - General 12/01/21 Additional Source Comments The information contained in this document represents components of the legal health record. It is not the complete legal health record.[facility]
--- OUTSIDE RECORDS SUMMARY | 2025-05-28 18:50 | XMS_ITS | Patient Health Record ---
Author Organization [facility] Address [address] [place] [address] Care Team Providers Care Netbackup Engineer Name Role Phone Bibiana Laurent MD Primary Care Provider Unavaila Felecia Carbone Unavailable [phone] Ayden Alvarez Unavailable [phone] Allergies Allergen (clinical drug ingredient) Drug/Non Drug [...] Status Risk Notes Problem Acquired hallux valgus (01356137) Hallux valgus (acquired), left foot (M20.12) Active confirmed Problem Acquired hallux valgus (41008756) Hallux valgus (acquired), right foot (M20.11) Active confirmed Problem Acquired hammer toe of right foot (3599360447684 105) Other hammer toe(s) (acquired), right foot (M20.41) Active confirmed Problem Acquired hammer toe of left foot (6970286766750 103) Other hammer toe(s) (acquired), left foot (M20.42) Active confirmed Vital Signs Blood pressure diastolic 70 mm Hg 10/23/2024 Height 5ft2in in 10/23/2024 Blood pressure systolic 124 mm Hg 10/23/2024 Weight 130 lbs 10/23/2024 BMI 23.77 kg/m2 10/23/2024 Procedures Procedure Date Ordered Date Performed Result Body Sit e 12354-[id number] NAIL, 6 OR MORE 10/23/2024 N/A Encounters Encounter Location Date Provider Diagnosis [address] [address] 10/23/2024 Felecia Hanson Pain in left foot [...] B35.1 and Pain in left toe(s) [facility] [address] [facility]16[facility] [address] [address] 2024 Felecia Hanson Assessments Encounter Date Diagnosis [...] X ray : Foot, right 2V 02/09/2012 [id number] NAIL, 6 OR MORE 02/09/2012 [id number] NAIL, 6 OR MORE 10/23/2024 Next Appt Details Provider Name:Felecia Barnes Valentin , 10/22/2025 08:00:00 AM, [address] [facility], [place], [address], Insurance Providers Payer Name Payer Address Payer Phone Subscriber Number Group Number Insured Name Patient Relationship to Insured Coverage Start Date Coverage End Date Medicare National [employer] [address] [facility] [place] [address] [phone] [id number] Sharon Nevarez Self - patient is the insured [facility] [address] [place] [id number] Sharon Nevarez Self - patient is the insured Medical (General) History Medical History History ICD Code chicken pox measles osteoporosis psoriasis Arthritis Cataracts Glaucoma Headaches/Migraines High blood pressure Joint implants/screws Surgical History Surgery Date(Month/Year) pelvic suspension 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
--- OUTSIDE RECORDS SUMMARY | 2025-05-28 18:50 | XMS_ITS | Clinical Summary ---
Author Organization [facility] [address] [place] [address] [place] [phone] Phone Care Team Providers Care Mixer Crane Operator Name Role Phone Matty Ramos MD Primary Care Provider [phone] Allergies Active Allergy Reactions Criticality Noted Date [...] 11:59 PM EDT Hospital Encounter Radiology Department [address] [address] Encounter for screening mammogram for breast cancer [...] HISTORICAL COLONOSCOPY; COMMENT: normal COLONOSCOPY 2013 PROCEDURE: MA COLONOSCOPY FLX DX W/COLLJ SPEC WHEN PFRMD; COMMENT: normal BREAST BIOPSY Left PROCEDURE: BX BREAST; PERC NEEDLE CORE W/IMAG GUID; COMMENT: left-benign BREAST SURGERY Left PROCEDURE: MA UNLISTED PROCEDURE BREAST; COMMENT: b9 Medical History [...] is recommended in 1 year. Mammo Location: [facility], [address] [place] [address], [facility], . -------- FINAL REPORT -------- Dictated By: Anna Waite Dictated Date: 03/17/2025 18:19 ET Assigned Physician: Anna Waite Reviewed and Electronically Signed By: Anna Waite Signed Date: 03/17/2025 18:21 ET Workstation ID: [id number] Transcribed By: Self Edit Transcribed Date: 03/17/2025 [...] is recommended in 1 year. Mammo Location: [facility], [address] [place] [address], [id number], . -------- FINAL REPORT -------- Dictated By: Anna Waite Dictated Date: 03/17/2025 18:19 ET Assigned Physician: Anna Waite Reviewed and Electronically Signed By: Anna Waite Signed Date: 03/17/2025 18:21 ET Workstation ID: [id number] Transcribed By: Self Edit Transcribed Date: 03/17/2025 [...] to have osteoporosis by WHO criteria. [facility] Department of Internal Medicine recommends using [...] alternative screening schedule based on avril Luis., [facility] August 31, 2011 for patients with [...] to have osteoporosis by WHO criteria. [facility] Department of Internal Medicine recommendsusing National [...] Result * Annual BMP Blood Test (12/29/2020) [facility] Annual BMP Blood Test Abstracted Historical Provider HEALTH MAINTENANCE Final Result * (ABNORMAL) Lipid panel (12/29/2020) [facility] LDL/HDL Ratio 4 0 - 4 [...] Recently Relevant to Health Maintenance Insurance MEDICARE [facility] Care Teams Mixer Crane Operator Relationship Specialty Start Date End Date Matty Ramos MD [address] [place], [place] [phone] PCP - General 05/10/1998
== END 2025-05-28 15:48 | disposition home or self-care (01) ==
LOC: HO.HUSH 14:57
PROVIDERS: PCP Internal Medicine; Visit Provider Nurse Practitioner Family
DX: N20.0 Calculus of kidney (principal); N28.1 Cyst of kidney, acquired; Z13.9 Encounter for screening, unspecified
CPT/HCPCS: 99213; G2211